=== PATIENT | female | born 1935 | race Caucasian/White ===

== ENCOUNTER 2019-01-26 16:46 | Observation (INO) | payer MEDICARE ==
[2019-01-26] MEDS ORDERED: MORPHINE SULFATE 4 MG/ML SYRINGE IV STA (17:08)
[2019-01-26] MEDS ORDERED: SODIUM CHLORIDE 0.9% 1,000 ML IV STA (17:08)
[2019-01-26] MEDS ORDERED: SODIUM CHLORIDE 0.9% 500 ML 500 ML IV STA (17:08)
--- NOTE | 2019-01-26 17:42 | ED ---
Back Pain HPI - General Chief Complaint: Back Pain/Injury Stated Complaint: back pain Time Seen by Provider: 01/26/19 16:55 Source: patient, RN notes reviewed, old records reviewed Limitations: no limitations - History of Present Illness Initial Comments: This is an 83-year-old female the ER for evaluation presents today for evaluation regards to back pain severe back pain severe right sided back pain. Back pain that is been increased to the point of inability and late. She was diagnosed with S sign joint tendinitis. Patient was given injection about 5 days ago with no improvement. She is he began head is increasing back pain yesterday she was able to manually today on able to ambulate. No movement with her legs she is able to lift her legs from the bed without difficulty. She can sit up without difficulty MD Complaint: back pain -: days(s) Similar Symptoms Previously: Yes Place: home Radiation: buttocks Severity: severe Severity scale (1-10): 8 Quality: aching Consistency: constant Improves With: immobilization Worsens With: none Context: turning/twisting Associated Symptoms: difficulty walking - Related Data Home Medications Medication Instructions Recorded Confirmed Atorvastatin [Lipitor] 20 mg PO HS@2100 06/23/15 01/26/19 NIFEdipine [NIFEdipine ER 30 mg PO DAILY@1700 06/23/15 01/26/19 (Osmotic)] Sertraline [Zoloft] 200 mg PO DAILY@0900 06/23/15 01/26/19 hydrALAZINE HCL [Apresoline] 50 mg PO TID@0900,1700,2100 06/23/15 01/26/19 Losartan Potassium [Cozaar] 100 mg PO DAILY@0900 06/24/15 01/26/19 Metoprolol Tartrate [Lopressor] 100 mg PO BID@0900,1700 06/24/15 01/26/19 ALPRAZolam 0.5 mg PO BID@1700,2100 10/09/15 01/26/19 Cholecalciferol [Vitamin D3 (25 1,000 unit PO DAILY@1700 01/26/19 01/26/19 Mcg = 1000 Iu)] Cranberry Fruit Extract [Cranberry] 500 mg PO HS@2100 01/26/19 01/26/19 Ezetimibe [Zetia] 10 mg PO DAILY@1700 01/26/19 01/26/19 Allergies Allergy/AdvReac Type Severity Reaction Status Date / Time levofloxacin [From Levaquin] Allergy Rash/Hives Verified 01/26/19 17:43 Penicillins Allergy Rash/Hives Verified 01/26/19 17:43 Sulfa (Sulfonamide Allergy Rash/Hives Verified 01/26/19 17:43 Antibiotics) Review of Systems ROS Statement: Those systems with pertinent positive or pertinent negative responses have been documented in the HPI. ROS Other: All systems not noted in ROS Statement are negative. 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 , NIDDM type II, spinal stenosis, leaky bladder, bilateral hand tremors, vertigo, RAMPART bilaterally, eczema, bronchitis, sinus problems, hiatal hernia Last Myocardial Infarction Date:: 1998 History of Any Multi-Drug Resistant Organisms: None Reported Past Surgical History: Cholecystectomy, Heart Catheterization With Stent Past Anesthesia/Blood Transfusion Reactions: No Reported Reaction Date of Last Stent Placement:: 2009 Past Psychological History: Anxiety, Depression Smoking Status: Former smoker Past Alcohol Use History: None Reported Past Drug Use History: None Reported - Past Family History Mother Family Medical History: Cancer Additional Family Medical History / Comment(s): Mother had breast cancer with mets-she at age 71 yrs. Father Family Medical History: Cancer Additional Family Medical History / Comment(s): Father had esophageal cancer and in his 70's. General Exam Limitations: no limitations General appearance: alert, in no apparent distress Head exam: Present: atraumatic, normocephalic, normal inspection Eye exam: Present: normal appearance, PERRL, EOMI. Absent: scleral icterus, conjunctival injection, periorbital swelling ENT exam: Present: normal exam, mucous membranes moist Neck exam: Present: normal inspection. Absent: tenderness, meningismus, lymphadenopathy Respiratory exam: Present: normal lung sounds bilaterally. Absent: respiratory distress, wheezes, rales, rhonchi, stridor Cardiovascular Exam: Present: regular rate, normal rhythm, normal heart sounds. Absent: systolic murmur, diastolic murmur, rubs, gallop, clicks GI/Abdominal exam: Present: soft, normal bowel sounds. Absent: distended, tenderness, guarding, rebound, rigid Extremities exam: Present: normal inspection, full ROM, normal capillary refill. Absent: tenderness, pedal edema, joint swelling, calf tenderness Back exam: Present: normal inspection Neurological exam: Present: alert, oriented X3, CN II-XII intact Psychiatric exam: Present: normal affect, normal mood Skin exam: Present: warm, dry, intact, normal color. Absent: rash Course Vital Signs 01/26/19 01/26/19 01/26/19 16:48 18:05 19:21 Temperature 98.6 F Pulse Rate 61 56 L 57 L Respiratory 18 18 18 Rate Blood Pressure 196/74 195/71 184/66 O2 Sat by Pulse 95 96 96 Oximetry 01/26/19 19:57 Temperature Pulse Rate 53 L Respiratory 18 Rate Blood Pressure 173/62 O2 Sat by Pulse 95 Oximetry - Reevaluation(s) Reevaluation #1: 01/26/19 17:46 Medical records reviewed Reevaluation #2: 01/26/19 20:08 Patient is unable to ambulate or sit up on here in the ER secondary to pain Reevaluation #3: 01/26/19 20:08 The family did also patient is able to go home she is unsafe to be at home has not Out Of Bed in 2 Days Medical Decision Making - Medical Decision Making 83 female coming in the ER for evasive severe back pain back pain is controlled but Get worse again and we'll give repeat in medications. Patient does have urinary tract infection does have severe we increasing pain severe debility and inability to ambulate. We'll admit for occupational therapy and antibiotics - Lab Data Result diagrams: 01/26/19 17:45 01/26/19 17:45 Lab Results 01/26/19 01/26/19 01/26/19 Range/Units 17:45 17:45 17:45 WBC 5.7 (3.8-10.6) k/uL RBC 3.37 L (3.80-5.40) m/uL Hgb 11.1 L (11.4-16.0) gm/dL Hct 32.6 L (34.0-46.0) % MCV 96.9 (80.0-100.0) fL MCH 33.1 (25.0-35.0) pg MCHC 34.1 (31.0-37.0) g/dL RDW 13.6 (11.5-15.5) % Plt Count 188 (150-450) k/uL Neutrophils % 73 % Lymphocytes % 17 % Monocytes % 5 % Eosinophils % 2 % Basophils % 1 % Neutrophils # 4.2 (1.3-7.7) k/uL Lymphocytes # 1.0 (1.0-4.8) k/uL Monocytes # 0.3 (0-1.0) k/uL Eosinophils # 0.1 (0-0.7) k/uL Basophils # 0.0 (0-0.2) k/uL PT (9.0-12.0) sec INR (<1.2) APTT (22.0-30.0) sec Sodium 139 (137-145) mmol/L Potassium 4.8 (3.5-5.1) mmol/L Chloride 113 H (98-107) mmol/L Carbon Dioxide 20 L (22-30) mmol/L Anion Gap 6 mmol/L BUN 25 H (7-17) mg/dL Creatinine 1.07 H (0.52-1.04) mg/dL Est GFR (CKD-EPI)AfAm 55 (>60 ml/min/1.73 sqM) Est GFR (CKD-EPI)NonAf 48 (>60 ml/min/1.73 sqM) Glucose 101 H (74-99) mg/dL Plasma Lactic Acid Jesse 0.5 L (0.7-2.0) mmol/L Calcium 8.9 (8.4-10.2) mg/dL Phosphorus 3.6 (2.5-4.5) mg/dL Magnesium 2.0 (1.6-2.3) mg/dL Total Bilirubin 0.8 (0.2-1.3) mg/dL AST 42 H (14-36) U/L ALT 37 (9-52) U/L Alkaline Phosphatase 47 (38-126) U/L Creatine Kinase 25 L (30-135) U/L Troponin I (0.000-0.034) ng/mL Total Protein 6.7 (6.3-8.2) g/dL Albumin 3.6 (3.5-5.0) g/dL Urine Color Urine Appearance (Clear) Urine pH (5.0-8.0) Ur Specific [place] (1.001-1.035) Urine Protein (Negative) Urine Glucose (UA) (Negative) Urine Ketones (Negative) Urine Blood (Negative) Urine Nitrite (Negative) Urine Bilirubin (Negative) Urine Urobilinogen (<2.0) mg/dL Ur Leukocyte Esterase (Negative) Urine RBC (0-5) /hpf Urine WBC (0-5) /hpf Ur Squamous Epith Cells (0-4) /hpf Amorphous Sediment (None) /hpf Urine Bacteria (None) /hpf Urine Mucus (None) /hpf 01/26/19 01/26/19 01/26/19 Range/Units 17:45 17:45 19:15 WBC (3.8-10.6) k/uL RBC (3.80-5.40) m/uL Hgb (11.4-16.0) gm/dL Hct (34.0-46.0) % MCV (80.0-100.0) fL MCH (25.0-35.0) pg MCHC (31.0-37.0) g/dL RDW (11.5-15.5) % Plt Count (150-450) k/uL Neutrophils % % Lymphocytes % % Monocytes % % Eosinophils % % Basophils % % Neutrophils # (1.3-7.7) k/uL Lymphocytes # (1.0-4.8) k/uL Monocytes # (0-1.0) k/uL Eosinophils # (0-0.7) k/uL Basophils # (0-0.2) k/uL PT 10.0 (9.0-12.0) sec INR 0.9 (<1.2) APTT 23.6 (22.0-30.0) sec Sodium (137-145) mmol/L Potassium (3.5-5.1) mmol/L Chloride (98-107) mmol/L Carbon Dioxide (22-30) mmol/L Anion Gap mmol/L BUN (7-17) mg/dL Creatinine (0.52-1.04) mg/dL Est GFR (CKD-EPI)AfAm (>60 ml/min/1.73 sqM) Est GFR (CKD-EPI)NonAf (>60 ml/min/1.73 sqM) Glucose (74-99) mg/dL Plasma Lactic Acid Jesse (0.7-2.0) mmol/L Calcium (8.4-10.2) mg/dL Phosphorus (2.5-4.5) mg/dL Magnesium (1.6-2.3) mg/dL Total Bilirubin (0.2-1.3) mg/dL AST (14-36) U/L ALT (9-52) U/L Alkaline Phosphatase (38-126) U/L Creatine Kinase (30-135) U/L Troponin I <0.012 (0.000-0.034) ng/mL Total Protein (6.3-8.2) g/dL Albumin (3.5-5.0) g/dL Urine Color Light Yellow Urine Appearance Clear (Clear) Urine pH 5.5 (5.0-8.0) Ur Specific [place] 1.021 (1.001-1.035) Urine Protein 1+ H (Negative) Urine Glucose (UA) Negative (Negative) Urine Ketones Negative (Negative) Urine Blood Trace H (Negative) Urine Nitrite Negative (Negative) Urine Bilirubin Negative (Negative) Urine Urobilinogen <2.0 (<2.0) mg/dL Ur Leukocyte Esterase Small H (Negative) Urine RBC 16 H (0-5) /hpf Urine WBC 16 H (0-5) /hpf Ur Squamous Epith Cells 2 (0-4) /hpf Amorphous Sediment Rare H (None) /hpf Urine Bacteria Occasional H (None) /hpf Urine Mucus Rare H (None) /hpf - Radiology Data Radiology results: report reviewed (CT of the abdomen and Pelvis Negative for Acute Disease), image reviewed Disposition Clinical Impression: Sciatica, Mid back pain, UTI (urinary tract infection), Weak, Debility Disposition: ADMITTED IP TO THIS [facility] Condition: Fair Is patient prescribed a controlled substance at d/c from ED?: No Referrals: Arturo Zamarripa MD [Primary Care Provider] - 1-2 days
[2019-01-26] MEDS ORDERED: KETOROLAC 30 MG/ML 1 ML VIAL IVP STA (17:46)
[2019-01-26] MEDS ORDERED: DEXAMETHASONE SOD PHOSPHATE 10 MG/ML 1 ML VIAL IV STA (17:46)
[2019-01-26 17:56] LABS: Basophils % (A) 1 %; Eosinophils # (A) 0.1 k/uL (0-0.7); Eosinophils % (A) 2 %; HCT 32.6 % (34.0-46.0); HGB 11.1 gm/dL (11.4-16.0); Lymphocytes % (A) 17 %; MCH 33.1 pg (25.0-35.0); MCHC 34.1 g/dL (31.0-37.0); MCV 96.9 fL (80.0-100.0); Mean Platelet Volume 5.5; Monocytes # (A) 0.3 k/uL (0-1.0); Monocytes % (A) 5 %; Neutrophils # (A) 4.2 k/uL (1.3-7.7); Neutrophils % (A) 73 %; Platelet Count 188 k/uL (150-450); RBC 3.37 m/uL (3.80-5.40); RDW 13.6 % (11.5-15.5); WBC 5.7 k/uL (3.8-10.6)
[2019-01-26 18:07] LABS: Albumin 3.6 g/dL (3.5-5.0); Calcium 8.9 mg/dL (8.4-10.2); Phosphorus 3.6 mg/dL (2.5-4.5); Potassium 4.8 mmol/L (3.5-5.1); Total Bilirubin 0.8 mg/dL (0.2-1.3); Total Protein 6.7 g/dL (6.3-8.2)
[2019-01-26 18:19] LABS: INR 0.9 (<1.2); Partial Thromboplastin Time 23.6 sec (22.0-30.0)
[2019-01-26] MEDS ORDERED: hydrALAZINE HCL 20 MG/ML 1 ML VIAL IVP STA (19:13)
--- NOTE | 2019-01-26 19:18 | CT ---
EXAMINATION TYPE: CT abdomen pelvis w con DATE OF EXAM: 01/26/2019 COMPARISON: None HISTORY: low back pain CT DLP: 1172.2 mGycm Automated exposure control for dose reduction was used. TECHNIQUE: Helical acquisition of images was performed from the lung bases through the pelvis. CONTRAST: Performed without Oral Contrast and with IV Contrast, patient injected with 80 mL of Isovue 300. FINDINGS: Heart appears enlarged. Lung bases are clear. There is no pleural effusion. There are clips from cholecystectomy. Liver shows no focal defect. There is large common bile duct th at measures 15 mm. Intrahepatic bile ducts are not significantly dilated. Spleen appears normal. Ther e is no pancreatic mass. Stomach is intact. There is no adrenal mass. Kidneys show satisfactory contrast opacification. There is no hydronephrosi s. There are multiple renal cortical cysts that measure up to 1.7 cm. There is normal contrast excret ion on the delayed images. Abdominal aorta is atheromatous. There is no retroperitoneal adenopathy. U reters are not dilated. Bladder distends smoothly. There is some air in the urinary bladder that coul d relate to catheterization. There is retained fecal material in the rectum. There is no inguinal her lokesh. There are numerous diverticula in the sigmoid colon. There is no evidence of a pelvic mass. Appe ndix is not definitely seen. There is no sign of thickened appendix. Terminal ileum appears normal. There is no ascites. There is no free air. There is no mesenteric edema. There is no sign of a bowel obstruction. There is multilevel spondylotic changes in the lumbar spine. There is no compression fracture. Abdomi nal aorta is atheromatous. The bony pelvis appears intact. There is multilevel bony lumbar spinal fawad nosis due to calcified posterior disc herniation and facet arthropathy. Stenosis is more severe at L2 -3. IMPRESSION: THERE IS SIGMOID DIVERTICULOSIS WITHOUT DIVERTICULITIS. MILD CONSTIPATION. LUMBAR SPINAL STENOSIS. CARDIOMEGALY.
[2019-01-26 19:41] LABS: Amorphous Sediment,Urine Rare /hpf; Appearance,Urine Clear (Clear); Bacteria,Urine Occasional /hpf; Bilirubin,Urine Negative (Negative); Blood,Urine Trace (Negative); Color,Urine Light Yellow; Glucose,Urine (UA) Negative (Negative); Ketones,Urine Negative (Negative); Leukocyte Esterase,Urine Small (Negative); Mucus,Urine Rare /hpf; Nitrite,Urine Negative (Negative); PH, Urine 5.5 (5.0-8.0); Protein,Urine 1+ (Negative); RBC,Urine 16 /hpf (0-5); Specific Gravity,Urine 1.021 (1.001-1.035); Squamous Epithelial Cell,Urine 2 /hpf (0-4); Urobilinogen,Urine <2.0 mg/dL (<2.0); WBC,Urine 16 /hpf (0-5)
[2019-01-26] MEDS ORDERED: SODIUM CHLORIDE 0.9% 1,000 ML IV ONE (20:05)
[2019-01-26] MEDS ORDERED: MORPHINE SULFATE 4 MG/ML SYRINGE IVP STA (20:06)
[2019-01-26] MEDS ORDERED: ONDANSETRON 4 MG/2 ML VIAL IVP STA (20:06)
[2019-01-26] MEDS ORDERED: ONDANSETRON 4 MG/2 ML VIAL IVP PRN (20:06)
[2019-01-27] MEDS: hydrALAZINE HCL 50 MG TAB PO SCH ×4 (00:29→20:58)
[2019-01-27] MEDS: MORPHINE SULFATE 4 MG/ML SYRINGE IVP PRN ×2 (00:30→05:59)
[2019-01-27] MEDS: ATORVASTATIN 20 MG TAB PO SCH ×2 (00:30→20:58)
[2019-01-27] MEDS: ALPRAZolam 0.5 MG TAB PO PRN ×2 (00:30→21:04)
[2019-01-27] MEDS: LOSARTAN 50 MG TAB PO SCH (08:01)
[2019-01-27] MEDS: SERTRALINE 100 MG TAB PO SCH (08:01)
[2019-01-27] MEDS ORDERED: METOPROLOL TARTRATE 50 MG TAB PO SCH (09:00)
[2019-01-27] MEDS ORDERED: NAPROXEN 250 MG TAB PO STA (10:19)
[2019-01-27] MEDS: BACLOFEN 10 MG TAB PO SCH ×3 (11:00→20:57)
[2019-01-27] MEDS ORDERED: ACETAMINOPHEN TAB 325 MG TAB PO PRN (13:30)
[2019-01-27] MEDS: METOPROLOL TARTRATE 25 MG TAB PO SCH (16:55)
[2019-01-27] MEDS: NAPROXEN 250 MG TAB PO SCH ×2 (16:55→20:58)
[2019-01-27] MEDS ORDERED: NIFEdipine XL 30 MG TAB.ER.24 PO SCH (17:00)
[2019-01-27] MEDS ORDERED: CHOLECALCIFEROL 1,000 UNIT TAB PO SCH (17:00)
[2019-01-27] MEDS ORDERED: EZETIMIBE 10 MG TAB PO SCH (17:00)
--- NOTE | 2019-01-27 20:23 | P.HPIM ---
History of Present Illness H&P Date: 01/27/19 Chief Complaint: Increasing lower back pain History of presenting complaint: This is a pleasant 83-year-old patient of Dr. Arturo Zamarripa. Chronic stable medical conditions include coronary artery disease with stent, CHF EF not known, diabetes, GERD, hard of hearing, hyperlipidemia, hypertension, osteoarthritis. Patient in May 2015 had a stroke with no residual. Patient also got urinary incontinence, bilateral hand tremors and hiatal hernia. Patient is alert lower back pain for quite some time. Has been having. At the right sacroiliac joint. Did receive a steroid injection by Dr. Zamarripa about a week ago. Did feel better for about 2 days. Became much worse. The point she is finding it difficult to walk. No radiation. More so that the better with rest. No fever no chills. Decided to come in for the same. Review of systems: GEN.: Tired EYES: None HEENT: Decreased hearing NECK: None RESPIRATORY: None CARDIOVASCULAR: None GASTROINTESTINAL: Heartburn GENITOURINARY: Urinary incontinence MUSCULOSKELETAL: . Many joints LYMPHATICS: None HEMATOLOGICAL: None PSYCHIATRY: A bit forgetful NEUROLOGICAL: Uses a walker Social history: Does use a walker. Lives with her son and grandson. Smoked for 20 years and stopped in 1965 Physical examination: VITAL SIGNS: 98.6, 61, 18, 1 95 x 74, 95% room air GENERAL: BMI 31.1, laying in bed not in distress. EYES: Pupils equal. Conjunctiva normal. HEENT: External appearance of nose and ears normal, oral cavity grossly normal decreased hearing. NECK: JVD not raised; masses not palpable. HEART: First and second heart sounds are normal; no edema. LUNGS: Respiratory rate normal; clear to auscultation. ABDOMEN: Soft, nontender, liver spleen not palpable, no masses palpable. PSYCH: Alert and oriented x3; mood and affect normal. NEUROLOGICAL: Cranial nerves grossly intact; no facial asymmetry, power and sensation grossly intact. LYMPHATICS: No lymph nodes palpable in the axilla and neck MUSCULOSKELETAL: Evidence of significant OA especially in the hands, some tenderness of the right SI joint. INVESTIGATIONS, reviewed in the clinical context: White count 5.7 hemoglobin 11.1 potassium 4.8. 25 crit 1.07 Computed tomography scan of the abdomen and pelvis shows some arthritic changes in the joints and sigmoid diverticulosis. Also showing lumbar spinal stenosis Assessment: -Increasing arthritis with pain at the right sacroiliac joint with patient did receive a steroid injection about a week ago. -Sigmoid diverticula also asymptomatic -Chronic lumbar spinal stenosis -Coronary artery disease with prior history of stent -Chronic congestive heart failure EF not known -This mellitus type II -Heart rate 50 -GERD -Hyperlipidemia -Essential hypertension -Primary osteoarthritis -Chronic urinary incontinence -Hiatal hernia -Anxiety depression otherwise specified -Chronic gait dysfunction uses a walker Plan: -[facility] were [facility]. Patient also getting muscle spasms at the affected side.. The patient naproxen 25 mg 3 times a day and baclofen as an antispasmodic. Also ordered K pad for local heat.. Other home medications resumed. Care was discussed with the patient. Questions were answered. 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 She uses a walker to ambulate. She no longer drives-family takes her to appts. She had [facility] after her CVA for PT/OT/speech therapy but no longer needs their services. Smoking Status: Former smoker Past Alcohol Use History: None Reported Additional Past Alcohol Use History / Comment(s): Pt states she started smoking at age 10 (1946) and quit in 1966. Past Drug Use History: None Reported - Past Family History Mother Family Medical History: Cancer Additional Family Medical History / Comment(s): Mother had breast cancer with mets-she at age 71 yrs. Father Family Medical History: Cancer Additional Family Medical History / Comment(s): Father had esophageal cancer and in his 70's. Medications and Allergies Home Medications Medication Instructions Recorded Confirmed Type Atorvastatin [Lipitor] 20 mg PO HS@2100 06/23/15 01/26/19 History NIFEdipine [NIFEdipine ER 30 mg PO DAILY@1700 06/23/15 01/26/19 History (Osmotic)] Sertraline [Zoloft] 200 mg PO DAILY@0900 06/23/15 01/26/19 History hydrALAZINE HCL [Apresoline] 50 mg PO TID@0900,1700,2100 06/23/15 01/26/19 History Losartan Potassium [Cozaar] 100 mg PO DAILY@0900 06/24/15 01/26/19 History Metoprolol Tartrate [Lopressor] 100 mg PO BID@0900,1700 06/24/15 01/26/19 History ALPRAZolam 0.5 mg PO BID@1700,2100 10/09/15 01/26/19 History Cholecalciferol [Vitamin D3 (25 1,000 unit PO DAILY@1700 01/26/19 01/26/19 History Mcg = 1000 Iu)] Cranberry Fruit Extract [Cranberry] 500 mg PO HS@2100 01/26/19 01/26/19 History Ezetimibe [Zetia] 10 mg PO DAILY@1700 01/26/19 01/26/19 History Allergies Allergy/AdvReac Type Severity Reaction Status Date / Time levofloxacin [From Levaquin] Allergy Rash/Hives Verified 01/26/19 17:43 Penicillins Allergy Rash/Hives Verified 01/26/19 17:43 Sulfa (Sulfonamide Allergy Rash/Hives Verified 01/26/19 17:43 Antibiotics) Physical Exam Vitals: Vital Signs Temp Pulse Pulse Resp BP BP Pulse Ox 01/27/19 07:55 98.1 F 53 L 16 178/79 94 L 01/27/19 05:00 97.3 F L 51 L 18 132/67 92 L 01/26/19 21:03 97.8 F 55 L 18 164/94 95 01/26/19 21:00 97.8 F 61 18 170/76 92 L 01/26/19 19:57 53 L 18 173/62 95 01/26/19 19:21 57 L 18 184/66 96 01/26/19 18:05 56 L 18 195/71 96 01/26/19 16:48 98.6 F 61 18 196/74 95 Intake and Output 01/26/19 01/27/19 01/27/19 22:59 06:59 14:59 Intake Total 500 200 Balance 500 200 Intake: Oral 500 200 Other: Voiding Method Bedpan Bedpan Diaper # Voids 3 Weight 170 kg Results CBC & Chem 7: 01/26/19 17:45 01/26/19 17:45 Labs: Abnormal Lab Results - Last 24 Hours (Table) 01/26/19 01/26/19 01/26/19 Range/Units 17:45 17:45 17:45 RBC 3.37 L (3.80-5.40) m/uL Hgb 11.1 L (11.4-16.0) gm/dL Hct 32.6 L (34.0-46.0) % Chloride 113 H (98-107) mmol/L Carbon Dioxide 20 L (22-30) mmol/L BUN 25 H (7-17) mg/dL Creatinine 1.07 H (0.52-1.04) mg/dL Glucose 101 H (74-99) mg/dL Plasma Lactic Acid Jesse 0.5 L (0.7-2.0) mmol/L AST 42 H (14-36) U/L Creatine Kinase 25 L (30-135) U/L Urine Protein (Negative) Urine Blood (Negative) Ur Leukocyte Esterase (Negative) Urine RBC (0-5) /hpf Urine WBC (0-5) /hpf Amorphous Sediment (None) /hpf Urine Bacteria (None) /hpf Urine Mucus (None) /hpf 01/26/19 Range/Units 19:15 RBC (3.80-5.40) m/uL Hgb (11.4-16.0) gm/dL Hct (34.0-46.0) % Chloride (98-107) mmol/L Carbon Dioxide (22-30) mmol/L BUN (7-17) mg/dL Creatinine (0.52-1.04) mg/dL Glucose (74-99) mg/dL Plasma Lactic Acid Jesse (0.7-2.0) mmol/L AST (14-36) U/L Creatine Kinase (30-135) U/L Urine Protein 1+ H (Negative) Urine Blood Trace H (Negative) Ur Leukocyte Esterase Small H (Negative) Urine RBC 16 H (0-5) /hpf Urine WBC 16 H (0-5) /hpf Amorphous Sediment Rare H (None) /hpf Urine Bacteria Occasional H (None) /hpf Urine Mucus Rare H (None) /hpf Microbiology - Last 24 Hours (Table) 01/26/19 19:15 Urine Culture - Preliminary Urine,Voided Thrombosis Risk Factor Assmnt - Choose All That Apply Any of the Below Risk Factors Present?: Yes Each Factor Represents 1 point: Abnormal pulmonary function (COPD), Obesity (BMI >25) Other Risk Factors: Yes Each Risk Factor Represents 3 Points: Age 75 years or older Other congenital or acquired thrombophilia - If yes, enter type in comment: No Thrombosis Risk Factor Assessment Total Risk Factor Score: 5 Thrombosis Risk Factor Assessment Level: High Risk
[2019-01-27] MEDS: LACTATED RINGERS 1,000 ML IV SCH (20:59)
[2019-01-27] MEDS: ENOXAPARIN 40 MG/0.4 ML SYRINGE SQ SCH (20:59)
[2019-01-27] MEDS ORDERED: NON FORMULARY DRUG (Cranberry Fruit Extract [Cranberry] 500 MG) PO SCH (21:00)
[2019-01-28] MEDS: LACTATED RINGERS 1,000 ML IV SCH (05:25)
[2019-01-28] MEDS: ENOXAPARIN 40 MG/0.4 ML SYRINGE SQ SCH (08:15)
[2019-01-28] MEDS: hydrALAZINE HCL 50 MG TAB PO SCH (08:16)
[2019-01-28] MEDS: BACLOFEN 10 MG TAB PO SCH (08:16)
[2019-01-28] MEDS: LOSARTAN 50 MG TAB PO SCH (08:16)
[2019-01-28] MEDS: NAPROXEN 250 MG TAB PO SCH (08:16)
[2019-01-28] MEDS: METOPROLOL TARTRATE 25 MG TAB PO SCH (08:17)
[2019-01-28] MEDS: SERTRALINE 100 MG TAB PO SCH (08:17)
[2019-01-28 08:24] LABS: Calcium 8.5 mg/dL (8.4-10.2); Potassium 4.5 mmol/L (3.5-5.1)
[2019-01-28] MEDS ORDERED: traMADol-ACETAMINOP 37.5-325MG 1 EACH TAB PO PRN (12:34)
--- NOTE | 2019-01-28 12:47 | P.DS ---
Providers Date of admission: 01/26/19 20:05 Expected date of discharge: 01/28/19 Attending physician: Jeffrey Rossi Consults: 01/27/19 10:18 Consult Physician Routine Consulting Provider: Giovanna Marte Consult Reason/Comments: worsening back pain Do you want consulting provider notified?: Yes Primary care physician: [facility] Course: Hospital course: This is a pleasant 83-year-old patient of Dr. Arturo Zamarripa. Chronic stable medical conditions include coronary artery disease with stent, CHF EF not known, diabetes, GERD, hard of hearing, hyperlipidemia, hypertension, osteoarthritis. Patient in May 2015 had a stroke with no residual. Patient also got urinary incontinence, bilateral hand tremors and hiatal hernia. Patient has had lower back pain for quite some time. Has been having. Pain at the right sacroiliac joint. Did receive a steroid injection by Dr. Zamarripa about a week ago. Did feel better for about 2 days. Became much worse. At this point she she is finding it difficult to walk. No radiation. More so that the better with rest. No fever no chills. Decided to come in for the same. Patient was started on NSAIDs and baclofen. Feeling Much better. Because creatinine started to go up naproxen was discontinued. Review short burst of steroids. Today-discussed with the patient. She wanted to go home as opposed to rehab bec ause she has a puppy at home. States she has good family support. Later she does agree to go to rehab. Does discuss with the social insurance administrator. Discussion and discharge planning more than 35 minutes Physical examination: VITAL SIGNS: 97.6, 56, 1 5439, 96% on room air GENERAL: Sitting up in a chair. Comfortable. EYES: Pupils equal. Conjunctiva normal. HEENT: External appearance of nose and ears normal, oral cavity grossly normal decreased hearing. NECK: JVD not raised; masses not palpable. HEART: First and second heart sounds are normal; no edema. LUNGS: Respiratory rate normal; clear to auscultation. ABDOMEN: Soft, nontender, liver spleen not palpable, no masses palpable. PSYCH: Alert and oriented x3; mood and affect normal. NEUROLOGICAL: Cranial nerves grossly intact; no facial asymmetry, power and sensation grossly intact. MUSCULOSKELETAL: Evidence of significant OA especially in the hands, some tenderness of the right SI joint. INVESTIGATIONS, reviewed in the clinical context: Bun 28 creatinine 1.29 Prior testing White count 5.7 hemoglobin 11.1 potassium 4.8. 25 crit 1.07 Computed tomography scan of the abdomen and pelvis shows some arthritic changes in the joints and sigmoid diverticulosis. Also showing lumbar spinal stenosis Discharge diagnoses: -Increasing osteoarthritis with pain at the right sacroiliac joint with patient did receive a steroid injection about a week ago. -Sigmoid diverticula-asymptomatic -Chronic lumbar spinal stenosis -Coronary artery disease with prior history of stent -Chronic congestive heart failure EF not known -This mellitus type II -Heart rate 50 -GERD -Hyperlipidemia -Essential hypertension -Primary osteoarthritis -Chronic urinary incontinence -Hiatal hernia -Anxiety depression otherwise specified -Chronic gait dysfunction uses a walker -Chronic kidney disease stage III probably from nephrosclerosis [facility] Condition at Discharge: Stable Plan - Discharge Summary Discharge Rx Participant: No New Discharge Prescriptions: New Baclofen 5 mg PO TID #1 tablet Cephalexin [Keflex] 250 mg PO Q6HR #12 cap Metoprolol Tartrate [Lopressor] 25 mg PO BID@0900,1700 tab traMADol HCL [Ultram] 50 mg PO Q6HR PRN 3 Days #12 tab PRN Reason: Pain ALPRAZolam [Xanax] 0.5 mg PO BID PRN #6 tab PRN Reason: Anxiety Continue Sertraline [Zoloft] 200 mg PO DAILY@0900 NIFEdipine [NIFEdipine ER (Osmotic)] 30 mg PO DAILY@1700 hydrALAZINE HCL [Apresoline] 50 mg PO TID@0900,1700,2100 Atorvastatin [Lipitor] 20 mg PO HS@2100 Losartan Potassium [Cozaar] 100 mg PO DAILY@0900 Cholecalciferol [Vitamin D3 (25 Mcg = 1000 Iu)] 1,000 unit PO DAILY@1700 Cranberry Fruit Extract [Cranberry] 500 mg PO HS@2100 Ezetimibe [Zetia] 10 mg PO DAILY@1700 Discontinued Metoprolol Tartrate [Lopressor] 100 mg PO BID@0900,1700 ALPRAZolam 0.5 mg PO BID@1700,2100 Discharge Medication List Atorvastatin [Lipitor] 20 mg PO HS@2100 06/23/15 [History] NIFEdipine [NIFEdipine ER (Osmotic)] 30 mg PO DAILY@1700 06/23/15 [History] Sertraline [Zoloft] 200 mg PO DAILY@0906/23/15 [History] hydrALAZINE HCL [Apresoline] 50 mg PO TID@0900,1700,209906/23/15 [History] Losartan Potassium [Cozaar] 100 mg PO DAILY@0900 06/24/15 [History] Cholecalciferol [Vitamin D3 (25 Mcg = 1000 Iu)] 1,000 unit PO DAILY@169901/26/19 [History] Cranberry Fruit Extract [Cranberry] 500 mg PO HS@209901/26/19 [History] Ezetimibe [Zetia] 10 mg PO DAILY@169901/26/19 [History] ALPRAZolam [Xanax] 0.5 mg PO BID PRN #6 tab 01/28/19 [Rx] Baclofen 5 mg PO TID #1 tablet 01/28/19 [Rx] Cephalexin [Keflex] 250 mg PO Q6HR #12 cap 01/28/19 [Rx] Metoprolol Tartrate [Lopressor] 25 mg PO BID@0900,1700 tab 01/28/19 [Rx] traMADol HCL [Ultram] 50 mg PO Q6HR PRN 3 Days #12 tab 01/28/19 [Rx] Follow up Appointment(s)/Referral(s): [facility], [NON-STAFF] - Arturo Zamarripa MD [Primary Care Provider] - As Needed Activity/Diet/Wound Care/Special Instructions: start talking form being done
--- NOTE | 2019-01-28 12:59 | P.CNOR ---
History of Present Illness - [facility] Consult date: 01/28/19 Requesting physician: Jeffrey Rossi Consult reason: low back pain, other (Right sacroiliac joint pain) History of present illness: Patient is a very pleasant 83-year-old female who is seen and examined the bedside for further evaluation for intractable right-sided low back pain. Patient states her pain started approximately 1 week ago without injury. Her pain is controlled at rest. She does have difficulty with ambulation due to her pain. She states her pain stays in the lower lumbar spine. She denies any lower extremity weakness or radiculopathy bilaterally. She is moving her legs freely without any significant difficulty. She was seen by her primary care provider in outpatient setting and was diagnosed with right sacroiliac joint inflammation. She states she was given an injection at her right sacroiliac joint which did improve her symptoms for a couple days. She states given her age she does not wish to discuss any possibility of surgical intervention. She would like to maximize all conservative treatment options. She did have a CT the abdomen and pelvis performed which showed significant degenerative changes at her lumbar spine. She has not been seen and examined by pain management. She states she would be willing to have further consultation and evaluation with pain management. She is eating and voiding without any difficulty. Patient d oes have a medical history which includes coronary artery disease, heart failure, diabetes mellitus, hyperlipidemia, hypertension, and myocardial infarction. Past Medical History Past Medical History: Coronary Artery Disease (CAD), Chest Pain / Angina, Heart Failure, CVA/TIA, Diabetes Mellitus, Eye Disorder, GERD/Reflux, Hearing Disorder / Deafness, Hyperlipidemia, Hypertension, Myocardial Infarction (VT), Osteoarthritis (OA), Skin Disorder Additional Past Medical History / Comment(s): CVA May 2015 with no residu al, NIDDM type II, spinal stenosis, leaky bladder, bilateral hand tremors, vertigo, [place] bilaterally, eczema, bronchitis, sinus problems, hiatal hernia Last Myocardial Infarction Date:: 1998 History of Any Multi-Drug Resistant Organisms: None Reported Past Surgical History: Cholecystectomy, Heart Catheterization With Stent Past Anesthesia/Blood Transfusion Reactions: No Reported Reaction Date of Last Stent Placement:: 2009 Past Psychological History: Anxiety, Depression Additional Psychological History / Comment(s): Pt resides with grandson and son. She uses a walker to ambulate. She no longer drives-family takes her to appts. She had [facility] after her CVA for PT/OT/speech therapy but no longer needs their services. Smoking Status: Former smoker Past Alcohol Use History: None Reported Additional Past Alcohol Use History / Comment(s): Pt states she started smoking at age 10 (1946) and quit in 1965. Past Drug Use History: None Reported - Past Family History Mother Family Medical History: Cancer Additional Family Medical History / Comment(s): Mother had breast cancer with mets-she at age 71 yrs. Father Family Medical History: Cancer Additional Family Medical History / Comment(s): Father had esophageal cancer and in his 70's. Medications and Allergies Home Medications Medication Instructions Recorded Confirmed Type Atorvastatin [Lipitor] 20 mg PO HS@2100 06/23/15 01/26/19 History NIFEdipine [NIFEdipine ER 30 mg PO DAILY@1700 06/23/15 01/26/19 History (Osmotic)] Sertraline [Zoloft] 200 mg PO DAILY@0900 06/23/15 01/26/19 History Losartan Potassium [Cozaar] 100 mg PO DAILY@0900 06/24/15 01/26/19 History Cholecalciferol [Vitamin D3 (25 1,000 unit PO DAILY@1700 01/26/19 01/26/19 Hi story Mcg = 1000 Iu)] Cranberry Fruit Extract [Cranberry] 500 mg PO HS@2100 01/26/19 01/26/19 History Ezetimibe [Zetia] 10 mg PO DAILY@1700 01/26/19 01/26/19 History ALPRAZolam [Xanax] 0.5 mg PO BID PRN #6 tab 01/28/19 Rx Baclofen 5 mg PO TID #1 tablet 01/28/19 Rx Cephalexin [Keflex] 250 mg PO Q6HR #12 cap 01/28/19 Rx Metoprolol Tartrate [Lopressor] 25 mg PO BID@0900,1700 tab 01/28/19 Rx hydrALAZINE HCL [Apresoline] 100 mg PO TID@0900,1700,2100 #0 01/28/19 01/26/19 Rx traMADol HCL [Ultram] 50 mg PO Q6HR PRN 3 Days #12 tab 01/28/19 Rx Allergies Allergy/AdvReac Type Severity Reaction Status Date / Time levofloxacin [From Levaquin] Allergy Rash/Hives Verified 01/26/19 17:43 Penicillins Allergy Rash/Hives Verified 01/26/19 17:43 Sulfa (Sulfonamide Allergy Rash/Hives Verified 01/26/19 17:43 Antibiotics) Physical Examination Physical exam: Patient is awake, alert, and oriented 3 Vital signs stable Good chest excursion with deep inspiration and expiration Examination of lumbar spine reveals skin is intact with no abrasions, lacerations, or bruises; no erythema, purulence or signs of infection No significant pain on palpation over the lower lumbar spine or sacroiliac joints Dorsiflexion, plantarflexion, and extensor hallucis longus positive sustained bilaterally Lower extremity strength 5/5 bilaterally Patellar reflex 1+ bilaterally and Achilles reflexes 1+ bilaterally No lower extremity hyperreflexia bilaterally Straight leg test negative bilateral lower extremities Negative Lasegue's test bilaterally No signs or symptoms of DVT; no calf pain No pain with internal and external rotation of the hips bilaterally Neurovascularly intact Results Pertinent studies: CT of the abdomen and pelvis taken on 01/26/2019 reason for orthopedic purposes: L2-3 retrolisthesis, facet arthropathy, and significant posterior osteophytic spurring resulting in significant spinal canal stenosis; L3-4 significant posterior posterior osteophytic spurring and facet arthropathy resulting spinal canal stenosis; L4-5 significant degenerative disc disease, facet arthropathy, and posterior osteophytic spurring spinal canal stenosis; no evidence of vertebral body compression fracture; bony pelvis appears intact - Labs Labs: Abnormal Lab Results - Last 24 Hours (Table) 01/28/19 Range/Units 07:04 Chloride 112 H (98-107) mmol/L Carbon Dioxide 21 L (22-30) mmol/L BUN 28 H (7-17) mg/dL Creatinine 1.29 H (0.52-1.04) mg/dL Microbiology - Last 24 Hours (Table) 01/26/19 19:15 Urine Culture - Preliminary Urine,Voided Gram Neg Bacilli H & H 01/26/19 Range/Units 17:45 Hgb 11.1 L (11.4-16.0) gm/dL Hct 32.6 L (34.0-46.0) % Coagulation 01/26/19 Range/Units 17:45 INR 0.9 (<1.2) Result Diagrams: 01/26/19 17:45 01/28/19 07:04 Assessment and Plan Assessment: Assessment: Intractable low back pain Right sacroiliac joint pain L2-3 retrolisthesis Lumbar facet arthropathy L2-3 significant spinal canal stenosis L3-4 and L4-5 spinal canal stenosis History of coronary artery disease, heart failure, diabetes mellitus, hyperlipidemia, hypertension, and myocardial infarction (1) Intractable low back pain Current Visit: Yes Status: Acute Code(s): M54.5 - LOW BACK PAIN SNOMED Code(s): 78966236339957757 (2) Sacroiliac joint pain Current Visit: Yes Status: Acute Code(s): M53.3 - SACROCOCCYGEAL DISORDERS, NOT ELSEWHERE CLASSIFIED SNOMED Code(s): 114257378 (3) Retrolisthesis of vertebrae Current Visit: Yes Status: Acute Code(s): M43.10 - SPONDYLOLISTHESIS, SITE UNSPECIFIED SNOMED Code(s): 363371240 (4) Lumbar facet arthropathy Current Visit: Yes Status: Acute Code(s): M47.816 - SPONDYLOSIS W/O MYELOPATHY OR RADICULOPATHY, LUMBAR REGION SNOMED Code(s): 470860961 (5) Degenerative lumbar spinal stenosis Current Visit: Yes Status: Acute Code(s): M48.061 - SPINAL STENOSIS, LUMBAR REGION WITHOUT NEUROGENIC JAMAAL SNOMED Code(s): 407439456 (6) History of coronary artery disease Current Visit: Yes Status: Acute Code(s): Z86.79 - PERSONAL HISTORY OF OTHER DISEASES OF THE CIRCULATORY SYSTEM SNOMED Code(s): 905328449 (7) History of heart failure Current Visit: Yes Status: Acute Code(s): Z86.79 - PERSONAL HISTORY OF OTHER DISEASES OF THE CIRCULATORY SYSTEM SNOMED Code(s): 315967213 (8) History of diabetes mellitus Current Visit: Yes Status: Acute Code(s): Z86.39 - PERSONAL HISTORY OF ENDO, NUTRITIONAL AND METABOLIC DISEASE SNOMED Code(s): 408710382 (9) History of hyperlipidemia Current Visit: Yes Status: Acute Code(s): Z86.39 - PERSONAL HISTORY OF ENDO, NUTRITIONAL AND METABOLIC DISEASE SNOMED Code(s): 517159220 (10) History of hypertension Current Visit: Yes Status: Acute Code(s): Z86.79 - PERSONAL HISTORY OF OTHER DISEASES OF THE CIRCULATORY SYSTEM SNOMED Code(s): 267464538 (11) History of myocardial infarction Current Visit: Yes Status: Acute Code(s): I25.2 - OLD MYOCARDIAL INFARCTION SNOMED Code(s): 962271700 Plan: Plan: 1. After reviewing of imaging, further discussion with the patient, and physical examination the patient, we will continue conservative treatment at this time. She does have significant degenerative changes with multilevel lumbar spinal canal stenosis. Her most significant symptom is intractable low back pain which started approximately 1 week ago without injury. Reviewing of imaging does not show evidence of compression fracture deformity. She denies any lower extremity weakness or radiculopathy bilaterally. Patient states due to her age she does not wish to discuss any possibility of surgical intervention. She will be willing to work through other conservative treatment options. At this time we'll plan to consult pain management for further evaluation discuss possible treatment options. Patient will be cleared for discharge from an orthopedic spine standpoint. We will plan to have her follow up in the outpatient setting on as-needed basis. She may continue to ambulate and participate in activities of daily living to tolerance. 2. Consultation has been placed with pain management 3. Patient will continue to be seen and examined by medicine Time with Patient: Greater than 30 (Including obtaining history, physical examination, reviewing of imaging, and dictation.)
[2019-01-28] MEDS ORDERED: CEPHALEXIN 250 MG CAP PO SCH (13:00)
[2019-01-28] MEDS ORDERED: hydrALAZINE HCL 50 MG TAB PO SCH (14:00)
[2019-01-28 14:29] VITALS: BP 174/71; PULSE 52; RESP 16; TEMP 98
[2019-01-29] MEDS ORDERED: ENOXAPARIN 30 MG/0.3 ML SYRINGE SQ SCH (09:00)
== END 2019-01-28 14:59 ==
LOC: EC 16:46 → 4MS4W 20:05
PROVIDERS: ADMIT Hospitalist; ATTEND Hospitalist
DX: M47.818 Spondylosis without myelopathy or radiculopathy, sacral and sacrococcygeal region (principal); M47.816 Spondylosis without myelopathy or radiculopathy, lumbar region; M48.061 Spinal stenosis, lumbar region without neurogenic claudication; M43.16 Spondylolisthesis, lumbar region; M51.36 Other intervertebral disc degeneration, lumbar region; M53.3 Sacrococcygeal disorders, not elsewhere classified; K57.30 Diverticulosis of large intestine without perforation or abscess without bleeding; I25.10 Atherosclerotic heart disease of native coronary artery without angina pectoris; I13.0 Hypertensive heart and chronic kidney disease with heart failure and stage 1 through stage 4 chronic kidney disease, or unspecified chronic kidney disease; I50.9 Heart failure, unspecified; N18.3 Chronic kidney disease, stage 3 (moderate); E11.22 Type 2 diabetes mellitus with diabetic chronic kidney disease; K21.9 Gastro-esophageal reflux disease without esophagitis; E78.5 Hyperlipidemia, unspecified; R32 Unspecified urinary incontinence; K44.9 Diaphragmatic hernia without obstruction or gangrene; R26.2 Difficulty in walking, not elsewhere classified; H91.90 Unspecified hearing loss, unspecified ear; H57.9 Unspecified disorder of eye and adnexa; L30.9 Dermatitis, unspecified; R25.1 Tremor, unspecified; N39.0 Urinary tract infection, site not specified; R53.81 Other malaise; K59.00 Constipation, unspecified; M19.042 Primary osteoarthritis, left hand; M19.041 Primary osteoarthritis, right hand; E66.9 Obesity, unspecified; Z68.31 Body mass index [BMI] 31.0-31.9, adult; J44.9 Chronic obstructive pulmonary disease, unspecified; F32.9 Major depressive disorder, single episode, unspecified; F41.9 Anxiety disorder, unspecified; Z79.899 Other long term (current) drug therapy; Z88.0 Allergy status to penicillin; Z88.1 Allergy status to other antibiotic agents; Z88.2 Allergy status to sulfonamides; Z86.73 Personal history of transient ischemic attack (TIA), and cerebral infarction without residual deficits; I25.2 Old myocardial infarction; Z90.49 Acquired absence of other specified parts of digestive tract; Z95.5 Presence of coronary angioplasty implant and graft; Z87.891 Personal history of nicotine dependence; Z80.3 Family history of malignant neoplasm of breast; Z80.0 Family history of malignant neoplasm of digestive organs
CPT/HCPCS: 96376; 96361 ×2; 96366 ×3; 96372 ×2; 96365; 96375; 99285; 36415; 93005; 97116; 97530; 97162; 97535 ×2; 97166; 80053; 80048; 82550; 83605; 83735; 84100; 84484; 85025; 85610; 85730; 81001; 87086; 87077; 87186; 74177; G0378 ×3; J2270 ×2; J1100; J0696 ×3; J1650 ×2; J1885; Q9967

== ENCOUNTER 2020-01-18 01:53 | Observation (INO) | payer MEDICARE ==
[2020-01-18] MEDS ORDERED: IPRATROPIUM-ALBUTEROL 3 ML NEB INHALATION STA (02:06)
--- NOTE | 2020-01-18 02:06 | ED ---
SOB HPI - General Chief Complaint: Shortness of Breath Stated Complaint: SOB Time Seen by Provider: 01/18/20 02:05 Source: patient, family, RN notes reviewed, old records reviewed Mode of arrival: ambulatory Limitations: no limitations - History of Present Illness Initial Comments: This is a 4 show female DF for evaluation patient presents today for evaluation regards to shortness of breath and cough possible recent aspiration. History of heart disease admits to history of lower extremity edema. No chest pain and denies any other pain. Patient currently down flat without shortness of breath especially with exertion significant shortness of breath. No fevers no cough or congestion no known significant sick contacts. Recent hospitalization about a year ago MD Complaint: shortness of breath, cough -: days(s) (2) Severity: mild Severity scale (1-10): 3 Quality: dull Consistency: constant Improves With: nothing Known History Of: congestive heart failure Context: recent URI, choking/aspiration Associated Symptoms: cough Treatments Prior to Arrival: none - Related Data Home Medications Medication Instructions Recorded Confirmed Atorvastatin [Lipitor] 20 mg PO HS@2100 06/23/15 01/26/19 NIFEdipine [NIFEdipine ER 30 mg PO DAILY@1700 06/23/15 01/26/19 (Osmotic)] Sertraline [Zoloft] 200 mg PO DAILY@0900 06/23/15 01/26/19 Losartan Potassium [Cozaar] 100 mg PO DAILY@0900 06/24/15 01/26/19 Cholecalciferol [Vitamin D3 (25 1,000 unit PO DAILY@1700 01/26/19 01/26/19 Mcg = 1000 Iu)] Cranberry Fruit Extract [Cranberry] 500 mg PO HS@2100 01/26/19 01/26/19 Ezetimibe [Zetia] 10 mg PO DAILY@1700 01/26/19 01/26/19 Previous Rx's Medication Instructions Recorded ALPRAZolam [Xanax] 0.5 mg PO BID PRN #6 tab 01/28/19 Baclofen 5 mg PO TID #1 tablet 01/28/19 Cephalexin [Keflex] 250 mg PO Q6HR #12 cap 01/28/19 Metoprolol Tartrate [Lopressor] 25 mg PO BID@0900,1700 tab 01/28/19 hydrALAZINE HCL [Apresoline] 100 mg PO TID@0900,1700,2100 #0 01/28/19 traMADol HCL [Ultram] 50 mg PO Q6HR PRN 3 Days #12 tab 01/28/19 Allergies Allergy/AdvReac Type Severity Reaction Status Date / Time levofloxacin [From Levaquin] Allergy Rash/Hives Verified 01/18/20 02:00 Penicillins Allergy Rash/Hives Verified 01/18/20 02:00 Sulfa (Sulfonamide Allergy Rash/Hives Verified 01/18/20 02:00 Antibiotics) Review of Systems ROS Statement: Those systems with pertinent positive or pertinent negative responses have been documented in the HPI. ROS Other: All systems not noted in ROS Statement are negative. Past Medical History Past Medical History: Coronary Artery Disease (CAD), Chest Pain / Angina, Heart Failure, CVA/TIA, Diabetes Mellitus, Eye Disorder, GERD/Reflux, Hearing Disorder / Deafness, Hyperlipidemia, Hypertension, Myocardial Infarction (VT), Osteoarthritis (OA), Skin Disorder Additional Past Medical History / Comment(s): 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, NIDDM type II, spinal stenosis, leaky bladder, bilateral hand tremors, vertigo, [place] bilaterally, eczema, bronchitis, sinus problems, hiatal hernia Last Myocardial Infarction Date:: 1998 History of Any Multi-Drug Resistant Organisms: None Reported Past Surgical History: Cholecystectomy, Heart Catheterization With Stent Past Anesthesia/Blood Transfusion Reactions: No Reported Reaction Date of Last Stent Placement:: 2009 Past Psychological History: Anxiety, Depression Smoking Status: Former smoker Past Alcohol Use History: None Reported Past Drug Use History: None Reported - Past Family History Mother Family Medical History: Cancer Additional Family Medical History / Comment(s): Mother had breast cancer with mets-she at age 71 yrs. Father Family Medical History: Cancer Additional Family Medical History / Comment(s): Father had esophageal cancer and in his 70's. General Exam Limitations: no limitations General appearance: alert, in no apparent distress, anxious Head exam: Present: atraumatic, normocephalic, normal inspection Eye exam: Present: normal appearance, PERRL, EOMI. Absent: scleral icterus, conjunctival injection, periorbital swelling ENT exam: Present: normal exam, mucous membranes moist Neck exam: Present: normal inspection. Absent: tenderness, meningismus, lymphadenopathy Respiratory exam: Present: normal lung sounds bilaterally, rhonchi, decreased breath sounds. Absent: respiratory distress, wheezes, rales, stridor Cardiovascular Exam: Present: tachycardia, irregular rhythm, normal heart sounds. Absent: systolic murmur, diastolic murmur, rubs, gallop, clicks GI/Abdominal exam: Present: soft, normal bowel sounds. Absent: distended, tenderness, guarding, rebound, rigid Extremities exam: Present: normal inspection, full ROM, normal capillary refill. Absent: tenderness, pedal edema, joint swelling, calf tenderness Back exam: Present: normal inspection Neurological exam: Present: alert, oriented X3, CN II-XII intact Psychiatric exam: Present: normal affect, normal mood Skin exam: Present: warm, dry, intact, normal color. Absent: rash Course Vital Signs 01/18/20 01/18/20 01/18/20 01:58 02:08 02:56 Temperature 98.2 F Pulse Rate 105 H 94 Respiratory 20 24 Rate Blood Pressure 128/75 O2 Sat by Pulse 94 L Oximetry 01/18/20 01/18/20 03:00 03:08 Temperature Pulse Rate 106 H 94 Respiratory 20 Rate Blood Pressure 111/55 O2 Sat by Pulse 96 Oximetry - Reevaluation(s) Reevaluation #1: 01/18/20 04:14 Medical records reviewed Reevaluation #2: 01/18/20 04:14 Patient is in no acute distress currently Reevaluation #3: 01/18/20 04:14 Patient has good heart rate control, still short of breath but it is improved Medical Decision Making - Medical Decision Making 84 female to the ER with heart rate increasing and decreasing at home, some shortness of breath especially with exertion she has an atrial fibrillation unsure if this is new or old but rate is controlled. Does have CHF will admit for cardiology to observe - Lab Data Result diagrams: 01/18/20 02:24 01/18/20 02:24 Lab Results 01/18/20 01/18/20 01/18/20 Range/Units 02:24 02:24 02:24 WBC 10.4 (3.8-10.6) k/uL RBC 3.27 L (3.80-5.40) m/uL Hgb 10.2 L (11.4-16.0) gm/dL Hct 31.2 L (34.0-46.0) % MCV 95.4 (80.0-100.0) fL MCH 31.2 (25.0-35.0) pg MCHC 32.7 (31.0-37.0) g/dL RDW 13.9 (11.5-15.5) % Plt Count 278 (150-450) k/uL Neutrophils % 79 % Lymphocytes % 12 % Monocytes % 4 % Eosinophils % 3 % Basophils % 1 % Neutrophils # 8.2 H (1.3-7.7) k/uL Lymphocytes # 1.3 (1.0-4.8) k/uL Monocytes # 0.4 (0-1.0) k/uL Eosinophils # 0.3 (0-0.7) k/uL Basophils # 0.1 (0-0.2) k/uL Hypochromasia Slight PT 10.0 (9.0-12.0) sec INR 1.0 (<1.2) APTT 25.0 (22.0-30.0) sec Sodium 135 L (137-145) mmol/L Potassium 5.0 (3.5-5.1) mmol/L Chloride 106 (98-107) mmol/L Carbon Dioxide 18 L (22-30) mmol/L Anion Gap 11 mmol/L BUN 45 H (7-17) mg/dL Creatinine 1.39 H (0.52-1.04) mg/dL Est GFR (CKD-EPI)AfAm 40 (>60 ml/min/1.73 sqM) Est GFR (CKD-EPI)NonAf 34 (>60 ml/min/1.73 sqM) Glucose 136 H (74-99) mg/dL Plasma Lactic Acid Jesse (0.7-2.0) mmol/L Calcium 9.1 (8.4-10.2) mg/dL Magnesium 2.3 (1.6-2.3) mg/dL Total Bilirubin 0.6 (0.2-1.3) mg/dL AST 81 H (14-36) U/L ALT 55 H (4-34) U/L Alkaline Phosphatase 103 (38-126) U/L Creatine Kinase <20 L (30-135) U/L Total Protein 7.0 (6.3-8.2) g/dL Albumin 3.5 (3.5-5.0) g/dL 01/18/20 Range/Units 02:24 WBC (3.8-10.6) k/uL RBC (3.80-5.40) m/uL Hgb (11.4-16.0) gm/dL Hct (34.0-46.0) % MCV (80.0-100.0) fL MCH (25.0-35.0) pg MCHC (31.0-37.0) g/dL RDW (11.5-15.5) % Plt Count (150-450) k/uL Neutrophils % % Lymphocytes % % Monocytes % % Eosinophils % % Basophils % % Neutrophils # (1.3-7.7) k/uL Lymphocytes # (1.0-4.8) k/uL Monocytes # (0-1.0) k/uL Eosinophils # (0-0.7) k/uL Basophils # (0-0.2) k/uL Hypochromasia PT (9.0-12.0) sec INR (<1.2) APTT (22.0-30.0) sec Sodium (137-145) mmol/L Potassium (3.5-5.1) mmol/L Chloride (98-107) mmol/L Carbon Dioxide (22-30) mmol/L Anion Gap mmol/L BUN (7-17) mg/dL Creatinine (0.52-1.04) mg/dL Est GFR (CKD-EPI)AfAm (>60 ml/min/1.73 sqM) Est GFR (CKD-EPI)NonAf (>60 ml/min/1.73 sqM) Glucose (74-99) mg/dL Plasma Lactic Acid Jesse 0.9 (0.7-2.0) mmol/L Calcium (8.4-10.2) mg/dL Magnesium (1.6-2.3) mg/dL Total Bilirubin (0.2-1.3) mg/dL AST (14-36) U/L ALT (4-34) U/L Alkaline Phosphatase (38-126) U/L Creatine Kinase (30-135) U/L Total Protein (6.3-8.2) g/dL Albumin (3.5-5.0) g/dL - EKG Data -: EKG Interpreted by Me (EKG is atrial fibrillation of 91, RI 94 QRS for 447) - Radiology Data Radiology results: report reviewed (Chest x-ray does show CHF), image reviewed Disposition Clinical Impression: Congestive heart failure, CLIFF (acute kidney injury), Atrial fibrillation Disposition: ADMITTED IP TO THIS HOSP Condition: Fair Is patient prescribed a controlled substance at d/c from ED?: No Referrals: Arturo Zamarripa MD [Primary Care Provider] - 1-2 days
--- NOTE | 2020-01-18 03:14 | XR ---
EXAM: XR Chest, 2 Views CLINICAL HISTORY: Difficulty breathing. TECHNIQUE: Frontal and lateral views of the chest. COMPARISON: No relevant prior studies available. FINDINGS: Lungs: Pulmonary vascular congestion with mild diffuse pulmonary edema. Atelectasis in the left lung base. Pleural space: Small left pleural effusion. Heart: Cardiomegaly. Mediastinum: Unremarkable. Bones/joints: Unremarkable. No acute abnormalities. IMPRESSION: Cardiomegaly with evidence of early CHF/fluid overload.
[2020-01-18 03:57] LABS: Basophils # (A) 0.1 k/uL (0-0.2); Basophils % (A) 1 %; Eosinophils # (A) 0.3 k/uL (0-0.7); Eosinophils % (A) 3 %; HCT 31.2 % (34.0-46.0); HGB 10.2 gm/dL (11.4-16.0); Hypochromasia Slight; Lymphocytes # (A) 1.3 k/uL (1.0-4.8); Lymphocytes % (A) 12 %; MCH 31.2 pg (25.0-35.0); MCHC 32.7 g/dL (31.0-37.0); MCV 95.4 fL (80.0-100.0); Monocytes # (A) 0.4 k/uL (0-1.0); Monocytes % (A) 4 %; Neutrophils # (A) 8.2 k/uL (1.3-7.7); Neutrophils % (A) 79 %; Platelet Count 278 k/uL (150-450); RBC 3.27 m/uL (3.80-5.40); RDW 13.9 % (11.5-15.5); WBC 10.4 k/uL (3.8-10.6)
[2020-01-18 04:06] LABS: ALT 55 U/L (4-34); AST 81 U/L (14-36); African American GFR (CKD) 40 (>60 ml/min/1.73 sqM); Albumin 3.5 g/dL (3.5-5.0); Alkaline Phosphatase 103 U/L (38-126); Anion Gap 11 mmol/L; Blood Urea Nitrogen 45 mg/dL (7-17); Calcium 9.1 mg/dL (8.4-10.2); Carbon Dioxide 18 mmol/L (22-30); Chloride 106 mmol/L (98-107); Creatine Kinase <20 U/L (30-135); Glucose 136 mg/dL (74-99); Magnesium 2.3 mg/dL (1.6-2.3); Non-African American GFR(CKD) 34 (>60 ml/min/1.73 sqM); Sodium 135 mmol/L (137-145); Total Bilirubin 0.6 mg/dL (0.2-1.3)
[2020-01-18] MEDS: FUROSEMIDE 10 MG/ML 4 ML VIAL IV SCH ×2 (04:46→16:49)
[2020-01-18] MEDS: ASPIRIN 81 MG PO SCH (09:24)
--- NOTE | 2020-01-18 09:26 | CONS ---
CONSULTATION Mrs. Rodrigues is an 84-year-old female with known history of coronary artery disease status post percutaneous revascularization, mild cardiomyopathy, hypertension, hyperlipidemia, who presented to the emergency room with symptoms of progressive dyspnea has been going on for over a week or so. She is limited in her physical activity because of back discomfort, spinal stenosis, as well as knee discomfort. Recently, she has been complaining of worsening dyspnea and because of that came into the emergency room and subsequently admitted. She was noted to be in atrial fibrillation which was not documented in the past and she is not quite sure if she had that. She has been followed in the past by Dr. VC Richardson, but has not seen him in a while. She had has no clear PND, orthopnea. She did not note any significant peripheral edema. She denies any dizziness or palpitation and she is unaware of the arrhythmia. Her past history is remarkable for prior myocardial infarction and stenting in [place], she thinks about 12-13 years ago. Her coronary risk factors are remarkable for hypertension, hyperlipidemia; she is nondiabetic, nonsmoker. MEDICATIONS: Lipitor 20 mg daily, hydralazine 100 mg 3 times a day, Zoloft, nifedipine 30 mg daily, metoprolol tartrate 25 mg twice a day, losartan 100 mg daily, Zetia once a day, Keflex, baclofen, and Xanax. REVIEW OF SYSTEMS: RESPIRATORY SYSTEM: She had dyspnea on exertion. No recent wheezing or cough. GI SYSTEM: No recent GI bleeding. No peptic ulcer disease. SYSTEM: No dysuria, hematuria. NERVOUS SYSTEM: She had a history of stroke and history of intracranial bleeding but did not require intervention. She has no history of seizure. PHYSICAL EXAMINATION: She is an 84-year-old female, alert, oriented, in no apparent distress. Blood pressure 124/60 with a heart rate in the 90s. HEAD: Normocephalic. EYES: Sclerae nonicteric. NECK: Good upstroke, no bruit, no jugular venous distention. LUNGS: A few crackles at the bases. HEART: Irregular, regular, S1, S2. No S3 with systolic murmur, ejection type. No diastolic murmur, no rub. ABDOMEN: Soft, nontender, positive bowel sounds, no organomegaly. EXTREMITIES: No edema, intact pulses. LAB DATA: Revealed BUN and creatinine 45 and 1.39. Potassium 5.0. Troponin less than 0.012. AST of 81, ALT of 55. NT proBNP of 4060. Hemoglobin of 10.2. EKG revealed an atrial fibrillation with evidence of inferior myocardial infarction and nonspecific ST-T wave changes. Chest x-ray is consistent with mild congestion. IMPRESSION: 1. Symptoms of progressive dyspnea with element of congestive heart failure. The status of her systolic function at this time is unknown. 2. History of coronary artery disease, a prior percutaneous revascularization. No evidence for acute coronary artery syndrome. 3. Atrial fibrillation, not diagnosed in the past. 4. History of hypertension. 5. Worsening renal function. 6. Hyperlipidemia. 7. Prior history of intracranial bleed. RECOMMENDATION: From the cardiac standpoint, I will obtain echocardiogram with Doppler. I will continue IV diuretic for 24 hours. I will continue on beta sanjeev but hold her hydralazine and losartan. Will obtain echocardiogram with Doppler. I would not initiate anticoagulation because of the history of intracranial bleed. Depending on her progress, further recommendation will be made. Thank you for this consult. Will follow with you. ASHISH / IJN: [id number] /
--- NOTE | 2020-01-18 09:40 | P.HPIM ---
History of Present Illness this is a pleasant 84 years old female with multiple medical problems as below.she is a patient of Dr. Zamarripa. Presents because of dyspnea few days duration with no chest pain or coughing. Patient denies abdominal pain, no dizziness, no change in mental status, no change in urine or bowel habits vitals are stable. CBC, INR, this metabolic panel were unremarkable except for mild anemia with hemoglobin 10.2 and creatinine 1.39, which is at baseline of 1.0-1.6troponin is negative less than 0.02, proBNP is elevated at 4060.chest x- ray:cardiomegaly with evidence of nearly CHF and fluid overload. EKG showing atrial fibrillation at 91 and patient has been evaluated by cardiologistrecommended to continue IV diuretics for 24 hours as well as beta sanjeev while holding losartan and hydralazine and check echocardiogram. No recommendation for anticoagulation for now in view of her history of intracranial bleed the emergency room she was started on Lasix 40 mg twice daily Review of Systems CONSTITUTIONAL: No fever, no malaise, no fatigue. HEENT: No recent visual problems or hearing problems. Denied any sore throat. CARDIOVASCULAR: No orthopnea, PND, no palpitations, no syncope. PULMONARY: no cough, no hemoptysis. GASTROINTESTINAL: No diarrhea, no nausea, no vomiting, no abdominal pain. Normoactive bowel sounds. NEUROLOGICAL: No headaches, no weakness, no numbness. HEMATOLOGICAL: Denies any bleeding or petechiae. GENITOURINARY: Denies any burning micturition, frequency, or urgency. MUSCULOSKELETAL/RHEUMATOLOGICAL: Denies any joint pain, swelling, or any muscle pain. ENDOCRINE: Denies any polyuria or polydipsia. 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, NIDDM type II, spinal stenosis, leaky bladder, bilateral hand tremors, vertigo, CRAIG bilaterally, eczema, bronchitis, sinus problems, hiatal hernia Last Myocardial Infarction Date:: 1998 History of Any Multi-Drug Resistant Organisms: None Reported Past Surgical History: Cholecystectomy, Heart Catheterization With Stent Additional Past Surgical History / Comment(s): pt htinks she has 4-5 cardiac stents Past Anesthesia/Blood Transfusion Reactions: No Reported Reaction Date of Last Stent Placement:: 2009 Past Psychological History: Anxiety, Depression Additional Psychological History / Comment(s): Pt resides with daughter. She uses a walker to ambulate. She no longer drives-family takes her to appts. Smoking Status: Former smoker Past Alcohol Use History: None Reported Additional Past Alcohol Use History / Comment(s): Pt states she started smoking at age 10 (1946) and quit in 1965. Past Drug Use History: None Reported - Past Family History Mother Family Medical History: Cancer Additional Family Medical History / Comment(s): Mother had breast cancer with mets-she at age 71 yrs. Father Family Medical History: Cancer Additional Family Medical History / Comment(s): Father had esophageal cancer and in his 70's. Medications and Allergies Home Medications Medication Instructions Recorded Confirmed Type Atorvastatin [Lipitor] 20 mg PO HS@2100 06/23/15 01/26/19 History NIFEdipine [NIFEdipine ER 30 mg PO DAILY@1700 06/23/15 01/26/19 History (Osmotic)] Sertraline [Zoloft] 200 mg PO DAILY@0900 06/23/15 01/26/19 History Losartan Potassium [Cozaar] 100 mg PO DAILY@0900 06/24/15 01/26/19 History Cholecalciferol [Vitamin D3 (25 1,000 unit PO DAILY@1700 01/26/19 01/26/19 History Mcg = 1000 Iu)] Cranberry Fruit Extract [Cranberry] 500 mg PO HS@2100 01/26/19 01/26/19 History Ezetimibe [Zetia] 10 mg PO DAILY@1700 01/26/19 01/26/19 History ALPRAZolam [Xanax] 0.5 mg PO BID PRN #6 tab 01/28/19 Rx Baclofen 5 mg PO TID #1 tablet 01/28/19 Rx Cephalexin [Keflex] 250 mg PO Q6HR #12 cap 01/28/19 Rx Metoprolol Tartrate [Lopressor] 25 mg PO BID@0900,1700 tab 01/28/19 Rx hydrALAZINE HCL [Apresoline] 100 mg PO TID@0900,1700,2100 #0 10/25/19 10/23/19 Rx traMADol HCL [Ultram] 50 mg PO Q6HR PRN 3 Days #12 tab 01/28/19 Rx Allergies Allergy/AdvReac Type Severity Reaction Status Date / Time levofloxacin [From Levaquin] Allergy Rash/Hives Verified 01/18/20 02:00 Penicillins Allergy Rash/Hives Verified 01/18/20 02:00 Sulfa (Sulfonamide Allergy Rash/Hives Verified 01/18/20 02:00 Antibiotics) Physical Exam Vitals: Vital Signs Temp Pulse Pulse Resp BP BP Pulse Ox 01/18/20 05:33 98 F 49 L 18 124/69 96 01/18/20 04:52 97.8 F 90 18 131/76 95 01/18/20 04:00 92 18 113/56 95 01/18/20 03:08 94 01/18/20 03:00 106 H 20 111/55 96 01/18/20 02:56 94 01/18/20 02:08 24 01/18/20 01:58 98.2 F 105 H 20 128/75 94 L Intake and Output 01/17/20 01/18/20 01/18/20 22:59 06:59 14:59 Other: # Voids 1 Weight 81.647 kg 81.647 kg GENERAL: The patient is alert and oriented x3, not in any acute distress. Well developed, well nourished. HEENT: Pupils are round and equally reacting to light. EOMI. No scleral icterus. No conjunctival pallor. Normocephalic, atraumatic. No pharyngeal erythema. No thyromegaly. CARDIOVASCULAR: S1 and S2 present. No murmurs, rubs, or gallops. -PULMONARY: Chest is clear to auscultation,bilateral basal crepitation ABDOMEN: Soft, nontender, nondistended, normoactive bowel sounds. No palpable organomegaly. MUSCULOSKELETAL: No joint swelling or deformity. EXTREMITIES: No cyanosis, clubbing, or pedal edema. NEUROLOGICAL: Gross neurological examination did not reveal any focal deficits. SKIN: No rashes. No petechiae Results CBC & Chem 7: 01/18/20 02:24 01/18/20 02:24 Labs: Abnormal Lab Results - Last 24 Hours (Table) 01/18/20 01/18/20 Range/Units 02:24 02:24 RBC 3.27 L (3.80-5.40) m/uL Hgb 10.2 L (11.4-16.0) gm/dL Hct 31.2 L (34.0-46.0) % Neutrophils # 8.2 H (1.3-7.7) k/uL Sodium 135 L (137-145) mmol/L Carbon Dioxide 18 L (22-30) mmol/L BUN 45 H (7-17) mg/dL Creatinine 1.39 H (0.52-1.04) mg/dL Glucose 136 H (74-99) mg/dL AST 81 H (14-36) U/L ALT 55 H (4-34) U/L Creatine Kinase <20 L (30-135) U/L Thrombosis Risk Factor Assmnt - Choose All That Apply Each Factor Represents 1 point: Acute [place], Obesity (BMI >25) Each Risk Factor Represents 3 Points: Age 75 years or older Other congenital or acquired thrombophilia - If yes, enter type in comment: No Thrombosis Risk Factor Assessment Total Risk Factor Score: 5 Thrombosis Risk Factor Assessment Level: High Risk Assessment and Plan Assessment: acute on chronic CHF, and nontender ejection fraction. chronic kidney disease, stage III. history of CVA Hypertension Hyperlipidemia Osteoarthritis GERD Diabetes mellitus History of coronary artery disease History of spinal stenosis Hiatal hernia History of anxiety and depression, not an active issue Plan: this is a pleasant 84 years old female who presents with CHF. Continue with IV Lasix and cardiology consult Labs and medication were reviewed.. Continue same treatment. Continue with symptomatic treatment. Resume home medication. Monitor lytes and vitals. DVT and GI prophylaxis. Further recommendations depends on the clinical course of the patient DVT prophylaxis: Subcutaneous heparin GI Prophylaxis: Pepcid PT/OT: Pending Prognosis is guarded
--- NOTE | 2020-01-18 10:52 | ECHOF ---
Referral Reason:chf MEASUREMENTS -------- HEIGHT: 157.5 cm WEIGHT: 81.7 kg BP: RVIDd: 3.2 cm (< 3.3) IVSd: 1.2 cm (0.6 - 1.1) LVIDd: 4.4 cm (3.9 - 5.3) LVPWd: 1.3 cm (0.6 - 1.1) IVSs: 1.5 cm LVIDs: 3.8 cm LVPWs: 1.2 cm LA Diam: 4.9 cm (2.7 - 3.8) LAESV Index (A-L): 40.81 ml/m Ao Diam: 2.8 cm (2.0 - 3.7) AV Cusp: 1.4 cm (1.5 - 2.6) LA Diam: 4.8 cm (2.7 - 3.8) MV EXCURSION: 19.089 mm (> 18.000) MV EF SLOPE: 101 mm/s (70 - 150) EPSS: 0.1 cm RAP: 5.00 mmHg RVSP: 42.90 mmHg FINDINGS -------- Resting bradycardia (HR<60bpm). This was a technically adequate study. The left ventricular size is normal. There is mild concentric left ventricular hypertrophy. Overa ll left ventricular systolic function is low-normal with, an EF between 50 - 55 %. Left ventricular fillimg pressure cannot be estimated due to Atrial fibrillation. The right ventricle is normal in size. LA is severely dilated >40 ml/m2 The right atrial size is normal. There is mild aortic valve sclerosis. Mild mitral annular calcification present. [id number] mitral regurgitation is present. Moderate tricuspid regurgitation present. There is mild pulmonary hypertension. The right ventric ular systolic pressure, as measured by Doppler, is 42.90mmHg. Trace/mild (physiologic) pulmonic regurgitation. The aortic root size is normal. There is a small, generalized pericardial effusion present. CONCLUSIONS -------- 1. There is mild concentric left ventricular hypertrophy. 2. Overall left ventricular systolic function is low-normal with, an EF between 50 - 55 %. 3. Left ventricular fillimg pressure cannot be estimated due to Atrial fibrillation. 4. LA is severely dilated >40 ml/m2 5. There is mild aortic valve sclerosis. 6. [id number] mitral regurgitation is present. 7. Moderate tricuspid regurgitation present. 8. There is mild pulmonary hypertension. 9. There is a small, generalized pericardial effusion present. [employer]: Veronica Gunn RDCS
[2020-01-18] MEDS: METOPROLOL TARTRATE 25 MG TAB PO SCH ×2 (11:19→23:46)
[2020-01-18] MEDS ORDERED: BACLOFEN 10 MG TAB PO PRN (12:04)
[2020-01-18] MEDS ORDERED: ALPRAZolam 0.5 MG TAB PO PRN (12:04)
[2020-01-18 14:44] VITALS: BMI 32.9
[2020-01-18] MEDS ORDERED: EZETIMIBE 10 MG TAB PO SCH (17:00)
[2020-01-18] MEDS ORDERED: ASCORBIC ACID 500 MG TAB PO SCH (17:00)
[2020-01-18] MEDS ORDERED: CHOLECALCIFEROL 1,000 UNIT TAB PO SCH (17:00)
[2020-01-18] MEDS ORDERED: ATORVASTATIN 20 MG TAB PO SCH (21:00)
[2020-01-19] MEDS: FUROSEMIDE 10 MG/ML 4 ML VIAL IV SCH (05:11)
[2020-01-19] MEDS: METOPROLOL TARTRATE 25 MG TAB PO SCH (08:25)
[2020-01-19] MEDS: ASPIRIN 81 MG PO SCH (08:25)
[2020-01-19 08:35] VITALS: BP 144/59; RESP 16; TEMP 97.7
[2020-01-19] MEDS ORDERED: SERTRALINE 100 MG TAB PO SCH (09:00)
--- NOTE | 2020-01-19 09:28 | P.PN ---
Subjective Progress Note Date: 01/19/20 This is a pleasant 84-year-old female with history of coronary artery disease and prior percutaneous revascularization, hypertension, mild cardiomyopathy, hyperlipidemia, who presented to the hospital with symptoms of progressively worsening dyspnea. Patient was also noted to be in atrial fibril lation which had not been documented in the past. This morning the patient is in a normal sinus rhythm. She is not a candidate for anticoagulation because of history of intracranial bleed in the past. She was initiated on IV Lasix. Seen and examined this morning and overall feeling significantly better. No weight documented this morning. Blood pressure 144/60 with a heart rate of 6097% on 3 L of oxygen. Labs have been ordered for this morning but are yet pending. We will discontinue the IV Lasix and change patient over to oral diuretics today. Echocardiogram with Doppler study was performed which revealed an ejection fraction of 50-55%, mild to moderate mitral regurgitation. Objective - Vital Signs Vital signs: Vital Signs Temp 97.7 F 01/19/20 08:23 Pulse 49 L 01/19/20 08:35 Resp 16 01/19/20 08:35 BP 144/59 01/19/20 08:23 Pulse Ox 97 01/19/20 08:23 Intake & Output 01/18/20 01/19/20 01/19/20 18:59 06:59 18:59 Intake Total 700 Output Total 700 Balance 700 -700 Weight 81.647 kg Intake: Oral 700 Output: Urine 700 Other: # Voids 1 400 # Bowel Movements 1 - Exam PHYSICAL EXAMINATION: GENERAL: 84 stroke female in no acute distress at the time of my examination HEENT: Head is atraumatic, normocephalic. Pupils equal, round. Sclera anicteric. Conjunctiva are clear. Mucous membranes of the mouth are moist. Neck is supple. There is no elevated jugular venous pressure. No carotid bruit is heard. HEART EXAMINATION: S1 and S2 systolic ejection murmur is heard CHEST EXAMINATION: Lungs are clear to auscultation and precussion. No chest wall tenderness is noted on palpation or with deep breathing. ABDOMEN: Soft, nontender. Bowel sounds are heard. No organomegaly noted. EXTREMITIES: 2+ peripheral pulses with no evidence of peripheral edema and no calf tenderness noted. NEUROLOGIC patient is awake, alert and oriented 3 . . - Labs CBC & Chem 7: 01/18/20 02:24 01/18/20 02:24 Assessment and Plan Plan: Assessment and plan #1 diastolic congestive heart failure acute on chronic #2 known history of coronary artery disease with prior percutaneous revascularization #3 paroxysmal atrial fibrillation, not a candidate for anticoagulation because of history of intracranial bleed #4 hypertension #5 hyperlipidemia #6 prior history of intracranial bleed Plan We will discontinue the IV Lasix and change patient over to oral diuretics today. Review her labs from this morning. Patient may be able to be discharged home later today from our perspective if cleared by primary. We will make her a follow-up appointment in the office post discharge. DNP note has been reviewed, I agree with a documented findings and plan of care. Patient was seen and examined.
[2020-01-19 09:34] LABS: Calcium 8.9 mg/dL (8.4-10.2); Potassium 4.3 mmol/L (3.5-5.1)
[2020-01-19 10:38] VITALS: PULSE 50
[2020-01-19] MEDS ORDERED: INFLUENZA VACCINE (6 MOS+) 60 MCG/0.5 ML SYRINGE IM ONE (15:32)
[2020-01-20] MEDS ORDERED: FUROSEMIDE 40 MG TAB PO SCH (09:00)
--- NOTE | 2020-01-22 05:41 | DS ---
DISCHARGE SUMMARY DATE OF ADMISSION: 01/18/2020 DATE OF DISCHARGE: 01/19/2020 FINAL DIAGNOSIS: 1. Acute on chronic congestive heart failure exacerbation from diastolic dysfunction. Ejection fraction 50-55%. 2. Moderate tricuspid regurgitation. 3. Persistent atrial fibrillation, rate uncontrolled. Not a candidate for anticoagulation because of intracranial bleed. 4. Coronary artery disease, prior history of stent. 5. Diabetes mellitus type 2. 6. Gastroesophageal reflux disease. 7. Hard of hearing. 8. Essential hypertension. 9. Hyperlipidemia. 10.Primary osteoarthritis. 11.Chronic urinary stress incontinence. 12.Chronic tremors. 13.Hiatal hernia. 14.Persistent atrial fibrillation, rate controlled. 15.Chronic kidney disease stage III from nephrosclerosis. CONSULTANTS: Dr. Razo from Cardiology. HOSPITAL COURSE: This patient presented with shortness of breath, found to be in CHF exacerbation. Given IV Lasix. The patient responded well. Doing better by the time of discharge. PHYSICAL EXAMINATION: On examination, afebrile, pulse 50, respirations 16, blood pressure 144/59, pulse ox 97% on 2 L. LUNGS: Fair air entry. CARDIOVASCULAR: Heart sounds irregular. INVESTIGATIONS: Potassium 4.31, BUN 46, creatinine 1.43. EKG, atrial fibrillation, rate controlled. 2D echo with EF 50-55%, moderate tricuspid regurgitation. DISCHARGE MEDICATIONS: Lipitor 20 mg at bedtime, Zoloft 200 mg p.o. daily, vitamin D3 1000 units p.o. daily, cranberry 500 mg p.o. q.h.s., Zetia 10 mg p.o. daily at 5:00 p.m., Xanax 0.5 mg p.o. b.i.d. p.r.n., Lopressor 25 mg p.o. b.i.d., hydralazine 100 mg p.o. t.i.d., vitamin C 500 mg p.o. daily 5:00 p.m., baclofen 5 mg p.o. t.i.d. p.r.n., aspirin 81 mg p.o. daily, Lasix 40 mg p.o. daily. DISCONTINUED MEDICATIONS: Nifedipine and Cozaar. DISCHARGE INSTRUCTIONS: Labs, BMP in 3 days. FOLLOWUP: Follow up with Dr. Razo in 1 week, Dr. Arturo Zamarripa in 2 Dr[address] Dandre medellin in 1 week. MMODL / IJN: [id number] /
== END 2020-01-19 16:12 | disposition home or self-care (01) ==
LOC: EC 01:53 → 3NCARDOBS 04:15
PROVIDERS: ADMIT Hospitalist; ATTEND Hospitalist
DX: I13.0 Hypertensive heart and chronic kidney disease with heart failure and stage 1 through stage 4 chronic kidney disease, or unspecified chronic kidney disease (principal); I50.33 Acute on chronic diastolic (congestive) heart failure; N18.3 Chronic kidney disease, stage 3 (moderate); N17.9 Acute kidney failure, unspecified; E11.22 Type 2 diabetes mellitus with diabetic chronic kidney disease; R25.1 Tremor, unspecified; L30.9 Dermatitis, unspecified; K21.9 Gastro-esophageal reflux disease without esophagitis; I25.10 Atherosclerotic heart disease of native coronary artery without angina pectoris; H91.90 Unspecified hearing loss, unspecified ear; E78.5 Hyperlipidemia, unspecified; H57.9 Unspecified disorder of eye and adnexa; F41.9 Anxiety disorder, unspecified; F32.9 Major depressive disorder, single episode, unspecified; M48.00 Spinal stenosis, site unspecified; K44.9 Diaphragmatic hernia without obstruction or gangrene; M19.91 Primary osteoarthritis, unspecified site; I48.19 Other persistent atrial fibrillation; I42.9 Cardiomyopathy, unspecified; D64.9 Anemia, unspecified; E66.9 Obesity, unspecified; Z68.32 Body mass index [BMI] 32.0-32.9, adult; I08.1 Rheumatic disorders of both mitral and tricuspid valves; N39.3 Stress incontinence (female) (male); Z79.899 Other long term (current) drug therapy; Z88.0 Allergy status to penicillin; Z88.1 Allergy status to other antibiotic agents; Z88.2 Allergy status to sulfonamides; Z86.73 Personal history of transient ischemic attack (TIA), and cerebral infarction without residual deficits; I25.2 Old myocardial infarction; Z90.49 Acquired absence of other specified parts of digestive tract; Z95.5 Presence of coronary angioplasty implant and graft; Z87.891 Personal history of nicotine dependence; Z80.3 Family history of malignant neoplasm of breast; Z80.0 Family history of malignant neoplasm of digestive organs
CPT/HCPCS: 93005 ×2; 96376 ×2; 96374; 99285; 36415; 94640; 93306; 97162; 97166; 83880; 80053; 80048; 84443; 82550; 83605; 83735; 84484; 85025; 85610; 85730; 71046; 90686; G0378 ×2; G0008; J1940 ×2

== ENCOUNTER 2020-06-10 15:00 | Emergency (ER) | payer MEDICARE ==
[2020-06-10 15:09] VITALS: TEMP 97.3
[2020-06-10] MEDS ORDERED: ONDANSETRON 4 MG/2 ML VIAL IVP STA (15:23)
[2020-06-10] MEDS ORDERED: SODIUM CHLORIDE 0.9% 1,000 ML IV STA (15:23)
--- NOTE | 2020-06-10 15:25 | ED ---
Nausea/Vomiting/Diarrhea HPI - General Chief complaint: Nausea/Vomiting/Diarrhea Stated complaint: vomiting Source: patient, EMS, RN notes reviewed Mode of arrival: EMS Limitations: no limitations - History of Present Illness Initial comments: Patient is an 84-year-old female that presents to emergency department complaining of one day of nausea with one bout of diarrhea this morning. She has that she woke up this morning feeling nauseous but no vomiting. She noted that she will not of diarrhea with no blood in it. She states that she is just feeling a little bit under the weather, and dehydrated. She denied any abdominal pain or pain. She did note that her daughter made oatmeal which she ate and was able to keep down. She was in no apparent distress or pain while sitting in bed during exam and interview. She denied any chest pain shortness of breath headache vomiting constipation fever fatigue chills. - Related Data Home Medications Medication Instructions Recorded Confirmed Atorvastatin [Lipitor] 20 mg PO HS@2100 06/23/15 06/10/20 Sertraline [Zoloft] 200 mg PO DAILY@0900 06/23/15 06/10/20 Ezetimibe [Zetia] 10 mg PO DAILY@1700 01/26/19 06/10/20 ALPRAZolam [Xanax] 0.5 mg PO BID@1700,2100 06/10/20 06/10/20 Previous Rx's Medication Instructions Recorded Metoprolol Tartrate [Lopressor] 25 mg PO BID@0900,1700 tab 01/28/19 hydrALAZINE HCL [Apresoline] 100 mg PO TID@0900,1700,2100 #0 01/28/19 Cephalexin [Keflex] 500 mg PO Q12HR #28 cap 06/10/20 Allergies Allergy/AdvReac Type Severity Reaction Status Date / Time levofloxacin [From Levaquin] Allergy Rash/Hives Verified 06/10/20 17:20 Penicillins Allergy Rash/Hives Verified 06/10/20 17:20 Sulfa (Sulfonamide Allergy Rash/Hives Verified 06/10/20 17:20 Antibiotics) Review of Systems ROS Statement: Those systems with pertinent positive or pertinent negative responses have been documented in the HPI. ROS Other: All systems not noted in ROS Statement are negative. 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, NIDDM type II, spinal stenosis, leaky bladder, bilateral hand tremors, vertigo, [place] bilaterally, eczema, bronchitis, sinus problems, hiatal hernia Last Myocardial Infarction Date:: 1998 History of Any Multi-Drug Resistant Organisms: None Reported Past Surgical History: Cholecystectomy, Heart Catheterization With Stent Additional Past Surgical History / Comment(s): pt htinks she has 4-5 cardiac stents Past Anesthesia/Blood Transfusion Reactions: No Reported Reaction Date of Last Stent Placement:: 2009 Past Psychological History: Anxiety, Depression Smoking Status: Former smoker Past Alcohol Use History: None Reported Past Drug Use History: None Reported - Past Family History Mother Family Medical History: Cancer Additional Family Medical History / Comment(s): Mother had breast cancer with mets-she at age 71 yrs. Father Family Medical History: Cancer Additional Family Medical History / Comment(s): Father had esophageal cancer and in his 70's. General Exam Limitations: no limitations General appearance: alert, in no apparent distress Head exam: Present: atraumatic, normocephalic, normal inspection Eye exam: Present: normal appearance, PERRL, EOMI. Absent: scleral icterus, conjunctival injection, periorbital swelling ENT exam: Present: normal exam, mucous membranes moist Neck exam: Present: normal inspection. Absent: tenderness, meningismus, lymphadenopathy Respiratory exam: Present: normal lung sounds bilaterally. Absent: respiratory distress, wheezes, rales, rhonchi, stridor Cardiovascular Exam: Present: regular rate, normal rhythm, normal heart sounds. Absent: systolic murmur, diastolic murmur, rubs, gallop, clicks GI/Abdominal exam: Present: soft, normal bowel sounds. Absent: distended, tenderness, guarding, rebound, rigid Extremities exam: Present: normal inspection, full ROM, normal capillary refill. Absent: tenderness, pedal edema, joint swelling, calf tenderness Neurological exam: Present: alert, oriented X3, CN II-XII intact Psychiatric exam: Present: normal affect, normal mood Skin exam: Present: warm, dry, intact, normal color. Absent: rash Course Vital Signs 06/10/20 15:04 Temperature 97.3 F L Pulse Rate 65 Respiratory 18 Rate Blood Pressure 132/70 O2 Sat by Pulse 95 Oximetry Medical Decision Making - Medical Decision Making 84 she'll female presenting to emergency department with nausea and one bout of diarrhea. Labs, 1 L of normal saline, 4 mg of Zofran ordered. Labs unremarkable urinalysis showed multiple white blood cells, she does have history of chronic UTI and follows up with urologist. Recent cultures from urology show sensitivity to Keflex, growth was Proteus Mirabella's and Klebsiella pneumonia Case discussed with Dr. West, was decided the patient could discharge home with follow-up to urologist. - Lab Data Result diagrams: 06/10/20 15:38 06/10/20 15:38 Lab Results 06/10/20 06/10/20 06/10/20 Range/Units 15:38 15:38 16:43 WBC 8.6 (3.8-10.6) k/uL RBC 3.58 L (3.80-5.40) m/uL Hgb 10.9 L (11.4-16.0) gm/dL Hct 33.4 L (34.0-46.0) % MCV 93.3 (80.0-100.0) fL MCH 30.5 (25.0-35.0) pg MCHC 32.7 (31.0-37.0) g/dL RDW 14.7 (11.5-15.5) % Plt Count 288 (150-450) k/uL MPV 6.5 Neutrophils % 87 % Lymphocytes % 8 % Monocytes % 3 % Eosinophils % 2 % Basophils % 1 % Neutrophils # 7.5 (1.3-7.7) k/uL Lymphocytes # 0.7 L (1.0-4.8) k/uL Monocytes # 0.2 (0-1.0) k/uL Eosinophils # 0.1 (0-0.7) k/uL Basophils # 0.0 (0-0.2) k/uL Sodium 138 (137-145) mmol/L Potassium 5.3 H (3.5-5.1) mmol/L Chloride 110 H (98-107) mmol/L Carbon Dioxide 19 L (22-30) mmol/L Anion Gap 9 mmol/L BUN 38 H (7-17) mg/dL Creatinine 1.21 H (0.52-1.04) mg/dL Est GFR (CKD-EPI)AfAm 47 (>60 ml/min/1.73 sqM) Est GFR (CKD-EPI)NonAf 41 (>60 ml/min/1.73 sqM) Glucose 169 H (74-99) mg/dL Calcium 9.1 (8.4-10.2) mg/dL Total Bilirubin 0.5 (0.2-1.3) mg/dL AST 79 H (14-36) U/L ALT 65 H (4-34) U/L Alkaline Phosphatase 58 (38-126) U/L Total Protein 7.3 (6.3-8.2) g/dL Albumin 4.0 (3.5-5.0) g/dL Urine Color Yellow Urine Appearance Cloudy H (Clear) Urine pH 7.5 (5.0-8.0) Ur Specific [place] 1.019 (1.001-1.035) Urine Protein 3+ H (Negative) Urine Glucose (UA) Negative (Negative) Urine Ketones Negative (Negative) Urine Blood Negative (Negative) Urine Nitrite Negative (Negative) Urine Bilirubin Negative (Negative) Urine Urobilinogen <2.0 (<2.0) mg/dL Ur Leukocyte Esterase Large H (Negative) Urine RBC 3 (0-5) /hpf Urine WBC 48 H (0-5) /hpf Urine WBC Clumps Many H (None) /hpf Ur Squamous Epith Cells 4 (0-4) /hpf Urine Bacteria Rare H (None) /hpf Hyaline Casts 8 H (0-2) /lpf Urine Mucus Occasional H (None) /hpf Disposition Clinical Impression: Chronic UTI, Dehydration, Nausea, Diarrhea Disposition: HOME SELF-CARE Condition: Stable Instructions (If sedation given, give patient instructions): Acute Diarrhea (ED), Acute Nausea and Vomiting (ED), Urinary Tract Infection in Women (ED) Additional Instructions: Please return to the Emergency Department if symptoms worsen or any other conc erns. Follow-up primary care in 2-4 days. Follow-up with urologist as soon as possible Take antibiotics as directed until complete. Increase oral fluid intake to prevent dehydration. Prescriptions: Cephalexin [Keflex] 500 mg PO Q12HR #28 cap Is patient prescribed a controlled substance at d/c from ED?: No Referrals: Arturo Zamarripa MD [Primary Care Provider] - 1-2 days Time of Disposition: 17:34
[2020-06-10 15:49] LABS: Basophils % (A) 1 %; Eosinophils # (A) 0.1 k/uL (0-0.7); Eosinophils % (A) 2 %; HCT 33.4 % (34.0-46.0); HGB 10.9 gm/dL (11.4-16.0); Lymphocytes # (A) 0.7 k/uL (1.0-4.8); Lymphocytes % (A) 8 %; MCH 30.5 pg (25.0-35.0); MCHC 32.7 g/dL (31.0-37.0); MCV 93.3 fL (80.0-100.0); Mean Platelet Volume 6.5; Monocytes # (A) 0.2 k/uL (0-1.0); Monocytes % (A) 3 %; Neutrophils # (A) 7.5 k/uL (1.3-7.7); Neutrophils % (A) 87 %; Platelet Count 288 k/uL (150-450); RBC 3.58 m/uL (3.80-5.40); RDW 14.7 % (11.5-15.5); WBC 8.6 k/uL (3.8-10.6)
[2020-06-10 16:02] LABS: Calcium 9.1 mg/dL (8.4-10.2); Potassium 5.3 mmol/L (3.5-5.1); Total Bilirubin 0.5 mg/dL (0.2-1.3); Total Protein 7.3 g/dL (6.3-8.2)
[2020-06-10 17:10] LABS: Appearance,Urine Cloudy (Clear); Bacteria,Urine Rare /hpf; Bilirubin,Urine Negative (Negative); Blood,Urine Negative (Negative); Color,Urine Yellow; Glucose,Urine (UA) Negative (Negative); Hyaline Casts,Urine 8 /lpf (0-2); Ketones,Urine Negative (Negative); Leukocyte Esterase,Urine Large (Negative); Mucus,Urine Occasional /hpf; Nitrite,Urine Negative (Negative); PH, Urine 7.5 (5.0-8.0); Protein,Urine 3+ (Negative); RBC,Urine 3 /hpf (0-5); Specific Gravity,Urine 1.019 (1.001-1.035); Squamous Epithelial Cell,Urine 4 /hpf (0-4); Urobilinogen,Urine <2.0 mg/dL (<2.0); WBC,Urine 48 /hpf (0-5)
[2020-06-10 17:57] VITALS: BP 141/72; PULSE 64; RESP 17
--- NOTE | 2020-06-10 18:54 | US ---
EXAMINATION TYPE: US kidneys/renal and bladder DATE OF EXAM: 06/10/2020 COMPARISON: None CLINICAL HISTORY: urologist order. No pain per patient. Frequent UTI's. EXAM MEASUREMENTS: Right Kidney: 8.1 x 3.6 x 4.0 cm Left Kidney: 7.6 x 3.8 x 3.4 cm The renal cortices are normal in echotexture and thickness. Right Kidney: Cystic lesions seen. Largest upper pole = 1.7 x 2.2 x 1.9 cm Left Kidney: Cystic lesions seen. Largest = upper pole 0.9 x 1.0 x 0.7 cm Bladder: Nondistended, limited visualization Bilateral Jets not seen There is no evidence for hydronephrosis at this point in time. No nephrolithiasis is seen. No tia s are identified. The urinary bladder is anechoic. Bilateral ureteral jets are seen. IMPRESSION: No significant abnormality seen. There are single small bilateral renal cysts.
== END 2020-06-10 20:15 | disposition home or self-care (01) ==
LOC: EC 15:00
DX: R19.7 Diarrhea, unspecified (principal); E86.0 Dehydration; N39.0 Urinary tract infection, site not specified; I25.10 Atherosclerotic heart disease of native coronary artery without angina pectoris; I25.2 Old myocardial infarction; I11.0 Hypertensive heart disease with heart failure; I50.9 Heart failure, unspecified; E11.9 Type 2 diabetes mellitus without complications; E78.5 Hyperlipidemia, unspecified; F41.9 Anxiety disorder, unspecified; F32.9 Major depressive disorder, single episode, unspecified; M19.90 Unspecified osteoarthritis, unspecified site; Z95.5 Presence of coronary angioplasty implant and graft; Z90.49 Acquired absence of other specified parts of digestive tract; Z86.73 Personal history of transient ischemic attack (TIA), and cerebral infarction without residual deficits; Z87.891 Personal history of nicotine dependence
CPT/HCPCS: 36415; 80053; 85025; 81001; 87086; 87077; 87186; 76770; 99284; 96374; 96361; J2405

== ENCOUNTER 2020-06-11 12:54 | Inpatient (IN) | payer MEDICARE ==
[2020-06-11] MEDS ORDERED: SODIUM CHLORIDE 0.9% 500 ML 500 ML IV STA (14:10)
[2020-06-11] MEDS ORDERED: SODIUM CHLORIDE 0.9% 1,000 ML IV STA (14:10)
[2020-06-11] MEDS ORDERED: ONDANSETRON 4 MG/2 ML VIAL IVP STA (14:10)
--- NOTE | 2020-06-11 14:41 | ED ---
Abdominal Pain HPI - General Chief Complaint: Abdominal Pain Stated Complaint: UTI Time Seen by Provider: 06/11/20 14:00 Source: patient, family Mode of arrival: wheelchair Limitations: no limitations - History of Present Illness Initial Comments: 84-year-old female presenting today for chief complaint of urinary tract infection sent by Dr. Fierro. Patient has had numerous recurrent urinary tract infections for the past 2 years. She is now currently working with Dr. Thomas in order to in control of the infections. For the past 4 days patient has been weak all over she the more forgetful and was found to have a urinary tract infection. They deny localized weakness facial droop sensation deficits speech changes or noticing any strokelike symptoms. Family denies noting any fever. They state she had outpatient ultrasound yesterday which revealed no stones were to obtain secondary to bilateral CVA tenderness. There was noted to cyst. When they were contacted by Dr. Fierro's office today they're told to come to the ER for IV antibiotics. It was mentioned at a urology appointment that they saw air in the bladder in 2019 and there is some concern for fistula? No stool from vagina noted or urine from rectum. Patient endorses some nausea, vomiting. Denies abdominal pain. Patient appears fatigued but is not lethargic on arrival. she is answering questions appropriately. - Related Data Home Medications Medication Instructions Recorded Confirmed Atorvastatin [Lipitor] 20 mg PO HS@2100 06/23/15 06/10/20 Sertraline [Zoloft] 200 mg PO DAILY@0900 06/23/15 06/10/20 Ezetimibe [Zetia] 10 mg PO DAILY@1700 01/26/19 06/10/20 ALPRAZolam [Xanax] 0.5 mg PO BID@1700,2100 06/10/20 06/10/20 Previous Rx's Medication Instructions Recorded Metoprolol Tartrate [Lopressor] 25 mg PO BID@0900,1700 tab 01/28/19 hydrALAZINE HCL [Apresoline] 100 mg PO TID@0900,1700,2100 #0 01/28/19 Cephalexin [Keflex] 500 mg PO Q12HR #28 cap 06/10/20 Allergies Allergy/AdvReac Type Severity Reaction Status Date / Time levofloxacin [From Levaquin] Allergy Rash/Hives Verified 06/11/20 13:21 Penicillins Allergy Rash/Hives Verified 06/11/20 13:21 Sulfa (Sulfonamide Allergy Rash/Hives Verified 06/11/20 13:21 Antibiotics) Review of Systems ROS Statement: Those systems with pertinent positive or pertinent negative responses have been documented in the HPI. ROS Other: All systems not noted in ROS Statement are negative. 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, NIDDM type II, spinal stenosis, leaky bladder, bilateral hand tremors, vertigo, [place] bilaterally, eczema, bronchitis, sinus problems, hiatal hernia Last Myocardial Infarction Date:: 1998 History of Any Multi-Drug Resistant Organisms: None Reported Past Surgical History: Cholecystectomy, Heart Catheterization With Stent Additional Past Surgical History / Comment(s): pt htinks she has 4-5 cardiac stents Past Anesthesia/Blood Transfusion Reactions: No Reported Reaction Date of Last Stent Placement:: 2009 Past Psychological History: Anxiety, Depression Smoking Status: Former smoker Past Alcohol Use History: None Reported Past Drug Use History: None Reported - Past Family History Mother Family Medical History: Cancer Additional Family Medical History / Comment(s): Mother had breast cancer with mets-she at age 71 yrs. Father Family Medical History: Cancer Additional Family Medical History / Comment(s): Father had esophageal cancer and in his 70's. General Exam - General Exam Comments Initial Comments: General: The patient is awake and alert, in no distress Eye: Pupils are equal, round and reactive to light, extra-ocular movements are intact. No nystagmus. There is normal conjunctiva bilaterally. No signs of icterus. Ears, nose, mouth and throat: There are moist mucous membranes and no oral lesions. Neck: The neck is supple, there is no tenderness or JVD. Cardiovascular: There is a regular rate and rhythm. No murmur, rub or gallop is appreciated. Respiratory: Lungs are clear to auscultation, respirations are non-labored, breath sounds are equal. No wheezes, stridor, rales, or rhonchi. Gastrointestinal: Soft, non-distended, non-tender abdomen without masses or org anomegaly noted. There is no rebound or guarding present. Musculoskeletal: Normal ROM, no tenderness. Strength 5/5. Sensation intact. Radial pulses equal bilaterally 2+. Neurological: A&O x 3. CN II-XII intact, There are no obvious motor or sensory deficits. Coordination appears grossly intact. Speech is normal. Skin: Skin is warm and dry and no rashes or lesions are noted. Psychiatric: Cooperative, appropriate mood & affect, normal judgment. Limitations: no limitations Course Vital Signs 06/11/20 06/11/20 06/11/20 13:17 15:07 15:50 Temperature 98.4 F Pulse Rate 69 65 Respiratory 18 18 18 Rate Blood Pressure 98/57 132/64 O2 Sat by Pulse 95 95 Oximetry Medical Decision Making - Medical Decision Making 84yo presenting for n/v possible UTI. US no stones yesterday. b/l back pain. abdomen soft nontender. Significant WBC in urine with clumps. Patient appears dry. Lips dry. Patient has bump in creatinine and BUN. patient will be hydrated, given IV abx and admitted for further monitoring. Pt abx were chosen based on most recent urine culture. Dr. Castellon is agreeable to care plan and admission. - Lab Data Result diagrams: 06/11/20 14:56 06/11/20 14:56 Lab Results 06/11/20 06/11/20 06/11/20 Range/Units 14:56 14:56 14:56 WBC 9.7 (3.8-10.6) k/uL RBC 3.29 L (3.80-5.40) m/uL Hgb 10.3 L (11.4-16.0) gm/dL Hct 30.8 L (34.0-46.0) % MCV 93.8 (80.0-100.0) fL MCH 31.2 (25.0-35.0) pg MCHC 33.2 (31.0-37.0) g/dL RDW 14.7 (11.5-15.5) % Plt Count 299 (150-450) k/uL MPV 6.7 Neutrophils % 81 % Lymphocytes % 11 % Monocytes % 5 % Eosinophils % 1 % Basophils % 0 % Neutrophils # 7.8 H (1.3-7.7) k/uL Lymphocytes # 1.1 (1.0-4.8) k/uL Monocytes # 0.5 (0-1.0) k/uL Eosinophils # 0.1 (0-0.7) k/uL Basophils # 0.0 (0-0.2) k/uL Sodium 134 L (137-145) mmol/L Potassium 5.4 H (3.5-5.1) mmol/L Chloride 107 (98-107) mmol/L Carbon Dioxide 14 L (22-30) mmol/L Anion Gap 13 mmol/L BUN 46 H (7-17) mg/dL Creatinine 1.64 H (0.52-1.04) mg/dL Est GFR (CKD-EPI)AfAm 32 (>60 ml/min/1.73 sqM) Est GFR (CKD-EPI)NonAf 28 (>60 ml/min/1.73 sqM) Glucose 141 H (74-99) mg/dL Plasma Lactic Acid Jesse 1.9 (0.7-2.0) mmol/L Calcium 9.3 (8.4-10.2) mg/dL Total Bilirubin 0.4 (0.2-1.3) mg/dL AST 189 H (14-36) U/L ALT 134 H (4-34) U/L Alkaline Phosphatase 63 (38-126) U/L Total Protein 7.1 (6.3-8.2) g/dL Albumin 4.0 (3.5-5.0) g/dL Lipase 28 (23-300) U/L Urine Color Urine Appearance (Clear) Urine pH (5.0-8.0) Ur Specific [place] (1.001-1.035) Urine Protein (Negative) Urine Glucose (UA) (Negative) Urine Ketones (Negative) Urine Blood (Negative) Urine Nitrite (Negative) Urine Bilirubin (Negative) Urine Urobilinogen (<2.0) mg/dL Ur Leukocyte Esterase (Negative) Urine RBC (0-5) /hpf Urine WBC (0-5) /hpf Urine WBC Clumps (None) /hpf Ur Squamous Epith Cells (0-4) /hpf Urine Bacteria (None) /hpf Hyaline Casts (0-2) /lpf Urine Mucus (None) /hpf Urine Yeast (Budding) (None) /hpf Coronavirus (PCR) (Not Detectd) 06/11/20 06/11/20 Range/Units 15:21 15:46 WBC (3.8-10.6) k/uL RBC (3.80-5.40) m/uL Hgb (11.4-16.0) gm/dL Hct (34.0-46.0) % MCV (80.0-100.0) fL MCH (25.0-35.0) pg MCHC (31.0-37.0) g/dL RDW (11.5-15.5) % Plt Count (150-450) k/uL MPV Neutrophils % % Lymphocytes % % Monocytes % % Eosinophils % % Basophils % % Neutrophils # (1.3-7.7) k/uL Lymphocytes # (1.0-4.8) k/uL Monocytes # (0-1.0) k/uL Eosinophils # (0-0.7) k/uL Basophils # (0-0.2) k/uL Sodium (137-145) mmol/L Potassium (3.5-5.1) mmol/L Chloride (98-107) mmol/L Carbon Dioxide (22-30) mmol/L Anion Gap mmol/L BUN (7-17) mg/dL Creatinine (0.52-1.04) mg/dL Est GFR (CKD-EPI)AfAm (>60 ml/min/1.73 sqM) Est GFR (CKD-EPI)NonAf (>60 ml/min/1.73 sqM) Glucose (74-99) mg/dL Plasma Lactic Acid Jesse (0.7-2.0) mmol/L Calcium (8.4-10.2) mg/dL Total Bilirubin (0.2-1.3) mg/dL AST (14-36) U/L ALT (4-34) U/L Alkaline Phosphatase (38-126) U/L Total Protein (6.3-8.2) g/dL Albumin (3.5-5.0) g/dL Lipase (23-300) U/L Urine Color Yellow Urine Appearance Cloudy H (Clear) Urine pH 7.0 (5.0-8.0) Ur Specific [place] 1.018 (1.001-1.035) Urine Protein 2+ H (Negative) Urine Glucose (UA) Negative (Negative) Urine Ketones Negative (Negative) Urine Blood Negative (Negative) Urine Nitrite Negative (Negative) Urine Bilirubin Negative (Negative) Urine Urobilinogen <2.0 (<2.0) mg/dL Ur Leukocyte Esterase Large H (Negative) Urine RBC 14 H (0-5) /hpf Urine WBC 62 H (0-5) /hpf Urine WBC Clumps Few H (None) /hpf Ur Squamous Epith Cells 8 H (0-4) /hpf Urine Bacteria Occasional H (None) /hpf Hyaline Casts 6 H (0-2) /lpf Urine Mucus Rare H (None) /hpf Urine Yeast (Budding) Few H (None) /hpf Coronavirus (PCR) Not Detected (Not Detectd) Disposition Clinical Impression: UTI (urinary tract infection), Dehydration, Lethargy Disposition: ADMITTED IP TO THIS [facility] Condition: Stable Is patient prescribed a controlled substance at d/c from ED?: No Time of Disposition: 16:06 Decision to Admit Reason: Admit from EC Decision Date: 06/11/20 Decision Time: 16:06
[2020-06-11 15:05] LABS: Basophils % (A) 0 %; Eosinophils # (A) 0.1 k/uL (0-0.7); Eosinophils % (A) 1 %; HCT 30.8 % (34.0-46.0); HGB 10.3 gm/dL (11.4-16.0); Lymphocytes # (A) 1.1 k/uL (1.0-4.8); Lymphocytes % (A) 11 %; MCH 31.2 pg (25.0-35.0); MCHC 33.2 g/dL (31.0-37.0); MCV 93.8 fL (80.0-100.0); Mean Platelet Volume 6.7; Monocytes # (A) 0.5 k/uL (0-1.0); Monocytes % (A) 5 %; Neutrophils # (A) 7.8 k/uL (1.3-7.7); Neutrophils % (A) 81 %; Platelet Count 299 k/uL (150-450); RBC 3.29 m/uL (3.80-5.40); RDW 14.7 % (11.5-15.5); WBC 9.7 k/uL (3.8-10.6)
[2020-06-11 15:12] LABS: Calcium 9.3 mg/dL (8.4-10.2); Potassium 5.4 mmol/L (3.5-5.1); Total Bilirubin 0.4 mg/dL (0.2-1.3); Total Protein 7.1 g/dL (6.3-8.2)
[2020-06-11 15:36] LABS: Appearance,Urine Cloudy (Clear); Bacteria,Urine Occasional /hpf; Bilirubin,Urine Negative (Negative); Blood,Urine Negative (Negative); Budding Yeast,Urine Few /hpf; Color,Urine Yellow; Glucose,Urine (UA) Negative (Negative); Hyaline Casts,Urine 6 /lpf (0-2); Ketones,Urine Negative (Negative); Leukocyte Esterase,Urine Large (Negative); Mucus,Urine Rare /hpf; Nitrite,Urine Negative (Negative); Protein,Urine 2+ (Negative); RBC,Urine 14 /hpf (0-5); Specific Gravity,Urine 1.018 (1.001-1.035); Squamous Epithelial Cell,Urine 8 /hpf (0-4); Urobilinogen,Urine <2.0 mg/dL (<2.0); WBC,Urine 62 /hpf (0-5)
[2020-06-11] MEDS ORDERED: ACETAMINOPHEN TAB 325 MG TAB PO STA (15:52)
[2020-06-11] MEDS ORDERED: NALOXONE 0.4 MG/ML 1 ML VIAL IV PRN (16:06)
--- NOTE | 2020-06-11 19:22 | US ---
EXAMINATION TYPE: US abdomen limited DATE OF EXAM: 06/11/2020 COMPARISON: NONE CLINICAL HISTORY: ast/alt elevation/n/v. nausea, vomiting, elevated liver enzymes, cholecystectomy EXAM MEASUREMENTS: Liver Length: 11.4 cm Gallbladder Wall: Surgically absent CBD: 0.9 cm Right Kidney: 8.3 x 3.8 x 4.4 cm Technical limitations due to large amount of overlying bowel content Pancreas: Obscured by bowel gas Liver: visualized portions appear wnl Gallbladder: Surgically absent Evidence for sonographic Woodruff's sign: no CBD: limited evaluation, visualized portion appears wnl Right Kidney: cystic areas noted, largest = 2.0 x 1.8 x 2.4cm IMPRESSION: No significant intrahepatic duct dilatation.
[2020-06-11] MEDS ORDERED: MORPHINE SULFATE 2 MG/ML SYRINGE IVP STA (21:19)
[2020-06-11] MEDS: ALPRAZolam 0.5 MG TAB PO SCH (23:47)
[2020-06-11] MEDS: ATORVASTATIN 20 MG TAB PO SCH (23:47)
[2020-06-11] MEDS: hydrALAZINE HCL 50 MG TAB PO SCH (23:48)
[2020-06-12] MEDS: hydrALAZINE HCL 50 MG TAB PO SCH ×3 (09:09→22:43)
[2020-06-12] MEDS: METOPROLOL TARTRATE 25 MG TAB PO SCH ×2 (09:10→18:30)
[2020-06-12] MEDS: SERTRALINE 100 MG TAB PO SCH (09:13)
[2020-06-12] MEDS: CEFEPIME 1 GM in SODIUM CHLORIDE 0.9% 50 ML IVPB SCH ×2 (12:12→22:51)
[2020-06-12] MEDS: ENOXAPARIN 40 MG/0.4 ML SYRINGE SQ SCH (15:20)
--- NOTE | 2020-06-12 15:29 | P.GSCN ---
History of Present Illness Consult date: 06/12/20 History of present illness: The patient is an 84-year-old female with a history of recurrent infections. She is a patient of . She was recently diagnosed with a Proteus urinary infection that was resistant to oral probiotics. She was brought to the emergency room to establish intravenous antibiotic selection and treatment to. Because of her age and health she is admitted to the hospital. There is a question of a colovesical fistula with possible fecaluria. She has had an ultrasound that has been normal. She is to have cystoscopy after antibiotic treatment. Review of Systems All systems: negative - Constitutional Denies fever, Denies weight loss - EENT Eyes: denies blurred vision Ears, nose, mouth and throat: Denies dysphagia - Cardiovascular Denies chest pain, Denies shortness of breath - Respiratory Denies cough, Denies 7 - Gastrointestinal Reports as per HPI - Genitourinary Genitourinary: Denies dysuria, Denies hematuria - Integumentary Denies rash, Denies unusual bruising - Neurological Denies headaches, Denies syncope - Hematologic/Lymphatic Denies easy bleeding, Denies easy bruising Past Medical History Past Medical History: Atrial Fibrillation, Coronary Artery Disease (CAD), Chest Pain / Angina, Heart Failure, CVA/TIA, Diabetes Mellitus, GERD/Reflux, Hearing Disorder / Deafness, Hyperlipidemia, Hypertension, Myocardial Infarction ([place]), Renal Disease, Rheumatoid Arthritis ([place]), Skin Disorder Additional Past Medical History / Comment(s): Recurrent UITs past couple years, pierre states they have been told pt has an "air bubble" in her bladder which may be being caused by a fistula, urinary incontinence and occasionally incontinent of stool, CVA in 2016 with no residual, NIDDM type II-now diet controlled, CKD stage III, tricuspid regurgitation, chronic low back pain/spinal stenosis, hiatal hernia, bilateral hand tremors, vertigo, bronchitis, sinus problems, eczema, [place] bilaterally Last Myocardial Infarction Date:: 1998 History of Any Multi-Drug Resistant Organisms: None Reported Past Surgical History: Cholecystectomy, Heart Catheterization With Stent Additional Past Surgical History / Comment(s): pt htinks she has 4-5 cardiac stents Past Anesthesia/Blood Transfusion Reactions: No Reported Reaction Date of Last Stent Placement:: 2009 Smoking Status: Former smoker - Past Family History Mother Family Medical History: Cancer Additional Family Medical History / Comment(s): Mother had breast cancer with mets-she at age 71 yrs. Father Family Medical History: Cancer Additional Family Medical History / Comment(s): Father had esophageal cancer and in his 70's. Sister(s) Family Medical History: Cancer Additional Family Medical History / Comment(s): Sister os breast cancer Daughter(s) Additional Family Medical History / Comment(s): Pt has had one pierre from breast cancer and another pierre from MS. Medications and Allergies Home Medications Medication Instructions Recorded Confirmed Type Atorvastatin [Lipitor] 20 mg PO HS@2100 06/23/15 06/11/20 History Sertraline [Zoloft] 200 mg PO DAILY@0900 06/23/15 06/11/20 History Ezetimibe [Zetia] 10 mg PO DAILY@1700 01/26/19 06/11/20 History Metoprolol Tartrate [Lopressor] 25 mg PO BID@0900,1700 tab 01/28/19 06/11/20 Rx hydrALAZINE HCL [Apresoline] 100 mg PO TID@0900,1700,2100 #0 01/28/19 06/11/20 R x ALPRAZolam [Xanax] 0.5 mg PO BID@1700,2100 06/10/20 06/11/20 History Allergies Allergy/AdvReac Type Severity Reaction Status Date / Time levofloxacin [From Levaquin] Allergy Rash/Hives Verified 06/11/20 17:29 Penicillins Allergy Rash/Hives Verified 06/11/20 17:29 Sulfa (Sulfonamide Allergy Rash/Hives Verified 06/11/20 17:29 Antibiotics) Surgical - Exam Vital Signs Temp Pulse Resp BP Pulse Ox 98.4 F 69 18 98/57 95 06/11/20 13:17 06/11/20 13:17 06/11/20 13:17 06/11/20 13:17 06/11/20 13:17 - General well developed, well nourished, no distress - Eyes PERRL - ENT decreased hearing - Neck trachea midline - Respiratory normal expansion, normal respiratory effort - Cardiovascular Rhythm: regular - Abdomen Abdomen: soft, non tender - Integumentary no rash, no growths - Neurologic normal coordination, normal sensation - Musculoskeletal normal posture - Psychiatric oriented to time, oriented to person, oriented to place, speech is normal, memory intact Results - Labs 06/11/20 14:56 06/11/20 14:56 Abnormal Lab Results - Last 24 Hours (Table) 06/11/20 Range/Units 15:21 Urine Appearance Cloudy H (Clear) Urine Protein 2+ H (Negative) Ur Leukocyte Esterase Large H (Negative) Urine RBC 14 H (0-5) /hpf Urine WBC 62 H (0-5) /hpf Urine WBC Clumps Few H (None) /hpf Ur Squamous Epith Cells 8 H (0-4) /hpf Urine Bacteria Occasional H (None) /hpf Hyaline Casts 6 H (0-2) /lpf Urine Mucus Rare H (None) /hpf Urine Yeast (Budding) Few H (None) /hpf Assessment and Plan Assessment: Impression: 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 Possible colovesical fistula. Multiple medical illnesses. Recommendations: The patient will be getting intravenous antibiotics per recent culture and sensitivity. A computed tomography scan of the abdomen and pelvis will be obtained to rule out urologic pathology.
[2020-06-12] MEDS: ALPRAZolam 0.5 MG TAB PO SCH ×2 (18:33→22:42)
[2020-06-12] MEDS: EZETIMIBE 10 MG TAB PO SCH (19:05)
[2020-06-12] MEDS: ATORVASTATIN 20 MG TAB PO SCH (22:43)
--- NOTE | 2020-06-12 23:29 | P.HPIM ---
History of Present Illness H&P Date: 06/12/20 Chief Complaint: Vomiting tired History of presenting complaint: This is a pleasant 84-year-old patient who follows with Dr. Arturo Zamarripa. Chronic stable medical conditions include congestive heart failure from diastolic dysfunction EF 50-55%, ordered tricuspid regurgitation, atrial fibrillation, coronary artery disease with prior stent, intracranial bleed from anticoagulation, diabetes, GERD, hard of hearing, hypertension and hyperlipidemia osteoarthritis chronic urinary stress incontinence chronic tremors chronic kidney disease stage III. Patient's had multiple UTIs in the past. Last UTI was about a month ago. Patient's daughter is at the bedside. She now presents with episodes of vomiting feeling lethargic. Also had some loose stools at home. Not anymore. No fever no chills. Decreased appetite. At her baseline uses a walker. Lives with her daughterVesta. There was a concern from patient urologist Dr. Tran about a fistula. Review of systems: GEN.: Tired decreased appetite EYES: None HEENT: None NECK: None RESPIRATORY: None CARDIOVASCULAR: None GASTROINTESTINAL: As above GENITOURINARY: Incontinence MUSCULOSKELETAL: Joint pains LYMPHATICS: None HEMATOLOGICAL: None PSYCHIATRY: Bit forgetful NEUROLOGICAL: Use a walker Past medical history to include: congestive heart failure from diastolic dysfunction EF 50-55%, ordered tricuspid regurgitation, atrial fibrillation, coronary artery disease with prior stent, intracranial bleed from anticoagulation, diabetes, GERD, hard of hearing, hypertension and hyperlipidemia osteoarthritis chronic urinary stress incontinence chronic tremors chronic kidney disease stage III. 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 Patient smoked for 20 years stopped in 1965. No alcohol. Physical examination: VITAL SIGNS: 98.4, 69, 18, 98/57, 95% room air GENERAL: BMI 28.3, laying in bed, tired. EYES: Pupils equal. Conjunctiva normal. HEENT: External appearance of nose and ears normal, oral cavity grossly normal. NECK: JVD not raised; masses not palpable. HEART: First and second heart sounds are normal; no edema. LUNGS: Respiratory rate normal; clear to auscultation. ABDOMEN: Soft, nontender, liver spleen not palpable, no masses palpable. PSYCH: [Awake, answering simple questions MUSCULAR skeletal: Evidence of OA l. NEUROLOGICAL: Cranial nerves grossly intact; no facial asymmetry, power and sensation grossly intact. LYMPHATICS: No lymph nodes palpable in the axilla and neck INVESTIGATIONS, reviewed in the clinical context: WBC 9.7 hemoglobin 10.3 potassium 5.4 bun 46 creatinine 1.64 AST 189 ALT 134 UA positive for leukoesterase WBC Coronavirus [PCR] not detected Abdominal ultrasound unremarkable Assessment and plan: -Acute UTI with cystitis and the patient's had recurrent UTIs. Is a concern about underlying fistula. He worked up by her urologist Dr. Tran. Started IV ceftriaxone. -Chronic congestive heart failure from diastolic dysfunction EF 55-55%, follow clinically -Moderate tricuspid regurgitation, follow clinically -Persistent atrial fibrillation, continue with Lopressor. Telemetry. -Coronary artery disease with prior history of stent, continue with Lopressor Lipitor -History of intracranial bleed from anticoagulation -GERD, use Pepcid -Hard of hearing -Essential hypertension, continue with hydralazine, Lopressor -Hyperlipidemia, continue with CTR Lipitor -Primary osteoarthritis, use Tylenol when necessary -Chronic urinary stress incontinence, patient may use depends -Chronic kidney disease stage III likely from nephrosclerosis, follow renal function Consultation to urology and ID. On IV ceftriaxone. Care was discussed with the patient and the daughter the bedside. 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, NIDDM type II, spinal stenosis, leaky bladder, bilateral hand tremors, vertigo, [place] bilaterally, eczema, bronchitis, sinus problems, hiatal hernia Last Myocardial Infarction Date:: 1998 History of Any Multi-Drug Resistant Organisms: None Reported Past Surgical History: Cholecystectomy, Heart Catheterization With Stent Additional Past Surgical History / Comment(s): pt htinks she has 4-5 cardiac stents Past Anesthesia/Blood Transfusion Reactions: No Reported Reaction Date of Last Stent Placement:: 2009 Past Psychological History: Anxiety, Depression Smoking Status: Former smoker Past Alcohol Use History: None Reported Past Drug Use History: None Reported - Past Family History Mother Family Medical History: Cancer Additional Family Medical History / Comment(s): Mother had breast cancer with mets-she at age 71 yrs. Father Family Medical History: Cancer Additional Family Medical History / Comment(s): Father had esophageal cancer and in his 70's. Sister(s) Family Medical History: Cancer Additional Family Medical History / Comment(s): Sister os breast cancer Daughter(s) Additional Family Medical History / Comment(s): Pt has had one pierre from breast cancer and another pierre from MS. Medications and Allergies Home Medications Medication Instructions Recorded Confirmed Type Atorvastatin [Lipitor] 20 mg PO HS@2100 06/23/15 06/11/20 History Sertraline [Zoloft] 200 mg PO DAILY@0900 06/23/15 06/11/20 History Ezetimibe [Zetia] 10 mg PO DAILY@1700 01/26/19 06/11/20 History Metoprolol Tartrate [Lopressor] 25 mg PO BID@0900,1700 tab 01/28/19 06/11/20 Rx hydrALAZINE HCL [Apresoline] 100 mg PO TID@0900,1700,2100 #0 01/28/19 06/11/20 Rx ALPRAZolam [Xanax] 0.5 mg PO BID@1700,2100 06/10/20 06/11/20 History Allergies Allergy/AdvReac Type Severity Reaction Status Date / Time levofloxacin [From Levaquin] Allergy Rash/Hives Verified 06/11/20 17:29 Penicillins Allergy Rash/Hives Verified 06/11/20 17:29 Sulfa (Sulfonamide Allergy Rash/Hives Verified 06/11/20 17:29 Antibiotics) Physical Exam Vitals: Vital Signs Temp Pulse Resp BP Pulse Ox 06/12/20 08:31 97.3 F L 62 18 122/59 96 06/12/20 04:27 61 20 130/68 94 L 06/11/20 23:46 66 18 154/67 95 06/11/20 21:00 153/75 96 06/11/20 18:00 18 135/63 93 L 06/11/20 17:30 131/56 94 L 06/11/20 17:00 18 130/63 97 06/11/20 16:30 143/64 96 06/11/20 16:00 18 132/63 94 L 06/11/20 15:50 65 18 132/64 95 06/11/20 15:46 94 L 06/11/20 15:07 18 06/11/20 13:17 98.4 F 69 18 98/57 95 Results CBC & Chem 7: 06/11/20 14:56 06/11/20 14:56 Labs: Abnormal Lab Results - Last 24 Hours (Table) 06/11/20 06/11/20 06/11/20 Range/Units 14:56 14:56 15:21 RBC 3.29 L (3.80-5.40) m/uL Hgb 10.3 L (11.4-16.0) gm/dL Hct 30.8 L (34.0-46.0) % Neutrophils # 7.8 H (1.3-7.7) k/uL Sodium 134 L (137-145) mmol/L Potassium 5.4 H (3.5-5.1) mmol/L Carbon Dioxide 14 L (22-30) mmol/L BUN 46 H (7-17) mg/dL Creatinine 1.64 H (0.52-1.04) mg/dL Glucose 141 H (74-99) mg/dL AST 189 H (14-36) U/L ALT 134 H (4-34) U/L Urine Appearance Cloudy H (Clear) Urine Protein 2+ H (Negative) Ur Leukocyte Esterase Large H (Negative) Urine RBC 14 H (0-5) /hpf Urine WBC 62 H (0-5) /hpf Urine WBC Clumps Few H (None) /hpf Ur Squamous Epith Cells 8 H (0-4) /hpf Urine Bacteria Occasional H (None) /hpf Hyaline Casts 6 H (0-2) /lpf Urine Mucus Rare H (None) /hpf Urine Yeast (Budding) Few H (None) /hpf
--- NOTE | 2020-06-13 00:18 | CONS ---
CONSULTATION DATE OF SERVICE: 06/12/2020 REASON FOR CONSULTATION: Complicated urinary tract infection. HISTORY OF PRESENT ILLNESS: The patient is an 84-year-old female with a past medical history significant for recurrent UTI, MULTIPLE ANTIBIOTIC ALLERGIES in this patient, concern for possible colovesical fistula. The patient recently did have symptom of generalized weakness, no energy, burning of urine and did have urine cultures during outpatient setting sent which was positive for Proteus with no oral option available. The patient was sent to the ER for IV antibiotic therapy. Patient apparently noted to be slightly more weak, confused and forgetful and feeling weak and the patient mentioned slight burning of urine. With these symptoms, the patient was evaluated by the ER physician. On arrival to the ER, the patient has been afebrile. The patient did have a normal white count. Creatinine was 1.64. Urine was positive with large leukocyte esterase and up to the cecum: She received a dose of Rocephin. Subsequently was switched over to cefepime. Ultrasound of the kidneys currently did not show any abnormality. The patient has been admitted to the hospital. Infectious Disease was consulted for further management of antibiotic therapy. REVIEW OF SYSTEMS: Positive points have been mentioned in HPI. Rest of systems negative. PAST MEDICAL HISTORY: Coronary artery disease, heart failure with CVA, TIA, diabetes mellitus, gastroesophageal reflux disease, hyperlipidemia, hypertension, MA, osteoarthritis. PAST SURGICAL HISTORY: Cholecystectomy, PTCA with stent. SOCIAL HISTORY: Remote history of smoking. No drinking or drug use. FAMILY HISTORY: Mother history of breast cancer. Father history of esophageal cancer. ALLERGIES: PENICILLIN, SULFA, LEVOFLOXACIN. MEDICATIONS: The patient is currently on Xanax, Lipitor, cefepime, Lovenox, Zetia, hydralazine, Lopressor, Narcan, Zoloft. PHYSICAL EXAMINATION: Blood pressure is 104/70 with a pulse of 90. Temperature 98.2. She is 94% on room air. General description is an elderly female lying in bed in no distress. No tachypnea or accessory muscles of respiration use. HEENT: Shows pallor. No scleral icterus. Oral mucosal membranes dry. NECK: Trachea central. No thyromegaly. LUNGS: Unlabored breathing, clear to auscultation anteriorly with no wheeze or crackles. HEART S1, S2. Regular rate and rhythm. ABDOMEN soft. No tenderness. No guarding. No rigidity. EXTREMITIES: No edema of the feet. SKIN examination: No rash or mass palpable. NEUROLOGIC: The patient is awake, alert, oriented times three. Mood and affect normal. LABS: Hemoglobin is 10.1, white count 9.7, BUN of 46, creatinine 1.64. Urine was positive. Urine culture positive for Proteus mirabilis. DIAGNOSTIC IMPRESSION AND PLAN: 1. Patient with recurrent urinary tract infection with concern for possible colovesical fistula. Recent culture has been positive for Proteus mirabilis with resistant pathogen. 2. Patient with MULTIPLE ANTIBIOTIC ALLERGIES that will limit the number of antibiotics safe to use. PLAN: 1. We will obtain a CT abdomen and pelvis with oral contrast to rule out any evidence of colovesical fistula. 2. Antibiotic adjusted to Rocephin 2 grams daily. 3. The patient need Midline for outpatient IV antibiotic as no oral option available. Thank you for this consultation. Will follow this patient along with you. MMODL / IJN: [id number] /
[2020-06-13] MEDS: SERTRALINE 100 MG TAB PO SCH (07:35)
[2020-06-13] MEDS: IOPAMIDOL CONTRAST (ORAL USE) VIAL PO PRN ×2 (07:35→08:23)
[2020-06-13] MEDS: METOPROLOL TARTRATE 25 MG TAB PO SCH ×2 (07:35→16:39)
[2020-06-13] MEDS: ENOXAPARIN 40 MG/0.4 ML SYRINGE SQ SCH (07:36)
[2020-06-13] MEDS: hydrALAZINE HCL 50 MG TAB PO SCH ×3 (07:36→22:05)
--- NOTE | 2020-06-13 10:28 | CT ---
EXAMINATION TYPE: CT abdomen pelvis wo con DATE OF EXAM: 06/13/2020 HISTORY: colovesical fistula , recurrent UTI and pain. CT DLP: 657.3 mGycm. Automated Exposure Control for Dose Reduction was Utilized. TECHNIQUE: CT scan of the abdomen and pelvis is performed with oral but without IV contrast. COMPARISON: CT abdomen and pelvis January 26, 2019. FINDINGS: Partial visualization of new small to tiny bilateral pleural effusions. Persistent cardiome petr with coronary stent in the right coronary artery suspected. Tiny pericardial effusion inferiorly . LUNG BASES: Cholecystectomy clips. LIVER/GB: No significant abnormality is appreciated. PANCREAS: No significant abnormality is seen. SPLEEN: No significant abnormality is seen. ADRENALS: No significant abnormality is seen. KIDNEYS: Cortical volume loss both kidneys. Simple appearing 1.7 cm thin-walled cyst right kidney axi al image 59 midpole level. Subcentimeter lesions less well seen on noncontrast imaging. New 2 to 3 mm calculus upper pole right kidney coronal image 67. No hydronephrosis seen bilaterally. Poorly disten ded bladder without hyperdense material or oral contrast identified inside the lumen. The left superi or margin of bladder is in close proximity to adjacent sigmoid colon with some free fluid in the pelv is extending to this level anterior to the uterus segment 118 and 115 for reference. BOWEL: Oral contrast extends to level of the rectum. No suspicious small or large bowel dilatation. P rominent diverticulosis in the sigmoid colon. No CT evidence for acute diverticulitis. GENITAL ORGANS: Anteverted uterus projects to left of midline. There is moderate fluid in pelvic cul- de-sac axial image 117 increased from prior. LYMPH NODES: No greater than 1cm abdominal or pelvic lymph nodes are appreciated. OSSEOUS STRUCTURES: Osseous structures are demineralized. Prominent multilevel spurring throughout th e spine. Spurs or spur disc complexes efface the anterior thecal sac L3-L4 and L4-L5 levels with larg est spur noted at L2-L3 level sagittal image 70. Osseous structures are demineralized. Spinal canal s tenosis L3-L4 level image 69 and L4-L5 level image 78 noted. OTHER: [id number] calcified plaque of the aorta extends into branch vessels. Mild diffuse sub cutaneous edema or soft tissue anasarca from study IMPRESSION: Desire fluid overload state with mild soft tissue anasarca. More moderate pelvic ascites on current study. At least new tiny bilateral pleural effusions. Satisfactory contrast opacification to rectum with prominent sigmoid colonic diverticulosis redemonstrated. No CT documentation for confi rmation of fistulous communication to the bladder on this study.
[2020-06-13] MEDS: ACETAMINOPHEN TAB 325 MG TAB PO PRN ×2 (12:10→22:21)
[2020-06-13] MEDS: ALPRAZolam 0.5 MG TAB PO SCH ×2 (16:39→22:19)
[2020-06-13] MEDS: EZETIMIBE 10 MG TAB PO SCH (16:43)
--- NOTE | 2020-06-13 20:33 | P.PN ---
Progress Note - Text Progress Note Date: 06/13/20 Chief Complaint: Vomiting tired History of presenting complaint: This is a pleasant 84-year-old patient who follows with Dr. Arturo Zamarripa. Chronic stable medical conditions include congestive heart failure from diastolic dysfunction EF 50-55%, ordered tricuspid regurgitation, atrial fibrillation, coronary artery disease with prior stent, intracranial bleed from anticoagulation, diabetes, GERD, hard of hearing, hypertension and hyperlipidemia osteoarthritis chronic urinary stress incontinence chronic tremors chronic kidney disease stage III. Patient's had multiple UTIs in the past. Last UTI was about a month ago. Patient's daughter is at the bedside. She now presents with episodes of vomiting feeling lethargic. Also had some loose stools at home. Not anymore. No fever no chills. Decreased appetite. At her baseline uses a walker. Lives with her daughter Vesta. There was a concern from patient urologist Dr. Tran about a fistula. Computed tomography scan of the abdomen-no obvious evidence of any fistula. Today-laying in bed. Had a good breakfast. Tired Review of systems: Was done for constitutional, cardiovascular, GI, pulmonary. relevant finding as above Active Medications Acetaminophen (Acetaminophen Tab 325 Mg Tab) 650 mg PO Q6HR PRN PRN Reason: Fever and/ or Pain Last Admin: 06/13/20 12:10 Dose: 650 mg Documented by: Alprazolam (Alprazolam 0.5 Mg Tab) 0.5 mg PO BID@1700,2100 ON LICENSE OF [facility] Last Admin: 06/13/20 16:39 Dose: 0.5 mg Documented by: Atorvastatin Calcium (Atorvastatin 20 Mg Tab) 20 mg PO HS@2100 ON LICENSE OF [facility] Last Admin: 06/12/20 22:43 Dose: 20 mg Documented by: Ezetimibe (Ezetimibe 10 Mg Tab) 10 mg PO DAILY@1700 ON LICENSE OF [facility] Last Admin: 06/13/20 16:43 Dose: 10 mg Documented by: Enoxaparin Sodium (Enoxaparin 40 Mg/0.4 Ml Syringe) 40 mg SQ DAILY ON LICENSE OF [facility] Last Admin: 06/13/20 07:36 Dose: 40 mg Documented by: Hydralazine HCl (Hydralazine Hcl 50 Mg Tab) 100 mg PO TID@0900,1700,2100 ON LICENSE OF [facility] Last Admin: 06/13/20 16:40 Dose: 100 mg Documented by: Ceftriaxone Sodium 2 gm/ (Sodium Chloride) 50 mls @ 100 mls/hr IVPB Q24HR ON LICENSE OF [facility] Last Admin: 06/13/20 07:51 Dose: 100 mls/hr Documented by: Metoprolol Tartrate (Metoprolol Tartrate 25 Mg Tab) 25 mg PO BID@0900,1700 ON LICENSE OF [facility] Last Admin: 06/13/20 16:39 Dose: 25 mg Documented by: Naloxone HCl (Naloxone 0.4 Mg/Ml 1 Ml Vial) 0.2 mg IV Q2M PRN PRN Reason: Opioid Reversal Sertraline HCl (Sertraline 100 Mg Tab) 200 mg PO DAILY@0900 ON LICENSE OF [facility] Last Admin: 06/13/20 07:35 Dose: 200 mg Documented by: Past medical history to include: congestive heart failure from diastolic dysfunction EF 50-55%, ordered tricuspid regurgitation, atrial fibrillation, coronary artery disease with prior stent, intracranial bleed from anticoagulation, diabetes, GERD, hard of hearing, hypertension and hyperlipidemia osteoarthritis chronic urinary stress incontinence chronic tremors chronic kidney disease stage III. 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 Patient smoked for 20 years stopped in 1965. No alcohol. Physical examination: VITAL SIGNS: 98.5, 74, 20, 120 70 77, 92% on room air GENERAL: BMI 28.3, laying in bed, tired. EYES: Pupils equal. Conjunctiva normal. HEENT: External appearance of nose and ears normal, oral cavity grossly normal. NECK: JVD not raised; masses not palpable. HEART: First and second heart sounds are normal; no edema. LUNGS: Respiratory rate normal; clear to auscultation. ABDOMEN: Soft, nontender, liver spleen not palpable, no masses palpable. PSYCH: Awake, answering simple questions MUSCULAR skeletal: Evidence of OA INVESTIGATIONS, reviewed in the clinical context: WBC 9.7 hemoglobin 10.3 potassium 5.4 bun 46 creatinine 1.64 AST 189 ALT 134 UA positive for leukoesterase WBC Coronavirus [PCR] not detected Abdominal ultrasound unremarkable Computed tomography scan of the abdomen-sigmoid diverticula suspect. Negative for fistula. Assessment and plan: -Acute UTI with cystitis and the patient's had recurrent UTIs. Computed tomography scan of the abdomen negative for fistula He worked up by her urologist Dr. Tran. Started IV ceftriaxone. -Chronic congestive heart failure from diastolic dysfunction EF 55-55%, follow clinically -Moderate tricuspid regurgitation, follow clinically -Persistent atrial fibrillation, continue with Lopressor. Telemetry. -Coronary artery disease with prior history of stent, continue with Lopressor Li pitor -History of intracranial bleed from anticoagulation -GERD, use Pepcid -Hard of hearing -Essential hypertension, continue with hydralazine, Lopressor -Hyperlipidemia, continue with CTR Lipitor -Primary osteoarthritis, use Tylenol when necessary -Chronic urinary stress incontinence, patient may use depends -Chronic kidney disease stage III likely from nephrosclerosis, follow renal function -Sigmoid diverticulosis-asymptomatic On IV ceftriaxone. Care was discussed with the patient
[2020-06-13 21:14] LABS: African American GFR (CKD) 42 (>60 ml/min/1.73 sqM); Anion Gap 9 mmol/L; Blood Urea Nitrogen 41 mg/dL (7-17); Calcium 8.3 mg/dL (8.4-10.2); Carbon Dioxide 14 mmol/L (22-30); Chloride 109 mmol/L (98-107); Glucose 161 mg/dL (74-99); Non-African American GFR(CKD) 37 (>60 ml/min/1.73 sqM); Sodium 132 mmol/L (137-145)
[2020-06-13] MEDS: ATORVASTATIN 20 MG TAB PO SCH (22:19)
--- NOTE | 2020-06-14 01:44 | PN ---
PROGRESS NOTE DATE OF SERVICE: 06/13/2020. REASON FOR FOLLOWUP: Proteus mirabilis urinary tract infection and question of colovesical fistula. INTERIM HISTORY: The patient is currently afebrile. The patient is breathing comfortably. The patient denies having any chest pain. No shortness of breath or cough. No nausea, no vomiting. No abdominal pain or any diarrhea. PHYSICAL EXAMINATION: Blood pressure 113/72 with a pulse of 73, temperature 98.3. She is 94% on room air. General description: The patient is an elderly female lying in bed in no distress. Respiratory system: Unlabored breathing, clear to auscultation anteriorly. Heart S1, S2. Regular rate and rhythm. Abdomen: Soft, no tenderness. LABS: BUN 41, creatinine is 1.32. Blood culture has been negative. DIAGNOSTIC IMPRESSION AND PLAN: Patient with Proteus mirabilis urinary tract infection in this patient who did have MULTIPLE ANTIBIOTIC ALLERGIES. Patient is covered with Rocephin [address] abdomen and pelvis did not show any fistula. Plan for midline and outpatient IV Rocephin. Continue supportive care. MMODL / IJN: [id number] /
--- NOTE | 2020-06-14 06:41 | P.PN ---
Subjective Progress Note Date: 06/14/20 The patient is in the hospital for recurring urinary infection. The computed tomography scan does not show any evidence of fistula. She'll need cystoscopy by after the antibiotic treatment for the infection Objective - Vital Signs Vital signs: Vital Signs Temp 98.5 F 06/14/20 01:23 Pulse 74 06/14/20 01:23 Resp 24 06/14/20 01:23 BP 128/69 06/14/20 01:23 Pulse Ox 94 L 06/14/20 01:23 Intake & Output 06/13/20 06/13/20 06/14/20 06:59 18:59 06:59 Output Total 100 300 Balance -100 -300 Weight 68.039 kg Output: Urine 100 300 Other: Voiding Method External Catheter External Catheter External Catheter # Voids 3 # Bowel Movements 3 1 - Labs CBC & Chem 7: 06/11/20 14:56 06/13/20 20:39 Labs: Abnormal Lab Results - Last 24 Hours (Table) 06/13/20 Range/Units 20:39 Sodium 132 L (137-145) mmol/L Chloride 109 H (98-107) mmol/L Carbon Dioxide 14 L (22-30) mmol/L BUN 41 H (7-17) mg/dL Creatinine 1.32 H (0.52-1.04) mg/dL Glucose 161 H (74-99) mg/dL Calcium 8.3 L (8.4-10.2) mg/dL Microbiology - Last 24 Hours (Table) 06/11/20 14:56 Blood Culture - Preliminary Blood No Growth after 48 hours 06/11/20 14:56 Blood Culture - Preliminary Blood No Growth after 48 hours
[2020-06-14] MEDS: SERTRALINE 100 MG TAB PO SCH (08:38)
[2020-06-14] MEDS: hydrALAZINE HCL 50 MG TAB PO SCH ×3 (08:38→20:19)
[2020-06-14] MEDS: ENOXAPARIN 40 MG/0.4 ML SYRINGE SQ SCH (08:38)
[2020-06-14] MEDS: METOPROLOL TARTRATE 25 MG TAB PO SCH ×2 (08:38→18:13)
[2020-06-14 10:27] LABS: Glucose,Whole Blood 156 mg/dL (75-99)
[2020-06-14 10:45] LABS: Basophils % (A) 0 %; Eosinophils # (A) 0.1 k/uL (0-0.7); Eosinophils % (A) 1 %; HCT 27.6 % (34.0-46.0); HGB 9.3 gm/dL (11.4-16.0); Lymphocytes # (A) 0.7 k/uL (1.0-4.8); Lymphocytes % (A) 9 %; MCH 32.1 pg (25.0-35.0); MCHC 33.6 g/dL (31.0-37.0); MCV 95.6 fL (80.0-100.0); Mean Platelet Volume 8.4; Monocytes # (A) 0.5 k/uL (0-1.0); Monocytes % (A) 7 %; Neutrophils # (A) 6.5 k/uL (1.3-7.7); Neutrophils % (A) 83 %; Platelet Count 176 k/uL (150-450); RBC 2.89 m/uL (3.80-5.40); RDW 14.9 % (11.5-15.5); WBC 7.8 k/uL (3.8-10.6)
--- NOTE | 2020-06-14 10:50 | CT ---
EXAMINATION TYPE: CT brain wo con for TPA DATE OF EXAM: 06/14/2020 COMPARISON: 10/09/2015 HISTORY: 84-year-old female Left arm drift TECHNIQUE: Examination was done in axial plane without intravenous contrast. Coronal and sagittal r econstructions performed. CT DLP: 1099.4 mGycm Automated exposure control for dose reduction was used. FINDINGS: There is no evidence of acute intracranial hemorrhage, acute ischemic changes, mass, mass-effect, or extra-axial fluid collection. There is no effacement of cerebral sulci or basal subarachnoid cister ns. Mild ventriculomegaly, Haseeb's ratio 3.6 minimally increased from 3.3 in 2016. Likely component of central cerebral atrophy. Atherosclerotic calcifications in the bilateral carotid siphons. There is no midline shift. [place]-white matter distinction is preserved. Moderate confluent white matter hypodensities in both cerebral hemispheres. Trace mucosal thickening ethmoid air cells. Mastoid air cells well pneumatized. Orbits and globes are intact. Leftward nasal septal deviation. IMPRESSION: No acute intracranial abnormality seen. Moderate confluent burden of chronic small vessel ischemic di sease. There is mild hydrocephalus likely ex vacuo enlargement from central cerebral atrophy. This is minimally increased from 2016. Correlate to exclude a component of NPH.
[2020-06-14 11:01] LABS: ALT 92 U/L (4-34); AST 87 U/L (14-36); African American GFR (CKD) 43 (>60 ml/min/1.73 sqM); Alkaline Phosphatase 87 U/L (38-126); Anion Gap 9 mmol/L; Blood Urea Nitrogen 36 mg/dL (7-17); Calcium 8.3 mg/dL (8.4-10.2); Carbon Dioxide 15 mmol/L (22-30); Chloride 110 mmol/L (98-107); Glucose 142 mg/dL (74-99); Non-African American GFR(CKD) 37 (>60 ml/min/1.73 sqM); Partial Thromboplastin Time 24.1 sec (22.0-30.0); Potassium 5.1 mmol/L (3.5-5.1); Prothrombin Time 11.1 sec (9.0-12.0); Sodium 134 mmol/L (137-145); Total Bilirubin 0.5 mg/dL (0.2-1.3)
--- NOTE | 2020-06-14 12:03 | CT ---
EXAMINATION TYPE: CODE STROKE: CTA head neck DATE OF EXAM: 06/14/2020 COMPARISON: Correlation CT brain same day HISTORY: 84-year-old female confusion, UTI, dehydration, AMS TECHNIQUE: Contiguous axial scanning of the head and neck performed with IV Contrast, patient injecte d with 65 mL of Isovue 370. Coronal/sagittal MIP reconstructions performed. 3-D reconstructions gener ated on a dedicated workstation. CT DLP: 460.9 mGycm Automated exposure control for dose reduction was used. FINDINGS: NECK: Redemonstrated small bilateral pleural effusions. Underlying mediastinal lymphadenopathy measures up to 1.3 cm. Mild atherosclerotic arch calcifications with conventional branching anatomy. 2.1 cm hypodense nodule right lower thyroid gland. Dedicated thyroid ultrasound to further evaluate. The right vertebral artery is dominant and both vessels are patent throughout their course. Focal hairpin loop of the proximal right common carotid artery. Otherwise, right CCA is patent. There is a mild, 30% atherosclerotic narrowing of the right carotid bulb. The left common carotid artery is patent. Moderate atherosclerotic change of the left carotid bifurca tion focal hairpin turn of the proximal left ICA. There appears to be focal atherosclerotic calcifica tion in the proximal right CCA contributing to a focal moderate, approaching 70% narrowing in the lef t carotid bulb. The remainder of the left CCA is patent. HEAD: Dominant right vertebral artery. Basilar and vertebral arteries are otherwise patent as is the remain jose cruz of the posterior circulation. Mild atherosclerotic calcifications within the carotid siphons. Anterior circulation appears patent. No aneurysmal change is seen. IMPRESSION: NECK: 1. Small pleural effusions. There appears to be underlying mediastinal lymphadenopathy measuring up t o 1.3 cm. A 2.1 cm nodule of the right lobe of the thyroid gland can be further evaluated with thyroi d ultrasound. 2. Moderate (50-69%) proximal left ICA stenosis. This atherosclerotic change is followed by a hairpin loop of the proximal left ICA. 3. Mild, 30% atherosclerotic narrowing proximal right ICA. Focal hairpin loop incidentally noted of t he proximal right CCA. HEAD: 4. No large vessel intracranial arterial occlusion, significant stenosis, or aneurysmal change.
[2020-06-14] MEDS ORDERED: ASPIRIN 81 MG PO STA (12:16)
[2020-06-14] MEDS ORDERED: HEPARIN SODIUM,PORCINE 5,000 UNIT/ML 1 ML VIAL IV PRN (12:37)
--- NOTE | 2020-06-14 13:51 | P.CRDCN ---
History of Present Illness History of present illness: HISTORY OF PRESENTING ILLNESS This is a pleasant 84-year-old female past medical history significant for coronary artery disease status post PCI with multiple stenting performed last early 1999s per family, chronic kidney disease, intracranial hemorrhage in 2015 related to hypertension, paroxysmal atrial fibrillation, hyperlipidemia, and chronic diastolic heart failure. She follows in the office with Dr. Givens. We have been asked to see in consultation for elevated troponin. Patient is seen and examined in bed, no acute distress. Daughter at bedside. Daughter states that over the past week patient has not been feeling well, having complaints of nausea, diarrhea and thought her mom was dehydrated. She also has been having complaints of feeling more weak and shortness of breath over 2 days prior to admission to the hospital. Patient has been treated for chronic UTIs. Patient was recently treated for a UTI was given Keflex with no improvement and told to go to the emergency department for IV antibiotics. Daughter states that her mom has gotten progressively more fatigued and less alert. Today around 10:30am, daughter alerted nursing that patient appeared to be slurring her words and slight right sided facial droop, pupils were noted to be unequal and a code stroke was called. At that time labs were drawn and patient was found to have an elevated troponin of 4.6. Patient denies chest pain, palpitations, shortness of breath, lower extremity edema, lightheadedness, syncope. Patient does not have an active lifestyle, is wheelchair bound and per her daughter her activity is consistent to walking to bathroom and back to bed/chair. For her atrial fibrillation patient was not on any anticoagulation secondary to her history of weakness, increased falls, and history of intracranial hemorrhage. Laboratory data reviewed, troponin 4.6, WBC 7.8, hemoglobin 9.3, platelets 176, sodium 134, creatinine 1.31, BUN 36. Vital signs BP 122/74, heart rate 66, 98% on room air, afebrile Current home cardiac medications include hydralazine 100 mg 3 times a day, metoprolol tartrate 25 mg twice daily, atorvastatin 20 mg nightly, Zetia 10mg daily In the hospital patient is currently being maintained on atorvastatin 40 mg nightly, metoprolol tartrate 25 mg twice daily, hydralazine 100mg 3 times a day, lovenox 40mg [facility] EKG reveals sinus rhythm, heart rate 73, prominent Q waves with T wave inversions in the inferior leads, ST flattening, T-wave inversions in anterior and lateral precordial leads Prior EKG in January 2020atrial fibrillation with non-specific ST-T wave changes in the inferior leads Telemetry tracings- patient was not on cardiac telemetry Echo 01/2020: EF 50-55%, LA is dilared >40ml/m2, mild aortic valve sclerosis, mi ld to moderate mitral regurgitation, moderate tricuspid regurgitation CT brain- No acute intracranial abnormality seen. Moderate confluent burden of chronic small vessel ischemic disease. Mild hydrocephalus likely ex vavuo enlargement from central cerebral atrophy. REVIEW OF SYSTEMS At the time of my exam: CONSTITUTIONAL: Denies fever or chills. CARDIOVASCULAR: Denies chest pain, shortness of breath, orthopnea, PND or palpitations. RESPIRATORY: Denies cough. GASTROINTESTINAL: Denies abdominal pain, diarrhea, constipation, nausea or vomiting. MUSCULOSKELETAL: Denies myalgias. NEUROLOGIC: Denies numbness, tingling, headacbe or weakness. ENDOCRINE: Denies fatigue, weight change, polydipsia or polyurina. GENITOURINARY: Denies burning, hematuria or urgency with micturation. HEMATOLOGIC: Denies history of anemia or bleeding. PHYSICAL EXAMINATION CONSTITUTIONAL: No apparent distress. HEENT: Head is normocephalic. Sclerae anicteric. Mucous membranes of the mouth are moist. No JVD. No carotid bruit. CHEST EXAMINATION: Lungs are clear to auscultation. No chest wall tenderness is noted on palpation or with deep breathing. HEART EXAMINATION: Regular rate and rhythm. S1, S2 heard. No murmurs, gallops or rub. ABDOMEN: Soft, nontender. Positive bowel sounds. EXTREMITIES: 2+ peripheral pulses, +trace lower extremity edema and no calf tenderness. NEUROLOGIC EXAMINATION: Patient appears tired, awake, alert and oriented x3. ASSESSMENT -Coronary artery disease status post PCI with multiple stenting performed last early per family -Elevated troponin- With troponin 4.6, most likely myocardial infarction. We do not have any previous EKGs, troponin levels or telemetry readings on the patient. -Chronic kidney disease Stage 3 -History of Intracranial hemorrhage -Paroxysmal atrial fibrillation- not on anticoagulation due to history of intracranial hemorrhage and risk of bleeding due to increased weakness and falls -History of hypertension -History of hyperlipidemia PLAN -After speaking with patient and family the risk and benefits were discussed about optimizing medical therapy vs. intervention with a cardiac catheterization. After extensive discussion with the patient's daughter and the patient they have decided to progress with conservative management by optimizing medical therapy and do not want procedures performed. -Will obtain Echo with doppler -Trend troponins -Started heparin drip, no bolus (patient has been previously anticoagulated with Lovenox). -Start dual anti-platelet therapy with aspirin 81mg daily and Plavix 75mg daily -Will decreased hydralazine to 50mg TID -Will increase statin to Atorvastatin 40mg nightly -Continue metoprolol tartrate 25mg BID Nurse Practitioner note has been reviewed, I agree with a documented findings and plan of care. Patient was seen and examined. 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, NIDDM type II, spinal stenosis, leaky bladder, bilateral hand tremors, vertigo, [place] bilaterally, eczema, bronchitis, sinus problems, hiatal hernia Last Myocardial Infarction Date:: 1998 History of Any Multi-Drug Resistant Organisms: None Reported Past Surgical History: Cholecystectomy, Heart Catheterization With Stent Additional Past Surgical History / Comment(s): pt htinks she has 4-5 cardiac stents Past Anesthesia/Blood Transfusion Reactions: No Reported Reaction Date of Last Stent Placement:: 2009 Past Psychological History: Anxiety, Depression Smoking Status: Former smoker Past Alcohol Use History: None Reported Past Drug Use History: None Reported - Past Family History Mother Family Medical History: Cancer Additional Family Medical History / Comment(s): Mother had breast cancer with mets-she at age 71 yrs. Father Family Medical History: Cancer Additional Family Medical History / Comment(s): Father had esophageal cancer and in his 70's. Sister(s) Family Medical History: Cancer Additional Family Medical History / Comment(s): Sister os breast cancer Daughter(s) Additional Family Medical History / Comment(s): Pt has had one pierre from breast cancer and another pierre from MS. Medications and Allergies Home Medications Medication Instructions Recorded Confirmed Type Atorvastatin [Lipitor] 20 mg PO HS@2100 06/23/15 06/11/20 History Sertraline [Zoloft] 200 mg PO DAILY@0900 06/23/15 06/11/20 History Ezetimibe [Zetia] 10 mg PO DAILY@1700 01/26/19 06/11/20 History Metoprolol Tartrate [Lopressor] 25 mg PO BID@0900,1700 tab 01/28/19 06/11/20 Rx hydrALAZINE HCL [Apresoline] 100 mg PO TID@0900,1700,2100 #0 01/28/19 06/11/20 Rx ALPRAZolam [Xanax] 0.5 mg PO BID@1700,2100 06/10/20 06/11/20 History Allergies Allergy/AdvReac Type Severity Reaction Status Date / Time levofloxacin [From Levaquin] Allergy Rash/Hives Verified 06/11/20 17:29 Penicillins Allergy Rash/Hives Verified 06/11/20 17:29 Sulfa (Sulfonamide Allergy Rash/Hives Verified 06/11/20 17:29 Antibiotics) Physical Exam Vitals: Vital Signs Temp Pulse Resp BP Pulse Ox 06/14/20 10:31 66 122/74 98 06/14/20 07:44 98.4 F 80 22 147/72 94 L 06/14/20 01:23 98.5 F 74 24 128/69 94 L 06/13/20 22:17 98.3 F 68 113/72 94 L 06/13/20 19:29 18 06/13/20 19:12 98.5 F 64 22 94/55 94 L 06/13/20 14:00 97.7 F 82 21 149/67 91 L Intake and Output 06/13/20 06/14/20 06/14/20 22:59 06:59 14:59 Output Total 300 Balance -300 Output: Urine 300 Other: Voiding Method External Catheter Diaper Incontinent External Catheter # Voids 3 # Bowel Movements 3 1 Weight 82 kg Results 06/14/20 10:34 06/14/20 10:34 Cardiac Enzymes 06/14/20 06/14/20 Range/Units 10:34 10:34 AST 87 H (14-36) U/L Troponin I 4.660 H* (0.000-0.034) ng/mL Coagulation 06/14/20 Range/Units 10:34 PT 11.1 (9.0-12.0) sec APTT 24.1 (22.0-30.0) sec CBC 06/14/20 Range/Units 10:34 WBC 7.8 (3.8-10.6) k/uL RBC 2.89 L (3.80-5.40) m/uL Hgb 9.3 L (11.4-16.0) gm/dL Hct 27.6 L (34.0-46.0) % Plt Count 176 (150-450) k/uL Comprehensive Metabolic Panel 06/13/20 06/14/20 Range/Units 20:39 10:34 Sodium 132 L 134 L (137-145) mmol/L Potassium 5.0 5.1 (3.5-5.1) mmol/L Chloride 109 H 110 H (98-107) mmol/L Carbon Dioxide 14 L 15 L (22-30) mmol/L BUN 41 H 36 H (7-17) mg/dL Creatinine 1.32 H 1.31 H (0.52-1.04) mg/dL Glucose 161 H 142 H (74-99) mg/dL Calcium 8.3 L 8.3 L (8.4-10.2) mg/dL AST 87 H (14-36) U/L ALT 92 H (4-34) U/L Alkaline Phosphatase 87 (38-126) U/L Total Protein 6.0 L (6.3-8.2) g/dL Albumin 3.0 L (3.5-5.0) g/dL Current Medications Generic Name Dose Route Start Last Admin Trade Name Jhonathanq PRN Reason Stop Dose Admin Acetaminophen 650 mg 06/13/20 12:04 06/13/20 22:21 Acetaminophen Tab 325 Mg Tab PO 650 mg Q6HR PRN Administration Fever and/ or Pain Alprazolam 0.5 mg 06/11/20 21:00 06/13/20 22:19 Alprazolam 0.5 Mg Tab PO 0.5 mg BID@1700,2100 [facility] Administration Aspirin 81 mg 06/15/20 09:00 Aspirin 81 Mg PO DAILY [facility] Atorvastatin Calcium 40 mg 06/14/20 21:00 Atorvastatin 40 Mg Tab PO HS@2100 [facility] Clopidogrel Bisulfate 75 mg 06/14/20 12:45 Clopidogrel 75 Mg Tab PO DAILY [facility] Ezetimibe 10 mg 06/12/20 17:00 06/13/20 16:43 Ezetimibe 10 Mg Tab PO 10 mg DAILY@1700 [facility] Administration Heparin Sodium (Porcine) 0 unit 06/14/20 12:37 Heparin Sodium,Porcine 5,000 Unit/Ml 1 Ml Vial IV PER PROTOCOL PRN Low PTT Protocol Hydralazine HCl 50 mg 06/14/20 17:00 Hydralazine Hcl 50 Mg Tab PO TID@0900,1700,2100 [facility] Ceftriaxone Sodium 2 gm/ 50 mls @ 100 mls/hr 06/13/20 09:00 06/14/20 08:37 Sodium Chloride IVPB 100 mls/hr Q24HR [facility] Administration Heparin Sodium/Sodium Chloride 250 mls @ 9.84 mls/hr 06/14/20 12:45 25,000 unit/ Sodium Chloride IV .Q24H [facility] Protocol 12 UNITS/KG/HR Metoprolol Tartrate 25 mg 06/12/20 09:00 06/14/20 08:38 Metoprolol Tartrate 25 Mg Tab PO 25 mg BID@0900,1700 [facility] Administration Naloxone HCl 0.2 mg 06/11/20 16:06 Naloxone 0.4 Mg/Ml 1 Ml Vial IV Q2M PRN Opioid Reversal Nitroglycerin 1 inch 06/14/20 16:00 Nitroglycerin Oint 1 Inch/Gm Packet TOPICAL Q8HR [facility] Sertraline HCl 200 mg 06/12/20 09:00 06/14/20 08:38 Sertraline 100 Mg Tab PO 200 mg DAILY@0900 [facility] Administration Intake and Output 06/13/20 06/14/20 06/14/20 22:59 06:59 14:59 Output Total 300 Balance -300 Output: Urine 300 Other: Voiding Method External Catheter Diaper Incontinent External Catheter # Voids 3 # Bowel Movements 3 1 Weight 82 kg Patient Weight 06/15/20 06:59 Weight 82 kg 06/14/20 10:34 06/14/20 10:34
--- NOTE | 2020-06-14 14:19 | P.CNNES ---
History of Present Illness Consult date: 06/14/20 Requesting physician: Jeffrey Rossi Reason for Consult: Stroke code, possible stroke History of Present Illness: Patient is a 84-year-old right-handed female, who has history of paroxysmal atrial fibrillation, currently not on a decompression because of her history of hemorrhagic stroke in 2016. Patient actually came to the hospital on 06/11/2020 for abdominal pain and possible UTI. She has history of recurrent UTIs in the past. Today at 10:20 AM patient daughter came in and saw patient was having slurred speech, and was looking different. Stroke code was activated. It was noted that patient has dilated left pupil, which is something new, patient has left arm group B, and right facial droop. Patient was very lethargic at that time. Her NIH stroke scale was 7. The last known well was 9:45 AM by [facility] are nurses. No slurring of speech at that time. Her blood glucose was 156. Patient underwent a stat computed tomography scan of the head, which revealed no acute intracranial abnormality. Moderate confluent burden of chronic small vessel ischemic disease. There is mild hydrocephalus likely ex vacuo enlargement from central cerebral atrophy. This is minimally increased from 2016. Correlate to exclude a component of NPH. CTA of head and neck revealed small pleural effusion. There appears to be underlying mediastinal lymphadenopathy measuring up to 1.3 cm. A 2.1 cm nodule of the right lobe of the thyroid gland can be further evaluated with thyroid ultrasound. Moderate 50-69% proximal left ICA stenosis. Atherosclerotic changes followed by hairpin loop of the proximal left ICA. Mild 30% atherosclerotic narrowing proximal right ICA. A focal hairpin loop incidentally noted of the proximal right ICA. CT of head showed no large vessel intracranial arterial occlusion, significant stenosis or aneurysmal change. Her blood test shows WBC 7.8 hemoglobin 9.3, platelets 176. Patient's sodium is 134 potassium 5.1, and BUN 41, creatinine 1.32. AST is 87, ALP 92 both mildly elevated. Troponins are highly elevated 4.66. [place] virus PCR negative. C. difficile negative. Patient's last hemoglobin A1c 5.3 on 10/10/2015. Review of Systems Patient denies headache, any problem with the vision, hoarseness. She does have some slurring of her speech. Denies any nausea vomiting diarrhea. Denies any abdominal pain at this time. No chest pain. No shortness of breath. All other review of systems reviewed and noncontributory. 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, NIDDM type II, spinal stenosis, leaky bladder, bilateral hand tremors, vertigo, [place] bilaterally, eczema, bronchitis, sinus problems, hiatal hernia Last Myocardial Infarction Date:: 1998 History of Any Multi-Drug Resistant Organisms: None Reported Past Surgical History: Cholecystectomy, Heart Catheterization With Stent Additional Past Surgical History / Comment(s): pt htinks she has 4-5 cardiac stents Past Anesthesia/Blood Transfusion Reactions: No Reported Reaction Date of Last Stent Placement:: 2009 Past Psychological History: Anxiety, Depression Smoking Status: Former smoker Past Alcohol Use History: None Reported Past Drug Use History: None Reported - Past Family History Mother Family Medical History: Cancer Additional Family Medical History / Comment(s): Mother had breast cancer with mets-she at age 71 yrs. Father Family Medical History: Cancer Additional Family Medical History / Comment(s): Father had esophageal cancer and in his 70's. Sister(s) Family Medical History: Cancer Additional Family Medical History / Comment(s): Sister os breast cancer Daughter(s) Additional Family Medical History / Comment(s): Pt has had one pierre from breast cancer and another pierre from MS. Medications and Allergies Home Medications Medication Instructions Recorded Confirmed Type Atorvastatin [Lipitor] 20 mg PO HS@2100 06/23/15 06/11/20 History Sertraline [Zoloft] 200 mg PO DAILY@0900 06/23/15 06/11/20 History Ezetimibe [Zetia] 10 mg PO DAILY@1700 01/26/19 06/11/20 History Metoprolol Tartrate [Lopressor] 25 mg PO BID@0900,1700 tab 01/28/19 06/11/20 Rx hydrALAZINE HCL [Apresoline] 100 mg PO TID@0900,1700,2100 #0 10/25/19 03/08/21 Rx ALPRAZolam [Xanax] 0.5 mg PO BID@1700,2100 06/10/20 06/11/20 History Allergies Allergy/AdvReac Type Severity Reaction Status Date / Time levofloxacin [From Levaquin] Allergy Rash/Hives Verified 06/11/20 17:29 Penicillins Allergy Rash/Hives Verified 06/11/20 17:29 Sulfa (Sulfonamide Allergy Rash/Hives Verified 06/11/20 17:29 Antibiotics) Physical Examination - Vital Signs Vital Signs: Vital Signs Temp Pulse Resp BP Pulse Ox 06/14/20 10:31 66 122/74 98 06/14/20 07:44 98.4 F 80 22 147/72 94 L 06/14/20 01:23 98.5 F 74 24 128/69 94 L 06/13/20 22:17 98.3 F 68 113/72 94 L 06/13/20 19:29 18 06/13/20 19:12 98.5 F 64 22 94/55 94 L Intake and Output 06/13/20 06/14/20 06/14/20 22:59 06:59 14:59 Output Total 300 Balance -300 Output: Urine 300 Other: Voiding Method External Catheter Diaper Incontinent External Catheter # Voids 3 # Bowel Movements 3 1 Weight 82 kg On examination patient is an elderly female, in no acute distress. She is alert and awake, knows that she is in [facility] and that the month is June but thinks it is 2000. She thinks she is in [facility]. She knows her age. Patient's speech is mildly dysarthric but no aphasia. Patient name and repeat very well. Patient's comprehension is intact. On cranial examination pupils are round, but the left pupil is about 5 mm, and the right is 3 mm, both very minimally reacting. Extraocular muscles are intact with no nystagmus, no diplopia and no ptosis. Her face appears symmetric, tongue protrudes the midline. Palatal elevation and sensation normal, hearing is slightly decreased, shoulder shrug normal. Facial sensation is normal. On muscle strength testing patient has right pronator drift. The strength appears normal in the arms and legs. Reflexes are 1+ in the upper limbs, trace in the lower limbs and plantars are downgoing. Sensory to touch is equal with no neglect on double simultaneous stimulation. No ataxia for [id number] testing, tone and bulk of muscles normal. Gait deferred. On general examination, there is no obvious bruit, S1 and S2 audible, abdomen soft nontender, peripheral pulses present. Results - Laboratory Findings CBC and BMP: 06/14/20 10:34 06/14/20 10:34 Abnormal Lab Findings: Abnormal Labs 06/11/20 06/11/20 06/11/20 14:56 14:56 15:21 RBC 3.29 L Hgb 10.3 L Hct 30.8 L Neutrophils # 7.8 H Lymphocytes # Sodium 134 L Potassium 5.4 H Chloride Carbon Dioxide 14 L BUN 46 H Creatinine 1.64 H Glucose 141 H POC Glucose (mg/dL) Calcium AST 189 H ALT 134 H Troponin I Total Protein Albumin Urine Appearance Cloudy H Urine Protein 2+ H Ur Leukocyte Esterase Large H Urine RBC 14 H Urine WBC 62 H Urine WBC Clumps Few H Ur Squamous Epith Cells 8 H Urine Bacteria Occasional H Hyaline Casts 6 H Urine Mucus Rare H Urine Yeast (Budding) Few H 06/13/20 06/14/20 06/14/20 20:39 10:23 10:34 RBC 2.89 L Hgb 9.3 L Hct 27.6 L Neutrophils # Lymphocytes # 0.7 L Sodium 132 L Potassium Chloride 109 H Carbon Dioxide 14 L BUN 41 H Creatinine 1.32 H Glucose 161 H POC Glucose (mg/dL) 156 H Calcium 8.3 L AST ALT Troponin I Total Protein Albumin Urine Appearance Urine Protein Ur Leukocyte Esterase Urine RBC Urine WBC Urine WBC Clumps Ur Squamous Epith Cells Urine Bacteria Hyaline Casts Urine Mucus Urine Yeast (Budding) 06/14/20 06/14/20 10:34 10:34 RBC Hgb Hct Neutrophils # Lymphocytes # Sodium 134 L Potassium Chloride 110 H Carbon Dioxide 15 L BUN 36 H Creatinine 1.31 H Glucose 142 H POC Glucose (mg/dL) Calcium 8.3 L AST 87 H ALT 92 H Troponin I 4.660 H* Total Protein 6.0 L Albumin 3.0 L Urine Appearance Urine Protein Ur Leukocyte Esterase Urine RBC Urine WBC Urine WBC Clumps Ur Squamous Epith Cells Urine Bacteria Hyaline Casts Urine Mucus Urine Yeast (Budding) Assessment and Plan Assessment: * Probable acute stroke, likely embolic in nature. Patient's NIH stroke scale initially was 7, but now is about 2-3. Patient not a candidate for TPA because of rapidly improving symptoms. * Acute non-STEMI, with elevated cardiac enzymes * History of paroxysmal atrial fibrillation, currently not on any anticoagu lation because of history of hemorrhagic stroke in the past. * Left ICA stenosis 50-69% for CTA. Around 30% right ICA. * Anemia * Hypertension * Diabetes * Hyperlipidemia * Coronary artery disease * Osteoarthritis Plan: * Patient has an acute stroke, but patient also needs heparinization because of acute [place] and possible embolic stroke. Benefits of anticoagulation outweigh the risks at this time. Patient has been started on heparin without bolus for acute [place], by cardiology. * Patient will undergo MRI of the brain to evaluate for acute stroke, rule out any hemorrhagic conversion. * Continue neuro checks. * Patient will be transferred to stepdown unit. * Continue telemetry monitoring. * Discussed with primary physician, and cardiology.
[2020-06-14] MEDS ORDERED: FAMOTIDINE 20 MG TAB PO STA (14:21)
[2020-06-14] MEDS ORDERED: CALCIUM CARBONATE 500 MG CHEWABLE PO PRN (15:45)
[2020-06-14] MEDS: HEPARIN SOD,PORK IN 0.45% NACL 25,000 UNIT in 0.45% NACL 1 250ML.BAG IV SCH (15:52)
[2020-06-14 16:49] LABS: Glucose,Whole Blood 123 mg/dL (75-99)
[2020-06-14] MEDS: NITROGLYCERIN OINT 1 INCH/GM PACKET TOPICAL SCH ×2 (17:56→23:13)
[2020-06-14] MEDS: CLOPIDOGREL 75 MG TAB PO SCH (18:12)
[2020-06-14] MEDS: ALPRAZolam 0.5 MG TAB PO SCH ×2 (18:12→20:19)
--- NOTE | 2020-06-14 19:30 | PN ---
PROGRESS NOTE DATE OF SERVICE: 06/14/2020 REASON FOR FOLLOWUP: Proteus mirabilis complicated urinary tract infection. INTERVAL HISTORY: The patient is currently afebrile. The patient is breathing comfortably. Denies having any chest pain, shortness of breath or cough. No nausea, no vomiting, no abdominal pain or diarrhea. PHYSICAL EXAMINATION: Her blood pressure is 122/74, pulse of 66, temperature 98.4. She is 98% on room air. General description is an elderly female lying in bed in no distress. RESPIRATORY SYSTEM: Unlabored breathing. Clear to auscultation anteriorly. HEART: S1, S2. Regular rate and rhythm. ABDOMEN: Soft. No tenderness. LABS: Hemoglobin 9.3, white count 7.8. BUN of 36, creatinine 1.31. Blood culture has been negative. CT of abdomen and pelvis did not show any evidence of fistula. DIAGNOSTIC IMPRESSION AND PLAN: Patient with recurrent Proteus mirabilis urinary tract infection, also with complicated urinary tract infection, MULTIPLE ANTIBIOTIC ALLERGIES, at this point on Rocephin 2 grams daily; to continue in the outpatient setting for another 10 days and close outpatient followup. Daughter at the bedside. Questions were answered. MMODL / IJN: [id number] /
[2020-06-14 20:12] LABS: Glucose,Whole Blood 127 mg/dL (75-99)
[2020-06-14] MEDS: ATORVASTATIN 40 MG TAB PO SCH (20:19)
[2020-06-14] MEDS: EZETIMIBE 10 MG TAB PO SCH (20:19)
--- NOTE | 2020-06-14 21:23 | P.PN ---
Progress Note - Text Progress Note Date: 06/14/20 Chief Complaint: Vomiting tired History of presenting complaint: This is a pleasant 84-year-old patient who follows with Dr. Artruo Zamarripa. Chronic stable medical conditions include congestive heart failure from diastolic dysfunction EF 50-55%, ordered tricuspid regurgitation, atrial fibrillation, coronary artery disease with prior stent, intracranial bleed from anticoagulation, diabetes, GERD, hard of hearing, hypertension and hyperlipidemia osteoarthritis chronic urinary stress incontinence chronic tremors chronic kidney disease stage III. Patient's had multiple UTIs in the past. Last UTI was about a month ago. Patient's daughter is at the bedside. She now presents with episodes of vomiting feeling lethargic. Also had some loose stools at home. Not anymore. No fever no chills. Decreased appetite. At her baseline uses a walker. Lives with her daughter Vesta. There was a concern from patient urologist Dr. Tran about a fistula. Computed tomography scan of the abdomen-no obvious evidence of any fistula. Today-this morning doesn't episode after the nurse and left the room and she came back in 10 minutes she found the patient's speech to be of slurred left arm was a bit weak. Code stroke was called. Computed tomography scan of the brain came back to be negative. Symptoms did improve. Daughter the bedside. Patient's troponin came back elevated. Cardiology was consulted. By the time I saw the patient the speech was still slightly slurred. Patient denied any chest pain Review of systems: Was done for constitutional, cardiovascular, GI, pulmonary. Neurological, relevant finding as above Active Medications Acetaminophen (Acetaminophen Tab 325 Mg Tab) 650 mg PO Q6HR PRN PRN Reason: Fever and/ or Pain Last Admin: 06/13/20 22:21 Dose: 650 mg Documented by: Alprazolam (Alprazolam 0.5 Mg Tab) 0.5 mg PO BID@1700,2100 [facility] Last Admin: 06/14/20 20:19 Dose: 0.5 mg Documented by: Aspirin (Aspirin 81 Mg) 81 mg PO DAILY [facility] Atorvastatin Calcium (Atorvastatin 40 Mg Tab) 40 mg PO HS@2100 [facility] Last Admin: 06/14/20 20:19 Dose: 40 mg Documented by: Calcium Carbonate/Glycine (Calcium Carbonate 500 Mg Chewable) 500 mg PO TID PRN PRN Reason: Heartburn Last Admin: 06/14/20 15:56 Dose: 500 mg Documented by: Clopidogrel Bisulfate (Clopidogrel 75 Mg Tab) 75 mg PO DAILY [facility] Last Admin: 06/14/20 18:12 Dose: 75 mg Documented by: Ezetimibe (Ezetimibe 10 Mg Tab) 10 mg PO DAILY@1700 [facility] Last Admin: 06/14/20 20:19 Dose: 10 mg Documented by: Famotidine (Famotidine 20 Mg Tab) 20 mg PO DAILY [facility] Heparin Sodium (Porcine) (Heparin Sodium,Porcine 5,000 Unit/Ml 1 Ml Vial) 0 unit IV PER PROTOCOL PRN; Protocol PRN Reason: Low PTT Last Admin: 06/14/20 15:56 Dose: 4,000 unit Documented by: Hydralazine HCl (Hydralazine Hcl 50 Mg Tab) 50 mg PO TID@0900,1700,2100 [facility] Last Admin: 06/14/20 20:19 Dose: 50 mg Documented by: Ceftriaxone Sodium 2 gm/ (Sodium Chloride) 50 mls @ 100 mls/hr IVPB Q24HR [facility] Last Admin: 06/14/20 08:37 Dose: 100 mls/hr Documented by: Heparin Sodium/Sodium Chloride (25,000 unit/ Sodium Chloride) 250 mls @ 9.84 mls/hr IV .Q24H [facility]; Protocol Last Admin: 06/14/20 15:52 Dose: 12 units/kg/hr, 9.84 mls/hr Documented by: Metoprolol Tartrate (Metoprolol Tartrate 25 Mg Tab) 25 mg PO BID@0900,1700 [facility] Last Admin: 06/14/20 18:13 Dose: 25 mg Documented by: Naloxone HCl (Naloxone 0.4 Mg/Ml 1 Ml Vial) 0.2 mg IV Q2M PRN PRN Reason: Opioid Reversal Nitroglycerin (Nitroglycerin Oint 1 Inch/Gm Packet) 1 inch TOPICAL Q8HR [facility] Last Admin: 06/14/20 17:56 Dose: Not Given Documented by: Sertraline HCl (Sertraline 100 Mg Tab) 200 mg PO DAILY@0900 [facility] Last Admin: 06/14/20 08:38 Dose: 200 mg Documented by: Past medical history to include: congestive heart failure from diastolic dysfunction EF 50-55%, ordered tricuspid regurgitation, atrial fibrillation, coronary artery disease with prior stent, intracranial bleed from anticoagulation, diabetes, GERD, hard of hearing, hypertension and hyperlipidemia osteoarthritis chronic urinary stress incontinence chronic tremors chronic kidney disease stage III. 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 Patient smoked for 20 years stopped in 1965. No alcohol. Physical examination: VITAL SIGNS: 98.4, 80, 22, 147/72, 94% on room air GENERAL: Laying in bed, awake, tired. EYES: Pupils equal. Conjunctiva normal. HEENT: External appearance of nose and ears normal, oral cavity grossly normal. NECK: JVD not raised; masses not palpable. HEART: First and second heart sounds are normal; no edema. LUNGS: Respiratory rate normal; clear to auscultation. ABDOMEN: Soft, nontender, liver spleen not palpable, no masses palpable. PSYCH: Awake, answering simple questions NEUROLOGICAL: No facial asymmetry. Speech is slightly slow. No focal weakness MUSCULAR skeletal: Evidence of OA INVESTIGATIONS, reviewed in the clinical context: CT NG of the brain-moderate 50-69% proximal left ICA stenosis. No obvious stroke reported. Computed tomography scan of the brain-no acute abnormalities. Small vessel disease. June 14: WBC 7.8 hemoglobin 9.3 potassium 5.1 bun 36 creatinine 1.31 Troponin I 4.6, 4.7, 5.1 EKG-sinus rhythm, Q waves in inferior leads and T wave changes in the frontal leads Prior EKG from January 2020 shows atrial fibrillation WBC 9.7 hemoglobin 10.3 potassium 5.4 bun 46 creatinine 1.64 AST 189 ALT 134 UA positive for leukoesterase WBC Coronavirus [PCR] not detected Abdominal ultrasound unremarkable Computed tomography scan of the abdomen-sigmoid diverticula suspect. Negative for fistula. Assessment and plan: -Acute embolic stroke, given prior history of atrial fibrillation. Initially affected his speech in the left arm. Left arm weakness as a result. Speech is improving though still deficit present. Aspirin was given. Lipitor. MRA of the brain will be ordered. 2-D echo -Acute non-Q wave myocardial infarction. Aspirin, IV heparin, cardiology consultation. 2-D echo -Acute UTI with cystitis and the patient's had recurrent UTIs. Computed tomography scan of the abdomen negative for fistula He worked up by her urologist Dr. Tran. Started IV ceftriaxone. -Chronic congestive heart failure from diastolic dysfunction EF 55-55%, follow clinically -Moderate tricuspid regurgitation, follow clinically -Persistent atrial fibrillation, continue with Lopressor. Telemetry. -Coronary artery disease with prior history of stent, continue with Lopressor Lipitor -History of intracranial bleed from anticoagulation -GERD, use Pepcid -Hard of hearing -Essential hypertension, continue with hydralazine, Lopressor -Hyperlipidemia, continue with CTR Lipitor -Primary osteoarthritis, use Tylenol when necessary -Chronic urinary stress incontinence, patient may use depends -Chronic kidney disease stage III likely from nephrosclerosis, follow renal function -Sigmoid diverticulosis-asymptomatic -DO NOT RESUSCITATE Care was discussed with Dr. Razo from cartilage and Dr. Velasquez from neurology. Also patient's clinical condition was discussed WITH patient's daughter the bedside. Prognosis guarded. Total time spent about 45 minutes with over 25 minutes of discussion
[2020-06-15] MEDS: HEPARIN SOD,PORK IN 0.45% NACL 25,000 UNIT in 0.45% NACL 1 250ML.BAG IV SCH (05:40)
[2020-06-15 05:56] LABS: Basophils % (A) 0 %; Eosinophils # (A) 0.2 k/uL (0-0.7); Eosinophils % (A) 3 %; HCT 26.8 % (34.0-46.0); HGB 8.9 gm/dL (11.4-16.0); Lymphocytes % (A) 14 %; MCH 31.8 pg (25.0-35.0); MCHC 33.3 g/dL (31.0-37.0); MCV 95.7 fL (80.0-100.0); Monocytes # (A) 0.4 k/uL (0-1.0); Monocytes % (A) 6 %; Neutrophils # (A) 5.2 k/uL (1.3-7.7); Neutrophils % (A) 76 %; Platelet Count 176 k/uL (150-450); RDW 15.3 % (11.5-15.5); WBC 6.9 k/uL (3.8-10.6)
[2020-06-15 06:20] LABS: Glucose,Whole Blood 119 mg/dL (75-99)
[2020-06-15 07:10] LABS: Calcium 8.4 mg/dL (8.4-10.2); Potassium 4.9 mmol/L (3.5-5.1)
--- NOTE | 2020-06-15 07:24 | ECHOF ---
Referral Reason:mi MEASUREMENTS -------- HEIGHT: 152.4 cm WEIGHT: 81.6 kg BP: RVIDd: 4.3 cm (< 3.3) IVSd: 1.3 cm (0.6 - 1.1) LVIDd: 3.6 cm (3.9 - 5.3) LVPWd: 1.2 cm (0.6 - 1.1) IVSs: 1.5 cm LVIDs: 3.5 cm LVPWs: 1.5 cm LA Diam: 4.3 cm (2.7 - 3.8) Ao Diam: 2.9 cm (2.0 - 3.7) AV Cusp: 1.5 cm (1.5 - 2.6) MV EXCURSION: 14.056 mm (> 18.000) MV EF SLOPE: 83 mm/s (70 - 150) EPSS: 0.6 cm MV E Erasmo: 0.65 m/s MV DecT: 147 ms MV A Erasmo: 0.56 m/s MV E/A Ratio: 1.18 RAP: 5.00 mmHg RVSP: 19.40 mmHg FINDINGS -------- Sinus rhythm. This was a techncally difficult study with suboptimal views, , Lumason utilized for enhancement of im ages. The left ventricular size is normal. Left ventricular wall thickness is normal. Overall left vent ricular systolic function is low-normal with, an EF between 50 - 55 %. Basal inferior LV wall motio n is hypokinetic. The right ventricle is severely enlarged. The right ventricular systolic function is moderately imp aired. The left atrium is mildly dilated. The right atrium is mildly enlarged. 5.0mg OF Lumason UTLIZED: 2 OR MORE WALL SEGMENTS NOT VISUALIZED. There is mild aortic valve sclerosis. There is no evidence of aortic regurgitation. Mild mitral annular calcification present. Mild mitral regurgitation is present. The tricuspid valve appears structurally normal. Moderate tricuspid regurgitation present. Right ventricular systolic pressure is normal at < 35 mmHg. Trace/mild (physiologic) pulmonic regurgitation. The aortic root size is normal. There is no pericardial effusion. CONCLUSIONS -------- 1. This was a techncally difficult study with suboptimal views, , Lumason utilized for enhancement of images. 2. Left ventricular wall thickness is normal. 3. Overall left ventricular systolic function is low-normal with, an EF between 50 - 55 %. 4. Basal inferior LV wall motion is hypokinetic. 5. The right ventricle is severely enlarged. 6. The left atrium is mildly dilated. 7. The right atrium is mildly enlarged. 8. 5.0mg OF Lumason UTLIZED: 2 OR MORE WALL SEGMENTS NOT VISUALIZED. 9. There is mild aortic valve sclerosis. 10. Mild mitral regurgitation is present. 11. Moderate tricuspid regurgitation present. 12. Trace/mild (physiologic) pulmonic regurgitation. 13. There is no pericardial effusion. B[employer] MILL OPERATOR: Veronica Gunn RDCS
[2020-06-15] MEDS: FAMOTIDINE 20 MG TAB PO SCH (07:48)
[2020-06-15] MEDS: METOPROLOL TARTRATE 25 MG TAB PO SCH ×2 (07:49→17:03)
[2020-06-15] MEDS: CLOPIDOGREL 75 MG TAB PO SCH (07:49)
[2020-06-15] MEDS: SERTRALINE 100 MG TAB PO SCH (07:49)
[2020-06-15] MEDS: hydrALAZINE HCL 50 MG TAB PO SCH ×3 (07:49→20:17)
[2020-06-15] MEDS: ASPIRIN 81 MG PO SCH (07:49)
[2020-06-15] MEDS: NITROGLYCERIN OINT 1 INCH/GM PACKET TOPICAL SCH ×2 (07:50→17:03)
--- NOTE | 2020-06-15 11:43 | P.PN ---
Subjective Progress Note Date: 06/15/20 This 84-year-old female with history of coronary artery disease was seen by someone yesterday because of abnormal troponin values. Patient also was quoted yesterday for suspected stroke with some left arm weakness and also speech defect. Patient does have history of atrial fibrillation but used to be on anticoagulation. Patient was taken off anticoagulations because of intracerebral bleed. Today patient is sitting in the chair unable to communicate. She does complain of some chest pain which increases on deep breathing and movements sized muscular skeletal pain. Also complaining of some gastric reflux symptoms. The family has decided to continue with maximal medical therapy for coronary artery disease. Her echo Cardigan showed an ejection fraction about 50-55% with hypokinesis of the inferobasal segment. At this point we'll continue maximal medical therapy and make consider analgesics for chest pain. We'll follow as needed Objective - Vital Signs Vital signs: Vital Signs Temp 97.1 F L 06/15/20 11:00 Pulse 92 06/15/20 11:00 Resp 18 06/15/20 11:00 BP 136/64 06/15/20 11:00 Pulse Ox 98 06/15/20 11:00 Intake & Output 06/14/20 06/15/20 06/15/20 18:59 06:59 18:59 Intake Total 240 636.948 240 Output Total 200 Balance 240 436.948 240 Weight 82 kg 80.5 kg Intake: Intake, IV Titration 156.948 Amount Heparin Sod,Pork in 0.45% 156.948 NaCl 25,000 unit In 0.45 % NaCl 1 250ml.bag @ 12 UNITS/KG/HR 9.84 mls/hr IV .Q24H [facility] Rx#: [id number] Oral 240 480 240 Output: Urine 200 Other: Voiding Method Diaper External Catheter Incontinent Incontinent External Catheter External Catheter # Voids 1 1 - Exam GENERAL EXAM: Patient is alert and oriented and doesn't appear to be in any acute distress HEENT: Normocephalic. Normal reaction of pupils, equal size, normal range of extraocular motion. No erythema or exudates in the throat. NECK: No masses, no nuchal rigidity. CHEST: No chest wall deformity. LUNGS: Equal air entry with no crackles or wheeze. HEART: S1 and S2 normal ABDOMEN: No hepatosplenomegaly, normal bowel sounds, no guarding or rigidity. SKIN: No rashes CENTRAL NERVOUS SYSTEM: No gross focal deficits. EXTREMITIES: No cyanosis, clubbing or edema. - Labs CBC & Chem 7: 06/15/20 05:22 06/15/20 05:22 Labs: Abnormal Lab Results - Last 24 Hours (Table) 06/14/20 06/14/20 06/14/20 Range/Units 10:34 14:28 16:47 RBC (3.80-5.40) m/uL Hgb (11.4-16.0) gm/dL Hct (34.0-46.0) % APTT (22.0-30.0) sec Sodium (137-145) mmol/L Chloride (98-107) mmol/L Carbon Dioxide (22-30) mmol/L BUN (7-17) mg/dL Creatinine (0.52-1.04) mg/dL POC Glucose (mg/dL) 123 H (75-99) mg/dL Troponin I 4.660 H* 4.790 H* (0.000-0.034) ng/mL HDL Cholesterol (40-60) mg/dL 06/14/20 06/14/20 06/14/20 Range/Units 18:51 20:11 22:18 RBC (3.80-5.40) m/uL Hgb (11.4-16.0) gm/dL Hct (34.0-46.0) % APTT 38.4 H (22.0-30.0) sec Sodium (137-145) mmol/L Chloride (98-107) mmol/L Carbon Dioxide (22-30) mmol/L BUN (7-17) mg/dL Creatinine (0.52-1.04) mg/dL POC Glucose (mg/dL) 127 H (75-99) mg/dL Troponin I 5.180 H* (0.000-0.034) ng/mL HDL Cholesterol (40-60) mg/dL 06/15/20 06/15/20 06/15/20 Range/Units 05:22 05:22 05:22 RBC 2.80 L (3.80-5.40) m/uL Hgb 8.9 L (11.4-16.0) gm/dL Hct 26.8 L (34.0-46.0) % APTT 42.0 H (22.0-30.0) sec Sodium 135 L (137-145) mmol/L Chloride 111 H (98-107) mmol/L Carbon Dioxide 14 L (22-30) mmol/L BUN 34 H (7-17) mg/dL Creatinine 1.27 H (0.52-1.04) mg/dL POC Glucose (mg/dL) (75-99) mg/dL Troponin I (0.000-0.034) ng/mL HDL Cholesterol 28 L (40-60) mg/dL 06/15/20 Range/Units 06:19 RBC (3.80-5.40) m/uL Hgb (11.4-16.0) gm/dL Hct (34.0-46.0) % APTT (22.0-30.0) sec Sodium (137-145) mmol/L Chloride (98-107) mmol/L Carbon Dioxide (22-30) mmol/L BUN (7-17) mg/dL Creatinine (0.52-1.04) mg/dL POC Glucose (mg/dL) 119 H (75-99) mg/dL Troponin I (0.000-0.034) ng/mL HDL Cholesterol (40-60) mg/dL Microbiology - Last 24 Hours (Table) 06/11/20 14:56 Blood Culture - Preliminary Blood No Growth after 72 hours 06/11/20 14:56 Blood Culture - Preliminary Blood No Growth after 72 hours Assessment and Plan (1) Troponin level elevated Current Visit: Yes Status: Acute Code(s): R77.8 - OTHER SPECIFIED ABNORMALITIES OF PLASMA PROTEINS SNOMED Code(s): 519821141 (2) Atrial fibrillation Current Visit: No Status: Acute Code(s): I48.91 - UNSPECIFIED ATRIAL FIBRILLATION SNOMED Code(s): 81186054 (3) CAD (coronary artery disease) Current Visit: No Status: Acute Code(s): I25.10 - ATHSCL HEART DISEASE OF [place] CORONARY ARTERY W/O ANG PCTRS SNOMED Code(s): 44294567 (4) History of diabetes mellitus Current Visit: No Status: Acute Code(s): Z86.39 - PERSONAL HISTORY OF ENDO, NUTRITIONAL AND METABOLIC DISEASE SNOMED Code(s): 139239330 (5) History of heart failure Current Visit: No Status: Acute Code(s): Z86.79 - PERSONAL HISTORY OF OTHER DISEASES OF THE CIRCULATORY SYSTEM SNOMED Code(s): 278250096 Plan: Patient is having some atypical chest pain. Echo showed normal LV function with mild hypokinesis of the inferobasal segment. Patient is being treated for a TIA/CVA. We'll continue the conservative management from cardiac standpoint. We'll follow as needed
[2020-06-15 12:24] LABS: Glucose,Whole Blood 132 mg/dL (75-99)
[2020-06-15] MEDS ORDERED: NYSTATIN 100,000 UNIT/ML SUSP 500,000 UNIT/5 ML CUP PO SCH (13:00)
[2020-06-15 13:04] LABS: HCT 27.8 % (34.0-46.0); HGB 8.9 gm/dL (11.4-16.0); Hypochromasia Slight; MCH 30.5 pg (25.0-35.0); MCHC 31.8 g/dL (31.0-37.0); Mean Platelet Volume 7.1; Platelet Count 208 k/uL (150-450); RDW 15.7 % (11.5-15.5); WBC 7.2 k/uL (3.8-10.6)
[2020-06-15] MEDS ORDERED: FLUCONAZOLE 100 MG TAB PO ONE (13:09)
[2020-06-15 14:10] VITALS: BMI 33.5
--- NOTE | 2020-06-15 14:30 | MR ---
EXAMINATION TYPE: MR brain wo con DATE OF EXAM: 06/15/2020 COMPARISON: MRI brain October 19, 2015. CT brain from yesterday. HISTORY: Acute onset neurologic deficit one day earlier. Left arm paresthesia. TECHNIQUE: Multiplanar, multisequence imaging of the brain and brainstem is performed without IV cont rast. FINDINGS: Diffusion weighted images demonstrate no evidence of a recent infarct or other diffusion abnormality. There is moderate ventricular and sulcal prominence redemonstrated. There are focal and confluent are as of T2 hyperintensity seen throughout the white matter greatest at the present periventricular leve ls. Midline structures redemonstrate corpus callosal thinning. There is old lacunar infarct in the ida sagittal image 10. The craniocervical junction appears within normal limits. Normal vascular flow voi ds are present. The visualized sinuses are clear and the globes are intact. Nasal septum is redemonst rated deviated to left of midline. IMPRESSION: 1. No MRI evidence for recent infarct. 2. Moderate diffuse cerebral atrophy and advanced chronic small vessel ischemic changes redemonstrate d. 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
[2020-06-15] MEDS: ACETAMINOPHEN TAB 325 MG TAB PO PRN (14:43)
--- NOTE | 2020-06-15 16:00 | P.PN ---
Subjective Progress Note Date: 06/15/20 Patient was seen for a follow-up. Patient's speech is back to baseline. All neuro deficits have resolved. Patient's son was also present. Patient denies headache, no new focal symptoms. Objective - Vital Signs Vital signs: Vital Signs Temp 97.9 F 06/15/20 15:32 Pulse 75 06/15/20 15:32 Resp 18 06/15/20 15:32 BP 138/69 06/15/20 15:32 Pulse Ox 94 L 06/15/20 15:32 Intake & Output 06/14/20 06/15/20 06/15/20 18:59 06:59 18:59 Intake Total 240 636.948 740 Output Total 200 Balance 240 436.948 740 Weight 82 kg 80.5 kg 80.5 kg Intake: Intake, IV Titration 156.948 50 Amount Heparin Sod,Pork in 0.45% 156.948 NaCl 25,000 unit In 0.45 % NaCl 1 250ml.bag @ 12 UNITS/KG/HR 9.84 mls/hr IV .Q24H [facility] Rx#: [id number] cefTRIAXone 2 gm In 50 Sodium Chloride 0.9% 50 ml @ 100 mls/hr IVPB Q24HR [facility] Rx#:[id number] Oral 240 480 690 Output: Urine 200 Other: Voiding Method Diaper External Catheter Incontinent Incontinent External Catheter External Catheter # Voids 1 1 - Exam Patient's mental status, speech and language functions are normal. Cranial nerves are normal. Visual boss full with no neglect, face is symmetric. Tongue protrudes the midline. Muscle strength revealed mild right pronation, no drift. Muscle strength is normal in arms and legs. Sensations are equal with no neglect on double simultaneous to mentation. No ataxia for [id number] testing. Tone and bulk of muscles normal. - Labs CBC & Chem 7: 06/15/20 12:11 06/15/20 05:22 Labs: Abnormal Lab Results - Last 24 Hours (Table) 06/14/20 06/14/20 06/14/20 Range/Units 16:47 18:51 20:11 RBC (3.80-5.40) m/uL Hgb (11.4-16.0) gm/dL Hct (34.0-46.0) % RDW (11.5-15.5) % APTT (22.0-30.0) sec Sodium (137-145) mmol/L Chloride (98-107) mmol/L Carbon Dioxide (22-30) mmol/L BUN (7-17) mg/dL Creatinine (0.52-1.04) mg/dL POC Glucose (mg/dL) 123 H 127 H (75-99) mg/dL Troponin I 5.180 H* (0.000-0.034) ng/mL HDL Cholesterol (40-60) mg/dL 06/14/20 06/15/20 06/15/20 Range/Units 22:18 05:22 05:22 RBC 2.80 L (3.80-5.40) m/uL Hgb 8.9 L (11.4-16.0) gm/dL Hct 26.8 L (34.0-46.0) % RDW (11.5-15.5) % APTT 38.4 H (22.0-30.0) sec Sodium 135 L (137-145) mmol/L Chloride 111 H (98-107) mmol/L Carbon Dioxide 14 L (22-30) mmol/L BUN 34 H (7-17) mg/dL Creatinine 1.27 H (0.52-1.04) mg/dL POC Glucose (mg/dL) (75-99) mg/dL Troponin I (0.000-0.034) ng/mL HDL Cholesterol 28 L (40-60) mg/dL 06/15/20 06/15/20 06/15/20 Range/Units 05:22 06:19 12:11 RBC 2.90 L (3.80-5.40) m/uL Hgb 8.9 L (11.4-16.0) gm/dL Hct 27.8 L (34.0-46.0) % RDW 15.7 H (11.5-15.5) % APTT 42.0 H (22.0-30.0) sec Sodium (137-145) mmol/L Chloride (98-107) mmol/L Carbon Dioxide (22-30) mmol/L BUN (7-17) mg/dL Creatinine (0.52-1.04) mg/dL POC Glucose (mg/dL) 119 H (75-99) mg/dL Troponin I (0.000-0.034) ng/mL HDL Cholesterol (40-60) mg/dL 06/15/20 06/15/20 Range/Units 12:11 12:21 RBC (3.80-5.40) m/uL Hgb (11.4-16.0) gm/dL Hct (34.0-46.0) % RDW (11.5-15.5) % APTT 51.2 H (22.0-30.0) sec Sodium (137-145) mmol/L Chloride (98-107) mmol/L Carbon Dioxide (22-30) mmol/L BUN (7-17) mg/dL Creatinine (0.52-1.04) mg/dL POC Glucose (mg/dL) 132 H (75-99) mg/dL Troponin I (0.000-0.034) ng/mL HDL Cholesterol (40-60) mg/dL Microbiology - Last 24 Hours (Table) 06/11/20 14:56 Blood Culture - Preliminary Blood No Growth after 72 hours 06/11/20 14:56 Blood Culture - Preliminary Blood No Growth after 72 hours Assessment and Plan Assessment: * Probable stroke/TIA, likely embolic in nature. Patient's NIH stroke scale initially was 7, but now is 0. Patient not a candidate for TPA because of rapidly improving symptoms. * Acute non-STEMI, with elevated cardiac enzymes * History of paroxysmal atrial fibrillation, currently not on any anticoagulation because of history of hemorrhagic stroke in the past. * Left ICA stenosis 50-69% for CTA. Around 30% right ICA. * Anemia * Hypertension * Diabetes * Hyperlipidemia * Coronary artery disease * Osteoarthritis Plan: * MRI of the brain negative for any acute stroke. Moderate diffuse cerebral atrophy and advanced chronic small vessel ischemic change redemonstrated. 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 * Telemetry monitoring showing normal sinus rhythm at this time. * Patient currently on heparin IV. Also on dual antiplatelet medication. Suggest holding one of the antiplatelet medication if possible to prevent hemorrhagic complications. At this time, all management is per cardiology for an acute MT and arrhythmia. * 2-D echo revealed EF between 50-55%. Basal inferior left-ventricular wall motion is hypokinetic. Right ventricle is severely enlarged. Left atrium is mildly enlarged. Moderate TR. * Neurology will sign off. Please reconsult neurology if any other concerns.
[2020-06-15] MEDS: ALPRAZolam 0.5 MG TAB PO SCH ×2 (17:00→20:17)
[2020-06-15] MEDS: EZETIMIBE 10 MG TAB PO SCH (17:00)
[2020-06-15 17:14] LABS: Glucose,Whole Blood 130 mg/dL (75-99)
[2020-06-15 19:38] LABS: Glucose,Whole Blood 159 mg/dL (75-99)
[2020-06-15] MEDS: ATORVASTATIN 40 MG TAB PO SCH (20:17)
--- NOTE | 2020-06-15 23:04 | P.PN ---
Progress Note - Text Progress Note Date: 06/15/20 Chief Complaint: Vomiting tired History of presenting complaint: This is a pleasant 84-year-old patient who follows with Dr. Arturo Zamarripa. Chronic stable medical conditions include congestive heart failure from diastolic dysfunction EF 50-55%, ordered tricuspid regurgitation, atrial fibrillation, coronary artery disease with prior stent, intracranial bleed from anticoagulation, diabetes, GERD, hard of hearing, hypertension and hyperlipidemia osteoarthritis chronic urinary stress incontinence chronic tremors chronic kidney disease stage III. Patient's had multiple UTIs in the past. Last UTI was about a month ago. Patient's daughter is at the bedside. She now presents with episodes of vomiting feeling lethargic. Also had some loose stools at home. Not anymore. No fever no chills. Decreased appetite. At her baseline uses a walker. Lives with her daughter Vesta. There was a concern from patient urologist Dr. Tran about a fistula. Computed tomography scan of the abdomen-no obvious evidence of any fistula. June 14 morning doesn't episode after the nurse and left the room and she came back in 10 minutes she found the patient's speech to be of slurred left arm was a bit weak. Code stroke was called. Computed tomography scan of the brain came back to be negative. Symptoms did improve. Daughter the bedside. Patient's troponin came back elevated. Cardiology was consulted. By the time I saw the patient the speech was still slightly slurred. Patient denied any chest pain June 15-patient is back to baseline. MRI did not show any stroke. Likely TIA. Patient also be treated for acute [place]. No chest pain. Review of systems: Was done for constitutional, cardiovascular, GI, pulmonary. Neurological, relevant finding as above Active Medications Acetaminophen (Acetaminophen Tab 325 Mg Tab) 650 mg PO Q6HR PRN PRN Reason: Fever and/ or Pain Last Admin: 06/15/20 14:43 Dose: 650 mg Documented by: Alprazolam (Alprazolam 0.5 Mg Tab) 0.5 mg PO BID@1700,2100 [facility] Last Admin: 06/15/20 20:17 Dose: 0.5 mg Documented by: Aspirin (Aspirin 81 Mg) 81 mg PO DAILY [facility] Last Admin: 06/15/20 07:49 Dose: 81 mg Documented by: Atorvastatin Calcium (Atorvastatin 40 Mg Tab) 40 mg PO HS@2100 [facility] Last Admin: 06/15/20 20:17 Dose: 40 mg Documented by: Calcium Carbonate/Glycine (Calcium Carbonate 500 Mg Chewable) 500 mg PO TID PRN PRN Reason: Heartburn Last Admin: 06/14/20 15:56 Dose: 500 mg Documented by: Clopidogrel Bisulfate (Clopidogrel 75 Mg Tab) 75 mg PO DAILY [facility] Last Admin: 06/15/20 07:49 Dose: 75 mg Documented by: Ezetimibe (Ezetimibe 10 Mg Tab) 10 mg PO DAILY@1700 [facility] Last Admin: 06/15/20 17:00 Dose: 10 mg Documented by: Famotidine (Famotidine 20 Mg Tab) 20 mg PO DAILY [facility] Last Admin: 06/15/20 07:48 Dose: 20 mg Documented by: Fluconazole (Fluconazole 100 Mg Tab) 100 mg PO DAILY [facility] Heparin Sodium (Porcine) (Heparin Sodium,Porcine 5,000 Unit/Ml 1 Ml Vial) 0 unit IV PER PROTOCOL PRN; Protocol PRN Reason: Low PTT Last Admin: 06/14/20 15:56 Dose: 4,000 unit Documented by: Hydralazine HCl (Hydralazine Hcl 50 Mg Tab) 50 mg PO TID@0900,1700,2100 [facility] Last Admin: 06/15/20 20:17 Dose: 50 mg Documented by: Ceftriaxone Sodium 2 gm/ (Sodium Chloride) 50 mls @ 100 mls/hr IVPB Q24HR [facility] Last Admin: 06/15/20 10:13 Dose: 100 mls/hr Documented by: Heparin Sodium/Sodium Chloride (25,000 unit/ Sodium Chloride) 250 mls @ 9.84 mls/hr IV .Q24H [facility]; Protocol Last Titration: 06/15/20 18:35 Dose: 12 units/kg/hr, 9.84 mls/hr Documented by: Metoprolol Tartrate (Metoprolol Tartrate 25 Mg Tab) 25 mg PO BID@0900,1700 [facility] Last Admin: 06/15/20 17:03 Dose: 25 mg Documented by: Naloxone HCl (Naloxone 0.4 Mg/Ml 1 Ml Vial) 0.2 mg IV Q2M PRN PRN Reason: Opioid Reversal Nitroglycerin (Nitroglycerin Oint 1 Inch/Gm Packet) 1 inch TOPICAL Q8HR [facility] Last Admin: 06/15/20 17:03 Dose: Not Given Documented by: Sertraline HCl (Sertraline 100 Mg Tab) 200 mg PO DAILY@0900 [facility] Last Admin: 06/15/20 07:49 Dose: 200 mg Documented by: Past medical history to include: congestive heart failure from diastolic dysfunction EF 50-55%, ordered tricuspid regurgitation, atrial fibrillation, coronary artery disease with prior stent, intracranial bleed from anticoagulation, diabetes, GERD, hard of hearing, hypertension and hyperlipidemia osteoarthritis chronic urinary stress incontinence chronic tremors chronic kidney disease stage III. Patient's had mu ltiple UTIs Social history: Lives with her daughter Vesta. Was a caregiver. Walker. Patient smoked for 20 years stopped in 1965. No alcohol. Physical examination: VITAL SIGNS: 97.9, 75, 18, 1:30 position 9, 94% room air GENERAL: Laying in bed, awake, EYES: Pupils equal. Conjunctiva normal. HEENT: External appearance of nose and ears normal, oral cavity grossly normal. NECK: JVD not raised; masses not palpable. HEART: First and second heart sounds are normal; no edema. LUNGS: Respiratory rate normal; clear to auscultation. ABDOMEN: Soft, nontender, liver spleen not palpable, no masses palpable. PSYCH: Awake, answering simple questions NEUROLOGICAL: No facial asymmetry. Speech is slightly slow. No focal weakness MUSCULAR skeletal: Evidence of OA INVESTIGATIONS, reviewed in the clinical context: June 15: WBC 7.2 hemoglobin 8.9 potassium 4.9 creatinine 1.27 2-D echocardiogram-EF 50-55%. Wall motion lability. Moderate TR. CT NG of the brain-moderate 50-69% proximal left ICA stenosis. No obvious stroke reported. Computed tomography scan of the brain-no acute abnormalities. Small vessel disease. June 14: WBC 7.8 hemoglobin 9.3 potassium 5.1 bun 36 creatinine 1.31 Troponin I 4.6, 4.7, 5.1 EKG-sinus rhythm, Q waves in inferior leads and T wave changes in the frontal leads Prior EKG from January 2020 shows atrial fibrillation WBC 9.7 hemoglobin 10.3 potassium 5.4 bun 46 creatinine 1.64 AST 189 ALT 134 UA positive for leukoesterase WBC Coronavirus [PCR] not detected Abdominal ultrasound unremarkable Computed tomography scan of the abdomen-sigmoid diverticula suspect. Negative for fistula. Assessment and plan: -Acute embolic TIA, given prior history of atrial fibrillation. Initially affected his speech in the left arm. Now back to 0 deficit. MRI of the brain negative. -Acute non-Q wave myocardial infarction. Aspirin, IV heparin, cardiology consultation. 2-D echo-showed wall motion abnormality. -Acute UTI with cystitis and the patient's had recurrent UTIs. Computed tomography scan of the abdomen negative for fistula He worked up by her urologist Dr. Tran. Started IV ceftriaxone. -Chronic congestive heart failure from diastolic dysfunction EF 55-55%, follow clinically -Moderate tricuspid regurgitation, follow clinically -Persistent atrial fibrillation, continue with Lopressor. Telemetry. -Coronary artery disease with prior history of stent, continue with Lopressor Lipitor -History of intracranial bleed from anticoagulation -GERD, use Pepcid -Hard of hearing -Essential hypertension, continue with hydralazine, Lopressor -Hyperlipidemia, continue with CTR Lipitor -Primary osteoarthritis, use Tylenol when necessary -Chronic urinary stress incontinence, patient may use depends -Chronic kidney disease stage III likely from nephrosclerosis, follow renal function -Sigmoid diverticulosis-asymptomatic -DO NOT RESUSCITATE Care was discussed with daughter the bedside. Hopefully discharge tomorrow. Patient's had over 24 hours of IV heparin. No chest pain. Discontinue the same.
[2020-06-16] MEDS: NITROGLYCERIN OINT 1 INCH/GM PACKET TOPICAL SCH ×2 (00:20→09:05)
[2020-06-16] MEDS: ACETAMINOPHEN TAB 325 MG TAB PO PRN (03:55)
[2020-06-16 05:42] LABS: Glucose,Whole Blood 116 mg/dL (75-99)
[2020-06-16 08:07] LABS: Basophils % (A) 0 %; Eosinophils # (A) 0.1 k/uL (0-0.7); Eosinophils % (A) 2 %; HCT 25.8 % (34.0-46.0); HGB 8.4 gm/dL (11.4-16.0); Hypochromasia Slight; Lymphocytes # (A) 0.7 k/uL (1.0-4.8); Lymphocytes % (A) 11 %; MCH 31.8 pg (25.0-35.0); MCHC 32.7 g/dL (31.0-37.0); MCV 97.3 fL (80.0-100.0); Mean Platelet Volume 6.8; Monocytes # (A) 0.4 k/uL (0-1.0); Monocytes % (A) 7 %; Neutrophils # (A) 4.9 k/uL (1.3-7.7); Neutrophils % (A) 78 %; Platelet Count 207 k/uL (150-450); RBC 2.65 m/uL (3.80-5.40); RDW 15.4 % (11.5-15.5); WBC 6.2 k/uL (3.8-10.6)
[2020-06-16] MEDS ORDERED: FLUCONAZOLE 100 MG TAB PO SCH (09:00)
[2020-06-16] MEDS: ASPIRIN 81 MG PO SCH (09:05)
[2020-06-16] MEDS: FAMOTIDINE 20 MG TAB PO SCH (09:05)
[2020-06-16] MEDS: hydrALAZINE HCL 50 MG TAB PO SCH (09:05)
[2020-06-16] MEDS: METOPROLOL TARTRATE 25 MG TAB PO SCH (09:06)
[2020-06-16] MEDS: CLOPIDOGREL 75 MG TAB PO SCH (09:06)
[2020-06-16] MEDS: SERTRALINE 100 MG TAB PO SCH (09:06)
[2020-06-16 11:35] VITALS: RESP 20; TEMP 97.9
[2020-06-16 12:16] LABS: Glucose,Whole Blood 155 mg/dL (75-99)
[2020-06-16 12:37] VITALS: BP 114/49; PULSE 67
[2020-06-16] MEDS ORDERED: FUROSEMIDE 10 MG/ML 2 ML VIAL IV ONE (13:30)
--- NOTE | 2020-06-16 15:50 | PN ---
PROGRESS NOTE DATE OF SERVICE: 06/16/2020 REASON FOR FOLLOW UP: Proteus mirabilis urinary tract infection. INTERVAL HISTORY: The patient is currently afebrile. The patient is feeling better. Breathing comfortably. No chest pain. No cough. No abdominal pain or diarrhea. PHYSICAL EXAMINATION: Blood pressure 114/49 with a pulse of 67, temperature 97.9. She is 95% on room air. General description is an elderly female up in the chair in no distress. Respiratory system: Unlabored breathing, decreased breath sounds in the base, with no wheeze. Heart S1, S2. Regular rate and rhythm. ABDOMEN: Soft, no tenderness. LAB: Hemoglobin 8.4, white count 6.2. Blood culture has been negative. DIAGNOSTIC IMPRESSION AND PLAN: Patient with Proteus mirabilis urinary tract infection. Cultures done this admission has been negative so far. CT was negative for any fistula. Plan IV Rocephin because of allergy for about a week and close outpatient followup. Family at the bedside. Questions were answered. MMODL / IJN: [id number] /
[2020-06-16 16:53] LABS: Glucose,Whole Blood 105 mg/dL (75-99)
--- NOTE | 2020-06-17 23:02 | P.DS ---
Providers Date of admission: 06/11/20 16:06 Expected date of discharge: 06/16/20 Attending physician: Jeffrey Rossi Consults: 06/12/20 11:23 Consult Physician Routine Consulting Provider: Karen Guthrie Consult Reason/Comments: resistant UTI Do you want consulting provider notified?: Yes 06/12/20 13:48 Consult Physician Routine Consulting Provider: Luan Fierro Consult Reason/Comments: recurent UTI Do you want consulting provider notified?: Yes 06/14/20 11:50 Consult Physician Stat Consulting Provider: Shira Razo Consult Reason/Comments: critical trops Do you want consulting provider notified?: Yes 06/14/20 12:23 Consult Physician Routine Consulting Provider: Kelly Ga Consult Reason/Comments: poss stroke Do you want consulting provider notified?: Yes Primary care physician: Arturo Zamarripa [facility] Course: Chief Complaint: Vomiting tired History of presenting complaint: This is a pleasant 84-year-old patient who follows with Dr. Arturo Zamarripa. Chronic stable medical conditions include congestive heart failure from diastolic dysfunction EF 50-55%, ordered tricuspid regurgitation, atrial fibrillation, coronary artery disease with prior stent, intracranial bleed from anticoagulation, diabetes, GERD, hard of hearing, hypertension and hyperlipidemia osteoarthritis chronic urinary stress incontinence chronic tremors chronic kidney disease stage III. Patient's had multiple UTIs in the past. Last UTI was about a month ago. Patient's daughter is at the bedside. She now presents with episodes of vomiting feeling lethargic. Also had some loose stools at home. Not anymore. No fever no chills. Decreased appetite. At her baseline uses a walker. Lives with her daughter Vesta. There was a concern from patient urologist Dr. Tran about a fistula. Computed tomography scan of the abdomen-no obvious evidence of any fistula. June 14 -morning episode after the nurse had left the room and she came back in 10 minutes she found the patient's speech to be of slurred left arm was a bit weak. Code stroke was called. Computed tomography scan of the brain came back to be negative. Symptoms did improve. Daughter the bedside. Patient's troponin came back elevated. Cardiology was consulted. By the time I saw the patient the speech was still slightly slurred. Patient denied any chest pain June 15-patient is back to baseline. MRI did not show any stroke. Likely TIA. Patient also be treated for acute [place]. No chest pain. Today-doing better. No new issues. Will be discharged. With the daughter. Questions answered. 7 days of IV ceftriaxone at home. Discussion and discharge planning more than 35 minutes Public Address Technician: Dr. Guthrie from ID Dr. Velasquez from [facility] Past medical history to include: congestive heart failure from diastolic dysfunction EF 50-55%, ordered tricuspid regurgitation, atrial fibrillation, coronary artery disease with prior stent, intracranial bleed from anticoagulation, diabetes, GERD, hard of hearing, hypertension and hyperlipidemia osteoarthritis chronic urinary stress incontinence chronic tremors chronic kidney disease stage III. 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 Patient smoked for 20 years stopped in 1965. No alcohol. Physical examination: VITAL SIGNS: 97.9, 68, 20, 140/49, 95% room air GENERAL: Laying in bed, comfortable EYES: Pupils equal. Conjunctiva normal. HEENT: External appearance of nose and ears normal, oral cavity grossly normal. NECK: JVD not raised; masses not palpable. HEART: First and second heart sounds are normal; no edema. LUNGS: Respiratory rate normal; clear to auscultation. ABDOMEN: Soft, nontender, liver spleen not palpable, no masses palpable. PSYCH: Awake, answering simple questions NEUROLOGICAL: No facial asymmetry. Speech normal. No focal weakness MUSCULAR skeletal: Evidence of OA INVESTIGATIONS, reviewed in the clinical context: June 16: WBC 6.2 hemoglobin 8.4 June 15: WBC 7.2 hemoglobin 8.9 potassium 4.9 creatinine 1.27 2-D echocardiogram-EF 50-55%. Wall motion lability. Moderate TR. CT NG of the brain-moderate 50-69% proximal left ICA stenosis. No obvious stroke reported. Computed tomography scan of the brain-no acute abnormalities. Small vessel disease. June 14: WBC 7.8 hemoglobin 9.3 potassium 5.1 bun 36 creatinine 1.31 Troponin I 4.6, 4.7, 5.1 EKG-sinus rhythm, Q waves in inferior leads and T wave changes in the frontal leads Prior EKG from January 2020 shows atrial fibrillation WBC 9.7 hemoglobin 10.3 potassium 5.4 bun 46 creatinine 1.64 AST 189 ALT 134 UA positive for leukoesterase WBC Coronavirus [PCR] not detected Abdominal ultrasound unremarkable Computed tomography scan of the abdomen-sigmoid diverticula suspect. Negative for fistula. Assessment and plan: -Acute embolic TIA, given prior history of atrial fibrillation. Initially affected speech / left arm. Now back to 0 deficit. MRI of the brain negative. -Acute non-Q wave myocardial infarction. Aspirin, IV heparin, cardiology consultation. 2-D echo-showed wall motion abnormality. -Acute UTI with cystitis and the patient's had recurrent UTIs. Computed tomography scan of the abdomen negative for fistula follow-up with urologist Dr. Tran. IV ceftriaxone. -Chronic congestive heart failure from diastolic dysfunction EF 55-55%, follow clinically -Moderate tricuspid regurgitation, follow clinically -Persistent atrial fibrillation, continue with Lopressor. Telemetry. -Coronary artery disease with prior history of stent, continue with Lopressor Lipitor -History of intracranial bleed from anticoagulation -GERD, use Pepcid -Hard of hearing -Essential hypertension, continue with hydralazine, Lopressor -Hyperlipidemia, continue with CTR Lipitor -Primary osteoarthritis, use Tylenol when necessary -Chronic urinary stress incontinence, patient may use depends -Chronic kidney disease stage III likely from nephrosclerosis, follow renal function -Sigmoid diverticulosis-asymptomatic -DO NOT RESUSCITATE Disposition: Home Plan - Discharge Summary Discharge Rx Participant: No New Discharge Prescriptions: New Aspirin 81 mg PO DAILY chew Fluconazole [Diflucan] 100 mg PO DAILY #7 tab Famotidine [Pepcid] 20 mg PO DAILY tab Clopidogrel [Plavix] 75 mg PO DAILY #30 tab Continue Sertraline [Zoloft] 200 mg PO DAILY@0900 Atorvastatin [Lipitor] 20 mg PO HS@2100 Ezetimibe [Zetia] 10 mg PO DAILY@1700 Metoprolol Tartrate [Lopressor] 25 mg PO BID@0900,1700 tab hydrALAZINE HCL [Apresoline] 100 mg PO TID@0900,1700,2100 #0 ALPRAZolam [Xanax] 0.5 mg PO BID@1700,2100 Discharge Medication List Atorvastatin [Lipitor] 20 mg PO HS@2100 06/23/15 [History] Sertraline [Zoloft] 200 mg PO DAILY@0900 06/23/15 [History] Ezetimibe [Zetia] 10 mg PO DAILY@1700 01/26/19 [History] Metoprolol Tartrate [Lopressor] 25 mg PO BID@0900,1700 tab 01/28/19 [Rx] hydrALAZINE HCL [Apresoline] 100 mg PO TID@0900,1700,2100 #0 01/28/19 [Rx] ALPRAZolam [Xanax] 0.5 mg PO BID@1700,2100 06/10/20 [History] Aspirin 81 mg PO DAILY chew 06/16/20 [Rx] Clopidogrel [Plavix] 75 mg PO DAILY #30 tab 06/16/20 [Rx] Famotidine [Pepcid] 20 mg PO DAILY tab 06/16/20 [Rx] Fluconazole [Diflucan] 100 mg PO DAILY #7 tab 06/16/20 [Rx] Follow up Appointment(s)/Referral(s): Grady Givens DO [STAFF PHYSICIAN] - 2 Weeks [facility],Equipment [NON-STAFF] - (Supplied Jules) [facility], [NON-STAFF] - [facility],Infusion [NON-STAFF] - Arturo Zamarripa MD [Primary Care Provider] - 1-2 days Patient Instructions/Handouts: Transient Ischemic Attack (DC), Heart Attack (DC), Dehydration (DC), Urinary Tract Infection in Women (DC) Activity/Diet/Wound Care/Special Instructions: [facility] will deliver IV antibiotic for start of service at home on Thursday. [facility] will come out to assist with education on Thursday for 1st infusion. Please call [facility] [phone] upon DC for delivery of JULES [facility]IFT dc home at 6 pm bmp/cbc - 3 days Discharge Disposition: HOME SELF-CARE
== END 2020-06-16 18:24 | disposition home or self-care (01) | DRG 281 ==
LOC: EC 12:54 → 5NMEDONC 16:06 → 4SSUR 06-12 20:10 → 3SCARD 06-14 13:25
PROVIDERS: ADMIT Hospitalist; ATTEND Hospitalist
PROC: 05HF33Z Insertion of Infusion Device into Left Cephalic Vein, Percutaneous Approach (ICD-10-PCS; principal; 2020-06-15 17:05)
DX: I21.4 Non-ST elevation (NSTEMI) myocardial infarction (principal); G45.9 Transient cerebral ischemic attack, unspecified; N30.00 Acute cystitis without hematuria; G91.9 Hydrocephalus, unspecified; I13.0 Hypertensive heart and chronic kidney disease with heart failure and stage 1 through stage 4 chronic kidney disease, or unspecified chronic kidney disease; I48.19 Other persistent atrial fibrillation; I50.32 Chronic diastolic (congestive) heart failure; R29.810 Facial weakness; R47.81 Slurred speech; H91.93 Unspecified hearing loss, bilateral; B96.4 Proteus (mirabilis) (morganii) as the cause of diseases classified elsewhere; D64.9 Anemia, unspecified; E11.22 Type 2 diabetes mellitus with diabetic chronic kidney disease; E78.5 Hyperlipidemia, unspecified; E86.0 Dehydration; F32.9 Major depressive disorder, single episode, unspecified; F41.9 Anxiety disorder, unspecified; H57.04 Mydriasis; R29.707 NIHSS score 7; I08.3 Combined rheumatic disorders of mitral, aortic and tricuspid valves; I25.10 Atherosclerotic heart disease of native coronary artery without angina pectoris; Z20.822 Contact with and (suspected) exposure to COVID-19; I25.2 Old myocardial infarction; K21.9 Gastro-esophageal reflux disease without esophagitis; K57.30 Diverticulosis of large intestine without perforation or abscess without bleeding; M06.9 Rheumatoid arthritis, unspecified; M19.91 Primary osteoarthritis, unspecified site; N18.30 Chronic kidney disease, stage 3 unspecified; N39.3 Stress incontinence (female) (male); Z66 Do not resuscitate; Z79.899 Other long term (current) drug therapy; Z80.0 Family history of malignant neoplasm of digestive organs; Z80.3 Family history of malignant neoplasm of breast; Z86.73 Personal history of transient ischemic attack (TIA), and cerebral infarction without residual deficits; Z87.440 Personal history of urinary (tract) infections; Z87.891 Personal history of nicotine dependence; Z88.1 Allergy status to other antibiotic agents; Z88.0 Allergy status to penicillin; Z88.2 Allergy status to sulfonamides; Z95.5 Presence of coronary angioplasty implant and graft; Z90.49 Acquired absence of other specified parts of digestive tract
CPT/HCPCS: 36410; 36415; 70450; 70496; 70498; 70551; 74176; 76705; 76937; 80048; 80053; 80061; 81001; 83605; 83690; 84484; 85025; 85027; 85610; 85730; 87040; 87324; 87635; 93005; 93306; 96361; 96365; 96367; 96372; 96375; 99285

== ENCOUNTER 2020-06-26 13:36 | Emergency (ER) | payer MEDICARE ==
--- NOTE | 2020-06-26 13:55 | ED ---
General Adult HPI - General Stated complaint: Neuro Time Seen by Provider: 06/26/20 13:37 Source: patient, RN notes reviewed, old records reviewed - History of Present Illness Initial comments: 84-year-old female presenting for evaluation of abnormal pupils. Patient was noted by her daughter to have unequal pupils. She had a recent admission to this hospital with stroke. She was evaluated by neurology at that time. She receives CT CT angiography an MRI. She was discharged home on Plavix. There is no new focal findings. Patient has no complaints. No headache. No limb weakness or numbness. She was noted at 9 AM when she woke this morning to have these symptoms. No fever. No vomiting or diarrhea. No cough or dyspnea. No chest pain. - Related Data Home Medications Medication Instructions Recorded Confirmed Atorvastatin [Lipitor] 20 mg PO HS@2300 06/23/15 06/26/20 Sertraline [Zoloft] 200 mg PO DAILY@1000 06/23/15 06/26/20 Ezetimibe [Zetia] 10 mg PO DAILY@1800 01/26/19 06/26/20 ALPRAZolam [Xanax] 0.5 mg PO BID@1800,2300 06/10/20 06/26/20 Aspirin 81 mg PO DAILY@1800 06/26/20 06/26/20 Clopidogrel [Plavix] 75 mg PO DAILY@1800 06/26/20 06/26/20 Losartan Potassium 100 mg PO DAILY@1000 06/26/20 06/26/20 Metoprolol Tartrate [Lopressor] 25 mg PO BID@1000,1800 06/26/20 06/26/20 NIFEdipine [NIFEdipine ER] 30 mg PO DAILY@1800 06/26/20 06/26/20 hydrALAZINE HCL [Apresoline] 100 mg PO TID@1000,1800,2300 06/26/20 06/26/20 Allergies Allergy/AdvReac Type Severity Reaction Status Date / Time levofloxacin [From Levaquin] Allergy Rash/Hives Verified 06/26/20 15:21 Penicillins Allergy Rash/Hives Verified 06/26/20 15:21 Sulfa (Sulfonamide Allergy Rash/Hives Verified 06/26/20 15:21 Antibiotics) Review of Systems ROS Statement: Those systems with pertinent positive or pertinent negative responses have been documented in the HPI. ROS Other: All systems not noted in ROS Statement are negative. 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, NIDDM type II, spinal stenosis, leaky bladder, bilateral hand tremors, vertigo, [place] bilaterally, eczema, bronchitis, sinus problems, hiatal hernia Last Myocardial Infarction Date:: 1998 History of Any Multi-Drug Resistant Organisms: None Reported Past Surgical History: Cholecystectomy, Heart Catheterization With Stent Additional Past Surgical History / Comment(s): pt htinks she has 4-5 cardiac stents Past Anesthesia/Blood Transfusion Reactions: No Reported Reaction Date of Last Stent Placement:: 2009 Past Psychological History: Anxiety, Depression Smoking Status: Former smoker Past Alcohol Use History: None Reported Past Drug Use History: None Reported - Past Family History Mother Family Medical History: Cancer Additional Family Medical History / Comment(s): Mother had breast cancer with mets-she at age 71 yrs. Father Family Medical History: Cancer Additional Family Medical History / Comment(s): Father had esophageal cancer and in his 70's. Sister(s) Family Medical History: Cancer Additional Family Medical History / Comment(s): Sister os breast cancer Daughter(s) Additional Family Medical History / Comment(s): Pt has had one pierre from breast cancer and another pierre from MS. General Exam General appearance: alert, in no apparent distress Head exam: Present: atraumatic, normocephalic Eye exam: Present: EOMI. Absent: PERRL ((O is 5 mm, right pupil is 3 mm. both Are reactive to both direct and consensual light response.) ENT exam: Present: normal exam Respiratory exam: Present: normal lung sounds bilaterally. Absent: respiratory distress, wheezes Cardiovascular Exam: Present: regular rate, normal rhythm GI/Abdominal exam: Present: soft. Absent: distended, tenderness, guarding Extremities exam: Present: normal inspection, normal capillary refill. Absent: pedal edema, calf tenderness Back exam: Present: normal inspection Neurological exam: Present: alert, oriented X3. Absent: CN II-XII intact (Normal facial symmetry, no dysarthria, pupils are asymmetric.) Psychiatric exam: Present: normal affect, normal mood Skin exam: Present: warm, dry, intact. Absent: cyanosis, diaphoretic Course Vital Signs 06/26/20 13:45 Temperature 99.2 F Pulse Rate 75 Respiratory 18 Rate Blood Pressure 121/65 O2 Sat by Pulse 95 Oximetry EKG Findings - EKG Comments: EKG Findings:: EKG: Sinus rhythm rate of 75, QRS duration 96, QTC 446 T-wave inversion in the inferior leads. No ST segment elevation. Medical Decision Making - Medical Decision Making 84-year-old female presenting with abnormal pupil exam. I did review the medical record and speak with the neurologist Dr. Velasquez who had evaluated the p atient on her recent admission. She had anisocoria at that time. She did receive CT, CT angiography and MRI. Patient has reactive pupils bilaterally with 3 mm on the right, 5 mm on the left. Otherwise her neurologic exam is normal. She has no headache. I did repeat a CT which is negative for i ntracranial hemorrhage or mass effect. has signed the neurologist who is familiar with this patient does recommend outpatient ophthalmology follow-up as she has had complete imaging of the brain. Daughter is informed of this and agreeable with this plan. Otherwise patient's laboratory studies are stable and improved. - Lab Data Result diagrams: 06/26/20 14:37 06/26/20 14:37 Lab Results 06/26/20 06/26/20 06/26/20 Range/Units 14:37 14:37 14:37 WBC 6.4 (3.8-10.6) k/uL RBC 2.93 L (3.80-5.40) m/uL Hgb 9.3 L (11.4-16.0) gm/dL Hct 28.5 L (34.0-46.0) % MCV 97.2 (80.0-100.0) fL MCH 31.9 (25.0-35.0) pg MCHC 32.8 (31.0-37.0) g/dL RDW 15.2 (11.5-15.5) % Plt Count 224 (150-450) k/uL MPV 6.6 Neutrophils % 83 % Lymphocytes % 10 % Monocytes % 5 % Eosinophils % 1 % Basophils % 0 % Neutrophils # 5.3 (1.3-7.7) k/uL Lymphocytes # 0.6 L (1.0-4.8) k/uL Monocytes # 0.3 (0-1.0) k/uL Eosinophils # 0.1 (0-0.7) k/uL Basophils # 0.0 (0-0.2) k/uL Hypochromasia Marked PT 11.0 (9.0-12.0) sec INR 1.0 (<1.2) APTT 24.7 (22.0-30.0) sec Sodium 136 L (137-145) mmol/L Potassium 4.9 (3.5-5.1) mmol/L Chloride 108 H (98-107) mmol/L Carbon Dioxide 19 L (22-30) mmol/L Anion Gap 9 mmol/L BUN 24 H (7-17) mg/dL Creatinine 0.87 (0.52-1.04) mg/dL Est GFR (CKD-EPI)AfAm 70 (>60 ml/min/1.73 sqM) Est GFR (CKD-EPI)NonAf 61 (>60 ml/min/1.73 sqM) Glucose 114 H (74-99) mg/dL Calcium 8.7 (8.4-10.2) mg/dL Total Bilirubin 0.4 (0.2-1.3) mg/dL AST 63 H (14-36) U/L ALT 39 H (4-34) U/L Alkaline Phosphatase 61 (38-126) U/L Total Protein 6.7 (6.3-8.2) g/dL Albumin 3.3 L (3.5-5.0) g/dL Disposition Clinical Impression: Anisocoria Disposition: HOME SELF-CARE Condition: Fair Additional Instructions: Please follow up with her neurologist and with ophthalmology. Is patient prescribed a controlled substance at d/c from ED?: No Referrals: Arturo Zamarripa MD [Primary Care Provider] - 1-2 days Celio Navarrete MD [STAFF PHYSICIAN] - 1-2 days Time of Disposition: 15:51
[2020-06-26 14:09] VITALS: TEMP 99.2
[2020-06-26 15:00] LABS: Basophils % (A) 0 %; Eosinophils # (A) 0.1 k/uL (0-0.7); Eosinophils % (A) 1 %; HCT 28.5 % (34.0-46.0); HGB 9.3 gm/dL (11.4-16.0); Hypochromasia Marked; Lymphocytes # (A) 0.6 k/uL (1.0-4.8); Lymphocytes % (A) 10 %; MCH 31.9 pg (25.0-35.0); MCHC 32.8 g/dL (31.0-37.0); MCV 97.2 fL (80.0-100.0); Mean Platelet Volume 6.6; Monocytes # (A) 0.3 k/uL (0-1.0); Monocytes % (A) 5 %; Neutrophils # (A) 5.3 k/uL (1.3-7.7); Neutrophils % (A) 83 %; Platelet Count 224 k/uL (150-450); RBC 2.93 m/uL (3.80-5.40); RDW 15.2 % (11.5-15.5); WBC 6.4 k/uL (3.8-10.6)
[2020-06-26 15:15] LABS: Partial Thromboplastin Time 24.7 sec (22.0-30.0)
[2020-06-26 15:20] LABS: Albumin 3.3 g/dL (3.5-5.0); Calcium 8.7 mg/dL (8.4-10.2); Potassium 4.9 mmol/L (3.5-5.1); Total Bilirubin 0.4 mg/dL (0.2-1.3); Total Protein 6.7 g/dL (6.3-8.2)
--- NOTE | 2020-06-26 15:36 | CT ---
EXAMINATION TYPE: CT brain wo con DATE OF EXAM: 06/26/2020 COMPARISON: 06/14/2020 HISTORY: Weakness CT DLP: 1173.4 mGycm Automated exposure control for dose reduction was used. FINDINGS: Moderate generalized degenerative change with low attenuation throughout the white matter bilaterally . No acute hemorrhage or mass effect. No midline shift. Calvarium intact. IMPRESSION: DEGENERATIVE AND NONSPECIFIC WHITE MATTER CHANGES MOST TYPICAL OF REMOTE ISCHEMIA.
[2020-06-26 16:01] VITALS: BP 138/68; PULSE 71; RESP 16
== END 2020-06-26 16:01 | disposition home or self-care (01) ==
LOC: EC 13:36
DX: H57.02 Anisocoria (principal); I11.0 Hypertensive heart disease with heart failure; I50.9 Heart failure, unspecified; E11.9 Type 2 diabetes mellitus without complications; I25.10 Atherosclerotic heart disease of native coronary artery without angina pectoris; E78.5 Hyperlipidemia, unspecified; F41.9 Anxiety disorder, unspecified; F32.9 Major depressive disorder, single episode, unspecified; M19.90 Unspecified osteoarthritis, unspecified site; K21.9 Gastro-esophageal reflux disease without esophagitis; I25.2 Old myocardial infarction; Z95.5 Presence of coronary angioplasty implant and graft; Z87.891 Personal history of nicotine dependence; Z86.73 Personal history of transient ischemic attack (TIA), and cerebral infarction without residual deficits; Z88.0 Allergy status to penicillin; Z79.82 Long term (current) use of aspirin; Z79.899 Other long term (current) drug therapy; Z79.02 Long term (current) use of antithrombotics/antiplatelets
CPT/HCPCS: 36415; 70450; 80053; 85025; 85610; 85730; 93005; 99284

== ENCOUNTER 2020-07-08 16:56 | Inpatient (IN) | payer MEDICARE ==
--- NOTE | 2020-07-08 18:22 | ED ---
General Adult HPI - General Chief complaint: Shortness of Breath Stated complaint: Bradycardia Time Seen by Provider: 07/08/20 17:14 Source: patient, RN notes reviewed, old records reviewed Mode of arrival: EMS Limitations: no limitations - History of Present Illness Initial comments: 84-year-old female presenting for evaluation of dyspnea. She states she has had some exertional dyspnea for the past 6 days. She denies fever. She is not currently on home oxygen. She has multiple medical conditions including congestive heart failure, CAD, hypertension and diabetes. She denies any pain complaints. Denies lower leg pain or swelling. Denies fever. She states she's had both of her coronavirus vaccines. - Related Data Home Medications Medication Instructions Recorded Confirmed Atorvastatin [Lipitor] 20 mg PO HS@2300 06/23/15 06/26/20 Sertraline [Zoloft] 200 mg PO DAILY@1000 06/23/15 06/26/20 Ezetimibe [Zetia] 10 mg PO DAILY@1800 01/26/19 06/26/20 ALPRAZolam [Xanax] 0.5 mg PO BID@1800,2300 06/10/20 06/26/20 Aspirin 81 mg PO DAILY@1800 06/26/20 06/26/20 Clopidogrel [Plavix] 75 mg PO DAILY@1800 06/26/20 06/26/20 Losartan Potassium 100 mg PO DAILY@1000 06/26/20 06/26/20 Metoprolol Tartrate [Lopressor] 25 mg PO BID@1000,1800 06/26/20 06/26/20 NIFEdipine [NIFEdipine ER] 30 mg PO DAILY@1800 06/26/20 06/26/20 hydrALAZINE HCL [Apresoline] 100 mg PO TID@1000,1800,2300 06/26/20 06/26/20 Allergies Allergy/AdvReac Type Severity Reaction Status Date / Time levofloxacin [From Levaquin] Allergy Rash/Hives Verified 07/08/20 17:08 Penicillins Allergy Rash/Hives Verified 07/08/20 17:08 Sulfa (Sulfonamide Allergy Rash/Hives Verified 07/08/20 17:08 Antibiotics) Review of Systems ROS Statement: Those systems with pertinent positive or pertinent negative responses have been documented in the HPI. ROS Other: All systems not noted in ROS Statement are negative. 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, NIDDM type II, spinal stenosis, leaky bladder, bilateral hand tremors, vertigo, [place] bilaterally, eczema, bronchitis, sinus problems, hiatal hernia Last Myocardial Infarction Date:: 1998 History of Any Multi-Drug Resistant Organisms: None Reported Past Surgical History: Cholecystectomy, Heart Catheterization With Stent Additional Past Surgical History / Comment(s): pt htinks she has 4-5 cardiac stents Past Anesthesia/Blood Transfusion Reactions: No Reported Reaction Date of Last Stent Placement:: 2009 Past Psychological History: Anxiety, Depression Smoking Status: Former smoker Past Alcohol Use History: None Reported Past Drug Use History: None Reported - Past Family History Mother Family Medical History: Cancer Additional Family Medical History / Comment(s): Mother had breast cancer with mets-she at age 71 yrs. Father Family Medical History: Cancer Additional Family Medical History / Comment(s): Father had esophageal cancer and in his 70's. Sister(s) Family Medical History: Cancer Additional Family Medical History / Comment(s): Sister os breast cancer Daughter(s) Additional Family Medical History / Comment(s): Pt has had one pierre from breast cancer and another pierre from MS. General Exam Limitations: no limitations General appearance: alert, in no apparent distress Head exam: Present: atraumatic, normocephalic Eye exam: Present: normal appearance, PERRL ENT exam: Present: normal exam Neck exam: Present: normal inspection. Absent: tenderness, meningismus Respiratory exam: Present: respiratory distress, rales Cardiovascular Exam: Present: normal rhythm, bradycardia GI/Abdominal exam: Present: soft. Absent: distended, tenderness Rectal exam: Absent: black stool, bloody stool Extremities exam: Present: normal capillary refill, pedal edema (trace) Neurological exam: Present: alert, oriented X3, CN II-XII intact. Absent: motor sensory deficit Skin exam: Present: warm, dry, intact. Absent: cyanosis, diaphoretic Course Vital Signs 07/08/20 07/08/20 17:05 19:25 Temperature 98.9 F Pulse Rate 45 L 46 L Respiratory 20 18 Rate Blood Pressure 157/70 160/67 O2 Sat by Pulse 97 100 Oximetry EKG Findings - EKG Comments: EKG Findings:: EKG: Sinus bradycardia, no ST segment elevation, T-wave inversion in the precordial leads. Ventricular rate of 46, PA interval 168, QRS duration 90, QTC 469 Medical Decision Making - Medical Decision Making 84-year-old female presenting for dyspnea. Patient has been vaccinated against coronavirus, has received both vaccines however she does test positive for coronavirus in the emergency department. She has additionally anemia hemoglobin 7.1. There is no melanotic stool or bloody stool. Her troponin is mildly elevated 0.059. She has an elevated BNP of 21,000. Chest x-ray showing coarse lung markings. She's given Decadron, and Lasix in the emergency department. Her hemoglobin will be closely monitored. Additionally she is started on Protonix. Case discussed with the admitting physician Dr. López. Troponin level will be trended. - Lab Data Result diagrams: 07/08/20 18:03 07/08/20 18:03 Lab Results 07/08/20 07/08/20 07/08/20 Range/Units 18:03 18:03 18:03 WBC 5.3 (3.8-10.6) k/uL RBC 2.47 L (3.80-5.40) m/uL Hgb 7.1 L D (11.4-16.0) gm/dL Hct 23.4 L (34.0-46.0) % MCV 94.8 (80.0-100.0) fL MCH 28.7 (25.0-35.0) pg MCHC 30.2 L (31.0-37.0) g/dL RDW 15.9 H (11.5-15.5) % Plt Count 208 (150-450) k/uL MPV 7.4 Neutrophils % 74 % Lymphocytes % 19 % Monocytes % 5 % Eosinophils % 1 % Basophils % 1 % Neutrophils # 3.9 (1.3-7.7) k/uL Lymphocytes # 1.0 (1.0-4.8) k/uL Monocytes # 0.2 (0-1.0) k/uL Eosinophils # 0.1 (0-0.7) k/uL Basophils # 0.0 (0-0.2) k/uL Hypochromasia Moderate PT 10.9 (9.0-12.0) sec INR 1.0 (<1.2) APTT 26.6 (22.0-30.0) sec Sodium 138 (137-145) mmol/L Potassium 4.9 (3.5-5.1) mmol/L Chloride 109 H (98-107) mmol/L Carbon Dioxide 19 L (22-30) mmol/L Anion Gap 10 mmol/L BUN 30 H (7-17) mg/dL Creatinine 1.16 H (0.52-1.04) mg/dL Est GFR (CKD-EPI)AfAm 50 (>60 ml/min/1.73 sqM) Est GFR (CKD-EPI)NonAf 43 (>60 ml/min/1.73 sqM) Glucose 89 (74-99) mg/dL Plasma Lactic Acid Jesse (0.7-2.0) mmol/L Calcium 8.0 L (8.4-10.2) mg/dL Total Bilirubin 0.4 (0.2-1.3) mg/dL AST 144 H (14-36) U/L ALT 58 H (4-34) U/L Alkaline Phosphatase 61 (38-126) U/L Troponin I (0.000-0.034) ng/mL NT-Pro-B Natriuret Pep pg/mL Total Protein 6.5 (6.3-8.2) g/dL Albumin 3.0 L (3.5-5.0) g/dL Stool Occult Blood (Negative) Coronavirus (PCR) (Not Detectd) 07/08/20 07/08/20 07/08/20 Range/Units 18:03 18:03 18:03 WBC (3.8-10.6) k/uL RBC (3.80-5.40) m/uL Hgb (11.4-16.0) gm/dL Hct (34.0-46.0) % MCV (80.0-100.0) fL MCH (25.0-35.0) pg MCHC (31.0-37.0) g/dL RDW (11.5-15.5) % Plt Count (150-450) k/uL MPV Neutrophils % % Lymphocytes % % Monocytes % % Eosinophils % % Basophils % % Neutrophils # (1.3-7.7) k/uL Lymphocytes # (1.0-4.8) k/uL Monocytes # (0-1.0) k/uL Eosinophils # (0-0.7) k/uL Basophils # (0-0.2) k/uL Hypochromasia PT (9.0-12.0) sec INR (<1.2) APTT (22.0-30.0) sec Sodium (137-145) mmol/L Potassium (3.5-5.1) mmol/L Chloride (98-107) mmol/L Carbon Dioxide (22-30) mmol/L Anion Gap mmol/L BUN (7-17) mg/dL Creatinine (0.52-1.04) mg/dL Est GFR (CKD-EPI)AfAm (>60 ml/min/1.73 sqM) Est GFR (CKD-EPI)NonAf (>60 ml/min/1.73 sqM) Glucose (74-99) mg/dL Plasma Lactic Acid Jesse 0.8 (0.7-2.0) mmol/L Calcium (8.4-10.2) mg/dL Total Bilirubin (0.2-1.3) mg/dL AST (14-36) U/L ALT (4-34) U/L Alkaline Phosphatase (38-126) U/L Troponin I 0.059 H* (0.000-0.034) ng/mL NT-Pro-B Natriuret Pep 89527 pg/mL Total Protein (6.3-8.2) g/dL Albumin (3.5-5.0) g/dL Stool Occult Blood (Negative) Coronavirus (PCR) (Not Detectd) 07/08/20 07/08/20 Range/Units 18:03 19:28 WBC (3.8-10.6) k/uL RBC (3.80-5.40) m/uL Hgb (11.4-16.0) gm/dL Hct (34.0-46.0) % MCV (80.0-100.0) fL MCH (25.0-35.0) pg MCHC (31.0-37.0) g/dL RDW (11.5-15.5) % Plt Count (150-450) k/uL MPV Neutrophils % % Lymphocytes % % Monocytes % % Eosinophils % % Basophils % % Neutrophils # (1.3-7.7) k/uL Lymphocytes # (1.0-4.8) k/uL Monocytes # (0-1.0) k/uL Eosinophils # (0-0.7) k/uL Basophils # (0-0.2) k/uL Hypochromasia PT (9.0-12.0) sec INR (<1.2) APTT (22.0-30.0) sec Sodium (137-145) mmol/L Potassium (3.5-5.1) mmol/L Chloride (98-107) mmol/L Carbon Dioxide (22-30) mmol/L Anion Gap mmol/L BUN (7-17) mg/dL Creatinine (0.52-1.04) mg/dL Est GFR (CKD-EPI)AfAm (>60 ml/min/1.73 sqM) Est GFR (CKD-EPI)NonAf (>60 ml/min/1.73 sqM) Glucose (74-99) mg/dL Plasma Lactic Acid Jesse (0.7-2.0) mmol/L Calcium (8.4-10.2) mg/dL Total Bilirubin (0.2-1.3) mg/dL AST (14-36) U/L ALT (4-34) U/L Alkaline Phosphatase (38-126) U/L Troponin I (0.000-0.034) ng/mL NT-Pro-B Natriuret Pep pg/mL Total Protein (6.3-8.2) g/dL Albumin (3.5-5.0) g/dL Stool Occult Blood Negative (Negative) Coronavirus (PCR) Detected A (Not Detectd) Critical Care Time Critical Care Time: Yes Total Critical Care Time: 35 Disposition Clinical Impression: Congestive heart failure, Troponin level elevated, COVID-19, Anemia Disposition: ADMITTED IP TO THIS HOSP Condition: Stable Is patient prescribed a controlled substance at d/c from ED?: No Referrals: Arturo Zamarripa MD [Primary Care Provider] - 1-2 days Decision to Admit Reason: Admit from EC Decision Date: 07/08/20 Decision Time: 20:08
[2020-07-08 18:28] LABS: Basophils % (A) 1 %; Eosinophils # (A) 0.1 k/uL (0-0.7); Eosinophils % (A) 1 %; HCT 23.4 % (34.0-46.0); Hypochromasia Moderate; Lymphocytes % (A) 19 %; MCH 28.7 pg (25.0-35.0); MCHC 30.2 g/dL (31.0-37.0); MCV 94.8 fL (80.0-100.0); Mean Platelet Volume 7.4; Monocytes # (A) 0.2 k/uL (0-1.0); Monocytes % (A) 5 %; Neutrophils # (A) 3.9 k/uL (1.3-7.7); Neutrophils % (A) 74 %; Platelet Count 208 k/uL (150-450); RBC 2.47 m/uL (3.80-5.40); RDW 15.9 % (11.5-15.5); WBC 5.3 k/uL (3.8-10.6)
[2020-07-08 18:34] LABS: Partial Thromboplastin Time 26.6 sec (22.0-30.0); Prothrombin Time 10.9 sec (9.0-12.0)
[2020-07-08 18:41] LABS: Potassium 4.9 mmol/L (3.5-5.1); Total Bilirubin 0.4 mg/dL (0.2-1.3); Total Protein 6.5 g/dL (6.3-8.2)
[2020-07-08 18:49] LABS: HGB 7.1 gm/dL (11.4-16.0)
[2020-07-08] MEDS ORDERED: PANTOPRAZOLE 40 MG/10 ML VIAL IVP STA (19:02)
[2020-07-08] MEDS ORDERED: NALOXONE 0.4 MG/ML 1 ML VIAL IV PRN (19:55)
--- NOTE | 2020-07-08 20:02 | XR ---
EXAMINATION TYPE: XR chest 2V DATE OF EXAM: 07/08/2020 COMPARISON: 01/18/2020 HISTORY: Difficulty breathing TECHNIQUE: 2 views FINDINGS: Heart is moderately enlarged. There is no obvious heart failure. There is slight coarsening of interstitial markings. There is no pleural effusion. There is osteopenia. IMPRESSION: Cardiomegaly. Coarse lung markings consistent with some pulmonary fibrosis. There is impr ovement compared to last exam. There is clearing of some infiltrate at the left lung base compared to old exam.
[2020-07-08] MEDS ORDERED: FUROSEMIDE 10 MG/ML 4 ML VIAL IV STA (20:06)
[2020-07-08] MEDS ORDERED: HYDROcodone/APAP 5-325MG 1 EACH TAB PO PRN (20:48)
--- NOTE | 2020-07-08 22:49 | HP ---
HISTORY AND PHYSICAL DATE OF SERVICE: 07/08/2020. CHIEF COMPLAINTS: Shortness of breath and bradycardia. HISTORY OF PRESENT ILLNESS: This 84-year-old woman with a past medical history of multiple medical problems including CAD, history of chest pain, CHF, CVA, TIA, diabetes mellitus, GERD, history of myocardial infarction, history of DJD being followed by Dr. Zamarripa in the outpatient setting, not feeling well over the past several days. The patient apparently had just completed the 2nd dose of vaccine at the doctor's office on 07/06/2020. The patient had apparently had contact with Covid 19 in her family. The patient had some shortness of breath. The patient also had some cough and the patient had complaints of weakness. The patient came to [facility] and admitted for evaluation and treatment. Covid 19 was found to be positive. The hemoglobin is found to be 7.1. The previous hemoglobin was 9.3. No active bleeding was noted. Creatinine is 1.16. Troponin is 0.059 and chest x-ray which was reviewed by me showed cardiomegaly and possibly minimal changes. There is no history of any fever, rigor or chills at this time. Patient extremely hard of hearing. PAST MEDICAL HISTORY: History of CAD, history of CVA, TIA, diabetes type 2, GERD, history of myocardial infarction. MEDICATIONS: Medications prior to admission home medications are: Hydralazine, Zoloft, nifedipine, Lopressor, losartan, Zetia, Plavix. Lipitor, aspirin, Xanax. Doses reviewed. ALLERGIES: LEVAQUIN, PENICILLIN, SULFA. FAMILY HISTORY: History of cancer in the family. SOCIAL HISTORY: Previous history of smoking. No history of current smoking or alcohol. REVIEW OF SYSTEMS: ENT: Diminished vision. Diminished hearing. CARDIOVASCULAR: No angina or palpitations. RESPIRATORY: As mentioned earlier. GI: As mentioned earlier. : No dysuria. NERVOUS SYSTEM: No numbness or weakness. ALLERGY/IMMUNOLOGY: No asthma or hayfever. MUSCULOSKELETAL as mentioned earlier. HEMATOLOGY/ONCOLOGY: No history of anemia. ENDOCRINE: Diabetes. CONSTITUTIONAL: As mentioned earlier. DERMATOLOGY: Negative. RHEUMATOLOGY: Negative. PSYCHIATRY: As mentioned earlier. PHYSICAL EXAMINATION: Alert and oriented x3. Pulse is 46, blood pressure 160/67, respiration 18, temperature 98.2. Pulse ox 100 percent on 2 L. HEENT is conjunctivae are normal. Neck: No JVD. CARDIOVASCULAR: S1, S2 muffled. RESPIRATION: Breath sounds diminished in the bases. A few scattered rhonchi. ABDOMEN: Soft, nontender. LEGS: No edema. No swelling. NERVOUS SYSTEM: Higher functions as mentioned. Moves all four limbs. No focal motor or sensory deficits. LYMPHATICS: No lymph nodes palpable in the neck, axillae or groin. JOINTS: No active deforming arthropathy. LAB STUDIES: WBC 5.3, hemoglobin 7.1. Sodium 130, potassium 4.9, creatinine 1.16 and AST is 144, ALT is 58. ASSESSMENT: 1. Shortness of breath, possibly acute COVID-19 infection with possibly Covid 19 pneumonia. 2. Bilateral interstitial pneumonia. 3. Anemia of undetermined etiology. 4. Troponin 0.059. Rule out acute [id number]-lcscdon-elevation myocardial infarction. 5. Increased creatinine with possibly dehydration with acute renal failure. 6. History of possible chronic kidney disease stage 3 in the baseline. 7. Elevated AST/ALT possibly secondary to Covid. 8. History of coronary artery disease. 9. History of congestive heart failure. 10.Cerebrovascular accident/transient ischemic attack. 11.Diabetes mellitus type 2. 12.Gastroesophageal reflux disease. 13.Hypertension. 14.Hyperlipidemia. 15.Myocardial infarction. 16.History of degenerative joint disease. 17.History of cerebrovascular accident. 18.Cholecystectomy. 19.History of coronary artery disease/ stent. 20.History of anxiety, depression. 21.FULL CODE. 22.Obesity with body mass 30.2. 23.Bradycardia with ST changes. RECOMMENDATIONS AND DISCUSSION: In this 81-year-old woman who presented with multiple medical issues, at this time I recommend continue the current medications, management and symptomatic treatment. Continue the bronchodilators. If the Covid 19, recommend D-dimer and if D-dimer is positive, recommend CT angio of the chest. The patient also has anemia. I would recommend one unit transfusion with Lasix 20 mg after the transfusion. I would also recommend GI evaluation. The patient also history of CHF and bradycardia. also continue. I would also recommend Cardiology evaluation. Overall prognosis is extremely guarded because of multiple complex medical issues as listed above. Cardiology and pulmonology consulted. Further recommendations to follow. A copy of dictation is being forwarded to Dr. Zamarripa who is the primary physician. MMODL / IJN: [id number] /
[2020-07-08] MEDS: ATORVASTATIN 20 MG TAB PO SCH (23:28)
[2020-07-08] MEDS: ALPRAZolam 0.5 MG TAB PO SCH (23:28)
[2020-07-08] MEDS: hydrALAZINE HCL 50 MG TAB PO SCH (23:28)
[2020-07-09 00:03] LABS: Basophils % (A) 0 %; Eosinophils % (A) 1 %; HCT 28.3 % (34.0-46.0); Hypochromasia Moderate; Lymphocytes # (A) 0.9 k/uL (1.0-4.8); Lymphocytes % (A) 23 %; MCH 29.5 pg (25.0-35.0); MCHC 30.9 g/dL (31.0-37.0); MCV 95.7 fL (80.0-100.0); Mean Platelet Volume 7.2; Monocytes # (A) 0.3 k/uL (0-1.0); Monocytes % (A) 7 %; Neutrophils # (A) 2.5 k/uL (1.3-7.7); Neutrophils % (A) 67 %; Platelet Count 156 k/uL (150-450); RBC 2.96 m/uL (3.80-5.40); RDW 15.9 % (11.5-15.5); WBC 3.7 k/uL (3.8-10.6)
[2020-07-09 00:08] LABS: HGB 8.7 gm/dL (11.4-16.0)
[2020-07-09 05:30] LABS: Basophils % (A) 0 %; Eosinophils # (A) 0.1 k/uL (0-0.7); Eosinophils % (A) 2 %; HCT 28.4 % (34.0-46.0); HGB 8.7 gm/dL (11.4-16.0); Hypochromasia Marked; Lymphocytes # (A) 0.8 k/uL (1.0-4.8); Lymphocytes % (A) 19 %; MCH 29.6 pg (25.0-35.0); MCHC 30.8 g/dL (31.0-37.0); MCV 96.3 fL (80.0-100.0); Mean Platelet Volume 7.2; Monocytes # (A) 0.2 k/uL (0-1.0); Monocytes % (A) 5 %; Neutrophils # (A) 2.8 k/uL (1.3-7.7); Neutrophils % (A) 72 %; Platelet Count 141 k/uL (150-450); RBC 2.95 m/uL (3.80-5.40); RDW 15.6 % (11.5-15.5); WBC 3.9 k/uL (3.8-10.6)
[2020-07-09 05:36] LABS: Calcium 8.1 mg/dL (8.4-10.2); Potassium 4.7 mmol/L (3.5-5.1)
[2020-07-09] MEDS: ALBUTEROL HFA INHALER INHALATION SCH ×3 (08:11→19:35)
[2020-07-09] MEDS ORDERED: REMDESIVIR 200 MG in SODIUM CHLORIDE 0.9% 250 ML IVPB ONE (09:00)
--- NOTE | 2020-07-09 09:06 | NM ---
EXAMINATION TYPE: NM pul perfusion DATE OF EXAM: 07/09/2020 COMPARISON: NONE HISTORY: Shortness of breath rule out pulmonary embolism Following administration of 4.9 mCi Tc 99m MAA. Images obtained post injection. FINDINGS: No evidence for perfusion defect. IMPRESSION: Very low probability for pulmonary embolism.
--- NOTE | 2020-07-09 10:26 | P.CRDCN ---
History of Present Illness Consult date: 07/09/20 Chief complaint: Shortness of breath History of present illness: This is an 84-year-old female patient with extensive past medical history consis tent of coronary artery disease and prior percutaneous coronary interventions with unknown details, chronic diastolic congestive heart failure, chronic kidney disease, paroxysmal atrial fibrillation not on any oral anticoagulation secondary to history of intracranial bleeding, as well as multiple comorbid conditions presented to the emergency department complaining of shortness of breath. Because the patient somewhat is poor historian and because the patient was tested positive for Covid-19 infection the history was taken predominantly from the chart as well as from the nurse taking care of the patient. For the last few weeks she has been experiencing increasing shortness of breath with ex ertion but no symptoms of chest pain or chest discomfort. She did not have any symptoms of fever or chills. No cough or sputum production. The chest x-ray did not show any acute abnormalities but it did show some chronic changes seems to be accessed on previous chest x-ray from a few weeks ago. The troponin came in to be slightly abnormal. At the same time the creatinine came in to be elevated and patient is known to have chronic kidney disease. Her hemoglobin also is low and around 8. The patient was admitted to the hospital recently with shortness of breath as well as abnormal cardiac enzymes and she was treated medically for acute coronary syndrome in the absence of any chest pain or chest discomfort because of the abnormal kidney function. This time the EKG showed sinus rhythm was sinus bradycardia and diffuse nonspecific ST and T wave abnormalities. Currently she is not on any AV estela sanjeev agents. Also today she underwent a VQ scan and that came in to be with low probably for PE. 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, NIDDM type II, spinal stenosis, leaky bladder, bilateral hand tremors, vertigo, [place] bilaterally, eczema, bronchitis, sinus problems, hiatal hernia Last Myocardial Infarction Date:: 1998 History of Any Multi-Drug Resistant Organisms: None Reported Past Surgical History: Cholecystectomy, Heart Catheterization With Stent Additional Past Surgical History / Comment(s): pt htinks she has 4-5 cardiac stents Past Anesthesia/Blood Transfusion Reactions: No Reported Reaction Date of Last Stent Placement:: 2009 Past Psychological History: Anxiety, Depression Smoking Status: Former smoker Past Alcohol Use History: None Reported Past Drug Use History: None Reported - Past Family History Mother Family Medical History: Cancer Additional Family Medical History / Comment(s): Mother had breast cancer with mets-she at age 71 yrs. Father Family Medical History: Cancer Additional Family Medical History / Comment(s): Father had esophageal cancer and in his 70's. Sister(s) Family Medical History: Cancer Additional Family Medical History / Comment(s): Sister os breast cancer Daughter(s) Additional Family Medical History / Comment(s): Pt has had one pierre from breast cancer and another pierre from MS. Medications and Allergies Home Medications Medication Instructions Recorded Confirmed Type Atorvastatin [Lipitor] 20 mg PO HS@2300 06/23/15 07/08/20 History Sertraline [Zoloft] 200 mg PO DAILY@1000 06/23/15 07/08/20 History Ezetimibe [Zetia] 10 mg PO DAILY@1800 01/26/19 07/08/20 History ALPRAZolam [Xanax] 0.5 mg PO BID@1800,229906/10/20 07/08/20 History Aspirin 81 mg PO DAILY@1800 06/26/20 07/08/20 History Clopidogrel [Plavix] 75 mg PO DAILY@1800 06/26/20 07/08/20 History Losartan Potassium 100 mg PO DAILY@1000 06/26/20 07/08/20 History Metoprolol Tartrate [Lopressor] 25 mg PO BID@1000,1800 06/26/20 07/08/20 History NIFEdipine [NIFEdipine ER] 30 mg PO DAILY@1800 06/26/20 07/08/20 History hydrALAZINE HCL [Apresoline] 100 mg PO TID@1000,1800,0 06/26/20 07/08/20 History Allergies Allergy/AdvReac Type Severity Reaction Status Date / Time levofloxacin [From Levaquin] Allergy Rash/Hives Verified 07/08/20 20:37 Penicillins Allergy Rash/Hives Verified 07/08/20 20:37 Sulfa (Sulfonamide Allergy Rash/Hives Verified 07/08/20 20:37 Antibiotics) Physical Exam Vitals: Vital Signs Temp Pulse Resp BP Pulse Ox 07/09/20 06:00 54 L 16 166/71 100 07/09/20 05:00 60 18 98 07/09/20 04:00 60 18 99 07/09/20 03:00 97.7 F 58 L 18 151/70 99 07/09/20 01:00 56 L 18 99 07/09/20 00:00 50 L 18 99 07/08/20 23:26 98.0 F 43 L 18 153/59 97 07/08/20 22:22 46 L 16 150/60 99 07/08/20 21:23 44 L 18 144/63 98 07/08/20 19:25 46 L 18 160/67 100 07/08/20 17:05 98.9 F 45 L 20 157/70 97 Intake and Output 07/08/20 07/09/20 07/09/20 22:59 06:59 14:59 Other: Weight 74.843 kg - Constitutional General appearance: no acute distress Results 07/09/20 04:59 07/09/20 04:59 Cardiac Enzymes 07/08/20 07/08/20 07/08/20 Range/Units 18:03 18:03 20:38 AST 144 H (14-36) U/L Troponin I 0.059 H* 0.066 H* (0.000-0.034) ng/mL 07/08/20 Range/Units 23:49 AST (14-36) U/L Troponin I 0.060 H* (0.000-0.034) ng/mL Coagulation 07/08/20 Range/Units 18:03 PT 10.9 (9.0-12.0) sec APTT 26.6 (22.0-30.0) sec CBC 07/08/20 07/08/20 07/09/20 Range/Units 18:03 23:34 04:59 WBC 5.3 3.7 L 3.9 (3.8-10.6) k/uL RBC 2.47 L 2.96 L 2.95 L (3.80-5.40) m/uL Hgb 7.1 L D 8.7 L D 8.7 L (11.4-16.0) gm/dL Hct 23.4 L 28.3 L 28.4 L (34.0-46.0) % Plt Count 208 156 141 L (150-450) k/uL Comprehensive Metabolic Panel 07/08/20 07/09/20 Range/Units 18:03 04:59 Sodium 138 136 L (137-145) mmol/L Potassium 4.9 4.7 (3.5-5.1) mmol/L Chloride 109 H 109 H (98-107) mmol/L Carbon Dioxide 19 L 19 L (22-30) mmol/L BUN 30 H 32 H (7-17) mg/dL Creatinine 1.16 H 1.22 H (0.52-1.04) mg/dL Glucose 89 83 (74-99) mg/dL Calcium 8.0 L 8.1 L (8.4-10.2) mg/dL AST 144 H (14-36) U/L ALT 58 H (4-34) U/L Alkaline Phosphatase 61 (38-126) U/L Total Protein 6.5 (6.3-8.2) g/dL Albumin 3.0 L (3.5-5.0) g/dL Current Medications Generic Name Dose Route Start Last Admin Trade Name Freq PRN Reason Stop Dose Admin Acetaminophen 650 mg 07/08/20 19:55 Acetaminophen Tab 325 Mg Tab PO Q6HR PRN Mild Pain or Fever > 100.5 Hydrocodone Bitart/Acetaminophen 1 each 07/08/20 20:48 Hydrocodone/Apap 5-325mg 1 Each Tab PO Q6HR PRN Pain Albuterol Sulfate 2 puff 07/09/20 08:00 07/09/20 08:11 Albuterol Hfa Inhaler INHALATION Not Given RT-TID LILI Alprazolam 0.5 mg 07/08/20 23:00 07/08/20 23:28 Alprazolam 0.5 Mg Tab PO 0.5 mg BID@1800,2300 [facility] Administration Ascorbic Acid 500 mg 07/09/20 09:00 Ascorbic Acid 500 Mg Tab PO BID LILI Atorvastatin Calcium 20 mg 07/08/20 23:00 07/08/20 23:28 Atorvastatin 20 Mg Tab PO 20 mg HS@2300 LILI Administration Cholecalciferol 125 mcg 07/09/20 09:00 Cholecalciferol 25 Mcg (1000 Iu) Tablet PO DAILY [facility] Dexamethasone Sodium Phosphate 6 mg 07/09/20 09:00 Dexamethasone Sod Phosphate 10 Mg/Ml 1 Ml Vial IV DAILY [facility] Ezetimibe 10 mg 07/09/20 18:00 Ezetimibe 10 Mg Tab PO DAILY@1800 [facility] Enoxaparin Sodium 30 mg 07/09/20 09:00 Enoxaparin 30 Mg/0.3 Ml Syringe SQ DAILY [facility] Hydralazine HCl 100 mg 07/08/20 23:00 07/08/20 23:28 Hydralazine Hcl 50 Mg Tab PO 100 mg TID@1000,1800,2300 [facility] Administration Remdesivir 100 mg/ Sodium 250 mls @ 250 mls/hr 07/10/20 09:00 Chloride IVPB 07/13/20 09:59 DAILY [facility] Naloxone HCl 0.2 mg 07/08/20 19:55 Naloxone 0.4 Mg/Ml 1 Ml Vial IV Q2M PRN Opioid Reversal Nifedipine 30 mg 07/09/20 18:00 Nifedipine Xl 30 Mg Tab.Er.24 PO DAILY@1800 [facility] Pantoprazole Sodium 40 mg 07/09/20 09:00 Pantoprazole 40 Mg/10 Ml Vial IVP BID [facility] Sertraline HCl 200 mg 07/09/20 10:00 Sertraline 100 Mg Tab PO DAILY@1000 [facility] Zinc Sulfate 220 mg 07/09/20 09:00 Zinc Sulfate 220 Mg Cap PO DAILY [facility] Intake and Output 07/08/20 07/09/20 07/09/20 22:59 06:59 14:59 Other: Weight 74.843 kg 07/09/20 04:59 07/09/20 04:59 Assessment and Plan Assessment: Assessment #1 shortness of breath likely to be multi-factorial and related to covid infection as well as anemia as well as a component of heart failure with pr eserved ejection fraction #2. Bilateral interstitial pneumonia #3 chronic kidney disease seems to be stable #4 chronic anemia seems to be stable #5 mildly abnormal troponin likely secondary to the abnormal kidney function as well as anemia as well as sepsis #6 history of intracranial bleeding #7 paroxysmal atrial fibrillation #8 multiple comorbid conditions Plan #1 consider conservative medical approach regarding the abnormal cardiac enzymes #2 the patient doesn't seems to be in overt congestive heart failure and the shortness of breath is predominantly related to the sepsis #3 no need to repeat the echo in view of recent echo showing normal LV function #4 continue holding any oral anticoagulation in view of the recent intracranial bleeding #5 follow-up with the patient
[2020-07-09] MEDS: PANTOPRAZOLE 40 MG/10 ML VIAL IVP SCH ×2 (10:36→22:06)
[2020-07-09] MEDS: SERTRALINE 100 MG TAB PO SCH (10:36)
[2020-07-09] MEDS: ASCORBIC ACID 500 MG TAB PO SCH ×2 (10:36→22:06)
[2020-07-09] MEDS: ZINC SULFATE 220 MG CAP PO SCH (10:36)
[2020-07-09] MEDS: hydrALAZINE HCL 50 MG TAB PO SCH ×3 (10:36→22:06)
[2020-07-09] MEDS: CHOLECALCIFEROL 25 MCG (1000 IU) TABLET PO SCH (10:37)
[2020-07-09] MEDS: ENOXAPARIN 30 MG/0.3 ML SYRINGE SQ SCH (10:37)
[2020-07-09] MEDS: DEXAMETHASONE SOD PHOSPHATE 10 MG/ML 1 ML VIAL IV SCH (10:37)
--- NOTE | 2020-07-09 11:44 | P.CNPUL ---
History of Present Illness Consult date: 07/09/20 Requesting physician: Arturo Castellon Reason for consult: dyspnea, hypoxemia Chief complaint: SOB, cough History of present illness: 84-year-old female patient of Dr. Zamarripa with past medical history of hypertension, coronary artery disease, chronic CHF, unspecified, diabetes mellitus type 2, who presented to the emergency department on 2020 with 2 day history of increased shortness of breath, though the ER record states she's been short of breath for 6 days. She normally does not wear oxygen. Patient admits to some cough and some yellow phlegm production. She has had both vaccines for the coronavirus. Patient is currently on 3 L of oxygen, the pulse ox of 98%, she is afebrile. Chest x-ray showed cardiomegaly, coarse lung markings consistent with some pulmonary fibrosis. EKG showed sinus bradycardia with possible old inferior wall infarct, T-wave inversion in the anterior leads. Patient's troponins were 0.059, 0.066. Procalcitonin was negative at 0.10, COVID 19 PCR was positive, d-dimer was 1.23, proBNP was 21,500. GFR was 43, B1 is 30, creatinine is 1.16, white count is 5.3 on admission, hemoglobin is 7.1, patient denies any black stools or visible blood in the stools, no hematemesis, no bleeding. Patient normally takes Plavix and aspirin. VQ scan was completed in view of elevated d-dimer, and showed very low probability for pulmonary embolism. Patient is awaiting a bed in the emergency department, seems to be in no acute distress, appears a bit pale, but hemodynamically stable, today's lab work has been reviewed showing hemoglobin of 8.7, white count is 3.7, leukocyte, 0.9. Remains on 3 L of oxygen with pulse ox of 98%. Review of Systems All systems: negative Constitutional: Denies chills, Denies fever Eyes: denies blurred vision, denies pain Ears, nose, mouth and throat: Denies headache, Denies sore throat Cardiovascular: Denies chest pain, Denies shortness of breath Respiratory: Reports dyspnea, Denies cough Gastrointestinal: Denies abdominal pain, Denies diarrhea, Denies nausea, Denies vomiting Genitourinary: Denies dysuria, Denies hematuria Musculoskeletal: Denies myalgias Integumentary: Denies pruritus, Denies rash Neurological: Denies numbness, Denies weakness Psychiatric: Denies anxiety, Denies depression Endocrine: Denies fatigue, Denies weight change Past Medical History Past Medical History: Coronary Artery Disease (CAD), Chest Pain / Angina, Heart Failure, CVA/TIA, Diabetes Mellitus, Eye Disorder, GERD/Reflux, Hearing Disorder / Deafness, Hyperlipidemia, Hypertension, Myocardial Infarction ([place]), Osteoarthritis (OA), Skin Disorder Additional Past Medical History / Comment(s): 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, NIDDM type II, spinal stenosis, leaky bladder, bilateral hand tremors, vertigo, [place] bilaterally, eczema, bronchitis, sinus problems, hiatal hernia Last Myocardial Infarction Date:: 1998 History of Any Multi-Drug Resistant Organisms: None Reported Past Surgical History: Cholecystectomy, Heart Catheterization With Stent Additional Past Surgical History / Comment(s): pt htinks she has 4-[address] ents Past Anesthesia/Blood Transfusion Reactions: No Reported Reaction Date of Last Stent Placement:: 2009 Past Psychological History: Anxiety, Depression Smoking Status: Former smoker Past Alcohol Use History: None Reported Past Drug Use History: None Reported - Past Family History Mother Family Medical History: Cancer Additional Family Medical History / Comment(s): Mother had breast cancer with mets-she at age 71 yrs. Father Family Medical History: Cancer Additional Family Medical History / Comment(s): Father had esophageal cancer and in his 70's. Sister(s) Family Medical History: Cancer Additional Family Medical History / Comment(s): Sister os breast cancer Daughter(s) Additional Family Medical History / Comment(s): Pt has had one pierre from breast cancer and another pierre from MS. Medications and Allergies Home Medications Medication Instructions Recorded Confirmed Type Atorvastatin [Lipitor] 20 mg PO HS@2300 06/23/15 07/08/20 History Sertraline [Zoloft] 200 mg PO DAILY@1000 06/23/15 07/08/20 History Ezetimibe [Zetia] 10 mg PO DAILY@1800 01/26/19 07/08/20 History ALPRAZolam [Xanax] 0.5 mg PO BID@1800,2300 06/10/20 07/08/20 History Aspirin 81 mg PO DAILY@1800 06/26/20 07/08/20 History Clopidogrel [Plavix] 75 mg PO DAILY@1800 06/26/20 07/08/20 History Losartan Potassium 100 mg PO DAILY@1000 06/26/20 07/08/20 History Metoprolol Tartrate [Lopressor] 25 mg PO BID@1000,1800 06/26/20 07/08/20 History NIFEdipine [NIFEdipine ER] 30 mg PO DAILY@1800 06/26/20 07/08/20 History hydrALAZINE HCL [Apresoline] 100 mg PO TID@1000,1800,2300 06/26/20 07/08/20 History Allergies Allergy/AdvReac Type Severity Reaction Status Date / Time levofloxacin [From Levaquin] Allergy Rash/Hives Verified 07/08/20 20:37 Penicillins Allergy Rash/Hives Verified 07/08/20 20:37 Sulfa (Sulfonamide Allergy Rash/Hives Verified 07/08/20 20:37 Antibiotics) Physical Exam Vitals: Vital Signs Temp Pulse Resp BP Pulse Ox 07/09/20 06:00 54 L 16 166/71 100 07/09/20 05:00 60 18 98 07/09/20 04:00 60 18 99 07/09/20 03:00 97.7 F 58 L 18 151/70 99 07/09/20 01:00 56 L 18 99 07/09/20 00:00 50 L 18 99 07/08/20 23:26 98.0 F 43 L 18 153/59 97 07/08/20 22:22 46 L 16 150/60 99 07/08/20 21:23 44 L 18 144/63 98 07/08/20 19:25 46 L 18 160/67 100 07/08/20 17:05 98.9 F 45 L 20 157/70 97 Intake and Output 07/08/20 07/09/20 07/09/20 22:59 06:59 14:59 Other: Weight 74.843 kg GENERAL EXAM: Alert, very pleasant, 84 white female, on 3 L she pulse ox of 98% comfortable in no apparent distress. HEAD: Normocephalic/atraumatic. EYES: Normal reaction of pupils, equal size. Conjunctiva pink, sclera white. NOSE: Clear with pink turbinates. THROAT: No erythema or exudates. NECK: No masses, no JVD, no thyroid enlargement, no adenopathy. CHEST: No chest wall deformity. Symmetrical expansion. LUNGS: Equal air entry with no crackles, wheeze, rhonchi or dullness. CVS: Regular rate and rhythm, normal S1 and S2, no gallops, no murmurs, no rubs ABDOMEN: Soft, nontender. No hepatosplenomegaly, normal bowel sounds, no guarding or rigidity. EXTREMITIES: No clubbing, no edema, no cyanosis, 2+ pulses and upper and lower extremities. MUSCULOSKELETAL: Muscle strength and tone normal. SPINE: No scoliosis or deformity SKIN: No rashes CENTRAL NERVOUS SYSTEM: Alert and oriented -3. No focal deficits, tone is normal in all 4 extremities. PSYCHIATRIC: Alert and oriented -3. Appropriate affect. Intact judgment and insight. Results - Laboratory Findings CBC and BMP: 07/09/20 04:59 07/09/20 04:59 PT/INR, D-dimer PT 10.9 sec (9.0-12.0) 07/08/20 18:03 INR 1.0 (<1.2) 07/08/20 18:03 D-Dimer 1.23 mg/L FEU (<0.60) H 07/08/20 21:25 Abnormal lab findings: Abnormal Labs 07/08/20 07/08/20 07/08/20 18:03 18:03 18:03 WBC RBC 2.47 L Hgb 7.1 L D Hct 23.4 L MCHC 30.2 L RDW 15.9 H Plt Count Lymphocytes # Retic Count D-Dimer Sodium Chloride 109 H Carbon Dioxide 19 L BUN 30 H Creatinine 1.16 H Calcium 8.0 L AST 144 H ALT 58 H Troponin I 0.059 H* Albumin 3.0 L Procalcitonin Coronavirus (PCR) Crossmatch 07/08/20 07/08/20 07/08/20 18:03 18:03 20:38 WBC RBC Hgb Hct MCHC RDW Plt Count Lymphocytes # Retic Count D-Dimer Sodium Chloride Carbon Dioxide BUN Creatinine Calcium AST ALT Troponin I 0.066 H* Albumin Procalcitonin 0.10 H Coronavirus (PCR) Detected A Crossmatch 07/08/20 07/08/20 07/08/20 21:25 22:20 23:34 WBC 3.7 L RBC 2.96 L Hgb 8.7 L D Hct 28.3 L MCHC 30.9 L RDW 15.9 H Plt Count Lymphocytes # 0.9 L Retic Count D-Dimer 1.23 H Sodium Chloride Carbon Dioxide BUN Creatinine Calcium AST ALT Troponin I Albumin Procalcitonin Coronavirus (PCR) Crossmatch See Detail 07/08/20 07/09/20 07/09/20 23:49 04:59 04:59 WBC RBC 2.95 L Hgb 8.7 L Hct 28.4 L MCHC 30.8 L RDW 15.6 H Plt Count 141 L Lymphocytes # 0.8 L Retic Count D-Dimer Sodium 136 L Chloride 109 H Carbon Dioxide 19 L BUN 32 H Creatinine 1.22 H Calcium 8.1 L AST ALT Troponin I 0.060 H* Albumin Procalcitonin Coronavirus (PCR) Crossmatch 07/09/20 04:59 WBC RBC Hgb Hct MCHC RDW Plt Count Lymphocytes # Retic Count 3.0 H D-Dimer Sodium Chloride Carbon Dioxide BUN Creatinine Calcium AST ALT Troponin I Albumin Procalcitonin Coronavirus (PCR) Crossmatch - Diagnostic Findings Chest x-ray: report reviewed, image reviewed Additional studies: EKG reviewed, VQ scan results reviewed Assessment and Plan Plan: Assessment: #1. Acute hypoxic respiratory failure related to acute COVID 19 related pneumonia, patient presented to the hospital with 2 day history of increased shortness of breath, will be started on Remdesivir today on 07/09/2020 #2. Elevated troponin and d-dimer, with low probability VQ scan for pulmonary embolism #3. Acute on chronic anemia, unspecified, patient denies any obvious bleeding at home. Stool for occult blood is negative #4. Previous history of myocardial infarction #5. History coronary artery disease #6. Hypertension #7. Diabetes mellitus type II #8. Hyperlipidemia #9. Chronic kidney disease, unspecified #10. Increased troponins, cardiology is following #11. History of intracranial bleeding #12. History of paroxysmal A. fib Plan: Continue Decadron 6 mg daily, VQ scan results have been reviewed showing low probability for pulmonary embolism, we will start prophylactic dose of Lovenox 20 mg daily, we'll start the patient on Remdesivir, continue the vitamin cocktail, monitor oxygenation and dyspnea level, we'll continue to follow I performed a history & physical examination of the patient and discussed their management with my nurse practitioner, Cheryl Marinelli. I reviewed the nurse practitioner's note and agree with the documented findings and plan of care. Lung sounds are positive for diminished breath sounds throughout the lung boss. The findings and the impression was discussed with the patient. I attest to the documentation by the nurse practitioner. Time with Patient: Greater than 30
[2020-07-09] MEDS: ACETAMINOPHEN TAB 325 MG TAB PO PRN (12:38)
--- NOTE | 2020-07-09 14:27 | P.CONS ---
History of Present Illness - Reason for Consult Consult date: 07/09/20 Suspected GI bleed Requesting physician: Arturo Zamarripa - Chief Complaint Shortness of breath - History of Present Illness 84-year-old female with multiple medical comorbidities including hypertension, coronary artery disease, congestive heart failure, diabetes mellitus and chronic anemia who presented to the hospital due to increasing shortness of breath. Of note history of intake and in conversation with the patient in addition to on review of the electronic medical record. And then the patient was found to be anemic on presentation with a hemoglobin of 7.1 with repeat blood pressure in the hemoglobin of 8.7. Stool testing for occult blood was negative. Patient denies any signs or symptoms of GI bleeding. She is on Plavix for history of cardiac stent placement in the past. She denies any abdominal pain. She is unsure about prior colonoscopy denies any history of peptic ulcer disease in the past. She does take daily ibuprofen. She had pulmonary perfusion scan which was low probability for PE. Review of Systems REVIEW OF SYSTEMS: CONSTITUTIONAL: Denies any fevers, chills, weight change or fatigue. CARDIOVASCULAR: Denies any chest pain, palpitations high or low blood pressures RESPIRATORY: Denies any hemoptysis but did report shortness of breath. GENITOURINARY: No dysuria or hematuria. MUSCULOSKELETAL: No weakness reported. SKIN: Denies any new rashes or lesions, jaundice or pallor. PSYCHIATRIC: Denies any depression or anxiety. NEUROLOGY: Denies headache, denies any new focal deficits. EARS/NOSE/THROAT: No recent hearing change, congestion, nasal discharge or sore throat. EYES: No pain in eyes, discharge or change in vision. GASTROINTESTINAL: As per HPI. 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, NIDDM type II, spinal stenosis, leaky bladder, bilateral hand tremors, vertigo, BURNS PAIUTE bilaterally, eczema, bronchitis, sinus problems, hiatal hernia Last Myocardial Infarction Date:: 1998 History of Any Multi-Drug Resistant Organisms: None Reported Past Surgical History: Cholecystectomy, Heart Catheterization With Stent Additional Past Surgical History / Comment(s): pt htinks she has 4-5 cardiac stents Past Anesthesia/Blood Transfusion Reactions: No Reported Reaction Date of Last Stent Placement:: 2009 Past Psychological History: Anxiety, Depression Smoking Status: Former smoker Past Alcohol Use History: None Reported Past Drug Use History: None Reported - Past Family History Mother Family Medical History: Cancer Additional Family Medical History / Comment(s): Mother had breast cancer with mets-she at age 71 yrs. Father Family Medical History: Cancer Additional Family Medical History / Comment(s): Father had esophageal cancer and in his 70's. Sister(s) Family Medical History: Cancer Additional Family Medical History / Comment(s): Sister os breast cancer Daughter(s) Additional Family Medical History / Comment(s): Pt has had one pierre from breast cancer and another pierre from MS. Medications and Allergies Home Medications Medication Instructions Recorded Confirmed Type Atorvastatin [Lipitor] 20 mg PO HS@2300 06/23/15 07/08/20 History Sertraline [Zoloft] 200 mg PO DAILY@1000 06/23/15 07/08/20 History Ezetimibe [Zetia] 10 mg PO DAILY@1800 01/26/19 07/08/20 History ALPRAZolam [Xanax] 0.5 mg PO BID@1800,229906/10/20 07/08/20 History Aspirin 81 mg PO DAILY@1800 06/26/20 07/08/20 History Clopidogrel [Plavix] 75 mg PO DAILY@1800 06/26/20 07/08/20 History Losartan Potassium 100 mg PO DAILY@1000 06/26/20 07/08/20 History Metoprolol Tartrate [Lopressor] 25 mg PO BID@1000,1800 06/26/20 07/08/20 History NIFEdipine [NIFEdipine ER] 30 mg PO DAILY@1800 06/26/20 07/08/20 History hydrALAZINE HCL [Apresoline] 100 mg PO TID@1000,1800,0 06/26/20 07/08/20 History Allergies Allergy/AdvReac Type Severity Reaction Status Date / Time levofloxacin [From Levaquin] Allergy Rash/Hives Verified 07/08/20 20:37 Penicillins Allergy Rash/Hives Verified 07/08/20 20:37 Sulfa (Sulfonamide Allergy Rash/Hives Verified 07/08/20 20:37 Antibiotics) Physical Exam Vitals: Vital Signs Temp Pulse Resp BP Pulse Ox 07/09/20 06:00 54 L 16 166/71 100 07/09/20 05:00 60 18 98 07/09/20 04:00 60 18 99 07/09/20 03:00 97.7 F 58 L 18 151/70 99 07/09/20 01:00 56 L 18 99 07/09/20 00:00 50 L 18 99 07/08/20 23:26 98.0 F 43 L 18 153/59 97 07/08/20 22:22 46 L 16 150/60 99 07/08/20 21:23 44 L 18 144/63 98 07/08/20 19:25 46 L 18 160/67 100 07/08/20 17:05 98.9 F 45 L 20 157/70 97 Intake and Output 07/08/20 07/09/20 07/09/20 22:59 06:59 14:59 Other: Weight 74.843 kg On physical examination, patient appears comfortable in no apparent distress. HEAD: Normocephalic, atraumatic. EYES: No scleral icterus. No conjunctival injection. MOUTH: No lesions, tongue midline. NECK: Trachea midline, no gross abnormalities. CHEST: Decreased air entry in all boss. HEART: S1-S2 appreciated. ABDOMEN: Soft, nontender to palpation. Bowel sounds are positive. No organomegaly. No guarding or rigidity. EXTREMITIES: No pedal edema. SKIN: No rashes, no jaundice. NEUROLOGIC: Alert and oriented x3. No focal deficits. Results CBC & Chem 7: 07/09/20 04:59 07/09/20 04:59 Labs: Abnormal Lab Results - Last 24 Hours (Table) 07/08/20 07/08/20 07/08/20 Range/Units 18:03 18:03 18:03 WBC (3.8-10.6) k/uL RBC 2.47 L (3.80-5.40) m/uL Hgb 7.1 L D (11.4-16.0) gm/dL Hct 23.4 L (34.0-46.0) % MCHC 30.2 L (31.0-37.0) g/dL RDW 15.9 H (11.5-15.5) % Plt Count (150-450) k/uL Lymphocytes # (1.0-4.8) k/uL Retic Count (0.5-2.0) % D-Dimer (<0.60) mg/L FEU Sodium (137-145) mmol/L Chloride 109 H (98-107) mmol/L Carbon Dioxide 19 L (22-30) mmol/L BUN 30 H (7-17) mg/dL Creatinine 1.16 H (0.52-1.04) mg/dL Calcium 8.0 L (8.4-10.2) mg/dL AST 144 H (14-36) U/L ALT 58 H (4-34) U/L Troponin I 0.059 H* (0.000-0.034) ng/mL Albumin 3.0 L (3.5-5.0) g/dL Procalcitonin (0.02-0.09) ng/mL Coronavirus (PCR) (Not Detectd) Crossmatch 07/08/20 07/08/20 07/08/20 Range/Units 18:03 18:03 20:38 WBC (3.8-10.6) k/uL RBC (3.80-5.40) m/uL Hgb (11.4-16.0) gm/dL Hct (34.0-46.0) % MCHC (31.0-37.0) g/dL RDW (11.5-15.5) % Plt Count (150-450) k/uL Lymphocytes # (1.0-4.8) k/uL Retic Count (0.5-2.0) % D-Dimer (<0.60) mg/L FEU Sodium (137-145) mmol/L Chloride (98-107) mmol/L Carbon Dioxide (22-30) mmol/L BUN (7-17) mg/dL Creatinine (0.52-1.04) mg/dL Calcium (8.4-10.2) mg/dL AST (14-36) U/L ALT (4-34) U/L Troponin I 0.066 H* (0.000-0.034) ng/mL Albumin (3.5-5.0) g/dL Procalcitonin 0.10 H (0.02-0.09) ng/mL Coronavirus (PCR) Detected A (Not Detectd) Crossmatch 07/08/20 07/08/20 07/08/20 Range/Units 21:25 22:20 23:34 WBC 3.7 L (3.8-10.6) k/uL RBC 2.96 L (3.80-5.40) m/uL Hgb 8.7 L D (11.4-16.0) gm/dL Hct 28.3 L (34.0-46.0) % MCHC 30.9 L (31.0-37.0) g/dL RDW 15.9 H (11.5-15.5) % Plt Count (150-450) k/uL Lymphocytes # 0.9 L (1.0-4.8) k/uL Retic Count (0.5-2.0) % D-Dimer 1.23 H (<0.60) mg/L FEU Sodium (137-145) mmol/L Chloride (98-107) mmol/L Carbon Dioxide (22-30) mmol/L BUN (7-17) mg/dL Creatinine (0.52-1.04) mg/dL Calcium (8.4-10.2) mg/dL AST (14-36) U/L ALT (4-34) U/L Troponin I (0.000-0.034) ng/mL Albumin (3.5-5.0) g/dL Procalcitonin (0.02-0.09) ng/mL Coronavirus (PCR) (Not Detectd) Crossmatch See Detail 07/08/20 07/09/20 07/09/20 Range/Units 23:49 04:59 04:59 WBC (3.8-10.6) k/uL RBC 2.95 L (3.80-5.40) m/uL Hgb 8.7 L (11.4-16.0) gm/dL Hct 28.4 L (34.0-46.0) % MCHC 30.8 L (31.0-37.0) g/dL RDW 15.6 H (11.5-15.5) % Plt Count 141 L (150-450) k/uL Lymphocytes # 0.8 L (1.0-4.8) k/uL Retic Count (0.5-2.0) % D-Dimer (<0.60) mg/L FEU Sodium 136 L (137-145) mmol/L Chloride 109 H (98-107) mmol/L Carbon Dioxide 19 L (22-30) mmol/L BUN 32 H (7-17) mg/dL Creatinine 1.22 H (0.52-1.04) mg/dL Calcium 8.1 L (8.4-10.2) mg/dL AST (14-36) U/L ALT (4-34) U/L Troponin I 0.060 H* (0.000-0.034) ng/mL Albumin (3.5-5.0) g/dL Procalcitonin (0.02-0.09) ng/mL Coronavirus (PCR) (Not Detectd) Crossmatch 07/09/20 Range/Units 04:59 WBC (3.8-10.6) k/uL RBC (3.80-5.40) m/uL Hgb (11.4-16.0) gm/dL Hct (34.0-46.0) % MCHC (31.0-37.0) g/dL RDW (11.5-15.5) % Plt Count (150-450) k/uL Lymphocytes # (1.0-4.8) k/uL Retic Count 3.0 H (0.5-2.0) % D-Dimer (<0.60) mg/L FEU Sodium (137-145) mmol/L Chloride (98-107) mmol/L Carbon Dioxide (22-30) mmol/L BUN (7-17) mg/dL Creatinine (0.52-1.04) mg/dL Calcium (8.4-10.2) mg/dL AST (14-36) U/L ALT (4-34) U/L Troponin I (0.000-0.034) ng/mL Albumin (3.5-5.0) g/dL Procalcitonin (0.02-0.09) ng/mL Coronavirus (PCR) (Not Detectd) Crossmatch Comments: Pulmonary perfusion scan low probability for PE. Assessment and Plan (1) Normocytic anemia Narrative/Plan: 89-year-old female with multiple medical comorbidities including coronary disease with prior stent placement on Plavix therapy who presented for shortness breath. Found to be anemic with a hemoglobin of 7. 1 repeat hemoglobin was 8.7 on 2 subsequent blood draws. No signs or symptoms of bleeding. Occult stool testing negative for blood. No history of peptic ulcer disease she does use some ibuprofen daily. Unclear if she's had a colonoscopy in the past. She denies any abdominal pain. Anemia with normocytic indices. At this time for laboratory evaluation will be ordered for further evaluation. Current Visit: Yes Status: Acute Code(s): D64.9 - ANEMIA, UNSPECIFIED SNOMED Code(s): 734794402 Plan: Supportive care Okay for diet as tolerated Stool for occult blood negative Anemia laboratory evaluation ordered Continue Protonix therapy Further recommendations pending findings of laboratory workup Thank you for allowing us to participate in care of the patient we will continue to follow
--- NOTE | 2020-07-09 17:44 | CT ---
EXAMINATION TYPE: CT chest wo con DATE OF EXAM: 07/09/2020 COMPARISON: Radiographs 07/08/2020. HISTORY: Shortness of breath. CT DLP: 388.9 mGycm. Automated Exposure Control for Dose Reduction was Utilized. TECHNIQUE: CT scan of the thorax is performed without IV contrast. FINDINGS: LUNGS: There is bilateral diffuse mild hazy opacity predominantly in the mid to lower lungs. There is interseptal thickening. There are bilateral trace pleural effusions. No pneumothorax. There is a 4 m m right upper lobe nodule. MEDIASTINUM: Lack of IV contrast is noted to limit evaluation for mediastinal and especially hilar ad enopathy. There are scattered multiple mildly enlarged mediastinal lymph nodes, may be reactive. Card iomegaly without pericardial effusion seen. Moderate thoracic aorta and coronary atherosclerotic dise ase. OTHER: Limited visualization of the upper abdomen demonstrates small perihepatic fluid with alex jacquie earance of the mesentery. IMPRESSION: Diffuse mild opacities with trace pleural effusions and cardiomegaly. Findings are sugges tive of interstitial edema/atelectasis with superimposed infiltrates not entirely excluded. Pattern i s atypical of Covid pneumonia. Trace perihepatic fluid and alex appearance of the mesentery, can be seen with congestion. 4 mm right upper lobe nodule. Per 2017 Fleischner Society guidelines, if the patient is low risk no f ollow up is needed unless suspicious morphology or upper lobe location, then consider 12 month follow -up. If patient is high risk (significant history of smoking or other known risk factors), follow up CT may be obtained in 12 months to ensure resolution or stability.
--- NOTE | 2020-07-09 17:47 | PN ---
PROGRESS NOTE DATE OF SERVICE: 07/09/2020 This 84-year-old woman who was admitted with acute COVID-19 pneumonia and some evidence of bilateral interstitial pneumonia and shortness of breath also had multiple other medical problems, including elevated troponin. Multiple consultants are following the patient. The patient is being closely monitored. Patient has been started on remdesivir at this time. The patient also has a suspected GI bleed. Gastroenterology recommended conservative line of management at this time. Cardiology has seen the patient and recommended a conservative line of approach at this time. Creatinine is also elevated. V/Q scan showed a very low probability of pulmonary embolism at this time. The patient is also on Lovenox as well as dexamethasone. Past medical history reviewed. REVIEW OF SYSTEMS: CARDIOVASCULAR SYSTEM: No angina, palpitations. RESPIRATORY SYSTEM: As mentioned earlier. GI: As mentioned earlier. : No dysuria or retention. NERVOUS SYSTEM: No numbness, weakness. CURRENT MEDICATIONS: Reviewed. They include Tylenol, [place], Ventolin, vitamin C, Lovenox, Zetia. Doses are reviewed. PHYSICAL EXAMINATION: Patient is alert, oriented x2. Pulse 62, blood pressure 146/74, respiration 16, temperature 98.8, pulse ox 98% on 2 L. HEENT: Conjunctivae normal. NECK: No jugular venous distention. CARDIOVASCULAR SYSTEM: S1, S2 muffled. RESPIRATORY SYSTEM: Breath sounds diminished at the bases. A few scattered rhonchi. ABDOMEN: Soft, non-tender. NERVOUS SYSTEM: No focal deficit. LABS: WBC 3.3, hemoglobin 8.7. Retic count is 3. D-dimer is 1.23. Sodium is 136. Troponins noted. COVID-19 is positive. ASSESSMENT: 1. Shortness of breath, possibly acute COVID-19 infection with bilateral interstitial COVID-19 pneumonia. 2. Anemia of undetermined etiology. 3. Elevated procalcitonin levels. 4. Troponin 0.059 of indeterminate significance. 5. Increased creatinine with possible dehydration with acute renal failure. 6. Possible chronic kidney disease, stage 3 baseline. 7. Elevated AST, ALT, possibly secondary to COVID-19. 8. History of coronary artery disease. 9. History of congestive heart failure. 10.Cerebrovascular accident, transient ischemic attack history. 11.Diabetes mellitus, type 2. 12.Gastroesophageal reflux disease. 13.Hypertension. 14.Hyperlipidemia. 15.History of myocardial infarction. 16.History of degenerative joint disease. 17.History of cerebrovascular accident. 18.Elevated D-dimer without any evidence of pulmonary embolism. 19.Cholecystectomy. 20.History of coronary artery disease, stent. 21.History of anxiety, depression. 22.Obesity with body mass index 30.2. 23.Bradycardia with ST-T changes. 24.FULL CODE. RECOMMENDATIONS AND DISCUSSION: I recommend to continue current medications, continue with the monitoring, symptomatic treatment. Otherwise at this time I would recommend a CT scan of the chest. Continue the rest of the medications. Monitor creatinine closely. Monitor potassium. Repeat labs. Repeat electrolyte. Input from multiple consultants appreciated. Guarded prognosis. Further recommendations to follow. MMODL / IJN: [id number] /
[2020-07-09] MEDS: ALPRAZolam 0.5 MG TAB PO SCH ×2 (18:37→22:06)
[2020-07-09] MEDS: NIFEdipine XL 30 MG TAB.ER.24 PO SCH (19:51)
[2020-07-09] MEDS: EZETIMIBE 10 MG TAB PO SCH (19:51)
[2020-07-09 20:04] LABS: Amorphous Sediment,Urine Rare /hpf; Appearance,Urine Cloudy (Clear); Bacteria,Urine Few /hpf; Bilirubin,Urine Negative (Negative); Blood,Urine Negative (Negative); Color,Urine Yellow; Glucose,Urine (UA) Negative (Negative); Ketones,Urine Negative (Negative); Leukocyte Esterase,Urine Negative (Negative); Mucus,Urine Occasional /hpf; Nitrite,Urine Negative (Negative); PH, Urine 5.5 (5.0-8.0); Protein,Urine 1+ (Negative); RBC,Urine 1 /hpf (0-5); Specific Gravity,Urine 1.015 (1.001-1.035); Squamous Epithelial Cell,Urine 3 /hpf (0-4); Urobilinogen,Urine <2.0 mg/dL (<2.0); WBC,Urine 2 /hpf (0-5)
[2020-07-09 21:31] LABS: Glucose,Whole Blood 118 mg/dL (75-99)
[2020-07-09] MEDS: ATORVASTATIN 20 MG TAB PO SCH (22:06)
[2020-07-10 02:41] LABS: % Iron Saturation 14.34 (12.00-45.00)
[2020-07-10 02:48] LABS: Ferritin 95.9 ng/mL (10.0-291.0)
[2020-07-10 06:11] LABS: Glucose,Whole Blood 126 mg/dL (75-99)
[2020-07-10] MEDS: ALBUTEROL HFA INHALER INHALATION SCH ×3 (08:36→19:42)
[2020-07-10] MEDS: PANTOPRAZOLE 40 MG/10 ML VIAL IVP SCH ×2 (09:14→20:20)
[2020-07-10] MEDS: ZINC SULFATE 220 MG CAP PO SCH (09:14)
[2020-07-10] MEDS: ENOXAPARIN 30 MG/0.3 ML SYRINGE SQ SCH (09:14)
[2020-07-10] MEDS: ASCORBIC ACID 500 MG TAB PO SCH ×2 (09:14→20:20)
[2020-07-10] MEDS: REMDESIVIR 100 MG in SODIUM CHLORIDE 0.9% 250 ML IVPB SCH (09:15)
[2020-07-10] MEDS: SERTRALINE 100 MG TAB PO SCH (09:15)
[2020-07-10] MEDS: CHOLECALCIFEROL 25 MCG (1000 IU) TABLET PO SCH (09:15)
[2020-07-10] MEDS: hydrALAZINE HCL 50 MG TAB PO SCH ×3 (09:15→22:24)
[2020-07-10] MEDS: DEXAMETHASONE SOD PHOSPHATE 10 MG/ML 1 ML VIAL IV SCH (09:15)
[2020-07-10 09:50] LABS: Basophils % (A) 0 %; Eosinophils % (A) 1 %; HCT 29.8 % (34.0-46.0); HGB 9.7 gm/dL (11.4-16.0); Hypochromasia Moderate; Lymphocytes # (A) 0.9 k/uL (1.0-4.8); Lymphocytes % (A) 23 %; MCH 30.9 pg (25.0-35.0); MCHC 32.4 g/dL (31.0-37.0); MCV 95.4 fL (80.0-100.0); Mean Platelet Volume 8.5; Monocytes # (A) 0.2 k/uL (0-1.0); Monocytes % (A) 5 %; Neutrophils # (A) 2.8 k/uL (1.3-7.7); Neutrophils % (A) 70 %; Platelet Count 189 k/uL (150-450); RBC 3.13 m/uL (3.80-5.40); RDW 15.6 % (11.5-15.5)
[2020-07-10 09:55] LABS: Calcium 8.3 mg/dL (8.4-10.2); Potassium 4.6 mmol/L (3.5-5.1)
[2020-07-10 11:50] LABS: Glucose,Whole Blood 148 mg/dL (75-99)
[2020-07-10 12:34] LABS: Poikilocytosis (M) Present; Tear Drop Cells Present
[2020-07-10] MEDS: FERROUS SULFATE 325 MG TAB PO SCH (12:41)
[2020-07-10 13:09] LABS: Folate, Serum 11.8 ng/mL
--- NOTE | 2020-07-10 14:24 | P.PN ---
Subjective Progress Note Date: 07/10/20 Principal diagnosis: Anemia Patient seen and examined in the bed. She denies any abdominal pain, nausea, or vomiting. She denies any signs or symptoms of GI bleed. She is tolerating her regular diet. Her hemoglobin is stable at 9.7, iron studies are consistent with mild iron deficiency anemia. Objective - Vital Signs Vital signs: Vital Signs Temp 98.4 F 07/10/20 04:00 Pulse 68 07/10/20 04:00 Resp 17 07/10/20 04:00 BP 124/70 07/10/20 04:00 Pulse Ox 96 07/10/20 04:00 Intake & Output 07/09/20 07/10/20 07/10/20 18:59 06:59 18:59 Output Total 100 Balance -100 Weight 74.5 kg Output: Urine 100 Other: Voiding Method External Catheter # Voids 1 - Exam General appearance: The patient is alert, oriented, appears in no acute distress. Obese. HET: Head is normocephalic and atraumatic. Conjunctiva pink. Sclera anicteric. Neck: Supple without lymphadenopathy. Abdomen: Soft, obese, nontender, nondistended with bowel sounds. No guarding or rigidity. Extremities: Normal skin color and turgor. No pedal edema Skin: No rashes, no jaundice Neurological: No focal deficits. Alert and oriented 3. - Labs CBC & Chem 7: 07/10/20 07:46 07/10/20 07:46 Labs: Abnormal Lab Results - Last 24 Hours (Table) 07/08/20 07/09/20 07/09/20 Range/Units 18:03 04:59 19:51 POC Glucose (mg/dL) (75-99) mg/dL Iron 37 L (50-170) ug/dL Procalcitonin 0.10 H (0.02-0.09) ng/mL Urine Appearance Cloudy H (Clear) Urine Protein 1+ H (Negative) Amorphous Sediment Rare H (None) /hpf Urine Bacteria Few H (None) /hpf Urine Mucus Occasional H (None) /hpf 07/09/20 07/10/20 Range/Units 21:29 06:10 POC Glucose (mg/dL) 118 H 126 H (75-99) mg/dL Iron (50-170) ug/dL Procalcitonin (0.02-0.09) ng/mL Urine Appearance (Clear) Urine Protein (Negative) Amorphous Sediment (None) /hpf Urine Bacteria (None) /hpf Urine Mucus (None) /hpf Microbiology - Last 24 Hours (Table) 07/08/20 18:10 Blood Culture - Preliminary Blood No Growth after 24 hours 07/08/20 18:03 Blood Culture - Preliminary Blood No Growth after 24 hours Assessment and Plan (1) Normocytic anemia Narrative/Plan: 84-year-old female with multiple medical comorbidities including coronary disease with prior stent placement on Plavix therapy who presented for shortness breath. Found to be anemic with a hemoglobin of 7. 1 repeat hemoglobin was 8.7 on 2 subsequent blood draws. No signs or symptoms of bleeding. Occult stool testing negative for blood. No history of peptic ulcer disease she does use some ibuprofen daily. Unclear if she's had a colonoscopy in the past. She denies any abdominal pain. Anemia with normocytic indices. At this time for laboratory evaluation will be ordered for further evaluation. Current Visit: Yes Status: Acute Code(s): D64.9 - ANEMIA, UNSPECIFIED SNOMED Code(s): 989213424 (2) COVID-19 Current Visit: Yes Status: Acute Code(s): U07.1 - COVID-19 SNOMED Code(s): 533448164 Plan: 1. Supportive care 2. Okay for diet as tolerated 3. Stool for occult blood negative 4. Anemia laboratory evaluation ordered 5. Continue Protonix therapy 6. Will add oral iron daily along with Colace daily Thank you for allowing us to participate in care of the patient we will continue to follow Dr. Cassie Donahue I agree with the dictator's note, documented as a scribe by Sofia White.
--- NOTE | 2020-07-10 14:33 | P.PN ---
Subjective This is a pleasant 84-year-old female past medical history significant for coronary artery disease status post PCI with multiple stenting performed last early unknown details, chronic kidney disease, intracranial hemorrhage in 2015 related to hypertension, paroxysmal atrial fibrillation not on anticoagulation 2/2 intracranial bleed, hyperlipidemia, and chronic diastolic heart failure. She follows in the office with Dr. Givens. We have been asked to see in consultation for elevated troponin. She presents to the emergency depa rtment complaining of shortness of breath. Patient was found to be COVID-19 positive. EKG showed sinus rhythm was sinus bradycardia and diffuse nonspecific ST and T wave abnormalities. Currently she is not on any AV estela sanjeev agents. She underwent a VQ scan and that came in to be with low probably for PE. 07/10/2020: Patient is seen and examined in bed, no acute distress, she is working with PT. blood pressure 126/70, heart rate 71, afebrile, maintaining oxygen saturation on 2 L nasal cannula. For her atrial fibrillation patient was not on any anticoagulation secondary to her history of weakness, increased falls, and history of intracranial hemorrhage. Laboratory data reviewed,WBC 4.0, hemoglobin 9.7, ,sodium 139, potassium 4.6, serum creatinine 1.15 (1.22 yesterday) She currently being maintained on atorvastatin 20 mg nightly, hydralazine 100 mg 3 times a day, nifedipine 30 mg daily. Telemetry tracings- sinus mechanism and atrial fibrillation HR 60-70s. Echo 06/2020: EF 50-55% PHYSICAL EXAMINATION CONSTITUTIONAL: No apparent distress. HEENT: Head is normocephalic. Sclerae anicteric. Mucous membranes of the mouth are moist. No JVD. No carotid bruit. CHEST EXAMINATION: Lungs are clear to auscultation. No chest wall tenderness is noted on palpation or with deep breathing. HEART EXAMINATION: Regular rate and rhythm. S1, S2 heard. No murmurs, gallops or rub. ABDOMEN: Soft, nontender. Positive bowel sounds. EXTREMITIES: 2+ peripheral pulses, +trace lower extremity edema and no calf tenderness. NEUROLOGIC EXAMINATION: Patient appears tired, awake, alert and oriented x3. ASSESSMENT -Shortness of breath likely to be multi-factorial and related to covid infection as well as anemia as well as a component of heart failure with preserved ejection fraction -Coronary artery disease status post PCI with multiple stenting performed last early per family -Elevated troponin- With troponin 0.6 -Chronic kidney disease Stage 3 -Chronic anemia -Mildly abnormal troponin likely secondary to the abnormal kidney function as well as anemia as well as sepsis -History of Intracranial hemorrhage -Paroxysmal atrial fibrillation- not on anticoagulation due to history of int racranial hemorrhage and risk of bleeding due to increased weakness and falls -History of hypertension -History of hyperlipidemia Plan -Will continue conservative medical approach regarding the abnormal cardiac enzymes at this time -Patient does not seem to be in overt congestive heart failure and the shortness of breath is predominantly related to covid-19 infection -Further recommendations pending patient's clinical course Nurse Practitioner note has been reviewed, I agree with a documented findings and plan of care. Patient was seen and examined. Objective - Vital Signs Vital signs: Vital Signs Temp 98.1 F 07/10/20 11:46 Pulse 71 07/10/20 11:46 Resp 20 07/10/20 11:46 BP 126/70 07/10/20 11:46 Pulse Ox 94 L 07/10/20 11:46 Intake & Output 07/09/20 07/10/20 07/10/20 18:59 06:59 18:59 Output Total 100 Balance -100 Weight 74.5 kg Output: Urine 100 Other: Voiding Method External Catheter External Catheter # Voids 1 - Labs CBC & Chem 7: 07/10/20 07:46 07/10/20 07:46 Labs: Abnormal Lab Results - Last 24 Hours (Table) 07/09/20 07/09/20 07/09/20 Range/Units 04:59 19:51 21:29 RBC (3.80-5.40) m/uL Hgb (11.4-16.0) gm/dL Hct (34.0-46.0) % RDW (11.5-15.5) % Lymphocytes # (1.0-4.8) k/uL Chloride (98-107) mmol/L Carbon Dioxide (22-30) mmol/L BUN (7-17) mg/dL Creatinine (0.52-1.04) mg/dL POC Glucose (mg/dL) 118 H (75-99) mg/dL Calcium (8.4-10.2) mg/dL Iron 37 L (50-170) ug/dL Urine Appearance Cloudy H (Clear) Urine Protein 1+ H (Negative) Amorphous Sediment Rare H (None) /hpf Urine Bacteria Few H (None) /hpf Urine Mucus Occasional H (None) /hpf 07/10/20 07/10/20 07/10/20 Range/Units 06:10 07:46 07:46 RBC 3.13 L (3.80-5.40) m/uL Hgb 9.7 L (11.4-16.0) gm/dL Hct 29.8 L (34.0-46.0) % RDW 15.6 H (11.5-15.5) % Lymphocytes # 0.9 L (1.0-4.8) k/uL Chloride 109 H (98-107) mmol/L Carbon Dioxide 20 L (22-30) mmol/L BUN 32 H (7-17) mg/dL Creatinine 1.15 H (0.52-1.04) mg/dL POC Glucose (mg/dL) 126 H (75-99) mg/dL Calcium 8.3 L (8.4-10.2) mg/dL Iron (50-170) ug/dL Urine Appearance (Clear) Urine Protein (Negative) Amorphous Sediment (None) /hpf Urine Bacteria (None) /hpf Urine Mucus (None) /hpf 07/10/20 Range/Units 11:43 RBC (3.80-5.40) m/uL Hgb (11.4-16.0) gm/dL Hct (34.0-46.0) % RDW (11.5-15.5) % Lymphocytes # (1.0-4.8) k/uL Chloride (98-107) mmol/L Carbon Dioxide (22-30) mmol/L BUN (7-17) mg/dL Creatinine (0.52-1.04) mg/dL POC Glucose (mg/dL) 148 H (75-99) mg/dL Calcium (8.4-10.2) mg/dL Iron (50-170) ug/dL Urine Appearance (Clear) Urine Protein (Negative) Amorphous Sediment (None) /hpf Urine Bacteria (None) /hpf Urine Mucus (None) /hpf Microbiology - Last 24 Hours (Table) 07/08/20 18:10 Blood Culture - Preliminary Blood No Growth after 24 hours 07/08/20 18:03 Blood Culture - Preliminary Blood No Growth after 24 hours
--- NOTE | 2020-07-10 16:25 | PN ---
PROGRESS NOTE DATE OF SERVICE: 07/10/2020 This 84-year-old woman who was admitted with acute COVID-19 pneumonia is being closely monitored. Patient also had anemia of undetermined origin. The patient also had a CT scan of the chest. The V/Q scan was of low probability for pulmonary embolism. CT scan showed a 4 mm right upper lobe pulmonary nodule. CT scan was personally reviewed by me. It also showed bilateral interstitial suggestive of COVID-19 also. Past medical history reviewed. REVIEW OF SYSTEMS: CARDIOVASCULAR SYSTEM: No angina, palpitations. RESPIRATORY SYSTEM: As mentioned earlier. GI: As mentioned earlier. : No dysuria or retention. NERVOUS SYSTEM: No numbness, weakness. CURRENT MEDICATIONS: Reviewed. They include Tylenol, [place], Ventolin, Xanax, vitamin C, Lipitor, vitamin D3, Decadron. PHYSICAL EXAMINATION: Patient is alert and oriented x3. Pulse 71, blood pressure 126/70, respiration 20, temperature 98.1, pulse ox 94% on 2 L. HEENT: Conjunctivae normal. NECK: No jugular venous distention. CARDIOVASCULAR SYSTEM: S1, S2 muffled. RESPIRATORY SYSTEM: Breath sounds diminished at the bases. A few scattered rhonchi. ABDOMEN: Soft, non-tender. NERVOUS SYSTEM: No focal deficit. LABS: WBC 4, hemoglobin 9.7. Creatinine is 1.15. ASSESSMENT: 1. Shortness of breath, possibly acute COVID-19 infection with bilateral interstitial COVID-19 pneumonia. 2. Anemia of undetermined etiology. 3. Elevated procalcitonin levels. 4. Right upper lobe nodule measuring 4 mm. 5. Troponin 0.05, indeterminate significance. 6. Increased creatinine with dehydration with acute renal failure with acute tubular necrosis. 7. Chronic kidney disease, possibly stage III baseline. 8. Elevated AST, ALT, possibly secondary to COVID-19. 9. History of coronary artery disease. 10.History of congestive heart failure. 11.Cerebrovascular accident, transient ischemic attack history. 12.Diabetes mellitus, type 2. 13.Gastroesophageal reflux disease. 14.Hypertension. 15.Hyperlipidemia. 16.History of myocardial infarction. 17.History of degenerative joint disease. 18.History of cerebrovascular accident. 19.Elevated D-dimer without any evidence of pulmonary embolism. 20.History of cholecystectomy. 21.History of coronary artery disease, stent. 22.History of anxiety, depression. 23.Obesity with body mass index of 30.0. 24.Bradycardia with ST-T changes. 25.FULL CODE. RECOMMENDATIONS AND DISCUSSION: I recommend to continue current medications, continue with the monitoring, symptomatic treatment. Will monitor the creatinine closely. Increase ambulation. Continue the rest of the medications. Closely follow with Pulmonary and Infectious Disease as well as GI. Guarded prognosis. Further recommendations follow. ASHISH / SILVIANON: [id number] / MTDD
[2020-07-10 16:54] LABS: Glucose,Whole Blood 208 mg/dL (75-99)
[2020-07-10] MEDS: EZETIMIBE 10 MG TAB PO SCH (17:36)
[2020-07-10] MEDS: ALPRAZolam 0.5 MG TAB PO SCH ×2 (17:36→22:24)
[2020-07-10] MEDS: NIFEdipine XL 30 MG TAB.ER.24 PO SCH (17:36)
--- NOTE | 2020-07-10 18:10 | P.PN ---
Subjective Progress Note Date: 07/10/20 Principal diagnosis: Acute hypoxemic respiratory failure. 84-year-old female patient of Dr. Zamarripa with past medical history of hypertension, coronary artery disease, chronic CHF, unspecified, diabetes mellitus type 2, who presented to the emergency department on 2020 with 2 day history of increased shortness of breath, though the ER record states she's been short of breath for 6 days. She normally does not wear oxygen. Patient admits to some cough and some yellow phlegm production. She has had both vaccines for the coronavirus. Patient is currently on 3 L of oxygen, the pulse ox of 98%, she is afebrile. Chest x-ray showed cardiomegaly, coarse lung markings consist ent with some pulmonary fibrosis. EKG showed sinus bradycardia with possible old inferior wall infarct, T-wave inversion in the anterior leads. Patient's troponins were 0.059, 0.066. Procalcitonin was negative at 0.10, COVID 19 PCR was positive, d-dimer was 1.23, proBNP was 21,500. GFR was 43, B1 is 30, creatinine is 1.16, white count is 5.3 on admission, hemoglobin is 7.1, patient denies any black stools or visible blood in the stools, no hematemesis, no bleeding. Patient normally takes Plavix and aspirin. VQ scan was completed in view of elevated d-dimer, and showed very low probability for pulmonary embolism. Patient is awaiting a bed in the emergency department, seems to be in no acute distress, appears a bit pale, but hemodynamically stable, today's lab work has been reviewed showing hemoglobin of 8.7, white count is 3.7, leukocyte, 0.9. Remains on 3 L of oxygen with pulse ox of 98%. Progress note dated 07/10/2020. 84-year-old female, with history of acute hypoxemic respiratory failure secondary to COVID 19 pneumonitis. The patient has a history of other medical problems, including myocardial infarction, CAD, hypertension, diabetes, hyperlipidemia, chronic kidney disease, intracranial bleeding, and paroxysmal atrial fibrillation. Currently, the patient's on 2 L nasal cannula, and her saturations are 94%. She is afebrile. M pressure 98.1. She seems to be rest ing comfortably. White count 4.0, hemoglobin 9.7, hematocrit 29.8, platelet count 189,000. Sodium and potassium normal. Chloride 109, CO2 20, anion gap 10, BUN and creatinine were 32 and 1.15. Computed tomography scan dated July 09, was reviewed. Objective - Vital Signs Vital signs: Vital Signs Temp 98.1 F 07/10/20 11:46 Pulse 71 07/10/20 11:46 Resp 20 07/10/20 11:46 BP 126/70 07/10/20 11:46 Pulse Ox 94 L 07/10/20 11:46 Intake & Output 07/09/20 07/10/20 07/10/20 18:59 06:59 18:59 Intake Total 368 Output Total 100 Balance -100 368 Weight 74.5 kg 74.5 kg Intake: Intake, IV Titration 250 Amount Remdesivir 100 mg In 250 Sodium Chloride 0.9% 250 ml @ 250 mls/hr IVPB DAILY [facility] Rx#:[id number] Oral 118 Output: Urine 100 Other: Voiding Method External Catheter External Catheter # Voids 1 - Exam No acute distress, oriented 3. 2 L saturation is 94%. HEENT examination is grossly unremarkable. Mucous membranes are moist. No oral lesions. Neck supple. Full range of motion. No adenopathy thyromegaly or neck vein distention. Cardiovascular examination reveals regular rhythm rate. S1-S2 normal. No S3 or S4. No discernible murmur noted. Heart rate is 71 bpm. Lungs reveal mild scattered rhonchi. No wheezes or crackles. Abdomen soft bowel sounds are heard. No masses or tenderness. Extremities are intact. No cyanosis clubbing or edema. Skin is without rash or lesion. Neurologic examination is brief but nonfocal. - Labs CBC & Chem 7: 07/10/20 07:46 07/10/20 07:46 Labs: Abnormal Lab Results - Last 24 Hours (Table) 07/09/20 07/09/20 07/09/20 Range/Units 04:59 19:51 21:29 RBC (3.80-5.40) m/uL Hgb (11.4-16.0) gm/dL Hct (34.0-46.0) % RDW (11.5-15.5) % Lymphocytes # (1.0-4.8) k/uL Chloride (98-107) mmol/L Carbon Dioxide (22-30) mmol/L BUN (7-17) mg/dL Creatinine (0.52-1.04) mg/dL POC Glucose (mg/dL) 118 H (75-99) mg/dL Calcium (8.4-10.2) mg/dL Iron 37 L (50-170) ug/dL Urine Appearance Cloudy H (Clear) Urine Protein 1+ H (Negative) Amorphous Sediment Rare H (None) /hpf Urine Bacteria Few H (None) /hpf Urine Mucus Occasional H (None) /hpf 07/10/20 07/10/20 07/10/20 Range/Units 06:10 07:46 07:46 RBC 3.13 L (3.80-5.40) m/uL Hgb 9.7 L (11.4-16.0) gm/dL Hct 29.8 L (34.0-46.0) % RDW 15.6 H (11.5-15.5) % Lymphocytes # 0.9 L (1.0-4.8) k/uL Chloride 109 H (98-107) mmol/L Carbon Dioxide 20 L (22-30) mmol/L BUN 32 H (7-17) mg/dL Creatinine 1.15 H (0.52-1.04) mg/dL POC Glucose (mg/dL) 126 H (75-99) mg/dL Calcium 8.3 L (8.4-10.2) mg/dL Iron (50-170) ug/dL Urine Appearance (Clear) Urine Protein (Negative) Amorphous Sediment (None) /hpf Urine Bacteria (None) /hpf Urine Mucus (None) /hpf 07/10/20 07/10/20 Range/Units 11:43 16:48 RBC (3.80-5.40) m/uL Hgb (11.4-16.0) gm/dL Hct (34.0-46.0) % RDW (11.5-15.5) % Lymphocytes # (1.0-4.8) k/uL Chloride (98-107) mmol/L Carbon Dioxide (22-30) mmol/L BUN (7-17) mg/dL Creatinine (0.52-1.04) mg/dL POC Glucose (mg/dL) 148 H 208 H (75-99) mg/dL Calcium (8.4-10.2) mg/dL Iron (50-170) ug/dL Urine Appearance (Clear) Urine Protein (Negative) Amorphous Sediment (None) /hpf Urine Bacteria (None) /hpf Urine Mucus (None) /hpf Microbiology - Last 24 Hours (Table) 07/08/20 18:10 Blood Culture - Preliminary Blood No Growth after 24 hours 07/08/20 18:03 Blood Culture - Preliminary Blood No Growth after 24 hours Assessment and Plan Assessment: Acute hypoxemic respiratory failure secondary to COVID 19 pneumonitis. VQ scan low probability for pulmonary embolism. Acute on chronic anemia. Prior history of myocardial infarction. History of CAD. History of hypertension. Diabetes mellitus, type II. History of hyperlipidemia. History of chronic kidney disease. History of intracranial bleeding. History of paroxysmal atrial fibrillation. Plan: Plan dated 07/10/2020. The patient will continue on Decadron, 6 mg daily. The VQ scan is low probability for pulmonary embolism. The patient was started also on Lovenox, as well as REM. The patient will continue on the typical cocktail of vitamins. Additional recommendations and suggestions are forthcoming. Oxygen requirements are relatively low. The patient appears to be relatively comfortable. We will continue to follow. Time with Patient: Less than 30
[2020-07-10 20:33] LABS: Glucose,Whole Blood 153 mg/dL (75-99)
[2020-07-10] MEDS: ATORVASTATIN 20 MG TAB PO SCH (22:25)
[2020-07-11 06:13] LABS: Glucose,Whole Blood 104 mg/dL (75-99)
[2020-07-11] MEDS: ALBUTEROL HFA INHALER INHALATION SCH ×3 (07:55→21:00)
[2020-07-11] MEDS: DOCUSATE 100 MG CAP PO SCH (09:35)
[2020-07-11] MEDS: hydrALAZINE HCL 50 MG TAB PO SCH ×3 (09:35→21:29)
[2020-07-11] MEDS: ZINC SULFATE 220 MG CAP PO SCH (09:35)
[2020-07-11] MEDS: ASCORBIC ACID 500 MG TAB PO SCH ×2 (09:35→21:29)
[2020-07-11] MEDS: SERTRALINE 100 MG TAB PO SCH (09:35)
[2020-07-11] MEDS: DEXAMETHASONE SOD PHOSPHATE 10 MG/ML 1 ML VIAL IV SCH (09:35)
[2020-07-11] MEDS: CHOLECALCIFEROL 25 MCG (1000 IU) TABLET PO SCH (09:36)
[2020-07-11] MEDS: PANTOPRAZOLE 40 MG/10 ML VIAL IVP SCH ×2 (09:36→21:29)
[2020-07-11] MEDS: ENOXAPARIN 30 MG/0.3 ML SYRINGE SQ SCH (09:36)
--- NOTE | 2020-07-11 11:52 | P.PN ---
Subjective Progress Note Date: 07/11/20 Principal diagnosis: Anemia Patient seen and examined lying in her bed. She denies any signs or symptoms of GI bleed. No repeat labs to review at this time. She denies any abdominal pain, nausea, or vomiting. Objective - Vital Signs Vital signs: Vital Signs Temp 98.5 F 07/10/20 23:02 Pulse 70 07/11/20 08:00 Resp 18 07/11/20 08:00 BP 129/64 07/11/20 08:00 Pulse Ox 94 L 07/11/20 08:00 Intake & Output 07/10/20 07/11/20 07/11/20 18:59 06:59 18:59 Intake Total 368 580 Output Total 600 Balance 368 -20 Weight 74.5 kg 81.5 kg Intake: Intake, IV Titration 250 Amount Remdesivir 100 mg In 250 Sodium Chloride 0.9% 250 ml @ 250 mls/hr IVPB DAILY [facility] Rx#:[id number] Oral 118 580 Output: Urine 600 Other: Voiding Method External Catheter External Catheter External Catheter # Bowel Movements 1 - Exam General appearance: The patient is alert, oriented, appears in no acute distress. Obese. HET: Head is normocephalic and atraumatic. Conjunctiva pink. Sclera anicteric. Neck: Supple without lymphadenopathy. Abdomen: Soft, obese, nontender, nondistended with bowel sounds. No guarding or rigidity. Extremities: Normal skin color and turgor. No pedal edema Skin: No rashes, no jaundice Neurological: No focal deficits. Alert and oriented 3. - Labs CBC & Chem 7: 07/10/20 07:46 07/10/20 07:46 Labs: Abnormal Lab Results - Last 24 Hours (Table) 07/10/20 07/10/20 07/10/20 Range/Units 07:46 11:43 16:48 Lymphocytes # 0.9 L (1.0-4.8) k/uL POC Glucose (mg/dL) 148 H 208 H (75-99) mg/dL 07/10/20 07/11/20 Range/Units 20:28 06:12 Lymphocytes # (1.0-4.8) k/uL POC Glucose (mg/dL) 153 H 104 H (75-99) mg/dL Microbiology - Last 24 Hours (Table) 07/08/20 18:10 Blood Culture - Preliminary Blood No Growth after 48 hours 07/08/20 18:03 Blood Culture - Preliminary Blood No Growth after 48 hours Assessment and Plan (1) Normocytic anemia Narrative/Plan: 84-year-old female with multiple medical comorbidities including coronary disease with prior stent placement on Plavix therapy who presented for shortness breath. Found to be anemic with a hemoglobin of 7. 1 repeat hemoglobin was 8.7 on 2 subsequent blood draws. No signs or symptoms of bleeding. Occult stool testing negative for blood. No history of peptic ulcer disease she does use some ibuprofen daily. Unclear if she's had a colonoscopy in the past. She denies any abdominal pain. Anemia with normocytic indices. At this time for laboratory evaluation will be ordered for further evaluation. Current Visit: Yes Status: Acute Code(s): D64.9 - ANEMIA, UNSPECIFIED SNOMED Code(s): 811520978 (2) COVID-19 Current Visit: Yes Status: Acute Code(s): U07.1 - COVID-19 SNOMED Code(s): 099278785 Plan: 1. Supportive care 2. Okay for diet as tolerated 3. Stool for occult blood negative 4. Anemia laboratory evaluation ordered 5. Continue Protonix therapy 6. Will add oral iron daily along with Colace daily Thank you for allowing us to participate in care of the patient, we will sign off at this time Dr. Chakraborty I agree with the dictator's note, documented as a scribe by Sofia White.
[2020-07-11 12:04] LABS: Glucose,Whole Blood 150 mg/dL (75-99)
[2020-07-11] MEDS: FERROUS SULFATE 325 MG TAB PO SCH (13:13)
[2020-07-11] MEDS: REMDESIVIR 100 MG in SODIUM CHLORIDE 0.9% 250 ML IVPB SCH (15:01)
--- NOTE | 2020-07-11 15:58 | P.PN ---
Subjective This is a pleasant 84-year-old female past medical history significant for coronary artery disease status post PCI with multiple stenting performed last early unknown details, chronic kidney disease, intracranial hemorrhage in 2014 related to hypertension, paroxysmal atrial fibrillation not on anticoagulation 2/2 intracranial bleed, hyperlipidemia, and chronic diastolic heart failure. She follows in the office with Dr. Givens. We have been asked to see in consultation for elevated troponin. She presents to the emergency depa rtment complaining of shortness of breath. Patient was found to be COVID-19 positive. EKG showed sinus rhythm was sinus bradycardia and diffuse nonspecific ST and T wave abnormalities. Currently she is not on any AV estela sanjeev agents. She underwent a VQ scan and that came in to be with low probably for PE. 07/11/2020: Patient is seen and examined in bed, no acute distress, she is working with PT. blood pressure 129/64, heart rate 70, afebrile, maintaining oxygen saturation on 2 L nasal cannula. For her atrial fibrillation patient was not on any anticoagulation secondary to her history of weakness, increased falls, and history of intracranial hemorrhage. Laboratory data reviewed, no new lab values today. Telemetry tracings- sinus mechanism today with HR 70s-80s Echo 06/2020: EF 50-55% PHYSICAL EXAMINATION CONSTITUTIONAL: No apparent distress. HEART EXAMINATION: Regular rate and rhythm. S1, S2 heard. No murmurs, gallops or rub. EXTREMITIES: 2+ peripheral pulses, +trace lower extremity edema and no calf tenderness. NEUROLOGIC EXAMINATION: Patient appears tired, awake, alert and oriented x3. ASSESSMENT -Shortness of breath likely to be multi-factorial and related to covid infection as well as anemia as well as a component of heart failure with preserved ejection fraction -Coronary artery disease status post PCI with multiple stenting performed last early per family -Elevated troponin- With troponin 0.6 -Chronic kidney disease Stage 3 -Chronic anemia -Mildly abnormal troponin likely secondary to the abnormal kidney function as well as anemia as well as sepsis -History of Intracranial hemorrhage -Paroxysmal atrial fibrillation- not on anticoagulation due to history of intracranial hemorrhage and risk of bleeding due to increased weakness and falls -History of hypertension -History of hyperlipidemia Plan -Will continue conservative medical approach regarding the abnormal cardiac enzymes at this time -Patient does not seem to be in overt congestive heart failure and the shortness of breath is predominantly related to covid-19 infection -No need for repeat Echocardiogram at this time. -We will sign off at this time, follow patient PRN. Please reach out with any further questions or concerns. Nurse Practitioner note has been reviewed, I agree with a documented findings and plan of care. Patient was seen and examined. Objective - Vital Signs Vital signs: Vital Signs Temp 98.5 F 07/10/20 23:02 Pulse 85 07/11/20 15:13 Resp 16 07/11/20 15:13 BP 140/96 07/11/20 15:13 Pulse Ox 94 L 07/11/20 15:13 Intake & Output 07/10/20 07/11/20 07/11/20 18:59 06:59 18:59 Intake Total 368 580 690 Output Total 600 Balance 368 -20 690 Weight 74.5 kg 81.5 kg Intake: Intake, IV Titration 250 Amount Remdesivir 100 mg In 250 Sodium Chloride 0.9% 250 ml @ 250 mls/hr IVPB DAILY [facility] Rx#:[id number] Oral 118 580 690 Output: Urine 600 Other: Voiding Method External Catheter External Catheter External Catheter # Bowel Movements 1 - Labs CBC & Chem 7: 07/10/20 07:46 07/10/20 07:46 Labs: Abnormal Lab Results - Last 24 Hours (Table) 07/10/20 07/10/20 07/11/20 Range/Units 16:48 20:28 06:12 POC Glucose (mg/dL) 208 H 153 H 104 H (75-99) mg/dL 07/11/20 Range/Units 12:03 POC Glucose (mg/dL) 150 H (75-99) mg/dL Microbiology - Last 24 Hours (Table) 07/08/20 18:10 Blood Culture - Preliminary Blood No Growth after 48 hours 07/08/20 18:03 Blood Culture - Preliminary Blood No Growth after 48 hours
[2020-07-11 16:38] LABS: Glucose,Whole Blood 178 mg/dL (75-99)
[2020-07-11] MEDS: ALPRAZolam 0.5 MG TAB PO SCH ×2 (17:13→21:29)
[2020-07-11] MEDS: ACETAMINOPHEN TAB 325 MG TAB PO PRN (17:13)
[2020-07-11] MEDS: NIFEdipine XL 30 MG TAB.ER.24 PO SCH (17:13)
--- NOTE | 2020-07-11 18:00 | P.PN ---
Subjective Progress Note Date: 07/11/20 Principal diagnosis: Acute hypoxemic respiratory failure. 84-year-old female patient of Dr. Zamarripa with past medical history of hypertension, coronary artery disease, chronic CHF, unspecified, diabetes mellitus type 2, who presented to the emergency department on 2020 with 2 day history of increased shortness of breath, though the ER record states she's been short of breath for 6 days. She normally does not wear oxygen. Patient admits to some cough and some yellow phlegm production. She has had both vaccines for the coronavirus. Patient is currently on 3 L of oxygen, the pulse ox of 98%, she is afebrile. Chest x-ray showed cardiomegaly, coarse lung markings consist ent with some pulmonary fibrosis. EKG showed sinus bradycardia with possible old inferior wall infarct, T-wave inversion in the anterior leads. Patient's troponins were 0.059, 0.066. Procalcitonin was negative at 0.10, COVID 19 PCR was positive, d-dimer was 1.23, proBNP was 21,500. GFR was 43, B1 is 30, creatinine is 1.16, white count is 5.3 on admission, hemoglobin is 7.1, patient denies any black stools or visible blood in the stools, no hematemesis, no bleeding. Patient normally takes Plavix and aspirin. VQ scan was completed in view of elevated d-dimer, and showed very low probability for pulmonary embolism. Patient is awaiting a bed in the emergency department, seems to be in no acute distress, appears a bit pale, but hemodynamically stable, today's lab work has been reviewed showing hemoglobin of 8.7, white count is 3.7, leukocyte, 0.9. Remains on 3 L of oxygen with pulse ox of 98%. Progress note dated 07/10/2020. 84-year-old female, with history of acute hypoxemic respiratory failure secondary to COVID 19 pneumonitis. The patient has a history of other medical problems, including myocardial infarction, CAD, hypertension, diabetes, hyperlipidemia, chronic kidney disease, intracranial bleeding, and paroxysmal atrial fibrillation. Currently, the patient's on 2 L nasal cannula, and her saturations are 94%. She is afebrile. M pressure 98.1. She seems to be rest ing comfortably. White count 4.0, hemoglobin 9.7, hematocrit 29.8, platelet count 189,000. Sodium and potassium normal. Chloride 109, CO2 20, anion gap 10, BUN and creatinine were 32 and 1.15. Computed tomography scan dated July 09, was reviewed. Progress note dated 07/11/2020. 84-year-old female, who we see again today in follow-up. She has a history of acute hypoxemic respiratory failure secondary to COVID 19 pneumonitis. She is currently on a small amount of saline IV, and 2 L nasal cannula. She has an extensive medical history including myocardial infarction, CAD, hypertension, di abetes, hyperlipidemia, chronic kidney disease, intracranial bleeding, and paroxysmal atrial fibrillation. She states that she is feeling a bit better. Currently, there is no new labs to report. Likewise, her last chest x-ray was on July 08, and her computed tomography scan that was done on July 09, was reviewed. Objective - Vital Signs Vital signs: Vital Signs Temp 98.5 F 07/10/20 23:02 Pulse 85 07/11/20 15:13 Resp 16 07/11/20 15:13 BP 140/96 07/11/20 15:13 Pulse Ox 94 L 07/11/20 15:13 Intake & Output 07/10/20 07/11/20 07/11/20 18:59 06:59 18:59 Intake Total 368 580 940 Output Total 600 Balance 368 -20 940 Weight 74.5 kg 81.5 kg Intake: IV 250 Remdesivir 100 mg In 250 Sodium Chloride 0.9% 250 ml @ 250 mls/hr IVPB DAILY [facility] Rx#:[id number] Intake, IV Titration 250 Amount Remdesivir 100 mg In 250 Sodium Chloride 0.9% 250 ml @ 250 mls/hr IVPB DAILY [facility] Rx#:[id number] Oral 118 580 690 Output: Urine 600 Other: Voiding Method External Catheter External Catheter External Catheter # Bowel Movements 1 - Exam No acute distress, oriented 3. 2 L saturation is 93%. HEENT examination is grossly unremarkable. Mucous membranes are moist. No oral lesions. Neck supple. Full range of motion. No adenopathy thyromegaly or neck vein distention. Cardiovascular examination reveals regular rhythm rate. S1-S2 normal. No S3 or S4. No discernible murmur noted. Heart rate is 78 bpm. Lungs reveal mild scattered rhonchi. No wheezes or crackles. Abdomen soft bowel sounds are heard. No masses or tenderness. Extremities are intact. No cyanosis clubbing or edema. Skin is without rash or lesion. Neurologic examination is brief but nonfocal. - Labs CBC & Chem 7: 07/10/20 07:46 07/10/20 07:46 Labs: Abnormal Lab Results - Last 24 Hours (Table) 07/10/20 07/11/20 07/11/20 Range/Units 20:28 06:12 12:03 POC Glucose (mg/dL) 153 H 104 H 150 H (75-99) mg/dL 07/11/20 Range/Units 16:36 POC Glucose (mg/dL) 178 H (75-99) mg/dL Microbiology - Last 24 Hours (Table) 07/08/20 18:10 Blood Culture - Preliminary Blood No Growth after 48 hours 07/08/20 18:03 Blood Culture - Preliminary Blood No Growth after 48 hours Assessment and Plan Assessment: Acute hypoxemic respiratory failure secondary to COVID 19 pneumonitis. VQ scan low probability for pulmonary embolism. Acute on chronic anemia. Prior history of myocardial infarction. History of CAD. History of hypertension. Diabetes mellitus, type II. History of hyperlipidemia. History of chronic kidney disease. History of intracranial bleeding. History of paroxysmal atrial fibrillation. Plan: Plan dated 07/10/2020. The patient will continue on Decadron, 6 mg daily. The VQ scan is low probability for pulmonary embolism. The patient was started also on Lovenox, as well as REM. The patient will continue on the typical cocktail of vitamins. Additional recommendations and suggestions are forthcoming. Oxygen requirements are relatively low. The patient appears to be relatively comfortable. We will continue to follow. Plan dated 07/11/2020. The patient will continue on Decadron. The VQ scan was low probability for pulmonary embolism. The patient was also started on Lovenox as well as REM. The patient will continue on the typical cocktail of vitamins that we typically use of this illness. Her oxygen requirements are currently only 2 L. She's getting a small amount of saline IV. We will continue to follow and make recommendations. Time with Patient: Less than 30
--- NOTE | 2020-07-11 19:53 | PN ---
PROGRESS NOTE DATE OF SERVICE: 07/11/2020 INTERVAL HISTORY: This is an 84-year-old woman who was admitted with shortness of breath and possible acute COVID-19 infection, acute bilateral interstitial pneumonia, also had anemia. Also the patient is being closely monitored. The patient has elevated procalcitonin. The patient is started on remdesivir today. The patient is being closely monitored. The patient is also on other medications. PAST MEDICAL HISTORY: Reviewed. REVIEW OF SYSTEMS: CARDIOVASCULAR: No angina. RESPIRATORY: As mentioned earlier. GI: As mentioned earlier. : No dysuria. NERVOUS SYSTEM: No numbness or weakness. CURRENT MEDICATIONS: Reviewed include Tylenol, Taft, vitamin C, Lipitor, vitamin D3, Lovenox, Zetia, iron sulfate, Narcan, Procardia, Protonix, remdesivir, Zoloft. PHYSICAL EXAM: GENERAL: Patient is alert and oriented times three. VITAL SIGNS: Pulse 85, blood pressure 149/70, respirations 16, temperature normal, pulse ox 94% on room air. HEENT: Conjunctivae normal. NECK: No jugular venous distention. No carotid bruits. No lymph node enlargement. RESPIRATORY: Breath sounds diminished at the bases. No rhonchi, no crackles. HEART: S1 and S2, muffled. ABDOMEN: Soft, no tenderness. No masses palpable. EXTREMITIES: No edema, no swelling. NERVOUS: No focal deficits. LABS: WBC 4, hemoglobin 9.7, sodium 139, potassium 4.6, creatinine 1.15. Stool OB is negative ASSESSMENT: 1. Shortness of breath, possibly acute COVID-19 infection with bilateral interstitial COVID-19 pneumonia. 2. Anemia of undetermined etiology. 3. Elevated procalcitonin levels. 4. Right upper lobe nodule measuring 4 mm. 5. Troponin 0.05, indeterminate significance. 6. Increased creatinine with dehydration, acute renal failure, acute tubular necrosis. 7. Chronic kidney disease stage 3 baseline. 8. Elevated AST ALT possibly secondary to COVID-19. 9. History of coronary artery disease. 10.History of congestive heart failure. 11.Cerebrovascular accident and transient ischemic attack history. 12.Diabetes mellitus type 2 history. 13.Gastroesophageal reflux disease. 14.Hypertension. 15.Hyperlipidemia. 16.History of myocardial infarction. 17.History of degenerative joint disease. 18.History of cerebrovascular accident. 19.Elevated D-dimer without any evidence of pulmonary embolism. 20.History of cholecystectomy. 21.History of *coronary artery disease with stent. 22.History of anxiety and depression. 23.Obesity with body mass index of 30. 24.Bradycardia with ST-T changes. 25.FULL CODE. RECOMMENDATIONS AND DISCUSSION: Continue current management and continue symptomatic treatment. Continue with remdesivir. Continue the rest of the medications. Repeat labs will be ordered. Closely follow with multiple consultants. Continue with Lovenox as well as dexamethasone. Monitor blood sugars closely. Guarded prognosis. Further recommendations to follow. MMODL / IJN: [id number] /
[2020-07-11 20:27] LABS: Glucose,Whole Blood 153 mg/dL (75-99)
[2020-07-11] MEDS: EZETIMIBE 10 MG TAB PO SCH (21:29)
[2020-07-11] MEDS: ATORVASTATIN 20 MG TAB PO SCH (21:29)
[2020-07-12 06:09] LABS: Glucose,Whole Blood 85 mg/dL (75-99)
[2020-07-12 06:53] LABS: Basophils % (A) 0 %; Eosinophils % (A) 1 %; HCT 27.5 % (34.0-46.0); HGB 8.9 gm/dL (11.4-16.0); Hypochromasia Moderate; Lymphocytes # (A) 1.1 k/uL (1.0-4.8); Lymphocytes % (A) 33 %; MCH 30.3 pg (25.0-35.0); MCHC 32.2 g/dL (31.0-37.0); MCV 94.1 fL (80.0-100.0); Mean Platelet Volume 7.2; Monocytes # (A) 0.2 k/uL (0-1.0); Monocytes % (A) 6 %; Neutrophils # (A) 1.9 k/uL (1.3-7.7); Neutrophils % (A) 58 %; Platelet Count 180 k/uL (150-450); RBC 2.92 m/uL (3.80-5.40); RDW 15.9 % (11.5-15.5); WBC 3.3 k/uL (3.8-10.6)
[2020-07-12 07:20] LABS: Calcium 7.9 mg/dL (8.4-10.2); Potassium 4.4 mmol/L (3.5-5.1)
[2020-07-12] MEDS: ALBUTEROL HFA INHALER INHALATION SCH ×3 (08:02→19:43)
[2020-07-12] MEDS: CHOLECALCIFEROL 25 MCG (1000 IU) TABLET PO SCH (09:47)
[2020-07-12] MEDS: DEXAMETHASONE SOD PHOSPHATE 10 MG/ML 1 ML VIAL IV SCH (09:47)
[2020-07-12] MEDS: hydrALAZINE HCL 50 MG TAB PO SCH ×3 (09:47→20:48)
[2020-07-12] MEDS: DOCUSATE 100 MG CAP PO SCH (09:47)
[2020-07-12] MEDS: ASCORBIC ACID 500 MG TAB PO SCH ×2 (09:48→20:48)
[2020-07-12] MEDS: ENOXAPARIN 30 MG/0.3 ML SYRINGE SQ SCH (09:48)
[2020-07-12] MEDS: SERTRALINE 100 MG TAB PO SCH (09:48)
[2020-07-12] MEDS: ZINC SULFATE 220 MG CAP PO SCH (09:48)
[2020-07-12] MEDS: PANTOPRAZOLE 40 MG/10 ML VIAL IVP SCH (09:48)
[2020-07-12] MEDS: REMDESIVIR 100 MG in SODIUM CHLORIDE 0.9% 250 ML IVPB SCH (09:49)
--- NOTE | 2020-07-12 11:42 | P.PN ---
Subjective This is a pleasant 84 years old female with multiple medical problems including coronary artery disease status post stent placement, chronic heart failure, diabetes mellitus, CVA/TIA, GERD, hearing difficulty, hyperlipidemia, hypertension, osteoarthritis, vertigo. History of anxiety and depression, she is a patient of Dr Zamarripa. Presents because of respiratory symptoms found to have bilateral Leobardo pneumonia with mild hypoxic respiratory failure. Patient has been evaluated by pulmonary team and cardiology for her extensive history of heart disease and GI team for normal chromic anemia. Patient currently breathing easily, only mild tachypnea/dyspnea. No significant coughing. No chest pain. No abdominal pain or nausea vomiting. No diarrhea and she tolerates diet well. She has external urinary catheter. She is saturating 90s on 2 L oxygen via nasal cannula Patient also with chronic kidney disease stage III and she is informed. Labs showing mild bicytopenia with WBC 3.3 and hemoglobin 8.9, mostly secondary to call with infection. No evidence of GI bleed, occult blood in the stool was negative. GI team on the case. D-dimer slightly elevated at 1.2 and pulmonary the case. Pro-calcitonin is slightly elevated at 0.10. She has low probability of PE on VQ scan She is currently on vitamin C, vitamin D, zinc, dexamethasone, Lovenox prophylactic dose and remdesivir ( last dose tomorrow on Review of systems Review of systems CONSTITUTIONAL: No fever, no malaise, no fatigue. HEENT: No recent visual problems or hearing problems. Denied any sore throat. CARDIOVASCULAR: No orthopnea, PND, no palpitations, no syncope. PULMONARY: No Chest wall tenderness, no hemoptysis. GASTROINTESTINAL: No diarrhea, no nausea, no vomiting, no abdominal pain. Normoactive bowel sounds. NEUROLOGICAL: No headaches, no weakness, no numbness. Active Medications Generic Name Dose Route Start Last Admin Trade Name Freq PRN Reason Stop Dose Admin Acetaminophen 650 mg 07/08/20 19:55 07/11/20 17:13 Acetaminophen Tab 325 Mg Tab PO 650 mg Q6HR PRN Administration Mild Pain or Fever > 100.5 Hydrocodone Bitart/Acetaminophen 1 each 07/08/20 20:48 Hydrocodone/Apap 5-325mg 1 Each Tab PO Q6HR PRN Pain Albuterol Sulfate 2 puff 07/09/20 08:00 07/12/20 08:02 Albuterol Hfa Inhaler INHALATION 2 puff RT-TID [facility] Administration Alprazolam 0.5 mg 07/08/20 23:00 07/11/20 21:29 Alprazolam 0.5 Mg Tab PO 0.5 mg BID@1800,2300 LIL[facility] Administration Ascorbic Acid 500 mg 07/09/20 09:00 07/12/20 09:48 Ascorbic Acid 500 Mg Tab PO 500 mg BID LILI Administration Atorvastatin Calcium 20 mg 07/08/20 23:00 07/11/20 21:29 Atorvastatin 20 Mg Tab PO 20 mg HS@2300 [facility] Administration Cholecalciferol 125 mcg 07/09/20 09:00 07/12/20 09:47 Cholecalciferol 25 Mcg (1000 Iu) Tablet PO 125 mcg DAILY [facility] Administration Dexamethasone Sodium Phosphate 6 mg 07/09/20 09:00 07/12/20 09:47 Dexamethasone Sod Phosphate 10 Mg/Ml 1 Ml Vial IV 6 mg DAILY [facility] Administration Docusate Sodium 100 mg 07/11/20 09:00 07/12/20 09:47 Docusate 100 Mg Cap PO 100 mg DAILY [facility] Administration Ezetimibe 10 mg 07/09/20 18:00 07/11/20 21:29 Ezetimibe 10 Mg Tab PO 10 mg DAILY@1800 [facility] Administration Enoxaparin Sodium 30 mg 07/09/20 09:00 07/12/20 09:48 Enoxaparin 30 Mg/0.3 Ml Syringe SQ 30 mg DAILY [facility] Administration Ferrous Sulfate 325 mg 07/10/20 12:30 07/11/20 13:13 Ferrous Sulfate 325 Mg Tab PO 325 mg W/LUNCH [facility] Administration Hydralazine HCl 100 mg 07/08/20 23:00 07/12/20 09:47 Hydralazine Hcl 50 Mg Tab PO 100 mg TID@1000,1800,2300 [facility] Administration Remdesivir 100 mg/ Sodium 250 mls @ 250 mls/hr 07/10/20 09:00 07/12/20 09:49 Chloride IVPB 07/13/20 09:59 250 mls/hr DAILY [facility] Administration Naloxone HCl 0.2 mg 07/08/20 19:55 Naloxone 0.4 Mg/Ml 1 Ml Vial IV Q2M PRN Opioid Reversal Nifedipine 30 mg 07/09/20 18:00 07/11/20 17:13 Nifedipine Xl 30 Mg Tab.Er.24 PO 30 mg DAILY@1800 [facility] Administration Pantoprazole Sodium 40 mg 07/09/20 09:00 07/12/20 09:48 Pantoprazole 40 Mg/10 Ml Vial IVP 40 mg BID [facility] Administration Sertraline HCl 200 mg 07/09/20 10:00 07/12/20 09:48 Sertraline 100 Mg Tab PO 200 mg DAILY@1000 [facility] Administration Zinc Sulfate 220 mg 07/09/20 09:00 07/12/20 09:48 Zinc Sulfate 220 Mg Cap PO 220 mg DAILY [facility] Administration Objective - Vital Signs Vital signs: Vital Signs Temp 98.5 F 07/12/20 08:00 Pulse 80 07/12/20 08:00 Resp 18 07/12/20 08:00 BP 135/72 07/12/20 08:00 Pulse Ox 95 07/12/20 08:00 Intake & Output 07/11/20 07/12/20 07/12/20 18:59 06:59 18:59 Intake Total 940 240 Output Total 0 Balance 940 0 240 Weight 80.5 kg Intake: IV 250 Remdesivir 100 mg In 250 Sodium Chloride 0.9% 250 ml @ 250 mls/hr IVPB DAILY [facility] Rx#:[id number] Oral 690 240 Output: Urine 0 Other: Voiding Method External Catheter External Catheter External Catheter - Exam GENERAL: The patient is alert and oriented x3, not in any acute distress. Well developed, well nourished. HEENT: Pupils are round and equally reacting to light. EOMI. No scleral icterus. No conjunctival pallor. Normocephalic, atraumatic. No pharyngeal erythema. No thyromegaly. CARDIOVASCULAR: S1 and S2 present. No murmurs, rubs, or gallops. PULMONARY: Chest is clear to auscultation, no wheezing or crackles. ABDOMEN: Soft, nontender, nondistended, normoactive bowel sounds. No palpable organomegaly. MUSCULOSKELETAL: No joint swelling or deformity. EXTREMITIES: No cyanosis, clubbing, or pedal edema. NEUROLOGICAL: Gross neurological examination did not reveal any focal deficits. SKIN: No rashes. no petechiae. - Labs CBC & Chem 7: 07/12/20 06:21 07/12/20 06:21 Labs: Abnormal Lab Results - Last 24 Hours (Table) 07/11/20 07/11/20 07/11/20 Range/Units 12:03 16:36 20:25 WBC (3.8-10.6) k/uL RBC (3.80-5.40) m/uL Hgb (11.4-16.0) gm/dL Hct (34.0-46.0) % RDW (11.5-15.5) % Sodium (137-145) mmol/L BUN (7-17) mg/dL POC Glucose (mg/dL) 150 H 178 H 153 H (75-99) mg/dL Calcium (8.4-10.2) mg/dL 07/12/20 07/12/20 Range/Units 06:21 06:21 WBC 3.3 L (3.8-10.6) k/uL RBC 2.92 L (3.80-5.40) m/uL Hgb 8.9 L (11.4-16.0) gm/dL Hct 27.5 L (34.0-46.0) % RDW 15.9 H (11.5-15.5) % Sodium 136 L (137-145) mmol/L BUN 24 H (7-17) mg/dL POC Glucose (mg/dL) (75-99) mg/dL Calcium 7.9 L (8.4-10.2) mg/dL Microbiology - Last 24 Hours (Table) 07/08/20 18:10 Blood Culture - Preliminary Blood No Growth after 72 hours 07/08/20 18:03 Blood Culture - Preliminary Blood No Growth after 72 hours Assessment and Plan Assessment: Mild bilateral: Pneumonia Mild hypoxic respiratory failure, improving Chronic kidney disease, stage III Chronic diastolic CHF, currently euvolemic History of coronary artery disease with multiple stents Paroxysmal atrial fibrillation, not on anticoagulation Normochromic anemia, no evidence of GI bleed Hypertension Hyperlipidemia History of CVA/TIA History of GERD Hiatal hernia History of spinal stenosis History of anxiety and depression, not an active issue Plan: This is a pleasant 84 years old female who presents with cough and pneumonia. Continue with dexamethasone, vitamin C and vitamin D and zinc. Continue with remdesivir as per manager of distribution who is following the case closely Labs and medication were reviewed.. Continue same treatment. Continue with symptomatic treatment. Resume home medication. Monitor lytes and vitals. DVT and GI prophylaxis. Further recommendationsas per clinical course of the patient DVT prophylaxis: Subcutaneous heparin GI Prophylaxis: Pepcid PT/OT: OT recommended home health care versus rehab, PT recommended home. quality worker on the case Clinically patient is doing well, expect to discharge her once cleared by pulmonary after finishing her dose of remdesivir
[2020-07-12 12:11] LABS: Glucose,Whole Blood 144 mg/dL (75-99)
[2020-07-12] MEDS: FERROUS SULFATE 325 MG TAB PO SCH (12:43)
[2020-07-12] MEDS: METOPROLOL TARTRATE 25 MG TAB PO SCH ×2 (14:25→23:23)
[2020-07-12 14:50] VITALS: BMI 32.4
--- NOTE | 2020-07-12 15:12 | P.PN ---
Subjective Progress Note Date: 07/12/20 Principal diagnosis: Acute hypoxemic respiratory failure secondary to CoVID 19 pneumonia 84-year-old female patient of Dr. Zamarripa with past medical history of hypertension, coronary artery disease, chronic CHF, unspecified, diabetes mellitus type 2, who presented to the emergency department on 2020 with 2 day history of increased shortness of breath, though the ER record states she's been short of breath for 6 days. She normally does not wear oxygen. Patient admits to some cough and some yellow phlegm production. She has had both vaccines for the coronavirus. Patient is currently on 3 L of oxygen, the pulse ox of 98%, she is afebrile. Chest x-ray showed cardiomegaly, coarse lung markings consistent with some pulmonary fibrosis. EKG showed sinus bradycardia with possible old inferior wall infarct, T-wave inversion in the anterior leads. Patient's troponins were 0.059, 0.066. Procalcitonin was negative at 0.10, COVID 19 PCR was positive, d-dimer was 1.23, proBNP was 21,500. GFR was 43, B1 is 30, creatinine is 1.16, white count is 5.3 on admission, hemoglobin is 7.1, patient denies any black stools or visible blood in the stools, no hematemesis, no bleeding. Patient normally takes Plavix and aspirin. VQ scan was completed in view of elevated d-dimer, and showed very low probability for pulmonary embolism. Patient is awaiting a bed in the emergency department, seems to be in no acute distress, appears a bit pale, but hemodynamically stable, today's lab work has been reviewed showing hemoglobin of 8.7, white count is 3.7, leukocyte, 0.9. Remains on 3 L of oxygen with pulse ox of 98%. Progress note dated 07/10/2020. 84-year-old female, with history of acute hypoxemic respiratory failure secondary to COVID 19 pneumonitis. The patient has a history of other medical problems, including myocardial infarction, CAD, hypertension, diabetes, hy perlipidemia, chronic kidney disease, intracranial bleeding, and paroxysmal atrial fibrillation. Currently, the patient's on 2 L nasal cannula, and her saturations are 94%. She is afebrile. M pressure 98.1. She seems to be resting comfortably. White count 4.0, hemoglobin 9.7, hematocrit 29.8, platelet count 189,000. Sodium and potassium normal. Chloride 109, CO2 20, anion gap 10, BUN and creatinine were 32 and 1.15. Computed tomography scan dated July 09, was reviewed. Progress note dated 07/11/2020. 84-year-old female, who we see again today in follow-up. She has a history of acute hypoxemic respiratory failure secondary to COVID 19 pneumonitis. She is currently on a small amount of saline IV, and 2 L nasal cannula. She has an extensive medical history including myocardial infarction, CAD, hypertension, diabetes, hyperlipidemia, chronic kidney disease, intracranial bleeding, and paroxysmal atrial fibrillation. She states that she is feeling a bit better. Currently, there is no new labs to report. Likewise, her last chest x-ray was on July 08, and her computed tomography scan that was done on July 09, was reviewed. The patient is seen today 07/12/2020 follow-up on the selective care unit. She is currently resting comfortably in bed. Awake and alert in no acute distress. She is on 2 L nasal cannula and maintaining O2 saturations in the 90s. 0.9#20 ML's per hour. This is day #4 of Remdesivir. She remains on Decadron, Lovenox, vitamin supplements. White count 3.3. Hemoglobin 8.9. Sodium 136. Potassium 4.4. Creatinine 0.93. Objective - Vital Signs Vital signs: Vital Signs Temp 98.5 F 07/12/20 08:00 Pulse 85 07/12/20 12:00 Resp 16 07/12/20 12:00 BP 146/69 07/12/20 12:00 Pulse Ox 94 L 07/12/20 12:00 Intake & Output 07/11/20 07/12/20 07/12/20 18:59 06:59 18:59 Intake Total 940 240 Output Total 0 700 Balance 940 0 -460 Weight 80.5 kg 80.5 kg Intake: IV 250 Remdesivir 100 mg In 250 Sodium Chloride 0.9% 250 ml @ 250 mls/hr IVPB DAILY [facility] Rx#:[id number] Oral 690 240 Output: Urine 0 700 Other: Voiding Method External Catheter External Catheter External Catheter - Exam GENERAL EXAM: Alert, pleasant 84-year-old female patient, on 2 L nasal cannula, comfortable in no apparent distress. HEAD: Normocephalic. EYES: Normal reaction of pupils, equal size. NOSE: Clear with pink turbinates. THROAT: No erythema or exudates. NECK: No masses, no JVD. CHEST: No chest wall deformity. LUNGS: Equal air entry with crackles in the bilateral posterior bases. CVS: S1 and S2 normal with no audible murmur, regular rhythm. ABDOMEN: No hepatosplenomegaly, normal bowel sounds, no guarding or rigidity. SPINE: No scoliosis or deformity SKIN: No rashes CENTRAL NERVOUS SYSTEM: No focal deficits, tone is normal in all 4 extremities. EXTREMITIES: There is no peripheral edema. No clubbing, no cyanosis. Peripheral pulses are intact. - Labs CBC & Chem 7: 07/12/20 06:21 07/12/20 06:21 Labs: Abnormal Lab Results - Last 24 Hours (Table) 07/11/20 07/11/20 07/12/20 Range/Units 16:36 20:25 06:21 WBC 3.3 L (3.8-10.6) k/uL RBC 2.92 L (3.80-5.40) m/uL Hgb 8.9 L (11.4-16.0) gm/dL Hct 27.5 L (34.0-46.0) % RDW 15.9 H (11.5-15.5) % Sodium (137-145) mmol/L BUN (7-17) mg/dL POC Glucose (mg/dL) 178 H 153 H (75-99) mg/dL Calcium (8.4-10.2) mg/dL 07/12/20 07/12/20 Range/Units 06:21 12:09 WBC (3.8-10.6) k/uL RBC (3.80-5.40) m/uL Hgb (11.4-16.0) gm/dL Hct (34.0-46.0) % RDW (11.5-15.5) % Sodium 136 L (137-145) mmol/L BUN 24 H (7-17) mg/dL POC Glucose (mg/dL) 144 H (75-99) mg/dL Calcium 7.9 L (8.4-10.2) mg/dL Microbiology - Last 24 Hours (Table) 07/08/20 18:10 Blood Culture - Preliminary Blood No Growth after 72 hours 07/08/20 18:03 Blood Culture - Preliminary Blood No Growth after 72 hours Assessment and Plan Assessment: 1 Acute hypoxemic respiratory failure secondary to CoVID 19 pneumonia 2 VQ scan low probability for pulmonary embolism 3 Acute on chronic anemia 4 History of myocardial infarction 5 Hypertension 6 Diabetes mellitus 7 Hyperlipidemia 8 Chronic kidney disease 9 History of intracranial bleed 10 History of paroxysmal atrial fibrillation Plan: The patient was seen and evaluated by Dr. Dalton This is day #4 of Remdesivir Continue on Lovenox, dexamethasone, vitamin supplements Plan is for possible transfer to [facility] tomorrow We will continue to follow I, the cosigning physician, performed a history & physical examination of the patient. Lungs sounds with crackles in the bilateral bases. Maintaining good O2 saturations in the 90s on 2 L/m per nasal cannula. I discussed the assessment and plan of care with my nurse practitioner, Anastasia Garcia. I attest to the above note as dictated by her.
[2020-07-12] MEDS ORDERED: DILTIAZEM DRIP BOLUS FROM BAG 1 MG SOLN IV ONE (15:50)
[2020-07-12] MEDS ORDERED: DILTIAZEM 125 MG in SODIUM CHLORIDE 0.9% 100 ML IV SCH (16:00)
[2020-07-12 17:11] LABS: Glucose,Whole Blood 173 mg/dL (75-99)
[2020-07-12] MEDS: ALPRAZolam 0.5 MG TAB PO SCH ×2 (17:14→20:49)
[2020-07-12] MEDS: EZETIMIBE 10 MG TAB PO SCH (17:15)
[2020-07-12] MEDS: PANTOPRAZOLE 40 MG TABLET PO SCH (17:15)
[2020-07-12] MEDS: NIFEdipine XL 30 MG TAB.ER.24 PO SCH (17:15)
[2020-07-12] MEDS ORDERED: METOPROLOL TARTRATE 25 MG TAB PO SCH (18:00)
[2020-07-12] MEDS: ATORVASTATIN 20 MG TAB PO SCH (20:48)
[2020-07-12] MEDS: ACETAMINOPHEN TAB 325 MG TAB PO PRN (20:58)
[2020-07-12 21:00] LABS: Glucose,Whole Blood 127 mg/dL (75-99)
[2020-07-13] MEDS: PANTOPRAZOLE 40 MG TABLET PO SCH ×2 (06:10→17:12)
[2020-07-13 06:56] LABS: Glucose,Whole Blood 91 mg/dL (75-99)
[2020-07-13] MEDS: hydrALAZINE HCL 50 MG TAB PO SCH ×3 (08:42→21:06)
[2020-07-13] MEDS: FERROUS SULFATE 325 MG TAB PO SCH (08:42)
[2020-07-13] MEDS: ASCORBIC ACID 500 MG TAB PO SCH ×2 (08:42→21:06)
[2020-07-13] MEDS: ZINC SULFATE 220 MG CAP PO SCH (08:43)
[2020-07-13] MEDS: METOPROLOL TARTRATE 25 MG TAB PO SCH ×2 (08:43→17:09)
[2020-07-13] MEDS: DEXAMETHASONE SOD PHOSPHATE 10 MG/ML 1 ML VIAL IV SCH (08:43)
[2020-07-13] MEDS: ENOXAPARIN 30 MG/0.3 ML SYRINGE SQ SCH (08:43)
[2020-07-13] MEDS: DOCUSATE 100 MG CAP PO SCH (08:43)
[2020-07-13] MEDS: CHOLECALCIFEROL 25 MCG (1000 IU) TABLET PO SCH (08:43)
[2020-07-13] MEDS: SERTRALINE 100 MG TAB PO SCH (08:43)
[2020-07-13] MEDS: REMDESIVIR 100 MG in SODIUM CHLORIDE 0.9% 250 ML IVPB SCH (08:44)
[2020-07-13] MEDS: ALBUTEROL HFA INHALER INHALATION SCH ×3 (08:49→21:12)
[2020-07-13] MEDS ORDERED: METOPROLOL TARTRATE 50 MG TAB PO STA (09:29)
[2020-07-13 11:31] LABS: Glucose,Whole Blood 155 mg/dL (75-99)
[2020-07-13 12:21] LABS: Calcium 8.1 mg/dL (8.4-10.2); Potassium 4.3 mmol/L (3.5-5.1)
[2020-07-13] MEDS ORDERED: FUROSEMIDE 10 MG/ML 2 ML VIAL IV SCH (12:45)
[2020-07-13] MEDS ORDERED: ONDANSETRON 4 MG TAB PO PRN (12:47)
[2020-07-13] MEDS ORDERED: ONDANSETRON 4 MG TAB PO STA (12:59)
--- NOTE | 2020-07-13 13:39 | P.PN ---
Subjective This is a pleasant 84-year-old female past medical history significant for coronary artery disease status post PCI with multiple stenting performed last early unknown details, chronic kidney disease, intracranial hemorrhage in 2014 related to hypertension, paroxysmal atrial fibrillation not on anticoagulation 2/2 intracranial bleed, hyperlipidemia, and chronic diastolic heart failure. She follows in the office with Dr. Givens. We have been asked to see in consultation for elevated troponin. She presents to the emergency depa rtment complaining of shortness of breath. Patient was found to be COVID-19 positive. EKG showed sinus rhythm was sinus bradycardia and diffuse nonspecific ST and T wave abnormalities. Currently she is not on any AV estela sanjeev agents. She underwent a VQ scan and that came in to be with low probably for PE. 07/11/2020: Patient is seen and examined in bed, no acute distress, she is working with PT. blood pressure 129/64, heart rate 70, afebrile, maintaining oxygen saturation on 2 L nasal cannula. For her atrial fibrillation patient was not on any anticoagulation secondary to her history of weakness, increased falls, and history of intracranial hemorrhage. Laboratory data reviewed, no new lab values today. Telemetry tracings- sinus mechanism today with HR 70s-80s. Echo 06/2020: EF 50-55% 07/13/2020: Cardiology re-consulted for atrial fibrillation with RVR. Yesterday patient's HR increased to 150-160s. Patient's home metoprolol tartrate was continued and increased to 50mg BID. Patient continued to be in atrial fibrillation with RVR and was started on a cardizem drip. Blood pressure 121/56, heart rate 79, maintaining oxygen saturation is 95% on 2 L nasal cannula. Afebrile. Patient with 2+ lower extremity edema and shortness of breath. PHYSICAL EXAMINATION CONSTITUTIONAL: No apparent distress. HEART EXAMINATION: Irregular rate and rhythm. S1, S2 heard. No murmurs, gallops or rub. EXTREMITIES: 2+ peripheral pulses, 2+ lower extremity edema and no calf tenderness. NEUROLOGIC EXAMINATION: Patient appears tired, awake, alert and oriented x3. ASSESSMENT -Covid-19 -Shortness of breath likely to be multi-factorial and related to covid infection as well as anemia as well as a component of heart failure with preserved ejection fraction -Acute on Chronic Diastolic heart failure -Coronary artery disease status post PCI with multiple stenting performed last early per family -Chronic kidney disease Stage 3 -Chronic anemia -Mildly abnormal troponin likely secondary to the abnormal kidney function as well as anemia as well as sepsis -History of Intracranial hemorrhage -Paroxysmal atrial fibrillation- not on anticoagulation due to history of intracranial hemorrhage and risk of bleeding due to increased weakness and falls -History of hypertension -History of hyperlipidemia Plan -Atrial fibrillation with RVR yesterday most likely related to patient not being on home beta sanjeev during this admission, It was restarted yesterday, and increased to 50mg BID. Patient is in better rate control now, HR in 80s. -Metoprolol tartrate 50mg BID -Stop cardizem drip at this time -patient with increased lower extremity edema, shortness of breath- Will start low dose of Furosemide PO 20mg daily short term -Patient on subq Loveonx- not on anticoagulation as stated above -Per primary team patient may be discharged to rehab today, from cardiology perspective we agree that patient Nurse Practitioner note has been reviewed, I agree with a documented findings and plan of care. Patient was seen and examined. Objective - Vital Signs Vital signs: Vital Signs Temp 98.5 F 07/12/20 08:00 Pulse 110 H 07/12/20 16:25 Resp 18 07/12/20 15:43 BP 163/64 07/12/20 16:25 Pulse Ox 95 07/12/20 15:43 Intake & Output 07/12/20 07/12/20 07/13/20 06:59 18:59 06:59 Intake Total 800 Output Total 0 700 Balance 0 100 Weight 80.5 kg 80.5 kg Intake: Oral 800 Output: Urine 0 700 Other: Voiding Method External Catheter External Catheter - Labs CBC & Chem 7: 07/12/20 06:21 07/13/20 11:18 Labs: Abnormal Lab Results - Last 24 Hours (Table) 07/11/20 07/12/20 07/12/20 Range/Units 20:25 06:21 06:21 WBC 3.3 L (3.8-10.6) k/uL RBC 2.92 L (3.80-5.40) m/uL Hgb 8.9 L (11.4-16.0) gm/dL Hct 27.5 L (34.0-46.0) % RDW 15.9 H (11.5-15.5) % Sodium 136 L (137-145) mmol/L BUN 24 H (7-17) mg/dL POC Glucose (mg/dL) 153 H (75-99) mg/dL Calcium 7.9 L (8.4-10.2) mg/dL 07/12/20 07/12/20 Range/Units 12:09 17:08 WBC (3.8-10.6) k/uL RBC (3.80-5.40) m/uL Hgb (11.4-16.0) gm/dL Hct (34.0-46.0) % RDW (11.5-15.5) % Sodium (137-145) mmol/L BUN (7-17) mg/dL POC Glucose (mg/dL) 144 H 173 H (75-99) mg/dL Calcium (8.4-10.2) mg/dL Microbiology - Last 24 Hours (Table) 07/08/20 18:10 Blood Culture - Preliminary Blood No Growth after 72 hours 07/08/20 18:03 Blood Culture - Preliminary Blood No Growth after 72 hours
--- NOTE | 2020-07-13 14:08 | XR ---
EXAMINATION TYPE: XR KUB DATE OF EXAM: 07/13/2020 COMPARISON: None INDICATION: Vomiting and constipation TECHNIQUE: Single view abdomen supine view FINDINGS: There is nonspecific bowel gas pattern. Small bowel loops and colon contain air. No significant fecal retention Psoas margins are normal. Spondylosis is present. Costochondral cartilage calcification is present. Organomegaly is not evident IMPRESSION: 1. Nonspecific abdomen
[2020-07-13] MEDS ORDERED: MAG HYDROX/AL HYDROX/SIMETH 30 ML, HYOSCYAMINE ELIXIR 10 ML, LIDOCAINE VISCOUS 2% 10 ML PO ONE ×3 (14:40)
[2020-07-13] MEDS: EZETIMIBE 10 MG TAB PO SCH (17:09)
[2020-07-13] MEDS: NIFEdipine XL 30 MG TAB.ER.24 PO SCH (17:10)
[2020-07-13] MEDS: ALPRAZolam 0.5 MG TAB PO SCH ×2 (17:10→21:05)
[2020-07-13 17:12] LABS: Glucose,Whole Blood 146 mg/dL (75-99)
[2020-07-13] MEDS: FUROSEMIDE 20 MG TAB PO SCH (17:12)
--- NOTE | 2020-07-13 17:16 | P.PN ---
Subjective Progress Note Date: 07/13/20 Principal diagnosis: Acute hypoxemic respiratory failure secondary to CoVID 19 pneumonia 84-year-old female patient of Dr. Zamarripa with past medical history of hypertension, coronary artery disease, chronic CHF, unspecified, diabetes mellitus type 2, who presented to the emergency department on 2020 with 2 day history of increased shortness of breath, though the ER record states she's been short of breath for 6 days. She normally does not wear oxygen. Patient admits to some cough and some yellow phlegm production. She has had both vaccines for the coronavirus. Patient is currently on 3 L of oxygen, the pulse ox of 98%, she is afebrile. Chest x-ray showed cardiomegaly, coarse lung markings consistent with some pulmonary fibrosis. EKG showed sinus bradycardia with possible old inferior wall infarct, T-wave inversion in the anterior leads. Patient's troponins were 0.059, 0.066. Procalcitonin was negative at 0.10, COVID 19 PCR was positive, d-dimer was 1.23, proBNP was 21,500. GFR was 43, B1 is 30, creatinine is 1.16, white count is 5.3 on admission, hemoglobin is 7.1, patient denies any black stools or visible blood in the stools, no hematemesis, no bleeding. Patient normally takes Plavix and aspirin. VQ scan was completed in view of elevated d-dimer, and showed very low probability for pulmonary embolism. Patient is awaiting a bed in the emergency department, seems to be in no acute distress, appears a bit pale, but hemodynamically stable, today's lab work has been reviewed showing hemoglobin of 8.7, white count is 3.7, leukocyte, 0.9. Remains on 3 L of oxygen with pulse ox of 98%. Progress note dated 07/10/2020. 84-year-old female, with history of acute hypoxemic respiratory failure secondary to COVID 19 pneumonitis. The patient has a history of other medical problems, including myocardial infarction, CAD, hypertension, diabetes, hy perlipidemia, chronic kidney disease, intracranial bleeding, and paroxysmal atrial fibrillation. Currently, the patient's on 2 L nasal cannula, and her saturations are 94%. She is afebrile. M pressure 98.1. She seems to be resting comfortably. White count 4.0, hemoglobin 9.7, hematocrit 29.8, platelet count 189,000. Sodium and potassium normal. Chloride 109, CO2 20, anion gap 10, BUN and creatinine were 32 and 1.15. Computed tomography scan dated July 09, was reviewed. Progress note dated 07/11/2020. 84-year-old female, who we see again today in follow-up. She has a history of acute hypoxemic respiratory failure secondary to COVID 19 pneumonitis. She is currently on a small amount of saline IV, and 2 L nasal cannula. She has an extensive medical history including myocardial infarction, CAD, hypertension, diabetes, hyperlipidemia, chronic kidney disease, intracranial bleeding, and paroxysmal atrial fibrillation. She states that she is feeling a bit better. Currently, there is no new labs to report. Likewise, her last chest x-ray was on July 08, and her computed tomography scan that was done on July 09, was reviewed. The patient is seen today 07/12/2020 follow-up on the selective care unit. She is currently resting comfortably in bed. Awake and alert in no acute distress. She is on 2 L nasal cannula and maintaining O2 saturations in the 90s. 0.9#20 ML's per hour. This is day #4 of Remdesivir. She remains on Decadron, Lovenox, vitamin supplements. White count 3.3. Hemoglobin 8.9. Sodium 136. Potassium 4.4. Creatinine 0.93. The patient is seen today 07/13/2020 follow-up on selective care unit. Currently sitting up in bed. Awake and alert in no acute distress. Maintaining O2 saturation in the 90s on 2 L/m per nasal cannula. She's been afebrile. Hemodynamically stable. Sodium 134. Potassium 4.3. Creatinine 0.96. Continued on vitamin supplements, Lovenox, and Decadron. KUB done today for vomiting and constipation revealed a nonspecific abdomen. Objective - Vital Signs Vital signs: Vital Signs Temp 98.1 F 07/13/20 16:00 Pulse 87 07/13/20 16:00 Resp 18 07/13/20 16:00 BP 147/79 07/13/20 16:00 Pulse Ox 98 07/13/20 16:00 Intake & Output 07/12/20 07/13/20 07/13/20 18:59 06:59 18:59 Intake Total 800 5 810 Output Total 700 Balance 100 5 810 Weight 80.5 kg 75.5 kg Intake: IV 250 Remdesivir 100 mg In 250 Sodium Chloride 0.9% 250 ml @ 250 mls/hr IVPB DAILY [facility] Rx#:[id number] Intake, IV Titration 5 Amount Diltiazem 125 mg In 5 Sodium Chloride 0.9% 100 ml @ 5 MG/HR 5 mls/hr IV .Q24H [facility] Rx#:[id number] Oral 800 560 Output: Urine 700 Other: Voiding Method External Catheter External Catheter External Catheter # Voids 200 # Bowel Movements 0 - Exam GENERAL EXAM: Alert, pleasant 84-year-old female patient, on 2 L nasal cannula, comfortable in no apparent distress. HEAD: Normocephalic. EYES: Normal reaction of pupils, equal size. NOSE: Clear with pink turbinates. THROAT: No erythema or exudates. NECK: No masses, no JVD. CHEST: No chest wall deformity. LUNGS: Equal air entry with crackles in the bilateral posterior bases. CVS: S1 and S2 normal with no audible murmur, regular rhythm. ABDOMEN: No hepatosplenomegaly, normal bowel sounds, no guarding or rigidity. SPINE: No scoliosis or deformity SKIN: No rashes CENTRAL NERVOUS SYSTEM: No focal deficits, tone is normal in all 4 extremities. EXTREMITIES: There is no peripheral edema. No clubbing, no cyanosis. Cris pheral pulses are intact. - Labs CBC & Chem 7: 07/12/20 06:21 07/13/20 11:18 Labs: Abnormal Lab Results - Last 24 Hours (Table) 07/12/20 07/12/20 07/13/20 Range/Units 17:08 20:58 11:18 Sodium 134 L (137-145) mmol/L Carbon Dioxide 21 L (22-30) mmol/L BUN 24 H (7-17) mg/dL Glucose 138 H (74-99) mg/dL POC Glucose (mg/dL) 173 H 127 H (75-99) mg/dL Calcium 8.1 L (8.4-10.2) mg/dL 07/13/20 Range/Units 11:30 Sodium (137-145) mmol/L Carbon Dioxide (22-30) mmol/L BUN (7-17) mg/dL Glucose (74-99) mg/dL POC Glucose (mg/dL) 155 H (75-99) mg/dL Calcium (8.4-10.2) mg/dL Microbiology - Last 24 Hours (Table) 07/08/20 18:10 Blood Culture - Preliminary Blood No Growth after 96 hours 07/08/20 18:03 Blood Culture - Preliminary Blood No Growth after 96 hours Assessment and Plan Assessment: 1 Acute hypoxemic respiratory failure secondary to CoVID 19 pneumonia 2 VQ scan low probability for pulmonary embolism 3 Acute on chronic anemia 4 History of myocardial infarction 5 Hypertension 6 Diabetes mellitus 7 Hyperlipidemia 8 Chronic kidney disease 9 History of intracranial bleed 10 History of paroxysmal atrial fibrillation. 11 Nausea, vomiting, constipation Plan: The patient was seen and evaluated by Dr. Sha SOLORZANO revealed nonspecific abdomen This is day #5 of Remdesivir Continue on Lovenox, dexamethasone, vitamin supplements Titrate down and off the FiO2 as tolerated Plan is for possible transfer to ECF We will continue to follow I, the cosigning physician, performed a history & physical examination of the patient. Lungs sounds with crackles in the bilateral bases. Maintaining good O2 saturations in the 90s on 2 L/m per nasal cannula. I discussed the assessment and plan of care with my nurse practitioner, Anastasia Garcia. I attest to the above note as dictated by her.
--- NOTE | 2020-07-13 20:26 | P.PN ---
Subjective This is a pleasant 84 years old female with multiple medical problems including coronary artery disease status post stent placement, chronic heart failure, diabetes mellitus, CVA/TIA, GERD, hearing difficulty, hyperlipidemia, hypertension, osteoarthritis, vertigo. History of anxiety and depression, she is a patient of Dr Zamarripa. Presents because of respiratory symptoms found to have bilateral Leobardo pneumonia with mild hypoxic respiratory failure. Patient has been evaluated by pulmonary team and cardiology for her extensive history of heart disease and GI team for normal chromic anemia. Patient currently breathing easily, only mild tachypnea/dyspnea. No significant coughing. No chest pain. No abdominal pain or nausea vomiting. No diarrhea and she tolerates diet well. She has external urinary catheter. She is saturating 90s on 2 L oxygen via nasal cannula Patient also with chronic kidney disease stage III and she is informed. Labs showing mild bicytopenia with WBC 3.3 and hemoglobin 8.9, mostly secondary to call with infection. No evidence of GI bleed, occult blood in the stool was negative. GI team on the case. D-dimer slightly elevated at 1.2 and pulmonary the case. Pro-calcitonin is slightly elevated at 0.10. She has low probability of PE on VQ scan She is currently on vitamin C, vitamin D, zinc, dexamethasone, Lovenox prophylactic dose and remdesivir ( last dose tomorrow on 07/23/2020 Patient today was not feeling on, she threw up in the morning, she denies abdominal pain or chest pain or dyspnea or coughing, she has decreased appetite with no specific reason just stating that she is not feeling well. KUB of the abdomen was ordered which was nonspecific. Patient was provided with Zofran and GI cocktail which helped a little bit. Because of that we are keeping the patient for tonight and we'll monitor her by tomorrow. Today she developed A. fib and RVR and also she received 1 dose of volume which might contribute to her not feeling well. Her heart rate is better controlled today after restarting her metoprolol and increase in the dose to 20 mg twice daily. Also she continue on nifedipine and hydralazine. Small dose of oral Lasix 20 mg daily and by cardiology team. remdesivir is finished today as it was last dose . The patient remains on dexamethasone and vitamin C, D and zinc. Patient and family still refuses the patient going to rehab and they want home with home health care Possible discharge in 24-48 hours if patient keeps improving Review of systems CONSTITUTIONAL: No fever, no malaise, no fatigue. HEENT: No recent visual problems or hearing problems. Denied any sore throat. CARDIOVASCULAR: No orthopnea, PND, no palpitations, no syncope. PULMONARY: No Chest wall tenderness, no hemoptysis. GASTROINTESTINAL: No diarrhea, no nausea, no vomiting, no abdominal pain. Normoactive bowel sounds. NEUROLOGICAL: No headaches, no weakness, no numbness. Active Medications Generic Name Dose Route Start Last Admin Trade Name Freq PRN Reason Stop Dose Admin Acetaminophen 650 mg 07/08/20 19:55 07/12/20 20:58 Acetaminophen Tab 325 Mg Tab PO 650 mg Q6HR PRN Administration Mild Pain or Fever > 100.5 Hydrocodone Bitart/Acetaminophen 1 each 07/08/20 20:48 Hydrocodone/Apap 5-325mg 1 Each Tab PO Q6HR PRN Pain Albuterol Sulfate 2 puff 07/09/20 08:00 07/13/20 11:52 Albuterol Hfa Inhaler INHALATION 2 puff RT-TID [facility] Administration Alprazolam 0.5 mg 07/08/20 23:00 07/13/20 17:10 Alprazolam 0.5 Mg Tab PO 0.5 mg BID@1800,2300 [facility] Administration Ascorbic Acid 500 mg 07/09/20 09:00 07/13/20 08:42 Ascorbic Acid 500 Mg Tab PO 500 mg BID [facility] Administration Atorvastatin Calcium 20 mg 07/08/20 23:00 07/12/20 20:48 Atorvastatin 20 Mg Tab PO 20 mg HS@2300 [facility] Administration Cholecalciferol 125 mcg 07/09/20 09:00 07/13/20 08:43 Cholecalciferol 25 Mcg (1000 Iu) Tablet PO 125 mcg DAILY [facility] Administration Dexamethasone Sodium Phosphate 6 mg 07/09/20 09:00 07/13/20 08:43 Dexamethasone Sod Phosphate 10 Mg/Ml 1 Ml Vial IV 6 mg DAILY [facility] Administration Docusate Sodium 100 mg 07/11/20 09:00 07/13/20 08:43 Docusate 100 Mg Cap PO 100 mg DAILY [facility] Administration Ezetimibe 10 mg 07/09/20 18:00 07/13/20 17:09 Ezetimibe 10 Mg Tab PO 10 mg DAILY@1800 [facility] Administration Enoxaparin Sodium 30 mg 07/09/20 09:00 07/13/20 08:43 Enoxaparin 30 Mg/0.3 Ml Syringe SQ 30 mg DAILY [facility] Administration Ferrous Sulfate 325 mg 07/10/20 12:30 07/13/20 08:42 Ferrous Sulfate 325 Mg Tab PO 325 mg W/LUNCH [facility] Administration Furosemide 20 mg 07/13/20 13:45 07/13/20 17:12 Furosemide 20 Mg Tab PO 20 mg DAILY [facility] Administration Hydralazine HCl 100 mg 07/08/20 23:00 07/13/20 17:10 Hydralazine Hcl 50 Mg Tab PO 100 mg TID@1000,1800,2300 [facility] Administration Metoprolol Tartrate 50 mg 07/12/20 14:30 07/13/20 17:09 Metoprolol Tartrate 25 Mg Tab PO 50 mg BID@1000,1800 [facility] Administration Naloxone HCl 0.2 mg 07/08/20 19:55 Naloxone 0.4 Mg/Ml 1 Ml Vial IV Q2M PRN Opioid Reversal Nifedipine 30 mg 07/09/20 18:00 07/13/20 17:10 Nifedipine Xl 30 Mg Tab.Er.24 PO 30 mg DAILY@1800 [facility] Administration Ondansetron HCl 4 mg 07/13/20 12:47 Ondansetron 4 Mg Tab PO Q8HR PRN Nausea And Vomiting Pantoprazole Sodium 40 mg 07/12/20 17:30 07/13/20 17:12 Pantoprazole 40 Mg Tablet PO 40 mg AC-BID [facility] Administration Sertraline HCl 200 mg 07/09/20 10:00 07/13/20 08:43 Sertraline 100 Mg Tab PO 200 mg DAILY@1000 [facility] Administration Zinc Sulfate 220 mg 07/09/20 09:00 07/13/20 08:43 Zinc Sulfate 220 Mg Cap PO 220 mg DAILY [facility] Administration Objective - Vital Signs Vital signs: Vital Signs Temp 98.1 F 07/13/20 11:48 Pulse 85 07/13/20 11:48 Resp 18 07/13/20 11:48 BP 131/69 07/13/20 11:48 Pulse Ox 95 07/13/20 11:48 Intake & Output 07/12/20 07/13/20 07/13/20 18:59 06:59 18:59 Intake Total 800 5 810 Output Total 700 Balance 100 5 810 Weight 80.5 kg 75.5 kg Intake: IV 250 Remdesivir 100 mg In 250 Sodium Chloride 0.9% 250 ml @ 250 mls/hr IVPB DAILY [facility] Rx#:[id number] Intake, IV Titration 5 Amount Diltiazem 125 mg In 5 Sodium Chloride 0.9% 100 ml @ 5 MG/HR 5 mls/hr IV .Q24H [facility] Rx#:[id number] Oral 800 560 Output: Urine 700 Other: Voiding Method External Catheter External Catheter External Catheter # Voids 200 # Bowel Movements 0 - Exam GENERAL: The patient is alert and oriented x3, not in any acute distress. Well developed, well nourished. HEENT: Pupils are round and equally reacting to light. EOMI. No scleral icterus. No conjunctival pallor. Normocephalic, atraumatic. No pharyngeal erythema. No thyromegaly. CARDIOVASCULAR: S1 and S2 present. No murmurs, rubs, or gallops. PULMONARY: Chest is clear to auscultation, no wheezing or crackles. ABDOMEN: Soft, nontender, nondistended, normoactive bowel sounds. No palpable organomegaly. MUSCULOSKELETAL: No joint swelling or deformity. EXTREMITIES: No cyanosis, clubbing, or pedal edema. NEUROLOGICAL: Gross neurological examination did not reveal any focal deficits. SKIN: No rashes. no petechiae. - Labs CBC & Chem 7: 07/12/20 06:21 07/13/20 11:18 Labs: Abnormal Lab Results - Last 24 Hours (Table) 07/12/20 07/12/20 07/13/20 Range/Units 17:08 20:58 11:18 Sodium 134 L (137-145) mmol/L Carbon Dioxide 21 L (22-30) mmol/L BUN 24 H (7-17) mg/dL Glucose 138 H (74-99) mg/dL POC Glucose (mg/dL) 173 H 127 H (75-99) mg/dL Calcium 8.1 L (8.4-10.2) mg/dL 07/13/20 Range/Units 11:30 Sodium (137-145) mmol/L Carbon Dioxide (22-30) mmol/L BUN (7-17) mg/dL Glucose (74-99) mg/dL POC Glucose (mg/dL) 155 H (75-99) mg/dL Calcium (8.4-10.2) mg/dL Microbiology - Last 24 Hours (Table) 07/08/20 18:10 Blood Culture - Preliminary Blood No Growth after 96 hours 07/08/20 18:03 Blood Culture - Preliminary Blood No Growth after 96 hours Assessment and Plan Assessment: Mild bilateral: Pneumonia Mild hypoxic respiratory failure, improving Chronic kidney disease, stage III Chronic diastolic CHF, currently euvolemic History of coronary artery disease with multiple stents Paroxysmal atrial fibrillation, not on anticoagulation Normochromic anemia, no evidence of GI bleed Hypertension Hyperlipidemia History of CVA/TIA History of GERD Hiatal hernia History of spinal stenosis History of anxiety and depression, not an active issue Plan: This is a pleasant 84 years old female who presents with cough and pneumonia. Continue with dexamethasone, vitamin C and vitamin D and zinc. Patient finished remdesivir as per housing assistant who is following the case closely . Keep monitoring her GI symptoms and heart rate. Labs and medication were reviewed.. Continue same treatment. Continue with symptomatic treatment. Resume home medication. Monitor lytes and vitals. DVT and GI prophylaxis. Further recommendations as per clinical course of the patient DVT prophylaxis: Subcutaneous heparin GI Prophylaxis: Pepcid PT/OT: OT recommended home health care versus rehab, PT recommended home. transmission worker on the case Clinically patient is doing well, expect to discharge her once cleared by pulmonary after finishing her dose of remdesivir
[2020-07-13] MEDS: ATORVASTATIN 20 MG TAB PO SCH (21:06)
[2020-07-13 21:17] LABS: Glucose,Whole Blood 170 mg/dL (75-99)
[2020-07-14] MEDS: PANTOPRAZOLE 40 MG TABLET PO SCH (05:58)
[2020-07-14] MEDS: ALBUTEROL HFA INHALER INHALATION SCH ×2 (09:12→13:13)
[2020-07-14 09:25] VITALS: RESP 20
[2020-07-14] MEDS: FERROUS SULFATE 325 MG TAB PO SCH (09:25)
[2020-07-14] MEDS: DEXAMETHASONE SOD PHOSPHATE 10 MG/ML 1 ML VIAL IV SCH (09:25)
[2020-07-14] MEDS: ZINC SULFATE 220 MG CAP PO SCH (09:25)
[2020-07-14] MEDS: ASCORBIC ACID 500 MG TAB PO SCH (09:25)
[2020-07-14] MEDS: FUROSEMIDE 20 MG TAB PO SCH (09:25)
[2020-07-14] MEDS: DOCUSATE 100 MG CAP PO SCH (09:25)
[2020-07-14] MEDS: ENOXAPARIN 30 MG/0.3 ML SYRINGE SQ SCH (09:26)
[2020-07-14] MEDS: SERTRALINE 100 MG TAB PO SCH (10:04)
[2020-07-14] MEDS: hydrALAZINE HCL 50 MG TAB PO SCH (10:04)
[2020-07-14] MEDS: METOPROLOL TARTRATE 25 MG TAB PO SCH (10:04)
[2020-07-14] MEDS: CHOLECALCIFEROL 25 MCG (1000 IU) TABLET PO SCH (10:04)
[2020-07-14 10:11] LABS: Calcium 8.5 mg/dL (8.4-10.2); Potassium 4.3 mmol/L (3.5-5.1)
[2020-07-14 12:09] LABS: Glucose,Whole Blood 162 mg/dL (75-99)
--- NOTE | 2020-07-14 12:15 | P.PN ---
Subjective Progress Note Date: 07/14/20 This is an 84-year-old female patient of Dr. Zamarripa with past medical history of hypertension, coronary artery disease, chronic CHF, unspecified, diabetes mellitus type 2, who presented to the emergency department on 2020 with 2 day history of increased shortness of breath, though the ER record states she'd been short of breath for 6 days. Patient tested positive for COVID19 pneumonia. She was seen and examined today. Sitting up in bed, awake and alert in no acute distress. Blood pressure 126/60 with a heart rate in the 90s, 94% on room air. Sodium 134, potassium 4.3, BUN 26, creatinine 1.0. Objective - Vital Signs Vital signs: Vital Signs Temp 98.4 F 07/14/20 09:20 Pulse 90 07/14/20 09:20 Resp 20 07/14/20 09:20 BP 127/59 07/14/20 09:20 Pulse Ox 94 L 07/14/20 10:27 Intake & Output 07/13/20 07/14/20 07/14/20 18:59 06:59 18:59 Intake Total 1050 240 Output Total 900 200 Balance 1050 -900 40 Weight 77 kg Intake: IV 250 Remdesivir 100 mg In 250 Sodium Chloride 0.9% 250 ml @ 250 mls/hr IVPB DAILY [facility] Rx#:[id number] Oral 800 240 Output: Urine 900 200 Other: Voiding Method External Catheter External Catheter External Catheter - Exam GENERAL EXAM: Alert, pleasant 84-year-old female patient, on room air , comfortable in no apparent distress. HEAD: Normocephalic. EYES: Normal reaction of pupils, equal size. NOSE: Clear with pink turbinates. THROAT: No erythema or exudates. NECK: No masses, no JVD. CHEST: No chest wall deformity. LUNGS: Equal air entry with crackles in the bilateral posterior bases. CVS: S1 and S2 normal with no audible murmur, regular rhythm. ABDOMEN: No hepatosplenomegaly, normal bowel sounds, no guarding or rigidity. SPINE: No scoliosis or deformity SKIN: No rashes CENTRAL NERVOUS SYSTEM: No focal deficits, tone is normal in all 4 extremities. EXTREMITIES: There is no peripheral edema. No clubbing, no cyanosis. Peripheral pulses are intact. - Labs CBC & Chem 7: 07/12/20 06:21 07/14/20 08:48 Labs: Abnormal Lab Results - Last 24 Hours (Table) 07/13/20 07/13/20 07/13/20 Range/Units 11:18 17:10 20:58 Sodium 134 L (137-145) mmol/L Carbon Dioxide 21 L (22-30) mmol/L BUN 24 H (7-17) mg/dL Glucose 138 H (74-99) mg/dL POC Glucose (mg/dL) 146 H 170 H (75-99) mg/dL Calcium 8.1 L (8.4-10.2) mg/dL 07/14/20 07/14/20 Range/Units 08:48 11:58 Sodium 134 L (137-145) mmol/L Carbon Dioxide (22-30) mmol/L BUN 26 H (7-17) mg/dL Glucose 106 H (74-99) mg/dL POC Glucose (mg/dL) 162 H (75-99) mg/dL Calcium (8.4-10.2) mg/dL Microbiology - Last 24 Hours (Table) 07/08/20 18:10 Blood Culture - Preliminary Blood No Growth after 120 hours 07/08/20 18:03 Blood Culture - Preliminary Blood No Growth after 120 hours Assessment and Plan Plan: Assessment and plan: 1 Acute hypoxemic respiratory failure secondary to CoVID 19 pneumonia 2 VQ scan low probability for pulmonary embolism 3 Acute on chronic anemia 4 History of myocardial infarction 5 Hypertension 6 Diabetes mellitus 7 Hyperlipidemia 8 Chronic kidney disease 9 History of intracranial bleed 10 History of paroxysmal atrial fibrillation. Remaining in normal sinus rhythm. No anticoagulation because of history of brain bleed. Plan From cardiology's perspective, we will continue patient on her current medicat ions. We will follow this patient along with you now on an as-needed basis only please don't hesitate to call with any questions.
[2020-07-14 12:26] VITALS: BP 128/74; PULSE 88; TEMP 97.9
--- NOTE | 2020-07-14 16:37 | P.PN ---
Subjective Progress Note Date: 07/14/20 Principal diagnosis: Acute hypoxemic respiratory failure secondary to CoVID 19 pneumonia 84-year-old female patient of Dr. Zamarripa with past medical history of hypertension, coronary artery disease, chronic CHF, unspecified, diabetes mellitus type 2, who presented to the emergency department on 2020 with 2 day history of increased shortness of breath, though the ER record states she's been short of breath for 6 days. She normally does not wear oxygen. Patient admits to some cough and some yellow phlegm production. She has had both vaccines for the coronavirus. Patient is currently on 3 L of oxygen, the pulse ox of 98%, she is afebrile. Chest x-ray showed cardiomegaly, coarse lung markings consistent with some pulmonary fibrosis. EKG showed sinus bradycardia with possible old inferior wall infarct, T-wave inversion in the anterior leads. Patient's troponins were 0.059, 0.066. Procalcitonin was negative at 0.10, COVID 19 PCR was positive, d-dimer was 1.23, proBNP was 21,500. GFR was 43, B1 is 30, creatinine is 1.16, white count is 5.3 on admission, hemoglobin is 7.1, patient denies any black stools or visible blood in the stools, no hematemesis, no bleeding. Patient normally takes Plavix and aspirin. VQ scan was completed in view of elevated d-dimer, and showed very low probability for pulmonary embolism. Patient is awaiting a bed in the emergency department, seems to be in no acute distress, appears a bit pale, but hemodynamically stable, today's lab work has been reviewed showing hemoglobin of 8.7, white count is 3.7, leukocyte, 0.9. Remains on 3 L of oxygen with pulse ox of 98%. Progress note dated 07/10/2020. 84-year-old female, with history of acute hypoxemic respiratory failure secondary to COVID 19 pneumonitis. The patient has a history of other medical problems, including myocardial infarction, CAD, hypertension, diabetes, hy perlipidemia, chronic kidney disease, intracranial bleeding, and paroxysmal atrial fibrillation. Currently, the patient's on 2 L nasal cannula, and her saturations are 94%. She is afebrile. M pressure 98.1. She seems to be resting comfortably. White count 4.0, hemoglobin 9.7, hematocrit 29.8, platelet count 189,000. Sodium and potassium normal. Chloride 109, CO2 20, anion gap 10, BUN and creatinine were 32 and 1.15. Computed tomography scan dated July 09, was reviewed. Progress note dated 07/11/2020. 84-year-old female, who we see again today in follow-up. She has a history of acute hypoxemic respiratory failure secondary to COVID 19 pneumonitis. She is currently on a small amount of saline IV, and 2 L nasal cannula. She has an extensive medical history including myocardial infarction, CAD, hypertension, diabetes, hyperlipidemia, chronic kidney disease, intracranial bleeding, and paroxysmal atrial fibrillation. She states that she is feeling a bit better. Currently, there is no new labs to report. Likewise, her last chest x-ray was on July 08, and her computed tomography scan that was done on July 09, was reviewed. The patient is seen today 07/12/2020 follow-up on the selective care unit. She is currently resting comfortably in bed. Awake and alert in no acute distress. She is on 2 L nasal cannula and maintaining O2 saturations in the 90s. 0.9#20 ML's per hour. This is day #4 of Remdesivir. She remains on Decadron, Lovenox, vitamin supplements. White count 3.3. Hemoglobin 8.9. Sodium 136. Potassium 4.4. Creatinine 0.93. The patient is seen today 07/13/2020 follow-up on selective care unit. Currently sitting up in bed. Awake and alert in no acute distress. Maintaining O2 saturation in the 90s on 2 L/m per nasal cannula. She's been afebrile. Hemodynamically stable. Sodium 134. Potassium 4.3. Creatinine 0.96. Continued on vitamin supplements, Lovenox, and Decadron. KUB done today for vomiting and constipation revealed a nonspecific abdomen. The patient is seen today 07/14/2020 in follow-up on the selective care unit. She is currently sitting up in bed. Awake and alert in no acute distress. She is maintaining O2 saturations 91-94% on room air now. No IV fluids. She remains on Lovenox, dexamethasone, vitamin supplements. She is hoping to go home. Objective - Vital Signs Vital signs: Vital Signs Temp 97.9 F 07/14/20 12:00 Pulse 88 07/14/20 12:00 Resp 20 07/14/20 12:00 BP 128/74 07/14/20 12:00 Pulse Ox 93 L 07/14/20 12:00 Intake & Output 07/13/20 07/14/20 07/14/20 18:59 06:59 18:59 Intake Total 1050 240 Output Total 900 1000 Balance 1050 900 -760 Weight 77 kg Intake: IV 250 Remdesivir 100 mg In 250 Sodium Chloride 0.9% 250 ml @ 250 mls/hr IVPB DAILY [facility] Rx#:[id number] Oral 800 240 Output: Urine 900 1000 Other: Voiding Method External Catheter External Catheter External Catheter - Exam GENERAL EXAM: Alert, pleasant 84-year-old female patient, on room air, comfortable in no apparent distress. HEAD: Normocephalic. EYES: Normal reaction of pupils, equal size. NOSE: Clear with pink turbinates. THROAT: No erythema or exudates. NECK: No masses, no JVD. CHEST: No chest wall deformity. LUNGS: Equal air entry with crackles in the bilateral posterior bases. CVS: S1 and S2 normal with no audible murmur, regular rhythm. ABDOMEN: No hepatosplenomegaly, normal bowel sounds, no guarding or rigidity. SPINE: No scoliosis or deformity SKIN: No rashes CENTRAL NERVOUS SYSTEM: No focal deficits, tone is normal in all 4 extremities. EXTREMITIES: There is no peripheral edema. No clubbing, no cyanosis. Periph eral pulses are intact. - Labs CBC & Chem 7: 07/12/20 06:21 07/14/20 08:48 Labs: Abnormal Lab Results - Last 24 Hours (Table) 07/13/20 07/13/20 07/14/20 Range/Units 17:10 20:58 08:48 Sodium 134 L (137-145) mmol/L BUN 26 H (7-17) mg/dL Glucose 106 H (74-99) mg/dL POC Glucose (mg/dL) 146 H 170 H (75-99) mg/dL 07/14/20 Range/Units 11:58 Sodium (137-145) mmol/L BUN (7-17) mg/dL Glucose (74-99) mg/dL POC Glucose (mg/dL) 162 H (75-99) mg/dL Microbiology - Last 24 Hours (Table) 07/08/20 18:10 Blood Culture - Preliminary Blood No Growth after 120 hours 07/08/20 18:03 Blood Culture - Preliminary Blood No Growth after 120 hours Assessment and Plan Assessment: 1 Acute hypoxemic respiratory failure secondary to CoVID 19 pneumonia. Completed Remdesivir 2 VQ scan low probability for pulmonary embolism 3 Acute on chronic anemia 4 History of myocardial infarction 5 Hypertension 6 Diabetes mellitus 7 Hyperlipidemia 8 Chronic kidney disease 9 History of intracranial bleed 10 History of paroxysmal atrial fibrillation. 11 Nausea, vomiting, constipation Plan: The patient was seen and evaluated by Dr. Dalton Completed Remdesivir, on room air Plan is for discharge home to her daughter I, the cosigning physician, performed a history & physical examination of the patient. Lungs sounds with crackles in the bilateral bases. Maintaining good O2 saturations in the 90s on room air. I discussed the assessment and plan of care with my nurse practitioner, Anastasia Garcia. I attest to the above note as dictated by her.
--- NOTE | 2020-07-15 01:39 | P.DS ---
Providers Date of admission: 07/08/20 19:55 Attending physician: Deanna López Consults: 07/08/20 19:57 Consult Physician Routine Consulting Provider: Shira Razo Consult Reason/Comments: CHF Do you want consulting provider notified?: Yes Consult Physician Routine Consulting Provider: Moses Hanks Consult Reason/Comments: COVID Do you want consulting provider notified?: Yes 07/12/20 15:59 Consult Physician Routine Consulting Provider: Kenneth Rucker Consult Reason/Comments: elevated HR Do you want consulting provider notified?: Yes Primary care physician: Arturo Dallin [facility] Course: Diagnoses: bilateral covid Pneumonia. Improvement and with no respiratory symptoms. By the pulmonary service for discharge Mild hypoxic respiratory failure, improved. Patient oxygen checked upon discha rge and she does not need or qualify for home oxygen Chronic kidney disease, stage III Chronic diastolic CHF, currently euvolemic History of coronary artery disease with multiple stents Paroxysmal atrial fibrillation, not on anticoagulation Normochromic anemia, no evidence of GI bleed Hypertension Hyperlipidemia History of CVA/TIA History of GERD Hiatal hernia History of spinal stenosis History of anxiety and depression, not an active issue Hospital course: This is a pleasant 84 years old female with multiple medical problems including coronary artery disease status post stent placement, chronic heart failure, diabetes mellitus, CVA/TIA, GERD, hearing difficulty, hyperlipidemia, hypertension, osteoarthritis, vertigo. History of anxiety and depression, she is a patient of Dr Zamarripa. Presents because of respiratory symptoms found to have bilateral Covid pneumonia with mild hypoxic respiratory failure. Patient has been evaluated by pulmonary team and cardiology for her extensive history of heart disease and GI team for normo-chromic anemia. She has low probability of PE on VQ scan. She was treated empirically with vitamin C, vitamin D, zinc, dexamethasone, Lovenox prophylactic dose and remdesivir ( last dose tomorrow on 07/13) She had mild abdomen gastric upset and vomiting yesterday which is resolved today and she tolerates that well. No abdominal pain or vomiting or diarrhea. Only little cough. Whittling Room Operator evaluated patient for high troponin, it is mild elevation in troponin secondary to her infection and kidney disease. Patient also developed A. fib and RVR while her metoprolol from home was not started, patient resumed her metoprolol per activities aide and increase the dose to 50 mg twice daily, her heart rate control for more than 24 hours. Patient is not a candidate for anticoagulation due to her history of intracranial bleed per activities aide, however per my discussion with Dr. Miranda today she can resume her aspirin and Plavix which she has at home as she confirms to me. Also patient was instructed to follow up with her activities aide Dr. Givens in 1 week. PT/OT recommended subacute rehab, patient and family declined and wanted to go home Patient was cleared for discharge by activities aide and b2b account executive Problems and management plan were discussed with the patient and he verbalized understanding and acceptance Patient was found stable and can be discharged home however he needs follow-up as an outpatient. Patient was instructed to follow up with PCP Dr. Zamarripa within one week and patient agrees Also patient was instructed to follow with Dr. Marte in 3-[address] Givens in 1 week and she agrees to call and make her appointments as today is weakened Physical exam -Gen: patient is a AAOx3, no distress. Generalized weakness CVS: S1-S2, RRR, no murmur Lungs: B/L CTA, no wheezing Abdomen: soft, no distention, no tenderness, positive bowel sounds Extremity: no leg edema or induration Time spent more than 35 minutes Patient Condition at Discharge: Stable Plan - Discharge Summary Discharge Rx Participant: Yes New Discharge Prescriptions: New Docusate [Colace] 100 mg PO BID PRN #10 cap PRN Reason: Constipation Dexamethasone 6 mg PO DAILY 4 Days #4 tablet Furosemide [Lasix] 20 mg PO DAILY #30 tab Zinc Sulfate [Orazinc] 220 mg PO DAILY #30 cap Pantoprazole [Protonix] 40 mg PO DAILY #30 tablet. Acetaminophen Tab [Tylenol] 650 mg PO Q6HR PRN tab PRN Reason: Mild Pain Or Fever > 100.5 Albuterol Inhaler [Ventolin Hfa Inhaler] 2 puff INHALATION RT-TID #1 inh Ascorbic Acid [Vitamin C] 500 mg PO BID #30 tab Cholecalciferol [Vitamin D3 (25 Mcg = 1000 Iu)] 125 mcg PO DAILY #30 tablet Continue Sertraline [Zoloft] 200 mg PO DAILY@1000 Atorvastatin [Lipitor] 20 mg PO HS@2300 Ezetimibe [Zetia] 10 mg PO DAILY@1800 ALPRAZolam [Xanax] 0.5 mg PO BID@1800,2300 hydrALAZINE HCL [Apresoline] 100 mg PO TID@1000,1800,2300 Metoprolol Tartrate [Lopressor] 25 mg PO BID@1000,1800 NIFEdipine [NIFEdipine ER] 30 mg PO DAILY@1800 Clopidogrel [Plavix] 75 mg PO DAILY@1800 Losartan Potassium 100 mg PO DAILY@1000 Aspirin 81 mg PO DAILY@1800 Discharge Medication List Atorvastatin [Lipitor] 20 mg PO HS@2300 06/23/15 [History] Sertraline [Zoloft] 200 mg PO DAILY@1000 06/23/15 [History] Ezetimibe [Zetia] 10 mg PO DAILY@1800 01/26/19 [History] ALPRAZolam [Xanax] 0.5 mg PO BID@1800,2300 06/10/20 [History] Aspirin 81 mg PO DAILY@1800 06/26/20 [History] Clopidogrel [Plavix] 75 mg PO DAILY@1800 06/26/20 [History] Losartan Potassium 100 mg PO DAILY@1000 06/26/20 [History] Metoprolol Tartrate [Lopressor] 25 mg PO BID@1000,1800 06/26/20 [History] NIFEdipine [NIFEdipine ER] 30 mg PO DAILY@1800 06/26/20 [History] hydrALAZINE HCL [Apresoline] 100 mg PO TID@1000,1800,2300 06/26/20 [History] Acetaminophen Tab [Tylenol] 650 mg PO Q6HR PRN tab 07/14/20 [Rx] Albuterol Inhaler [Ventolin Hfa Inhaler] 2 puff INHALATION RT-TID #1 inh 07/14/20 [Rx] Ascorbic Acid [Vitamin C] 500 mg PO BID #30 tab 07/14/20 [Rx] Cholecalciferol [Vitamin D3 (25 Mcg = 1000 Iu)] 125 mcg PO DAILY #30 tablet 07/14/20 [Rx] Dexamethasone 6 mg PO DAILY 4 Days #4 tablet 07/14/20 [Rx] Docusate [Colace] 100 mg PO BID PRN #10 cap 07/14/20 [Rx] Furosemide [Lasix] 20 mg PO DAILY #30 tab 07/14/20 [Rx] Pantoprazole [Protonix] 40 mg PO DAILY #30 tablet. 07/14/20 [Rx] Zinc Sulfate [Orazinc] 220 mg PO DAILY #30 cap 07/14/20 [Rx] Follow up Appointment(s)/Referral(s): Grady Givens DO [STAFF PHYSICIAN] - 1 Week (Whittling Room Operator Please call to make appointment) Arturo Dalton DO [Doctor of Osteopathic Medicine] - 3 Weeks (Call to make follow up appointment. Pulmonology) [facility], [NON-STAFF] - Arturo Zamarripa MD [Primary Care Provider] - 1-2 days (Call to make appointment on Thursday) Patient Instructions/Handouts: Coronavirus Disease 2019 (COVID-19) Activity/Diet/Wound Care/Special Instructions: heart healthy diet activity is restricted till you see your doctor Discharge Disposition: HOME WITH HOME HEALTH SERVICES
== END 2020-07-14 17:02 | disposition home health service (06) | DRG 177 ==
LOC: EC 16:56 → 3SCARD 19:55
PROVIDERS: ADMIT Hospitalist; ATTEND Hospitalist
PROC: XW033E5 Introduction of Remdesivir Anti-infective into Peripheral Vein, Percutaneous Approach, New Technology Group 5 (ICD-10-PCS; principal; 2020-07-09)
DX: U07.1 COVID-19 (principal); J12.82 Pneumonia due to coronavirus disease 2019; J96.01 Acute respiratory failure with hypoxia; N17.0 Acute kidney failure with tubular necrosis; I50.33 Acute on chronic diastolic (congestive) heart failure; I13.0 Hypertensive heart and chronic kidney disease with heart failure and stage 1 through stage 4 chronic kidney disease, or unspecified chronic kidney disease; I25.10 Atherosclerotic heart disease of native coronary artery without angina pectoris; Z79.82 Long term (current) use of aspirin; Z79.02 Long term (current) use of antithrombotics/antiplatelets; Z80.0 Family history of malignant neoplasm of digestive organs; Z80.3 Family history of malignant neoplasm of breast; R00.1 Bradycardia, unspecified; Z86.73 Personal history of transient ischemic attack (TIA), and cerebral infarction without residual deficits; K21.9 Gastro-esophageal reflux disease without esophagitis; Z20.822 Contact with and (suspected) exposure to COVID-19; H91.90 Unspecified hearing loss, unspecified ear; I25.2 Old myocardial infarction; Z87.891 Personal history of nicotine dependence; N18.30 Chronic kidney disease, stage 3 unspecified; E78.5 Hyperlipidemia, unspecified; E66.9 Obesity, unspecified; Z68.30 Body mass index [BMI] 30.0-30.9, adult; I48.0 Paroxysmal atrial fibrillation; K59.00 Constipation, unspecified; K44.9 Diaphragmatic hernia without obstruction or gangrene; Z79.01 Long term (current) use of anticoagulants; J84.10 Pulmonary fibrosis, unspecified; Z95.5 Presence of coronary angioplasty implant and graft; Z90.49 Acquired absence of other specified parts of digestive tract; E11.22 Type 2 diabetes mellitus with diabetic chronic kidney disease; D50.9 Iron deficiency anemia, unspecified; E86.0 Dehydration
CPT/HCPCS: 36415; 71046; 71250; 74018; 78580; 80048; 80053; 81001; 82272; 82607; 82728; 82746; 83540; 83550; 83605; 83880; 84145; 84484; 85025; 85045; 85379; 85610; 85730; 86850; 86900; 86901; 86920; 87040; 87635; 93005; 94640; 96374; 99291

== ENCOUNTER 2020-08-24 12:36 | Observation (INO) | payer MEDICARE ==
--- NOTE | 2020-08-24 13:26 | ED ---
General Adult HPI - General Chief complaint: Shortness of Breath Stated complaint: SOB, weakness Time Seen by Provider: 08/24/20 12:46 Source: patient Mode of arrival: ambulatory Limitations: no limitations - History of Present Illness Initial comments: Dictation was produced using [employer] dictation software. please excuse any grammatical, word or spelling errors. This patient was cared for during a federal and state declared state of emergency secondary to Covid 19 Chief Complaint: 85-year-old female presents to the emergency department for generalized weakness and bradycardia History of Present Illness: 85-year-old female she has extensive cardiac comorbidities. Takes multiple medications. She is accompanied by daughter who reports that patient has been seemingly more weak and bradycardic for the last several days. Daughter reports that patient's been admitted to the hospital 5 times in the last 2 months. Patient has any chest pain shortness of breath. Daughter notices that patient has been bradycardic at home. Patient is recently diagnosed Covid however reportedly has recovered from it. Patient states that she has very poor appetite and hasn't 5 days. Daughter is concerned about acute kidney failure The ROS documented in this emergency department record has been reviewed and confirmed by me. Those systems with pertinent positive or negative responses have been documented in the HPI. All other systems are other negative and/or noncontributory. PHYSICAL EXAM: General Impression: Alert and oriented x3, not in acute distress HEENT: Normocephalic atraumatic, extra-ocular movements intact, pupils equal and reactive to light bilaterally, mucous membranes moist. Cardiovascular: Heart regular rate and rhythm Chest: Able to complete full sentences, no retractions, no tachypnea Abdomen: abdomen soft, non-tender, non-distended, no organomegaly Musculoskeletal: Pulses present and equal in all extremities, 1+ pitting edema to bilateral lower extremities Motor: no focal deficits noted Neurological: CN II-XII grossly intact, no focal motor or sensory deficits noted Skin: Intact with no visualized rashes Psych: Normal affect and mood ED course: D5-year-old female presents to the emergency department for poor appetite, generalized weakness and bradycardia vital signs upon arrival shows heart rate of 62, rest of vital signs within acceptable limits. EKG shows sinus bradycardia with a rate of 55. Patient takes metoprolol. Rest of medications are reviewed. Laboratory evaluation obtained. CBC within acceptable limits. Metabolic panel shows mild non-gap acidosis. Creatinine is elevated to 25 one of 6100 G is 19. Patient has baseline elevated troponin 0.065. Brain natruretic peptide is 25,000. At this point patient's symptoms are more concerning for acute kidney injury versus heart failure. Patient given gentle hydration. She'll be admitted observation. Case discussed with Dr. Rossi. Cardiology and nephrology consulted. EKG interpretation: Ventricular rate 55, sinus bradycardia, AL interval 132, QRS 96, QTC 457. No AL prolongation, no QTC prolongation, no ST or T-wave changes noted. . Overall, this EKG is unremarkable - Related Data Home Medications Medication Instructions Recorded Confirmed Atorvastatin [Lipitor] 20 mg PO HS@2300 06/23/15 08/24/20 Sertraline [Zoloft] 200 mg PO DAILY@1000 06/23/15 08/24/20 Ezetimibe [Zetia] 10 mg PO DAILY@1800 01/26/19 08/24/20 ALPRAZolam [Xanax] 0.5 mg PO BID@1800,2300 06/10/20 08/24/20 Aspirin 81 mg PO DAILY@1800 06/26/20 08/24/20 Clopidogrel [Plavix] 75 mg PO DAILY@1800 06/26/20 08/24/20 Losartan Potassium 100 mg PO DAILY@1000 06/26/20 08/24/20 NIFEdipine [NIFEdipine ER] 30 mg PO DAILY@1800 06/26/20 08/24/20 hydrALAZINE HCL [Apresoline] 50 mg PO TID@1000,1800,2300 06/26/20 08/24/20 Furosemide [Lasix] 20 mg PO DAILY@1000 08/24/20 08/24/20 Metoprolol Tartrate [Lopressor] 100 mg PO BID@1000,1800 08/24/20 08/24/20 Previous Rx's Medication Instructions Recorded Acetaminophen Tab [Tylenol] 650 mg PO Q6HR PRN tab 07/14/20 Albuterol Inhaler [Ventolin Hfa 2 puff INHALATION RT-TID #1 inh 07/14/20 Inhaler] Ascorbic Acid [Vitamin C] 500 mg PO BID #30 tab 07/14/20 Cholecalciferol [Vitamin D3 (25 125 mcg PO DAILY #30 tablet 07/14/20 Mcg = 1000 Iu)] Docusate [Colace] 100 mg PO BID PRN #10 cap 07/14/20 Pantoprazole [Protonix] 40 mg PO DAILY #30 tablet. 07/14/20 Zinc Sulfate [Orazinc] 220 mg PO DAILY #30 cap 07/14/20 Allergies Allergy/AdvReac Type Severity Reaction Status Date / Time levofloxacin [From Levaquin] Allergy Rash/Hives Verified 08/24/20 14:14 Penicillins Allergy Rash/Hives Verified 08/24/20 14:14 Sulfa (Sulfonamide Allergy Rash/Hives Verified 08/24/20 14:14 Antibiotics) Review of Systems ROS Statement: Those systems with pertinent positive or pertinent negative responses have been documented in the HPI. ROS Other: All systems not noted in ROS Statement are negative. Past Medical History Past Medical History: Coronary Artery Disease (CAD), Chest Pain / Angina, Heart Failure, CVA/TIA, Diabetes Mellitus, Eye Disorder, GERD/Reflux, Hearing Disorder / Deafness, Hyperlipidemia, Hypertension, Myocardial Infarction (MS), Osteoarthritis (OA), Skin Disorder Additional Past Medical History / Comment(s): pt states CVA june 2020 and has been bed bound since, NIDDM type II, spinal stenosis, leaky bladder, bilateral hand tremors, vertigo, SAUK-SUIATTLE bilaterally, eczema, bronchitis, sinus problems, hia rajan hernia Last Myocardial Infarction Date:: 1998 History of Any Multi-Drug Resistant Organisms: None Reported Past Surgical History: Cholecystectomy, Heart Catheterization With Stent Additional Past Surgical History / Comment(s): pt htinks she has 4-5 cardiac stents Past Anesthesia/Blood Transfusion Reactions: No Reported Reaction Date of Last Stent Placement:: 2009 Past Psychological History: Anxiety, Depression Smoking Status: Former smoker Past Alcohol Use History: None Reported Past Drug Use History: None Reported - Past Family History Mother Family Medical History: Cancer Additional Family Medical History / Comment(s): Mother had breast cancer with mets-she at age 71 yrs. Father Family Medical History: Cancer Additional Family Medical History / Comment(s): Father had esophageal cancer and in his 70's. Sister(s) Family Medical History: Cancer Additional Family Medical History / Comment(s): Sister os breast cancer Daughter(s) Additional Family Medical History / Comment(s): Pt has had one pierre from breast cancer and another pierre from MS. General Exam Limitations: no limitations Course Vital Signs 08/24/20 08/24/20 12:40 14:00 Temperature 97.8 F Pulse Rate 62 43 L Respiratory 18 20 Rate Blood Pressure 131/74 144/66 O2 Sat by Pulse 95 96 Oximetry Medical Decision Making - Lab Data Result diagrams: 08/24/20 13:13 08/24/20 13:13 Lab Results 08/24/20 08/24/20 08/24/20 Range/Units 13:13 13:13 13:13 WBC 5.5 (3.8-10.6) k/uL RBC 3.19 L (3.80-5.40) m/uL Hgb 9.4 L (11.4-16.0) gm/dL Hct 30.4 L (34.0-46.0) % MCV 95.2 (80.0-100.0) fL MCH 29.5 (25.0-35.0) pg MCHC 31.0 (31.0-37.0) g/dL RDW 17.2 H (11.5-15.5) % Plt Count 160 (150-450) k/uL MPV 7.9 Neutrophils % 77 % Lymphocytes % 13 % Monocytes % 7 % Eosinophils % 1 % Basophils % 1 % Neutrophils # 4.2 (1.3-7.7) k/uL Lymphocytes # 0.7 L (1.0-4.8) k/uL Monocytes # 0.4 (0-1.0) k/uL Eosinophils # 0.1 (0-0.7) k/uL Basophils # 0.0 (0-0.2) k/uL Hypochromasia Slight Anisocytosis Slight Sodium 137 (137-145) mmol/L Potassium 4.4 (3.5-5.1) mmol/L Chloride 109 H (98-107) mmol/L Carbon Dioxide 18 L (22-30) mmol/L Anion Gap 10 mmol/L BUN 61 H (7-17) mg/dL Creatinine 2.25 H (0.52-1.04) mg/dL Est GFR (CKD-EPI)AfAm 22 (>60 ml/min/1.73 sqM) Est GFR (CKD-EPI)NonAf 19 (>60 ml/min/1.73 sqM) Glucose 108 H (74-99) mg/dL Calcium 8.7 (8.4-10.2) mg/dL Magnesium 2.3 (1.6-2.3) mg/dL Total Bilirubin 0.6 (0.2-1.3) mg/dL AST 276 H (14-36) U/L ALT 120 H (4-34) U/L Alkaline Phosphatase 92 (38-126) U/L Troponin I 0.065 H* (0.000-0.034) ng/mL NT-Pro-B Natriuret Pep pg/mL Total Protein 6.5 (6.3-8.2) g/dL Albumin 3.3 L (3.5-5.0) g/dL 08/24/20 Range/Units 13:13 WBC (3.8-10.6) k/uL RBC (3.80-5.40) m/uL Hgb (11.4-16.0) gm/dL Hct (34.0-46.0) % MCV (80.0-100.0) fL MCH (25.0-35.0) pg MCHC (31.0-37.0) g/dL RDW (11.5-15.5) % Plt Count (150-450) k/uL MPV Neutrophils % % Lymphocytes % % Monocytes % % Eosinophils % % Basophils % % Neutrophils # (1.3-7.7) k/uL Lymphocytes # (1.0-4.8) k/uL Monocytes # (0-1.0) k/uL Eosinophils # (0-0.7) k/uL Basophils # (0-0.2) k/uL Hypochromasia Anisocytosis Sodium (137-145) mmol/L Potassium (3.5-5.1) mmol/L Chloride (98-107) mmol/L Carbon Dioxide (22-30) mmol/L Anion Gap mmol/L BUN (7-17) mg/dL Creatinine (0.52-1.04) mg/dL Est GFR (CKD-EPI)AfAm (>60 ml/min/1.73 sqM) Est GFR (CKD-EPI)NonAf (>60 ml/min/1.73 sqM) Glucose (74-99) mg/dL Calcium (8.4-10.2) mg/dL Magnesium (1.6-2.3) mg/dL Total Bilirubin (0.2-1.3) mg/dL AST (14-36) U/L ALT (4-34) U/L Alkaline Phosphatase (38-126) U/L Troponin I (0.000-0.034) ng/mL NT-Pro-B Natriuret Pep 57765 pg/mL Total Protein (6.3-8.2) g/dL Albumin (3.5-5.0) g/dL Disposition Clinical Impression: CLIFF (acute kidney injury) Disposition: ADMITTED IP TO THIS HOSP Condition: Fair Referrals: Arturo Zamarripa MD [Primary Care Provider] - 1-2 days
[2020-08-24 13:32] LABS: Anisocytosis Slight; Basophils % (A) 1 %; Eosinophils # (A) 0.1 k/uL (0-0.7); Eosinophils % (A) 1 %; HCT 30.4 % (34.0-46.0); HGB 9.4 gm/dL (11.4-16.0); Hypochromasia Slight; Lymphocytes # (A) 0.7 k/uL (1.0-4.8); Lymphocytes % (A) 13 %; MCH 29.5 pg (25.0-35.0); MCV 95.2 fL (80.0-100.0); Mean Platelet Volume 7.9; Monocytes # (A) 0.4 k/uL (0-1.0); Monocytes % (A) 7 %; Neutrophils # (A) 4.2 k/uL (1.3-7.7); Neutrophils % (A) 77 %; Platelet Count 160 k/uL (150-450); RBC 3.19 m/uL (3.80-5.40); RDW 17.2 % (11.5-15.5); WBC 5.5 k/uL (3.8-10.6)
[2020-08-24 13:46] LABS: Albumin 3.3 g/dL (3.5-5.0); Calcium 8.7 mg/dL (8.4-10.2); Magnesium 2.3 mg/dL (1.6-2.3); Potassium 4.4 mmol/L (3.5-5.1); Total Bilirubin 0.6 mg/dL (0.2-1.3); Total Protein 6.5 g/dL (6.3-8.2)
--- NOTE | 2020-08-24 13:56 | XR ---
EXAMINATION TYPE: XR chest 1V portable DATE OF EXAM: 08/24/2020 HISTORY: Shortness of breath. COMPARISON: 07/08/20 TECHNIQUE: Single view of the chest is submitted. FINDINGS: Demonstrated are scattered senescent parenchymal change. There is no evidence for focal infiltrate. The heart is stable. Hilar and mediastinal structures are within normal limits. Degenerative changes are seen of the dorsal spine. IMPRESSION: 1. Chronic changes without evidence for acute pulmonary disease.
[2020-08-24] MEDS ORDERED: SODIUM CHLORIDE 0.9% 1,000 ML IV STA ×2 (14:13→14:16)
[2020-08-24] MEDS ORDERED: SODIUM CHLORIDE 0.9% 500 ML IV STA (14:16)
[2020-08-24] MEDS ORDERED: ACETAMINOPHEN TAB 325 MG TAB PO PRN (17:12)
[2020-08-24] MEDS ORDERED: DEXTROSE 5%-0.45% NACL 1,000 ML IV SCH (17:15)
--- NOTE | 2020-08-24 17:26 | P.HPIM ---
History of Present Illness H&P Date: 08/24/20 Chief Complaint: Lethargic History of presenting complaint: This is a pleasant 85-year-old patient who follows with Dr. Arturo Zamarripa. Chronic stable medical conditions include congestive heart failure from diastolic dysfunction EF 50-55%, tricuspid regurgitation, atrial fibrillation, coronary artery disease with prior stent, intracranial bleed from anticoagulation, diabetes, GERD, hard of hearing, hypertension and hyperlipidemia osteoarthritis chronic urinary stress incontinence chronic tremors chronic kidney disease stage III. Patient's had multiple UTIs in the p ast. baseline uses a walker. Lives and cared for by her daughter Vesta. June 2020: Patient had a TIA. MRI was unremarkable. Also had an acute MA. Patient now presents with 7 days of feeling weak tired rundown. Barely eating not even liquids. Has become so weak not even able to stand. Also noted the heart rate to be down to about 35. Denies any cough shortness of breath. No respiratory symptoms no urinary symptoms. Tired rundown. No fever no chills. Review of systems: GEN.: Tired decreased appetite EYES: None HEENT: None NECK: None RESPIRATORY: None CARDIOVASCULAR: None GASTROINTESTINAL: As above GENITOURINARY: Incontinence MUSCULOSKELETAL: Joint pains LYMPHATICS: None HEMATOLOGICAL: None PSYCHIATRY: Bit forgetful NEUROLOGICAL: Use a walker, and baseline Past medical history to include: congestive heart failure from diastolic dysfunction EF 50-55%, ordered tricuspid regurgitation, atrial fibrillation, coronary artery disease with prior stent, intracranial bleed from anticoagulation, diabetes, GERD, hard of hearing, hypertension and hyperlipidemia osteoarthritis chronic urinary stress incontinence chronic tremors chronic kidney disease stage III. 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 caregiver. Walker. Patient smoked for 20 years stopped in 1965. No alcohol. Physical examination: VITAL SIGNS: 97.8, 43, 18, 131/74, 95% on room air GENERAL: BMI 31.1, laying in bed, tired EYES: Pupils equal. Conjunctiva normal. HEENT: External appearance of nose and ears normal, oral cavity dry mucous membranes NECK: JVD unable to be assessed; masses not palpable. HEART: First and second heart sounds are normal; minimal edema. LUNGS: Respiratory rate normal; clear to auscultation. ABDOMEN: Soft, nontender, liver spleen not palpable, no masses palpable. PSYCH: Able to answer simple questions MUSCULAR skeletal: Evidence of OA l. Back pain is NEUROLOGICAL: Cranial nerves grossly intact; no facial asymmetry, power and s ensation grossly intact. LYMPHATICS: No lymph nodes palpable in the axilla and neck INVESTIGATIONS, reviewed in the clinical context: WBC 5.5 hemoglobin 9.4 platelets 160 potassium 4.4 bun 61 creatinine 2.25 Troponin I 0.065, proBNP 25,300 AST 276 ALT 120 EKG tracing personally reviewed by me-sinus bradycardia with a rate of 55 Chest x-ray film personally reviewed by me-possibly some chronic changes Previous testing: From 07/14/2020: BUN 26 creatinine 1.04 Assessment and plan: -Acute kidney injury, prerenal from patient being on Lasix and decreased oral intake Stop Lasix. IV fluids. -Chronic congestive heart failure from diastolic dysfunction EF 55-55%, currently euvolemic. Hold Lasix for now -Moderate tricuspid regurgitation, follow clinically -Paroxysmal atrial fibrillation, currently in sinus rhythm Telemetry. Patient's bradycardia hold Lopressor for now -Coronary artery disease with prior history of stent, Hold Lopressor Lipitor -History of intracranial bleed from anticoagulation -GERD, use Pepcid -Hard of hearing -Essential hypertension, continue with hydralazine, Lopressor-held -Hyperlipidemia, continue Lipitor -Primary osteoarthritis, use Tylenol when necessary -Chronic urinary stress incontinence, Use depends -Chronic kidney disease stage III likely from nephrosclerosis, follow renal function -Sigmoid diverticulosis-asymptomatic -Acute on chronic medical debility. PT OT -Metabolic acidosis fromRenal failure Add sodium bicarbonate to IV fluids -DO NOT RESUSCITATE Care was discussed at length with the daughter the bedside. She understands oral prognosis guarded. Follow electrolytes closely. Past Medical History Past Medical History: Coronary Artery Disease (CAD), Chest Pain / Angina, Heart Failure, CVA/TIA, Diabetes Mellitus, Eye Disorder, GERD/Reflux, Hearing Disorder / Deafness, Hyperlipidemia, Hypertension, Myocardial Infarction (MA), Osteoarthritis (OA), Skin Disorder Additional Past Medical History / Comment(s): pt states CVA june 2020 and has been bed bound since, NIDDM type II, spinal stenosis, leaky bladder, bilateral hand tremors, vertigo, [place] bilaterally, eczema, bronchitis, sinus problems, hiatal hernia Last Myocardial Infarction Date:: 1998 History of Any Multi-Drug Resistant Organisms: None Reported Past Surgical History: Cholecystectomy, Heart Catheterization With Stent Additional Past Surgical History / Comment(s): pt htinks she has 4-5 cardiac stents Past Anesthesia/Blood Transfusion Reactions: No Reported Reaction Date of Last Stent Placement:: 2009 Past Psychological History: Anxiety, Depression Smoking Status: Former smoker Past Alcohol Use History: None Reported Past Drug Use History: None Reported - Past Family History Mother Family Medical History: Cancer Additional Family Medical History / Comment(s): Mother had breast cancer with mets-she at age 71 yrs. Father Family Medical History: Cancer Additional Family Medical History / Comment(s): Father had esophageal cancer and in his 70's. Sister(s) Family Medical History: Cancer Additional Family Medical History / Comment(s): Sister os breast cancer Daughter(s) Additional Family Medical History / Comment(s): Pt has had one pierre from breast cancer and another pierre from MS. Medications and Allergies Home Medications Medication Instructions Recorded Confirmed Type Atorvastatin [Lipitor] 20 mg PO HS@2300 06/23/15 08/24/20 History Sertraline [Zoloft] 200 mg PO DAILY@1000 06/23/15 08/24/20 History Ezetimibe [Zetia] 10 mg PO DAILY@1800 01/26/19 08/24/20 History ALPRAZolam [Xanax] 0.5 mg PO BID@1800,2300 06/10/20 08/24/20 History Aspirin 81 mg PO DAILY@1800 06/26/20 08/24/20 History Clopidogrel [Plavix] 75 mg PO DAILY@1800 06/26/20 08/24/20 History Losartan Potassium 100 mg PO DAILY@1000 06/26/20 08/24/20 History NIFEdipine [NIFEdipine ER] 30 mg PO DAILY@1800 06/26/20 08/24/20 History hydrALAZINE HCL [Apresoline] 50 mg PO TID@1000,1800,2300 06/26/20 08/24/20 History Acetaminophen Tab [Tylenol] 650 mg PO Q6HR PRN tab 07/14/20 08/24/20 Rx Albuterol Inhaler [Ventolin Hfa 2 puff INHALATION RT-TID #1 inh 07/14/20 08/24/20 Rx Inhaler] Ascorbic Acid [Vitamin C] 500 mg PO BID #30 tab 07/14/20 08/24/20 Rx Cholecalciferol [Vitamin D3 (25 125 mcg PO DAILY #30 tablet 07/14/20 08/24/20 Rx Mcg = 1000 Iu)] Docusate [Colace] 100 mg PO BID PRN #10 cap 07/14/20 08/24/20 Rx Pantoprazole [Protonix] 40 mg PO DAILY #30 tablet. 07/14/20 08/24/20 Rx Zinc Sulfate [Orazinc] 220 mg PO DAILY #30 cap 07/14/20 08/24/20 Rx Furosemide [Lasix] 20 mg PO DAILY@1000 08/24/20 08/24/20 History Metoprolol Tartrate [Lopressor] 100 mg PO BID@1000,1800 08/24/20 08/24/20 History Allergies Allergy/AdvReac Type Severity Reaction Status Date / Time levofloxacin [From Levaquin] Allergy Rash/Hives Verified 08/24/20 14:14 Penicillins Allergy Rash/Hives Verified 08/24/20 14:14 Sulfa (Sulfonamide Allergy Rash/Hives Verified 08/24/20 14:14 Antibiotics) Physical Exam Vitals: Vital Signs Temp Pulse Resp BP Pulse Ox 08/24/20 14:00 43 L 20 144/66 96 08/24/20 12:40 97.8 F 62 18 131/74 95 Intake and Output 08/24/20 08/24/20 08/24/20 06:59 14:59 22:59 Other: Weight 77.111 kg Results CBC & Chem 7: 08/24/20 13:13 08/24/20 13:13 Labs: Abnormal Lab Results - Last 24 Hours (Table) 08/24/20 08/24/20 08/24/20 Range/Units 13:13 13:13 13:13 RBC 3.19 L (3.80-5.40) m/uL Hgb 9.4 L (11.4-16.0) gm/dL Hct 30.4 L (34.0-46.0) % RDW 17.2 H (11.5-15.5) % Lymphocytes # 0.7 L (1.0-4.8) k/uL Chloride 109 H (98-107) mmol/L Carbon Dioxide 18 L (22-30) mmol/L BUN 61 H (7-17) mg/dL Creatinine 2.25 H (0.52-1.04) mg/dL Glucose 108 H (74-99) mg/dL AST 276 H (14-36) U/L ALT 120 H (4-34) U/L Troponin I 0.065 H* (0.000-0.034) ng/mL Albumin 3.3 L (3.5-5.0) g/dL
[2020-08-24] MEDS: ASPIRIN 81 MG PO SCH (17:41)
[2020-08-24] MEDS: CLOPIDOGREL 75 MG TAB PO SCH (18:05)
[2020-08-24] MEDS: ALPRAZolam 0.5 MG TAB PO SCH ×2 (18:05→23:28)
[2020-08-24] MEDS: hydrALAZINE HCL 50 MG TAB PO SCH ×2 (18:05→23:28)
[2020-08-24] MEDS: EZETIMIBE 10 MG TAB PO SCH (19:11)
[2020-08-24] MEDS: NIFEdipine XL 30 MG TAB.ER.24 PO SCH (19:11)
[2020-08-24 20:12] LABS: Glucose,Whole Blood 101 mg/dL (75-99)
[2020-08-24] MEDS: ALBUTEROL HFA INHALER INHALATION SCH (20:20)
[2020-08-24] MEDS: ATORVASTATIN 20 MG TAB PO SCH (23:28)
[2020-08-24] MEDS: DEXTROSE 5%-0.45% NACL 1,000 ML with SODIUM BICARB (1 MEQ/ML) 50 ML IV SCH ×2 (23:28)
[2020-08-25 06:09] LABS: Glucose,Whole Blood 143 mg/dL (75-99)
[2020-08-25] MEDS: DEXTROSE 5%-0.45% NACL 1,000 ML with SODIUM BICARB (1 MEQ/ML) 50 ML IV SCH ×2 (06:51)
[2020-08-25] MEDS: PANTOPRAZOLE 40 MG TABLET PO SCH (06:53)
[2020-08-25] MEDS: ALBUTEROL HFA INHALER INHALATION SCH ×3 (08:05→20:34)
[2020-08-25 08:09] LABS: Calcium 8.1 mg/dL (8.4-10.2); Potassium 3.9 mmol/L (3.5-5.1)
[2020-08-25 08:37] VITALS: RESP 16
[2020-08-25] MEDS: SERTRALINE 100 MG TAB PO SCH (08:39)
[2020-08-25] MEDS: ASPIRIN 81 MG PO SCH (08:39)
[2020-08-25] MEDS: hydrALAZINE HCL 50 MG TAB PO SCH ×3 (08:39→22:12)
--- NOTE | 2020-08-25 10:18 | P.NPCON ---
History of Present Illness - Reason for Consult Consult date: 08/25/20 acute renal failure - Chief Complaint Edema, generalized weakness - History of Present Illness This 85-year-old female seen in consultation because of acute kidney injury Her baseline creatinine is 0.9 as of 07/14/2020. She came in with a creatinine of 2.25 Presenting complaint of generalized weakness. Unable to get out of bed or even sit up. No nausea vomiting no fever chills no cough. No changes in medication. She was recently admitted here on 07/08/2020, with COVID pneumonia. She was discharged 07/14/2020, with a creatinine of 1.04 Patient denies taking any nonsteroidals, no history of nausea vomiting diarrhea appetite is poor. Did not change any medications She is known with diastolic dysfunction ejection fraction of 50-55%, diabetes mellitus, intracranial bleed 3 years ago therefore not on any anticoagulation for her atrial fibrillation. She also has tricuspid regurgitation. Since she had been debilitated since her admission for Covid pneumonia. Unable to get out of the bed not even turn around in bed. Denies any dysuria frequency Past Medical History Past Medical History: Coronary Artery Disease (CAD), Chest Pain / Angina, Heart Failure, CVA/TIA, Diabetes Mellitus, Eye Disorder, GERD/Reflux, Hearing Disorder / Deafness, Hyperlipidemia, Hypertension, Myocardial Infarction ([place]), Osteoarthritis (OA), Skin Disorder Additional Past Medical History / Comment(s): pt states CVA june 2020 and has been bed bound since, NIDDM type II, spinal stenosis, leaky bladder, bilateral hand tremors, vertigo, [place] bilaterally, eczema, bronchitis, sinus problems, hiatal hernia Last Myocardial Infarction Date:: 1998 History of Any Multi-Drug Resistant Organisms: None Reported Past Surgical History: Cholecystectomy, Heart Catheterization With Stent Additional Past Surgical History / Comment(s): pt htinks she has 4-5 cardiac stents Past Anesthesia/Blood Transfusion Reactions: No Reported Reaction Date of Last Stent Placement:: 2009 Past Psychological History: Anxiety, Depression Smoking Status: Former smoker Past Alcohol Use History: None Reported Past Drug Use History: None Reported - Past Family History Mother Family Medical History: Cancer Additional Family Medical History / Comment(s): Mother had breast cancer with mets-she at age 71 yrs. Father Family Medical History: Cancer Additional Family Medical History / Comment(s): Father had esophageal cancer and in his 70's. Sister(s) Family Medical History: Cancer Additional Family Medical History / Comment(s): Sister os breast cancer Daughter(s) Additional Family Medical History / Comment(s): Pt has had one pierre from breast cancer and another pierre from MS. Medications and Allergies Home Medications Medication Instructions Recorded Confirmed Type Atorvastatin [Lipitor] 20 mg PO HS@2300 06/23/15 08/24/20 History Sertraline [Zoloft] 200 mg PO DAILY@1000 06/23/15 08/24/20 History Ezetimibe [Zetia] 10 mg PO DAILY@1800 01/26/19 08/24/20 History ALPRAZolam [Xanax] 0.5 mg PO BID@1800,2300 06/10/20 08/24/20 History Aspirin 81 mg PO DAILY@1800 06/26/20 08/24/20 History Clopidogrel [Plavix] 75 mg PO DAILY@1800 06/26/20 08/24/20 History Losartan Potassium 100 mg PO DAILY@1000 06/26/20 08/24/20 History NIFEdipine [NIFEdipine ER] 30 mg PO DAILY@1800 06/26/20 08/24/20 History hydrALAZINE HCL [Apresoline] 50 mg PO TID@1000,1800,2300 06/26/20 08/24/20 History Acetaminophen Tab [Tylenol] 650 mg PO Q6HR PRN tab 07/14/20 08/24/20 Rx Albuterol Inhaler [Ventolin Hfa 2 puff INHALATION RT-TID #1 inh 07/14/20 08/24/20 Rx Inhaler] Ascorbic Acid [Vitamin C] 500 mg PO BID #30 tab 07/14/20 08/24/20 Rx Cholecalciferol [Vitamin D3 (25 125 mcg PO DAILY #30 tablet 07/14/20 08/24/20 Rx Mcg = 1000 Iu)] Docusate [Colace] 100 mg PO BID PRN #10 cap 07/14/20 08/24/20 Rx Pantoprazole [Protonix] 40 mg PO DAILY #30 tablet. 07/14/20 08/24/20 Rx Zinc Sulfate [Orazinc] 220 mg PO DAILY #30 cap 07/14/20 08/24/20 Rx Furosemide [Lasix] 20 mg PO DAILY@1000 08/24/20 08/24/20 History Metoprolol Tartrate [Lopressor] 100 mg PO BID@1000,1800 08/24/20 08/24/20 History Allergies Allergy/AdvReac Type Severity Reaction Status Date / Time levofloxacin [From Levaquin] Allergy Rash/Hives Verified 08/24/20 14:14 Penicillins Allergy Rash/Hives Verified 08/24/20 14:14 Sulfa (Sulfonamide Allergy Rash/Hives Verified 08/24/20 14:14 Antibiotics) Physical Exam Vitals: Vital Signs Temp Pulse Pulse Resp BP BP Pulse Ox 08/25/20 08:00 98.4 F 63 16 142/67 94 L 08/25/20 04:00 97.9 F 58 L 17 125/58 92 L 08/25/20 01:28 50 L 16 08/25/20 00:00 97.8 F 50 L 16 94 L 08/24/20 20:00 97.5 F L 45 L 17 128/59 94 L 08/24/20 19:10 118/66 08/24/20 18:59 51 L 16 99/38 93 L 08/24/20 18:45 981 F H 44 L 20 165/72 99 08/24/20 18:00 98.1 F 45 L 20 164/83 96 08/24/20 17:00 46 L 20 159/69 95 08/24/20 16:00 52 L 18 162/65 95 08/24/20 15:00 49 L 20 134/62 95 08/24/20 14:00 43 L 20 144/66 96 08/24/20 12:40 97.8 F 62 18 131/74 95 Intake and Output 08/24/20 08/25/20 08/25/20 22:59 06:59 14:59 Other: Voiding Method Diaper Diaper Diaper # Voids 1 1 Weight 77.111 kg 77 kg On examination is awake alert oriented cheerful but profoundly weak HEENT exam no JVP neck is supple no facial asymmetry Lungs are significant for occasional bilateral coarse crackle Fair air entry bilaterally Heart sounds unremarkable for any murmur rub gallop Abdomen soft nontender Extremity exam reveals mild edema Neurologically awake alert oriented but profoundly weak EKG shows sinus bradycardia, sinus arrhythmia Chest x-rays rather unremarkable Results - Lab Results Most recent lab results Calcium 8.1 mg/dL (8.4-10.2) L 08/25/20 07:37 Magnesium 2.3 mg/dL (1.6-2.3) 08/24/20 13:13 08/24/20 13:13 08/25/20 07:37 Assessment and Plan Assessment: Impression 1. Acute kidney injury from prerenal, poor intake, diuretics and Gerry inhibitors. Rule out outlet obstruction. 2. Chronic kidney disease stage III, GFR in the 40s to 50 mL per minute, Baseline creatinine of 0.9 on 07/13/2020 admission. Urinalysis shows 1+ proteinuria at the time. 3. Generalized weakness post-COVID pneumonia., Bradycardia may be adding to it. 4. Anemia hemoglobin is 9.4 rule out an deficiency 5. Computed tomography scan dated 06/13/2020 shows a right-sided nonobstructing kidney stone 6. Mild non-gap acidosis bicarb is 18 and gap is 10, likely from acute kidney injury Recommendation 1. Would discontinue the sodium bicarb drip and change it to by mouth 2. Check orthostatic changes and call me. If necessary we will start her on gentle diuresis and see if her edema improves 3. Check postvoid residual 4. Ensure blood pressure in the 120 to 1:30 range. 5. Close monitoring of labs and intake and output and blood pressure Thank you for this consultation continue to follow
--- NOTE | 2020-08-25 12:28 | P.CRDCN ---
History of Present Illness Consult date: 08/25/20 History of present illness: HISTORY OF PRESENT ILLNESS: This is a 85-year-old female with a past medical history significant for atrial fibrillation not on anticoagulation secondary to history of intercranial hemorrhage, coronary artery disease with previous stenting, congestive heart failure, hypertension, hyperlipidemia, CVA/TIA, and diabetes mellitus. Patient also recently had COVID-19. Patient follows in the office with Dr. Givens. I t is noted that the patient was hospitalized in June 2020 and felt to have an NSTEMI at that time and was started on aspirin and Plavix. We have been asked to see the patient in consultation for CHF. Patient examined at the bedside. Patient was apparently brought in to the hospital by her daughter for generalized weakness. Patient states over the last week she has had no energy. She also states she has not been eating or drinking. She denies any shortness of breath. She denies chest pain or pressure. Patient was found to have acute kidney injury and was started on IV fluids. Her Lasix has been held. EKG reveals sinus bradycardia with a heart rate of 55 and diffuse T-wave inversions Chest xray chronic changes without acute pulmonary process Laboratory data: WBC 5.5. Hemoglobin 9.4. Platelet count 160. Sodium 138. Potassium 3.9. BUN 56. Creatinine 2.08. Troponin 0.066. 0.065. BNP 25,300. Current home cardiac medications include hydralazine 50 mg 3 times a day, nifedipine 30 mg daily, metoprolol tartrate 100 mg twice a day, losartan 100 mg daily, Lasix 20 mg daily, Zetia 10 mg daily, Plavix 75 mg daily, Lipitor 20 mg daily, aspirin 81 mg daily Most recent echocardiogram obtained in June 2020 revealed ejection fraction 50- 55% REVIEW OF SYSTEMS: At the time of my exam: CONSTITUTIONAL: Denies fever or chills. HEENT: Denies blurred vision, vision changes, or eye pain. Denies hemoptysis CARDIOVASCULAR: Denies chest pain. Denies orthopnea. Denies PND. Denies palpitations RESPIRATORY: Denies shortness of breath. GASTROINTESTINAL: Denies abdominal pain. Denies nausea or vomiting. HEMATOLOGIC: Denies bleeding disorders. GENITOURINARY: Denies any blood in urine. SKIN: Denies pruitis. Denies rash. PHYSICAL EXAM: VITAL SIGNS: Reviewed. GENERAL: Well-developed in no acute distress. HEENT: Head is normocephalic. Pupils are equal, round. Sclerae anicteric. Mucous membranes of the mouth are moist. Neck supple. No JVD or thyromegaly LUNGS: Respirations even and unlabored. Lungs diminished bilaterally. HEART: Regular rate and rhythm. S1 and S2 heard. ABDOMEN: Soft. Nondistended. Nontender. EXTREMITIES: Normal range of motion. No clubbing or cyanosis. Peripheral pulses intact. 2+ bilateral lower extremity edema NEUROLOGIC: Awake and alert. Oriented x 3. ASSESSMENT: Generalized weakness with decreased oral intake 1 week Acute kidney injury Abnormal troponins, secondary to acute kidney injury, no evidence of acute coronary syndrome Chronic diastolic heart failure, EF 50-55% Paroxysmal atrial fibrillation, not on anticoagulation secondary to history of intercranial bleed Asymptomatic bradycardia Recent NSTEMI, 06/2020 Recent Covid 19 Coronary artery disease with previous stenting, exact details unknown at this time Hypertension Hyperlipidemia Diabetes mellitus CVA/TIA PLAN: Nephrology following for acute kidney injury Continue IV fluids. Continue to hold diuretics. Resume home cardiac medications Resume metoprolol at a decreased dose of 50 mg twice a day with parameters to hold for heart rate less than 60 Continue telemetry monitoring Further recommendations pending patient's course Nurse practitioner note has been reviewed by physician. Signing provider agrees with the documented findings, assessment, and plan of care. Past Medical History Past Medical History: Coronary Artery Disease (CAD), Chest Pain / Angina, Heart Failure, CVA/TIA, Diabetes Mellitus, Eye Disorder, GERD/Reflux, Hearing Disorder / Deafness, Hyperlipidemia, Hypertension, Myocardial Infarction ([place]), Osteoarthritis (OA), Skin Disorder Additional Past Medical History / Comment(s): pt states CVA june 2020 and has been bed bound since, NIDDM type II, spinal stenosis, leaky bladder, bilateral hand tremors, vertigo, [place] bilaterally, eczema, bronchitis, sinus problems, hiatal hernia Last Myocardial Infarction Date:: 1998 History of Any Multi-Drug Resistant Organisms: None Reported Past Surgical History: Cholecystectomy, Heart Catheterization With Stent Additional Past Surgical History / Comment(s): pt htinks she has 4-5 cardiac stents Past Anesthesia/Blood Transfusion Reactions: No Reported Reaction Date of Last Stent Placement:: 2009 Past Psychological History: Anxiety, Depression Smoking Status: Former smoker Past Alcohol Use History: None Reported Past Drug Use History: None Reported - Past Family History Mother Family Medical History: Cancer Additional Family Medical History / Comment(s): Mother had breast cancer with mets-she at age 71 yrs. Father Family Medical History: Cancer Additional Family Medical History / Comment(s): Father had esophageal cancer and in his 70's. Sister(s) Family Medical History: Cancer Additional Family Medical History / Comment(s): Sister os breast cancer Daughter(s) Additional Family Medical History / Comment(s): Pt has had one pierre from breast cancer and another pierre from MS. Medications and Allergies Home Medications Medication Instructions Recorded Confirmed Type Atorvastatin [Lipitor] 20 mg PO HS@2300 06/23/15 08/24/20 History Sertraline [Zoloft] 200 mg PO DAILY@1000 06/23/15 08/24/20 History Ezetimibe [Zetia] 10 mg PO DAILY@1800 01/26/19 08/24/20 History ALPRAZolam [Xanax] 0.5 mg PO BID@1800,2300 06/10/20 08/24/20 History Aspirin 81 mg PO DAILY@1800 06/26/20 08/24/20 History Clopidogrel [Plavix] 75 mg PO DAILY@1800 06/26/20 08/24/20 History Losartan Potassium 100 mg PO DAILY@1000 06/26/20 08/24/20 History NIFEdipine [NIFEdipine ER] 30 mg PO DAILY@1800 06/26/20 08/24/20 History hydrALAZINE HCL [Apresoline] 50 mg PO TID@1000,1800,2300 06/26/20 08/24/20 History Acetaminophen Tab [Tylenol] 650 mg PO Q6HR PRN tab 07/14/20 08/24/20 Rx Albuterol Inhaler [Ventolin Hfa 2 puff INHALATION RT-TID #1 inh 07/14/20 08/24/20 Rx Inhaler] Ascorbic Acid [Vitamin C] 500 mg PO BID #30 tab 07/14/20 08/24/20 Rx Cholecalciferol [Vitamin D3 (25 125 mcg PO DAILY #30 tablet 07/14/20 08/24/20 Rx Mcg = 1000 Iu)] Docusate [Colace] 100 mg PO BID PRN #10 cap 07/14/20 08/24/20 Rx Pantoprazole [Protonix] 40 mg PO DAILY #30 tablet.dr 07/14/20 08/24/20 Rx Zinc Sulfate [Orazinc] 220 mg PO DAILY #30 cap 07/14/20 08/24/20 Rx Furosemide [Lasix] 20 mg PO DAILY@1000 08/24/20 08/24/20 History Metoprolol Tartrate [Lopressor] 100 mg PO BID@1000,1800 08/24/20 08/24/20 History Allergies Allergy/AdvReac Type Severity Reaction Status Date / Time levofloxacin [From Levaquin] Allergy Rash/Hives Verified 08/24/20 14:14 Penicillins Allergy Rash/Hives Verified 08/24/20 14:14 Sulfa (Sulfonamide Allergy Rash/Hives Verified 08/24/20 14:14 Antibiotics) Physical Exam Vitals: Vital Signs Temp Pulse Pulse Resp BP BP Pulse Ox 08/25/20 12:00 64 16 138/63 93 L 08/25/20 08:00 98.4 F 63 16 142/67 94 L 08/25/20 04:00 97.9 F 58 L 17 125/58 92 L 08/25/20 01:28 50 L 16 08/25/20 00:00 97.8 F 50 L 16 94 L 08/24/20 20:00 97.5 F L 45 L 17 128/59 94 L 08/24/20 19:10 118/66 08/24/20 18:59 51 L 16 99/38 93 L 08/24/20 18:45 981 F H 44 L 20 165/72 99 08/24/20 18:00 98.1 F 45 L 20 164/83 96 08/24/20 17:00 46 L 20 159/69 95 08/24/20 16:00 52 L 18 162/65 95 08/24/20 15:00 49 L 20 134/62 95 08/24/20 14:00 43 L 20 144/66 96 08/24/20 12:40 97.8 F 62 18 131/74 95 Intake and Output 08/24/20 08/25/20 08/25/20 22:59 06:59 14:59 Other: Voiding Method Diaper Diaper Diaper # Voids 1 1 Weight 77.111 kg 77 kg Results 08/24/20 13:13 08/25/20 07:37 Cardiac Enzymes 08/24/20 08/24/20 08/24/20 Range/Units 11:10 13:13 13:13 AST 276 H (14-36) U/L Troponin I 0.066 H* 0.065 H* (0.000-0.034) ng/mL CBC 08/24/20 Range/Units 13:13 WBC 5.5 (3.8-10.6) k/uL RBC 3.19 L (3.80-5.40) m/uL Hgb 9.4 L (11.4-16.0) gm/dL Hct 30.4 L (34.0-46.0) % Plt Count 160 (150-450) k/uL Comprehensive Metabolic Panel 08/24/20 08/25/20 Range/Units 13:13 07:37 Sodium 137 138 (137-145) mmol/L Potassium 4.4 3.9 (3.5-5.1) mmol/L Chloride 109 H 109 H (98-107) mmol/L Carbon Dioxide 18 L 20 L (22-30) mmol/L BUN 61 H 56 H (7-17) mg/dL Creatinine 2.25 H 2.08 H (0.52-1.04) mg/dL Glucose 108 H 126 H (74-99) mg/dL Calcium 8.7 8.1 L (8.4-10.2) mg/dL AST 276 H (14-36) U/L ALT 120 H (4-34) U/L Alkaline Phosphatase 92 (38-126) U/L Total Protein 6.5 (6.3-8.2) g/dL Albumin 3.3 L (3.5-5.0) g/dL Current Medications Generic Name Dose Route Start Last Admin Trade Name Freq PRN Reason Stop Dose Admin Acetaminophen 650 mg 08/24/20 17:12 Acetaminophen Tab 325 Mg Tab PO Q6HR PRN Mild Pain or Fever > 100.5 Albuterol Sulfate 2 puff 08/24/20 20:00 08/25/20 11:27 Albuterol Hfa Inhaler INHALATION 2 puff RT-TID [facility]I Administration Alprazolam 0.5 mg 08/24/20 18:00 08/24/20 23:28 Alprazolam 0.5 Mg Tab PO 0.5 mg BID@1800,2300 [facility] Administration Aspirin 81 mg 08/24/20 09:00 08/25/20 08:39 Aspirin 81 Mg PO 81 mg DAILY@0900 [facility] Administration Atorvastatin Calcium 20 mg 08/24/20 23:00 08/24/20 23:28 Atorvastatin 20 Mg Tab PO 20 mg HS@2300 [facility] Administration Clopidogrel Bisulfate 75 mg 08/24/20 18:00 08/24/20 18:05 Clopidogrel 75 Mg Tab PO 75 mg DAILY@1800 [facility] Administration Ezetimibe 10 mg 08/24/20 18:00 08/24/20 19:11 Ezetimibe 10 Mg Tab PO 10 mg DAILY@1800 [facility] Administration Hydralazine HCl 50 mg 08/24/20 18:00 08/25/20 08:39 Hydralazine Hcl 50 Mg Tab PO 50 mg TID@1000,1800,2300 [facility] Administration Nifedipine 30 mg 08/24/20 18:00 08/24/20 19:11 Nifedipine Xl 30 Mg Tab.Er.24 PO 30 mg DAILY@1800 [facility] Administration Pantoprazole Sodium 40 mg 08/25/20 07:30 08/25/20 06:53 Pantoprazole 40 Mg Tablet PO 40 mg DAILY@0730 [facility] Administration Sertraline HCl 200 mg 08/25/20 09:00 08/25/20 08:39 Sertraline 100 Mg Tab PO 200 mg DAILY@0900 [facility] Administration Sodium Bicarbonate 650 mg 08/25/20 13:00 Sodium Bicarbonate Tab 650 Mg Tab PO QID [facility] Intake and Output 08/24/20 08/25/20 08/25/20 22:59 06:59 14:59 Other: Voiding Method Diaper Diaper Diaper # Voids 1 1 Weight 77.111 kg 77 kg 08/24/20 13:13 08/25/20 07:37
[2020-08-25 12:31] LABS: Glucose,Whole Blood 144 mg/dL (75-99)
[2020-08-25] MEDS: METOPROLOL TARTRATE 50 MG TAB PO SCH ×2 (12:51→21:39)
[2020-08-25] MEDS: SODIUM BICARBONATE TAB 650 MG TAB PO SCH ×3 (12:51→21:39)
--- NOTE | 2020-08-25 15:20 | P.PN ---
Progress Note - Text Progress Note Date: 08/25/20 Chief Complaint: Lethargic History of presenting complaint: This is a pleasant 85-year-old patient who follows with Dr. Arturo Zamarripa. Chronic stable medical conditions include congestive heart failure from diastolic dysfunction EF 50-55%, tricuspid regurgitation, atrial fibrillation, coronary artery disease with prior stent, intracranial bleed from anticoagulation, diabetes, GERD, hard of hearing, hypertension and hyperlipidemia osteoarthritis chronic urinary stress incontinence chronic tremors chronic kidney disease stage III. Patient's had multiple UTIs in the past. baseline uses a walker. Lives and cared for by her daughter Vesta. June 2020: Patient had a TIA. MRI was unremarkable. Also had an acute ME. Patient now presents with 7 days of feeling weak tired rundown. Barely eating not even liquids. Has become so weak not even able to stand. Also noted the heart rate to be down to about 35. Denies any cough shortness of breath. No respiratory symptoms no urinary symptoms. Tired rundown. No fever no chills. Admitted with acute kidney injury prerenal, from decreased oral intake and being on Lasix. Also acute metabolic acidosis. Started on IV fluids, sodium bicarbonate Today: Laying in bed. Feeling better. More perked up. Started to eat some. Review of systems: Was done for constitutional, cardiovascular, GI, pulmonary. relevant finding as above Active Medications Acetaminophen (Acetaminophen Tab 325 Mg Tab) 650 mg PO Q6HR PRN PRN Reason: Mild Pain or Fever > 100.5 Albuterol Sulfate (Albuterol Hfa Inhaler) 2 puff INHALATION RT-TID [facility] Last Admin: 08/25/20 11:27 Dose: 2 puff Documented by: Alprazolam (Alprazolam 0.5 Mg Tab) 0.5 mg PO BID@1800,2300 [facility] Last Admin: 08/24/20 23:28 Dose: 0.5 mg Documented by: Aspirin (Aspirin 81 Mg) 81 mg PO DAILY@0900 [facility] Last Admin: 08/25/20 08:39 Dose: 81 mg Documented by: Atorvastatin Calcium (Atorvastatin 20 Mg Tab) 20 mg PO HS@2300 [facility] Last Admin: 08/24/20 23:28 Dose: 20 mg Documented by: Clopidogrel Bisulfate (Clopidogrel 75 Mg Tab) 75 mg PO DAILY@1800 [facility] Last Admin: 08/24/20 18:05 Dose: 75 mg Documented by: Ezetimibe (Ezetimibe 10 Mg Tab) 10 mg PO DAILY@1800 [facility] Last Admin: 08/24/20 19:11 Dose: 10 mg Documented by: Hydralazine HCl (Hydralazine Hcl 50 Mg Tab) 50 mg PO TID@1000,1800,2300 [facility] Last Admin: 08/25/20 08:39 Dose: 50 mg Documented by: Metoprolol Tartrate (Metoprolol Tartrate 50 Mg Tab) 50 mg PO BID [facility] Last Admin: 08/25/20 12:51 Dose: 50 mg Documented by: Nifedipine (Nifedipine Xl 30 Mg Tab.Er.24) 30 mg PO DAILY@1800 [facility] Last Admin: 08/24/20 19:11 Dose: 30 mg Documented by: Pantoprazole Sodium (Pantoprazole 40 Mg Tablet) 40 mg PO DAILY@0730 [facility] Last Admin: 08/25/20 06:53 Dose: 40 mg Documented by: Sertraline HCl (Sertraline 100 Mg Tab) 200 mg PO DAILY@0900 [facility] Last Admin: 08/25/20 08:39 Dose: 200 mg Documented by: Sodium Bicarbonate (Sodium Bicarbonate Tab 650 Mg Tab) 650 mg PO QID [facility] Last Admin: 08/25/20 12:51 Dose: 650 mg Documented by: Past medical history to include: congestive heart failure from diastolic dysfunction EF 50-55%, ordered tricuspid regurgitation, atrial fibrillation, coronary artery disease with prior stent, intracranial bleed from anticoagulation, diabetes, GERD, hard of hearing, hypertension and hyperlipidemia osteoarthritis chronic urinary stress incontinence chronic tremors chronic kidney disease stage III. 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 caregiver. Walker. Patient smoked for 20 years stopped in 1965. No alcohol. Physical examination: VITAL SIGNS: 98.4, 63, 16, 130/63, 93% room air GENERAL: Laying in bed, more perked up today EYES: Pupils equal. Conjunctiva normal. NECK: JVD unable to be assessed; masses not palpable. HEART: First and second heart sounds are normal; minimal edema. LUNGS: Respiratory rate normal; clear to auscultation. ABDOMEN: Soft, nontender, liver spleen not palpable, no masses palpable. PSYCH: Answering simple questions MUSCULAR skeletal: Evidence of OA INVESTIGATIONS, reviewed in the clinical context: August 25: Potassium 3.9 bun 56 creatinine 2.08 bicarb 20 WBC 5.5 hemoglobin 9.4 platelets 160 potassium 4.4 bun 61 creatinine 2.25 Troponin 0.065, proBNP 25,300 AST 276 ALT 120 EKG tracing personally reviewed by me-sinus bradycardia with a rate of 55 Chest x-ray film personally reviewed by me-possibly some chronic changes Previous testing: From 07/14/2020: BUN 26 creatinine 1.04 Assessment and plan: -Acute kidney injury, prerenal from patient being on Lasix and decreased oral intake-slow to respond Stop Lasix. IV fluids. -Chronic congestive heart failure from diastolic dysfunction EF 55-55%, currently euvolemic. Hold Lasix for now -Moderate tricuspid regurgitation, follow clinically -Paroxysmal atrial fibrillation, currently in sinus rhythm Telemetry. Patient's bradycardia hold Lopressor for now -Coronary artery disease with prior history of stent, Hold Lopressor Lipitor -History of intracranial bleed from anticoagulation -GERD, use Pepcid -Hard of hearing -Essential hypertension, continue with hydralazine, Lopressor-held -Hyperlipidemia, continue Lipitor -Primary osteoarthritis, use Tylenol when necessary -Chronic urinary stress incontinence, Use depends -Chronic kidney disease stage III likely from nephrosclerosis, follow renal function -Sigmoid diverticulosis-asymptomatic -Acute on chronic medical debility-slow to respond. PT OT -Metabolic acidosis fromRenal failure Add sodium bicarbonate to IV fluids -DO NOT RESUSCITATE Continue with gentle hydration. Continue to hold Lasix. Discussed with patient.
[2020-08-25] MEDS: SODIUM CHLORIDE 0.9% 1,000 ML IV SCH (16:12)
[2020-08-25 17:01] LABS: Glucose,Whole Blood 119 mg/dL (75-99)
[2020-08-25] MEDS: CLOPIDOGREL 75 MG TAB PO SCH (17:39)
[2020-08-25] MEDS: ALPRAZolam 0.5 MG TAB PO SCH ×2 (17:39→22:12)
[2020-08-25] MEDS: NIFEdipine XL 30 MG TAB.ER.24 PO SCH (17:39)
[2020-08-25] MEDS: EZETIMIBE 10 MG TAB PO SCH (17:40)
[2020-08-25 20:02] LABS: Glucose,Whole Blood 120 mg/dL (75-99)
[2020-08-25] MEDS: ATORVASTATIN 20 MG TAB PO SCH (22:12)
[2020-08-26] MEDS: SODIUM CHLORIDE 0.9% 1,000 ML IV SCH ×2 (04:11→17:38)
[2020-08-26 05:58] LABS: Glucose,Whole Blood 120 mg/dL (75-99)
[2020-08-26] MEDS: PANTOPRAZOLE 40 MG TABLET PO SCH (06:36)
[2020-08-26] MEDS: ALBUTEROL HFA INHALER INHALATION SCH ×3 (07:24→20:00)
[2020-08-26 07:55] LABS: Calcium 7.9 mg/dL (8.4-10.2); Potassium 3.8 mmol/L (3.5-5.1)
[2020-08-26] MEDS: ASPIRIN 81 MG PO SCH (09:26)
[2020-08-26] MEDS: METOPROLOL TARTRATE 50 MG TAB PO SCH ×2 (09:26→21:43)
[2020-08-26] MEDS: SERTRALINE 100 MG TAB PO SCH (09:26)
[2020-08-26] MEDS: SODIUM BICARBONATE TAB 650 MG TAB PO SCH ×4 (09:26→21:43)
[2020-08-26] MEDS: hydrALAZINE HCL 50 MG TAB PO SCH ×3 (09:27→22:03)
[2020-08-26 09:55] LABS: % Iron Saturation 16.06 (12.00-45.00)
--- NOTE | 2020-08-26 11:06 | P.PN ---
Subjective Progress Note Date: 08/26/20 HISTORY OF PRESENT ILLNESS: This is a 85-year-old female with a past medical history significant for atrial fibrillation not on anticoagulation secondary to history of intercranial h emorrhage, coronary artery disease with previous stenting, congestive heart failure, hypertension, hyperlipidemia, CVA/TIA, and diabetes mellitus. Patient also recently had COVID-19. Patient follows in the office with Dr. Givens. It is noted that the patient was hospitalized in June 2020 and felt to have an NSTEMI at that time and was started on aspirin and Plavix. We have been asked to see the patient in consultation for CHF. Patient examined at the bedside. Patient was apparently brought in to the hospital by her daughter for generalized weakness. Patient states over the last week she has had no energy. She also states she has not been eating or drinking. She denies any shortness of breath. She denies chest pain or pressure. Patient was found to have acute kidney injury and was started on IV fluids. Her Lasix has been held. EKG reveals sinus bradycardia with a heart rate of 55 and diffuse T-wave inversions Chest xray chronic changes without acute pulmonary process Laboratory data: WBC 5.5. Hemoglobin 9.4. Platelet count 160. Sodium 138. Potassium 3.9. BUN 56. Creatinine 2.08. Troponin 0.066. 0.065. BNP 25,300. Current home cardiac medications include hydralazine 50 mg 3 times a day, nifedipine 30 mg daily, metoprolol tartrate 100 mg twice a day, losartan 100 mg daily, Lasix 20 mg daily, Zetia 10 mg daily, Plavix 75 mg daily, Lipitor 20 mg daily, aspirin 81 mg daily Most recent echocardiogram obtained in June 2020 revealed ejection fraction 50- 55% 08/26/2020 Patient examined this morning at bedside. Patient denies chest pain or pressure. She denies shortness of breath. Patient states she has not been eating or drinking a lot because she says that things do not taste good to her. Kidney function is improving. Creatinine today 1.76, down from 2.2 on admission. She remains on IV fluids at 75 mL an hour. PHYSICAL EXAM: VITAL SIGNS: Reviewed. GENERAL: Well-developed in no acute distress. HEENT: Head is normocephalic. Pupils are equal, round. Sclerae anicteric. Mucous membranes of the mouth are moist. Neck supple. No JVD or thyromegaly LUNGS: Respirations even and unlabored. Lungs diminished bilaterally. HEART: Regular rate and rhythm. S1 and S2 heard. EXTREMITIES: Normal range of motion. No clubbing or cyanosis. Peripheral pulses intact. 2+ bilateral lower extremity edema with bilateral [place] wraps noted. ASSESSMENT: Generalized weakness with decreased oral intake 1 week Acute kidney injury Abnormal troponins, secondary to acute kidney injury, no evidence of acute coronary syndrome Chronic diastolic heart failure, EF 50-55% Paroxysmal atrial fibrillation, not on anticoagulation secondary to history of intercranial bleed Asymptomatic bradycardia Recent NSTEMI, 06/2020 Recent Covid 19 Coronary artery disease with previous stenting, exact details unknown at this time Hypertension Hyperlipidemia Diabetes mellitus CVA/TIA PLAN: Nephrology following for acute kidney injury Continue IV fluids. Continue to hold diuretics-may resume when acute kidney injury resolves. Resume home cardiac medications We will follow on an as-needed basis. Please call with questions Patient to follow up outpatient with Dr. Givens. Nurse practitioner note has been reviewed by physician. Signing provider agrees with the documented findings, assessment, and plan of care. Objective - Vital Signs Vital signs: Vital Signs Temp 98.4 F 08/26/20 03:45 Pulse 64 08/26/20 08:00 Resp 16 08/26/20 08:00 BP 134/61 08/26/20 08:00 Pulse Ox 92 L 08/26/20 08:00 Intake & Output 08/25/20 08/26/20 08/26/20 18:59 06:59 18:59 Intake Total 1180 1050 Output Total 120 Balance 1180 -120 1050 Weight 77 kg 80 kg Intake: Intake, IV Titration 700 450 Amount Dextrose 5%-0.45% NaCl 1, 700 000 ml @ 100 mls/hr IV . [id number] [facility] with Sodium Bicarb (1 Meq/ml) 50 ml Rx#:[id number] Sodium Chloride 0.9% 1, 450 000 ml @ 75 mls/hr IV . [id number] [facility]ILI Rx#:[id number] Oral 480 600 Output: Urine 120 Other: Voiding Method Diaper Diaper Diaper # Voids 1 1 - Labs CBC & Chem 7: 08/24/20 13:13 08/26/20 07:11 Labs: Abnormal Lab Results - Last 24 Hours (Table) 08/25/20 08/25/20 08/25/20 Range/Units 12:20 16:59 20:01 Chloride (98-107) mmol/L Carbon Dioxide (22-30) mmol/L BUN (7-17) mg/dL Creatinine (0.52-1.04) mg/dL Glucose (74-99) mg/dL POC Glucose (mg/dL) 144 H 119 H 120 H (75-99) mg/dL Calcium (8.4-10.2) mg/dL Iron (50-170) ug/dL 08/26/20 08/26/20 08/26/20 Range/Units 05:57 07:11 07:11 Chloride 110 H (98-107) mmol/L Carbon Dioxide 21 L (22-30) mmol/L BUN 50 H (7-17) mg/dL Creatinine 1.76 H (0.52-1.04) mg/dL Glucose 100 H (74-99) mg/dL POC Glucose (mg/dL) 120 H (75-99) mg/dL Calcium 7.9 L (8.4-10.2) mg/dL Iron 44 L (50-170) ug/dL
[2020-08-26 12:07] LABS: Glucose,Whole Blood 112 mg/dL (75-99)
--- NOTE | 2020-08-26 12:46 | P.PN ---
Subjective Progress Note Date: 08/26/20 Principal diagnosis: This is a 85-year-old female seen in consultation because of acute kidney injury, likely from volume depletion and poor intake She was given IV fluids creatinine is improved urine output has improved though is not documented because she is incontinent She came in with generalized weakness and has been bedridden for a few weeks now. Recently was admitted with "pneumonia on 07/08/2020 and discharged on 07/14/2020 with a creatinine 1.04. Supposedly she had a non-ST NH on the June 2020 admission also as per the cardiology note. Ejection fraction is 50-55% She is also known with diabetes intracranial bleed about 3 years ago and is off of anticoagulation because of this although she has atrial fibrillation. She is feeling better has fair appetite no nausea vomiting or abdominal pain no chest pain no dizziness. Mild cough. Objective - Vital Signs Vital signs: Vital Signs Temp 98.3 F 08/26/20 12:00 Pulse 66 08/26/20 12:00 Resp 16 08/26/20 12:00 BP 132/64 08/26/20 12:00 Pulse Ox 94 L 08/26/20 12:00 Intake & Output 08/25/20 08/26/20 08/26/20 18:59 06:59 18:59 Intake Total 1180 1050 Output Total 120 Balance 1180 -120 1050 Weight 77 kg 80 kg Intake: Intake, IV Titration 700 450 Amount Dextrose 5%-0.45% NaCl 1, 700 000 ml @ 100 mls/hr IV . [id number] [facility] with Sodium Bicarb (1 Meq/ml) 50 ml Rx#:[id number] Sodium Chloride 0.9% 1, 450 000 ml @ 75 mls/hr IV . [id number] [facility] Rx#:[id number] Oral 480 600 Output: Urine 120 Other: Voiding Method Diaper Diaper Diaper # Voids 1 1 On exertion awake alert oriented comfortable HEENT exam no JVP neck is supple no facial asymmetry Lungs are significant for right basilar coarse crackle not clear but cough chest x-ray is unremarkable although Heart sounds unremarkable for any murmur rub gallop Abdomen soft nontender no masses felt Extremity exam was bilateral Gerry wraps with some minimal edema of her feet Neurologically awake alert oriented - Labs CBC & Chem 7: 08/24/20 13:13 08/26/20 07:11 Labs: Abnormal Lab Results - Last 24 Hours (Table) 08/25/20 08/25/20 08/26/20 Range/Units 16:59 20:01 05:57 Chloride (98-107) mmol/L Carbon Dioxide (22-30) mmol/L BUN (7-17) mg/dL Creatinine (0.52-1.04) mg/dL Glucose (74-99) mg/dL POC Glucose (mg/dL) 119 H 120 H 120 H (75-99) mg/dL Calcium (8.4-10.2) mg/dL Iron (50-170) ug/dL 08/26/20 08/26/20 08/26/20 Range/Units 07:11 07:11 11:47 Chloride 110 H (98-107) mmol/L Carbon Dioxide 21 L (22-30) mmol/L BUN 50 H (7-17) mg/dL Creatinine 1.76 H (0.52-1.04) mg/dL Glucose 100 H (74-99) mg/dL POC Glucose (mg/dL) 112 H (75-99) mg/dL Calcium 7.9 L (8.4-10.2) mg/dL Iron 44 L (50-170) ug/dL Assessment and Plan Assessment: Impression 1. Acute kidney injury from prerenal, poor intake, diuretics and Gerry inhibitors. Improving with IV fluids creatinine went down from 2.25 mg to 1.76 mg this morning. Urine output is not measured as she is incontinent 2. Chronic kidney disease stage III, GFR in the 40s to 50 mL per minute, Baseline creatinine of 0.9 on 07/13/2020 admission. Urinalysis shows 1+ proteinuria at the time. 3. Generalized weakness post-COVID pneumonia., Bradycardia may be adding to it. 4. Anemia hemoglobin is 9.4, secondary to iron deficiency saturation is 16% dated 08/26/2020 this morning 5. Computed tomography scan dated 06/13/2020 shows a right-sided nonobstructing kidney stone 6. Mild non-gap acidosis bicarb is 18 and gap is 10, likely from acute kidney injury, improved to an anion gap of 9 with a bicarb of 21 on oral bicarb Recommendation 1. Continue oral bicarbonate 2. Continue IV fluids 3. Close monitoring of labs and intake and output and blood pressure Thank you for this consultation continue to follow
[2020-08-26] MEDS ORDERED: SODIUM FERRIC GLUCONAT-SUCROSE 125 MG in SODIUM CHLORIDE 0.9% 100 ML IVPB ONE (12:48)
[2020-08-26 17:00] LABS: Glucose,Whole Blood 124 mg/dL (75-99)
[2020-08-26] MEDS: ALPRAZolam 0.5 MG TAB PO SCH ×2 (17:38→22:03)
[2020-08-26] MEDS: EZETIMIBE 10 MG TAB PO SCH (17:38)
[2020-08-26] MEDS: NIFEdipine XL 30 MG TAB.ER.24 PO SCH (17:39)
[2020-08-26] MEDS: CLOPIDOGREL 75 MG TAB PO SCH (17:39)
--- NOTE | 2020-08-26 19:21 | P.PN ---
Progress Note - Text Progress Note Date: 08/26/20 Chief Complaint: Lethargic History of presenting complaint: This is a pleasant 85-year-old patient who follows with Dr. Arturo Zamarripa. Chronic stable medical conditions include congestive heart failure from diastolic dysfunction EF 50-55%, tricuspid regurgitation, atrial fibrillation, coronary artery disease with prior stent, intracranial bleed from anticoagulation, diabetes, GERD, hard of hearing, hypertension and hyperlipidemia osteoarthritis chronic urinary stress incontinence chronic tremors chronic kidney disease stage III. Patient's had multiple UTIs in the past. baseline uses a walker. Lives and cared for by her daughter Vesta. June 2020: Patient had a TIA. MRI was unremarkable. Also had an acute ME. Patient now presents with 7 days of feeling weak tired rundown. Barely eating not even liquids. Has become so weak not even able to stand. Also noted the heart rate to be down to about 35. Denies any cough shortness of breath. No respiratory symptoms no urinary symptoms. Tired rundown. No fever no chills. Admitted with acute kidney injury prerenal, from decreased oral intake and being on Lasix. Also acute metabolic acidosis. Started on IV fluids, sodium bicarbonate Today: presented with diet. Decreased oral intake. Getting IV fluids. Tired Review of systems: Was done for constitutional, cardiovascular, GI, pulmonary. relevant finding as above Active Medications Acetaminophen (Acetaminophen Tab 325 Mg Tab) 650 mg PO Q6HR PRN PRN Reason: Mild Pain or Fever > 100.5 Albuterol Sulfate (Albuterol Hfa Inhaler) 2 puff INHALATION RT-TID [facility] Last Admin: 08/26/20 11:27 Dose: 2 puff Documented by: Alprazolam (Alprazolam 0.5 Mg Tab) 0.5 mg PO BID@1800,2300 [facility] Last Admin: 08/26/20 17:38 Dose: 0.5 mg Documented by: Aspirin (Aspirin 81 Mg) 81 mg PO DAILY@0900 [facility] Last Admin: 08/26/20 09:26 Dose: 81 mg Documented by: Atorvastatin Calcium (Atorvastatin 20 Mg Tab) 20 mg PO HS@2300 [facility] Last Admin: 08/25/20 22:12 Dose: 20 mg Documented by: Clopidogrel Bisulfate (Clopidogrel 75 Mg Tab) 75 mg PO DAILY@1800 [facility] Last Admin: 08/26/20 17:39 Dose: 75 mg Documented by: Ezetimibe (Ezetimibe 10 Mg Tab) 10 mg PO DAILY@1800 [facility] Last Admin: 08/26/20 17:38 Dose: 10 mg Documented by: Hydralazine HCl (Hydralazine Hcl 50 Mg Tab) 50 mg PO TID@1000,1800,2300 [facility] Last Admin: 08/26/20 17:39 Dose: 50 mg Documented by: Sodium Chloride (Saline 0.9%) 1,000 mls @ 75 mls/hr IV .[id number] [facility] Last Admin: 08/26/20 17:38 Dose: 75 mls/hr Documented by: Metoprolol Tartrate (Metoprolol Tartrate 50 Mg Tab) 50 mg PO BID [facility] Last Admin: 08/26/20 09:26 Dose: 50 mg Documented by: Nifedipine (Nifedipine Xl 30 Mg Tab.Er.24) 30 mg PO DAILY@1800 [facility] Last Admin: 08/26/20 17:39 Dose: 30 mg Documented by: Pantoprazole Sodium (Pantoprazole 40 Mg Tablet) 40 mg PO DAILY@0730 [facility] Last Admin: 08/26/20 06:36 Dose: 40 mg Documented by: Sertraline HCl (Sertraline 100 Mg Tab) 200 mg PO DAILY@0900 [facility] Last Admin: 08/26/20 09:26 Dose: 200 mg Documented by: Sodium Bicarbonate (Sodium Bicarbonate Tab 650 Mg Tab) 650 mg PO QID [facility] Last Admin: 08/26/20 17:38 Dose: 650 mg Documented by: Past medical history to include: congestive heart failure from diastolic dysfunction EF 50-55%, ordered tricuspid regurgitation, atrial fibrillation, coronary artery disease with prior stent, intracranial bleed from anticoagulation, diabetes, GERD, hard of hearing, hypertension and hyperlipidemia osteoarthritis chronic urinary stress incontinence chronic tremors chronic kidney disease stage III. 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 caregiver. Walker. Patient smoked for 20 years stopped in 1965. No alcohol. Physical examination: VITAL SIGNS: 98.3, 66, 16, 1 32 x 64, 94% room air GENERAL: Laying in bed, awake, bit tired EYES: Pupils equal. Conjunctiva normal. NECK: JVD unable to be assessed; masses not palpable. HEART: First and second heart sounds are normal; minimal edema. LUNGS: Respiratory rate normal; clear to auscultation. ABDOMEN: Soft, nontender, liver spleen not palpable, no masses palpable. PSYCH: Answering simple questions MUSCULAR skeletal: Evidence of OA INVESTIGATIONS, reviewed in the clinical context: August 26: Potassium 3.8 bun 50 creatinine 1.76 bicarbonate August 25: Potassium 3.9 bun 56 creatinine 2.08 bicarb 20 WBC 5.5 hemoglobin 9.4 platelets 160 potassium 4.4 bun 61 creatinine 2.25 Troponin 0.065, proBNP 25,300 AST 276 ALT 120 EKG tracing personally reviewed by me-sinus bradycardia with a rate of 55 Chest x-ray film personally reviewed by me-possibly some chronic changes Previous testing: From 07/14/2020: BUN 26 creatinine 1.04 Assessment and plan: -Acute kidney injury, prerenal from patient being on Lasix and decreased oral intake-slow to respond Stop Lasix. continue IV fluids. -Chronic congestive heart failure from diastolic dysfunction EF 55-55%, currently euvolemic. Hold Lasix for now -Moderate tricuspid regurgitation, follow clinically -Paroxysmal atrial fibrillation, currently in sinus rhythm Telemetry. Patient's bradycardia hold Lopressor for now -Coronary artery disease with prior history of stent, Hold Lopressor Lipitor -History of intracranial bleed from anticoagulation -GERD, use Pepcid -Hard of hearing -Essential hypertension, continue with hydralazine, Lopressor-held -Hyperlipidemia, continue Lipitor -Primary osteoarthritis, use Tylenol when necessary -Chronic urinary stress incontinence, Use depends -Chronic kidney disease stage III likely from nephrosclerosis, follow renal function -Sigmoid diverticulosis-asymptomatic -Acute on chronic medical debility-slow to respond. PT OT -Metabolic acidosis fromRenal failure Add sodium bicarbonate to IV fluids -DO NOT RESUSCITATE Continue with IV fluids. Continue to hold Lasix. Discussed with patient.get assistance with meals .
[2020-08-26] MEDS: ATORVASTATIN 20 MG TAB PO SCH (22:03)
[2020-08-27] MEDS: PANTOPRAZOLE 40 MG TABLET PO SCH (06:31)
[2020-08-27] MEDS: SODIUM CHLORIDE 0.9% 1,000 ML IV SCH (06:31)
[2020-08-27] MEDS: METOPROLOL TARTRATE 50 MG TAB PO SCH (08:34)
[2020-08-27] MEDS: hydrALAZINE HCL 50 MG TAB PO SCH (08:34)
[2020-08-27] MEDS: ASPIRIN 81 MG PO SCH (08:34)
[2020-08-27] MEDS: SERTRALINE 100 MG TAB PO SCH (08:34)
[2020-08-27] MEDS: SODIUM BICARBONATE TAB 650 MG TAB PO SCH (08:34)
[2020-08-27] MEDS: ALBUTEROL HFA INHALER INHALATION SCH ×2 (08:45→11:59)
[2020-08-27 09:19] LABS: Calcium 8.1 mg/dL (8.4-10.2)
[2020-08-27 10:15] VITALS: TEMP 98.1
--- NOTE | 2020-08-27 12:27 | P.PN ---
Subjective Patient is seen in follow-up for acute kidney injury. Renal function improving. Maintain on IV fluids. Oral intake fair. No vomiting or diarrhea. Good urine output. Vital signs are stable. General: The patient appeared well nourished and normally developed. HEENT: Head exam is unremarkable. Neck is without jugular venous distension. LUNGS: Breath sounds decreased. HEART: Rate and Rhythm are regular. ABDOMEN: Soft, no distention. EXTREMITITES: No edema. Objective - Vital Signs Vital signs: Vital Signs Temp 98.1 F 08/27/20 08:00 Pulse 69 08/27/20 08:00 Resp 16 08/27/20 08:00 BP 134/64 08/27/20 08:00 Pulse Ox 93 L 08/27/20 08:00 Intake & Output 08/26/20 08/27/20 08/27/20 18:59 06:59 18:59 Intake Total 1050 240 Balance 1050 240 Weight 81 kg Intake: Intake, IV Titration 450 Amount Sodium Chloride 0.9% 1, 450 000 ml @ 75 mls/hr IV . [id number] [facility] Rx#:[id number] Oral 600 240 Other: Voiding Method Diaper Diaper Diaper # Voids 2 1 1 # Bowel Movements 1 - Labs CBC & Chem 7: 08/24/20 13:13 08/27/20 08:53 Labs: Abnormal Lab Results - Last 24 Hours (Table) 08/26/20 08/27/20 Range/Units 16:48 08:53 Chloride 112 H (98-107) mmol/L Carbon Dioxide 19 L (22-30) mmol/L BUN 43 H (7-17) mg/dL Creatinine 1.44 H (0.52-1.04) mg/dL Glucose 103 H (74-99) mg/dL POC Glucose (mg/dL) 124 H (75-99) mg/dL Calcium 8.1 L (8.4-10.2) mg/dL Assessment and Plan Plan: Assessment: 1. Acute kidney injury mostly prerenal improving with IV hydration. Creatinine 1.44 today. 2. Metabolic acidosis secondary to acute kidney injury and IV fluids. Maintained on oral bicarbonate. 3. Benign hypertension. Stable. 4. Anemia. Iron deficiency noted. Plan: Maintain IV fluids. Repeat IV iron today. Avoid nephrotoxins.
[2020-08-27 12:59] VITALS: BP 128/70; PULSE 66
[2020-08-27] MEDS ORDERED: SODIUM FERRIC GLUCONAT-SUCROSE 125 MG in SODIUM CHLORIDE 0.9% 100 ML IVPB ONE (13:00)
[2020-08-27 14:25] VITALS: BMI 32.6
--- NOTE | 2020-08-27 19:35 | P.DS ---
Providers Date of admission: 08/24/20 17:28 Expected date of discharge: 08/27/20 Attending physician: Jeffrey Rossi Consults: 08/24/20 14:57 Consult Physician Routine Consulting Provider: Shala Hemphill Consult Reason/Comments: [place] Do you want consulting provider notified?: Yes Primary care physician: Arturo Dallin [facility] Course: Chief Complaint: Lethargic History of presenting complaint: This is a pleasant 85-year-old patient who follows with Dr. Arturo Zamarripa. Chronic stable medical conditions include congestive heart failure from diastolic dysfunction EF 50-55%, tricuspid regurgitation, atrial fibrillation, coronary artery disease with prior stent, intracranial bleed from anticoagulation, diabetes, GERD, hard of hearing, hypertension and hyperlipidemia osteoarthritis chronic urinary stress incontinence chronic tremors chronic kidney disease stage III. Patient's had multiple UTIs in the past. baseline uses a walker. Lives and cared for by her daughter Vesta. June 2020: Patient had a TIA. MRI was unremarkable. Also had an acute MT. Patient now presents with 7 days of feeling weak tired rundown. Barely eating not even liquids. Has become so weak not even able to stand. Also noted the heart rate to be down to about 35. Denies any cough shortness of breath. No respiratory symptoms no urinary symptoms. Tired rundown. No fever no chills. Admitted with acute kidney injury prerenal, from decreased oral intake and being on Lasix. Also acute metabolic acidosis. Started on IV fluids, sodium bicarbonate Today: Tired. Decrease appetite. Laying in bed. Later in the day I discovered that the nurse taking care of the patient had by mistake discharged the patient. I spoke to the nurse in charge Nadia and given instructions to call the patient at home and at the patient come back and get admitted. I I did inform that Mr. laura nurse Georgie to have the patient come to the medical floor directly. Review of systems: Was done for constitutional, cardiovascular, GI, pulmonary. relevant finding as above Current medications were reviewed in today's electronic records Past medical history to include: congestive heart failure from diastolic dysfunction EF 50-55%, ordered tricuspid regurgitation, atrial fibrillation, coronary artery disease with prior stent, intracranial bleed from anticoagulation, diabetes, GERD, hard of hearing, hypertension and hyperlipidemia osteoarthritis chronic urinary stress incontinence chronic tremors chronic kidney disease stage III. 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 caregiver. Walker. Patient smoked for 20 years stopped in 1965. No alcohol. Physical examination: VITAL SIGNS: 98.1, 66, 16, 1 28 x 70, 98% room air GENERAL: Laying in bed, awake, EYES: Pupils equal. Conjunctiva normal. NECK: JVD unable to be assessed; masses not palpable. HEART: First and second heart sounds are normal; minimal edema. LUNGS: Respiratory rate normal; clear to auscultation. ABDOMEN: Soft, nontender, liver spleen not palpable, no masses palpable. PSYCH: Answering simple questions MUSCULAR skeletal: Evidence of OA INVESTIGATIONS, reviewed in the clinical context: August 27: Potassium 4 creatinine 1.44 August 26: Potassium 3.8 bun 50 creatinine 1.76 bicarbonate August 25: Potassium 3.9 bun 56 creatinine 2.08 bicarb 20 WBC 5.5 hemoglobin 9.4 platelets 160 potassium 4.4 bun 61 creatinine 2.25 Troponin 0.065, proBNP 25,300 AST 276 ALT 120 EKG tracing personally reviewed by me-sinus bradycardia with a rate of 55 Chest x-ray film personally reviewed by me-possibly some chronic changes Previous testing: From 07/14/2020: BUN 26 creatinine 1.04 Assessment and plan: -Acute kidney injury, prerenal from patient being on Lasix and decreased oral intake-slow to respond Stop Lasix. continue IV fluids. -Chronic congestive heart failure from diastolic dysfunction EF 55-55%, currently euvolemic. Hold Lasix for now -Moderate tricuspid regurgitation, follow clinically -Paroxysmal atrial fibrillation, currently in sinus rhythm Telemetry. Patient's bradycardia hold Lopressor for now -Coronary artery disease with prior history of stent, Hold Lopressor Lipitor -History of intracranial bleed from anticoagulation -GERD, use Pepcid -Hard of hearing -Essential hypertension, continue with hydralazine, Lopressor-held -Hyperlipidemia, continue Lipitor -Primary osteoarthritis, use Tylenol when necessary -Chronic urinary stress incontinence, Use depends -Chronic kidney disease stage III likely from nephrosclerosis, follow renal function -Sigmoid diverticulosis-asymptomatic -Acute on chronic medical debility-slow to respond. PT OT -Metabolic acidosis fromRenal failure Add sodium bicarbonate to IV fluids -DO NOT RESUSCITATE Disposition: Patient by mistake was discharged by the nurse to her house. Instructions given to call the patient back for readmission. Plan - Discharge Summary Discharge Rx Participant: No New Discharge Prescriptions: No Action Sertraline [Zoloft] 200 mg PO DAILY@1000 Atorvastatin [Lipitor] 20 mg PO HS@2300 Ezetimibe [Zetia] 10 mg PO DAILY@1800 ALPRAZolam [Xanax] 0.5 mg PO BID@1800,2300 hydrALAZINE HCL [Apresoline] 50 mg PO TID@1000,1800,2300 NIFEdipine [NIFEdipine ER] 30 mg PO DAILY@1800 Clopidogrel [Plavix] 75 mg PO DAILY@1800 Docusate [Colace] 100 mg PO BID PRN #10 cap PRN Reason: Constipation Metoprolol Tartrate [Lopressor] 100 mg PO BID@1000,1800 Furosemide [Lasix] 20 mg PO DAILY@1000 Losartan Potassium 100 mg PO DAILY@1000 Aspirin 81 mg PO DAILY@1800 Zinc Sulfate [Orazinc] 220 mg PO DAILY #30 cap Pantoprazole [Protonix] 40 mg PO DAILY #30 tablet.dr Acetaminophen Tab [Tylenol] 650 mg PO Q6HR PRN tab PRN Reason: Mild Pain Or Fever > 100.5 Albuterol Inhaler [Ventolin Hfa Inhaler] 2 puff INHALATION RT-TID #1 inh Ascorbic Acid [Vitamin C] 500 mg PO BID #30 tab Cholecalciferol [Vitamin D3 (25 Mcg = 1000 Iu)] 125 mcg PO DAILY #30 tablet Discharge Medication List Atorvastatin [Lipitor] 20 mg PO HS@2300 06/23/15 [History] Sertraline [Zoloft] 200 mg PO DAILY@1000 06/23/15 [History] Ezetimibe [Zetia] 10 mg PO DAILY@1800 01/26/19 [History] ALPRAZolam [Xanax] 0.5 mg PO BID@1800,2300 06/10/20 [History] Aspirin 81 mg PO DAILY@1800 06/26/20 [History] Clopidogrel [Plavix] 75 mg PO DAILY@1800 06/26/20 [History] Losartan Potassium 100 mg PO DAILY@1000 06/26/20 [History] NIFEdipine [NIFEdipine ER] 30 mg PO DAILY@1800 06/26/20 [History] hydrALAZINE HCL [Apresoline] 50 mg PO TID@1000,1800,2300 06/26/20 [History] Acetaminophen Tab [Tylenol] 650 mg PO Q6HR PRN tab 07/14/20 [Rx] Albuterol Inhaler [Ventolin Hfa Inhaler] 2 puff INHALATION RT-TID #1 inh 07/14/20 [Rx] Ascorbic Acid [Vitamin C] 500 mg PO BID #30 tab 07/14/20 [Rx] Cholecalciferol [Vitamin D3 (25 Mcg = 1000 Iu)] 125 mcg PO DAILY #30 tablet 07/14/20 [Rx] Docusate [Colace] 100 mg PO BID PRN #10 cap 07/14/20 [Rx] Pantoprazole [Protonix] 40 mg PO DAILY #30 tablet.dr 07/14/20 [Rx] Zinc Sulfate [Orazinc] 220 mg PO DAILY #30 cap 07/14/20 [Rx] Furosemide [Lasix] 20 mg PO DAILY@1000 08/24/20 [History] Metoprolol Tartrate [Lopressor] 100 mg PO BID@1000,1800 08/24/20 [History] Follow up Appointment(s)/Referral(s): [facility], [NON-STAFF] - Arturo Zamarripa MD [Primary Care Provider] - 1-2 days Patient Instructions/Handouts: Heart Failure (DC), Acute Kidney Injury (GEN), Low-Sodium Diet (DC) Discharge Disposition: HOME SELF-CARE
== END 2020-08-27 15:55 | disposition home or self-care (01) ==
LOC: EC 12:36 → 3SCARD 15:33 → OBSVTOIN 17:28 → INTOOBSV 17:28 → UNDODISIN 08-27 15:55
PROVIDERS: ADMIT Hospitalist; ATTEND Hospitalist
DX: I13.0 Hypertensive heart and chronic kidney disease with heart failure and stage 1 through stage 4 chronic kidney disease, or unspecified chronic kidney disease (principal); N18.30 Chronic kidney disease, stage 3 unspecified; N17.9 Acute kidney failure, unspecified; I50.32 Chronic diastolic (congestive) heart failure; I07.1 Rheumatic tricuspid insufficiency; I48.0 Paroxysmal atrial fibrillation; R00.1 Bradycardia, unspecified; I25.10 Atherosclerotic heart disease of native coronary artery without angina pectoris; Z95.5 Presence of coronary angioplasty implant and graft; Z86.73 Personal history of transient ischemic attack (TIA), and cerebral infarction without residual deficits; K21.9 Gastro-esophageal reflux disease without esophagitis; H91.90 Unspecified hearing loss, unspecified ear; E78.5 Hyperlipidemia, unspecified; M19.91 Primary osteoarthritis, unspecified site; N39.3 Stress incontinence (female) (male); K57.30 Diverticulosis of large intestine without perforation or abscess without bleeding; R53.81 Other malaise; E87.2 Acidosis; Z66 Do not resuscitate; E11.22 Type 2 diabetes mellitus with diabetic chronic kidney disease; N20.0 Calculus of kidney; R63.0 Anorexia; D50.9 Iron deficiency anemia, unspecified; R25.1 Tremor, unspecified; I25.2 Old myocardial infarction; F41.9 Anxiety disorder, unspecified; F32.9 Major depressive disorder, single episode, unspecified; L30.9 Dermatitis, unspecified; M48.00 Spinal stenosis, site unspecified; Z87.440 Personal history of urinary (tract) infections; Z87.891 Personal history of nicotine dependence; Z87.09 Personal history of other diseases of the respiratory system; Z87.01 Personal history of pneumonia (recurrent); Z86.16 Personal history of COVID-19; Z79.899 Other long term (current) drug therapy; Z79.82 Long term (current) use of aspirin; Z79.02 Long term (current) use of antithrombotics/antiplatelets; Z90.49 Acquired absence of other specified parts of digestive tract; Z74.01 Bed confinement status; Z88.0 Allergy status to penicillin; Z88.2 Allergy status to sulfonamides; Z88.1 Allergy status to other antibiotic agents; Z80.3 Family history of malignant neoplasm of breast; Z80.0 Family history of malignant neoplasm of digestive organs
CPT/HCPCS: 96361 ×5; 96365; 99285; 36415; 94640 ×7; 93005; 97162; 97166; 83880; 80053; 80048 ×3; 83540; 83550; 83735; 84484; 85025; 87635; 71045; G0378 ×4; J2916; 96360

== ENCOUNTER 2020-08-27 18:07 | Observation (INO) | payer MEDICARE ==
[2020-08-27] MEDS ORDERED: DOCUSATE 100 MG CAP PO PRN (22:00)
[2020-08-28] MEDS: ATORVASTATIN 20 MG TAB PO SCH ×2 (00:46→23:20)
[2020-08-28] MEDS: hydrALAZINE HCL 50 MG TAB PO SCH ×4 (00:46→23:20)
[2020-08-28] MEDS: ALPRAZolam 0.5 MG TAB PO SCH ×3 (00:46→23:20)
[2020-08-28] MEDS: PANTOPRAZOLE 40 MG TABLET PO SCH (07:55)
[2020-08-28] MEDS: ASCORBIC ACID 500 MG TAB PO SCH ×2 (07:55→23:20)
[2020-08-28] MEDS: CHOLECALCIFEROL 25 MCG (1000 IU) TABLET PO SCH (07:55)
[2020-08-28] MEDS: LOSARTAN 50 MG TAB PO SCH (07:56)
[2020-08-28] MEDS: METOPROLOL TARTRATE 50 MG TAB PO SCH ×2 (07:56→17:16)
[2020-08-28] MEDS: SERTRALINE 100 MG TAB PO SCH (07:56)
[2020-08-28] MEDS: ZINC SULFATE 220 MG CAP PO SCH (07:57)
[2020-08-28] MEDS: ALBUTEROL HFA INHALER INHALATION SCH ×3 (09:13→20:30)
[2020-08-28] MEDS ORDERED: FUROSEMIDE 20 MG TAB PO SCH (10:00)
[2020-08-28] MEDS ORDERED: SODIUM CHLORIDE 0.9% 1,000 ML IV SCH (11:15)
[2020-08-28 11:53] LABS: African American GFR (CKD) 43 (>60 ml/min/1.73 sqM); Anion Gap 10 mmol/L; Blood Urea Nitrogen 38 mg/dL (7-17); Calcium 8.5 mg/dL (8.4-10.2); Carbon Dioxide 19 mmol/L (22-30); Chloride 112 mmol/L (98-107); Glucose 110 mg/dL (74-99); Non-African American GFR(CKD) 37 (>60 ml/min/1.73 sqM); Potassium 3.6 mmol/L (3.5-5.1); Sodium 141 mmol/L (137-145)
--- NOTE | 2020-08-28 12:20 | P.NPCON ---
History of Present Illness - Reason for Consult acute renal failure - History of Present Illness Reason for consultation: Acute kidney injury History of present illness: Patient is a 85-year-old female seen in consultation for acute kidney injury. Patient's creatinine was 2.25 on 08/24/2020 and is down to 1.29 today. Patient was discharged home yesterday by accident but was then readmitted. She denies chest pain or shortness of breath. Does have some swelling in the lower extremities. She did vomit once this morning. She had oatmeal this morning. No diarrhea. Blood pressure 160/76. She is receiving IV fluids. No chest pain or shortness of breath. No fever or chills. Patient has history of diastolic CHF. Feels weak. Vital signs are stable. General: The patient appeared well nourished and normally developed. HEENT: Head exam is unremarkable. Neck is without jugular venous distension. LUNGS: Breath sounds decreased. HEART: Rate and Rhythm are regular. ABDOMEN: Soft, no distention. EXTREMITITES: 1+ edema. Past Medical History Past Medical History: Coronary Artery Disease (CAD), Chest Pain / Angina, Heart Failure, CVA/TIA, Diabetes Mellitus, Eye Disorder, GERD/Reflux, Hearing Disorder / Deafness, Hyperlipidemia, Hypertension, Myocardial Infarction ([place]), Osteoarthritis (OA), Skin Disorder Additional Past Medical History / Comment(s): pt states CVA june 2020 and has been bed bound since, NIDDM type II, spinal stenosis, leaky bladder, bilateral hand tremors, vertigo, [place] bilaterally, eczema, bronchitis, sinus problems, hiatal hernia Last Myocardial Infarction Date:: 1998 History of Any Multi-Drug Resistant Organisms: None Reported Past Surgical History: Cholecystectomy, Heart Catheterization With Stent Additional Past Surgical History / Comment(s): pt htinks she has 4-5 cardiac stents Past Anesthesia/Blood Transfusion Reactions: No Reported Reaction Date of Last Stent Placement:: 2009 Past Psychological History: Anxiety, Depression Additional Psychological History / Comment(s): Pt resides with daughter, Vesat who is her caregiver. pt states she is bed bound She no longer drives-family [facility] [employer]. Smoking Status: Former smoker Past Alcohol Use History: None Reported Additional Past Alcohol Use History / Comment(s): Pt states she started smoking at age 10 (1946) and quit in 1965. Past Drug Use History: None Reported - Past Family History Mother Family Medical History: Cancer Additional Family Medical History / Comment(s): Mother had breast cancer with mets-she at age 71 yrs. Father Family Medical History: Cancer Additional Family Medical History / Comment(s): Father had esophageal cancer and in his 70's. Sister(s) Family Medical History: Cancer Additional Family Medical History / Comment(s): Sister os breast cancer Daughter(s) Additional Family Medical History / Comment(s): Pt has had one pierre from breast cancer and another pierre from MS. Medications and Allergies Home Medications Medication Instructions Recorded Confirmed Type Atorvastatin [Lipitor] 20 mg PO HS@2300 06/23/15 08/27/20 History Sertraline [Zoloft] 200 mg PO DAILY@1000 06/23/15 08/27/20 History Ezetimibe [Zetia] 10 mg PO DAILY@1800 01/26/19 08/27/20 History ALPRAZolam [Xanax] 0.5 mg PO BID@1800,2300 06/10/20 08/27/20 History Aspirin 81 mg PO DAILY@1800 06/26/20 08/27/20 History Clopidogrel [Plavix] 75 mg PO DAILY@1800 06/26/20 08/27/20 History Losartan Potassium 100 mg PO DAILY@1000 06/26/20 08/27/20 History NIFEdipine [NIFEdipine ER] 30 mg PO DAILY@1800 06/26/20 08/27/20 History hydrALAZINE HCL [Apresoline] 50 mg PO TID@1000,1800,2300 06/26/20 08/27/20 History Acetaminophen Tab [Tylenol] 650 mg PO Q6HR PRN tab 07/14/20 08/27/20 Rx Albuterol Inhaler [Ventolin Hfa 2 puff INHALATION RT-TID #1 inh 07/14/20 08/27/20 Rx Inhaler] Ascorbic Acid [Vitamin C] 500 mg PO BID #30 tab 07/14/20 08/27/20 Rx Cholecalciferol [Vitamin D3 (25 125 mcg PO DAILY #30 tablet 07/14/20 08/27/20 Rx Mcg = 1000 Iu)] Docusate [Colace] 100 mg PO BID PRN #10 cap 04/10/21 05/24/21 Rx Pantoprazole [Protonix] 40 mg PO DAILY #30 tablet. 07/14/20 08/27/20 Rx Zinc Sulfate [Orazinc] 220 mg PO DAILY #30 cap 07/14/20 08/27/20 Rx Furosemide [Lasix] 20 mg PO DAILY@1000 08/24/20 08/27/20 History Metoprolol Tartrate [Lopressor] 100 mg PO BID@1000,1800 08/24/20 08/27/20 History Allergies Allergy/AdvReac Type Severity Reaction Status Date / Time levofloxacin [From Levaquin] Allergy Rash/Hives Verified 08/24/20 14:14 Penicillins Allergy Rash/Hives Verified 08/24/20 14:14 Sulfa (Sulfonamide Allergy Rash/Hives Verified 08/24/20 14:14 Antibiotics) Physical Exam Vitals: Vital Signs Temp Pulse Resp BP Pulse Ox 08/28/20 07:30 97.8 F 65 160/76 96 08/27/20 20:09 98.4 F 70 15 164/71 95 Intake and Output 08/27/20 08/28/20 08/28/20 22:59 06:59 14:59 Other: Voiding Method Diaper # Voids 1 Weight 80.286 kg Results - Lab Results Most recent lab results Calcium 8.5 mg/dL (8.4-10.2) 08/28/20 11:15 08/28/20 11:15 Assessment and Plan Plan: Assessment: 1. Acute kidney injury mostly prerenal improved with IV hydration. Creatinine 1.29 today. No hydronephrosis noted on CAT scan done June 2020. 2. Metabolic acidosis secondary to acute kidney injury and IV fluids. 3. Benign hypertension. 4. Anemia with iron deficiency. Status post IV iron. 5. Chronic diastolic CHF. 6. Lower extremity edema. Plan: Hep-Lock IV fluids. Resume Lasix 20 mg orally once daily. Encourage oral intake. Avoid nephrotoxins. Continue to monitor renal function and urine output. Check renal ultrasound. Thank you for the consultation. I will continue to follow patient with you during her hospital stay.
[2020-08-28] MEDS: FUROSEMIDE 20 MG TAB PO SCH (12:23)
--- NOTE | 2020-08-28 13:10 | US ---
EXAMINATION TYPE: US kidneys/renal and bladder DATE OF EXAM: 08/28/2020 COMPARISON: US dated 06/10/2020, and CT dated 06/13/2020 CLINICAL HISTORY: [place]. EXAM MEASUREMENTS: Right Kidney: 9.3 x 4.3 x 4.8 cm Left Kidney: 8.7 x 3.8 x 4.5 cm Right Kidney: cyst upper pole measures 1.5 x 1.9 x 1.7 cm Left Kidney: cyst upper pole measures 1.2 x 1.3 x 1.0 cm Bladder: not well distended Bilateral Jets seen: No Incidental note is made of free fluid in the pelvis. There is no evidence for hydronephrosis at this point in time. No nephrolithiasis is seen. No solid masses are identified. The urinary bladder is anechoic. IMPRESSION: Renal cystic changes noted.
[2020-08-28] MEDS: NIFEdipine XL 30 MG TAB.ER.24 PO SCH (17:16)
[2020-08-28] MEDS: EZETIMIBE 10 MG TAB PO SCH (17:16)
[2020-08-28] MEDS: ASPIRIN 81 MG PO SCH (17:16)
[2020-08-28] MEDS: CLOPIDOGREL 75 MG TAB PO SCH (17:17)
[2020-08-28] MEDS: ACETAMINOPHEN TAB 325 MG TAB PO PRN (17:52)
--- NOTE | 2020-08-28 20:28 | P.HPIM ---
History of Present Illness H&P Date: 08/28/20 Chief Complaint: Abnormal renal function History of presenting complaint: This is a pleasant 85-year-old patient who follows with Dr. Arturo Zamarripa. Chronic stable medical conditions include congestive heart failure from diastolic dysfunction EF 50-55%, tricuspid regurgitation, atrial fibrillation, coronary artery disease with prior stent, intracranial bleed from antico agulation, diabetes, GERD, hard of hearing, hypertension and hyperlipidemia osteoarthritis chronic urinary stress incontinence chronic tremors chronic kidney disease stage III. Patient's had multiple UTIs in the past. baseline uses a walker. Lives and cared for by her daughter Vesta. June 2020: Patient had a TIA. MRI was unremarkable. Also had an acute CO. Patient now presents with 7 days of feeling weak tired rundown. Barely eating not even liquids. Has become so weak not even able to stand. Also noted the heart rate to be down to about 35. Denies any cough shortness of breath. No respiratory symptoms no urinary symptoms. Tired rundown. No fever no chills. Admitted from August 24 through August 27 with acute kidney injury prerenal, from decreased oral intake and being on Lasix. Also acute metabolic acidosis. Started on IV fluids, sodium bicarbonate. Patient was mistakenly discharged by the nurse and patient was asked to come back to be admitted to the floor. Patient's renal function has been improving. not back to the baseline. Appetite still remains poor. No fever no chills. Tired rundown. Review of systems: GEN.: Tired decreased appetite EYES: None HEENT: None NECK: None RESPIRATORY: None CARDIOVASCULAR: None GASTROINTESTINAL: As above GENITOURINARY: Incontinence MUSCULOSKELETAL: Joint pains LYMPHATICS: None HEMATOLOGICAL: None PSYCHIATRY: Bit forgetful NEUROLOGICAL: Use a walker, and baseline Past medical history to include: congestive heart failure from diastolic dysfunction EF 50-55%, ordered tricuspid regurgitation, atrial fibrillation, coronary artery disease with prior stent, intracranial bleed from anticoagulation, diabetes, GERD, hard of hearing, hypertension and hyperlipidemia osteoarthritis chronic urinary stress incontinence chronic tremors chronic kidney disease stage III. 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 caregiver. Walker. Patient smoked for 20 years stopped in 1965. No alcohol. Physical examination: VITAL SIGNS: 97.8, 65, 160/76, 96% room air GENERAL: BMI 32.4, laying in bed, tired EYES: Pupils equal. Conjunctiva normal. HEENT: External appearance of nose and ears normal, oral cavity dry mucous membranes NECK: JVD unable to be assessed; masses not palpable. HEART: First and second heart sounds are normal; minimal edema. LUNGS: Respiratory rate normal; clear to auscultation. ABDOMEN: Soft, nontender, liver spleen not palpable, no masses palpable. PSYCH: Able to answer simple questions MUSCULAR skeletal: Evidence of OA NEUROLOGICAL: Cranial nerves grossly intact; no facial asymmetry, power and sensation grossly intact. LYMPHATICS: No lymph nodes palpable in the axilla and neck INVESTIGATIONS, reviewed in the clinical context: Potassium 3.6 bun 38 creatinine 1.29 Previous testing August 27: Potassium 4 creatinine 1.44 From 07/14/2020: BUN 26 creatinine 1.04 Assessment and plan: -Acute kidney injury, prerenal from patient being on Lasix and decreased oral intake-slow to respond Stop Lasix. continue IV fluids. -Chronic congestive heart failure from diastolic dysfunction EF 55-55%, currently euvolemic. Follow clinically -Moderate tricuspid regurgitation, follow clinically -Paroxysmal atrial fibrillation, currently in sinus rhythm Telemetry. -Coronary artery disease with prior history of stent, Lopressor, Lipitor -History of intracranial bleed from anticoagulation -GERD, use Pepcid -Hard of hearing -Essential hypertension, continue with hydralazine, Lopressor- -Hyperlipidemia, continue Lipitor -Primary osteoarthritis, use Tylenol when necessary -Chronic urinary stress incontinence, Use depends -Chronic kidney disease stage III likely from nephrosclerosis, follow renal function -Sigmoid diverticulosis-asymptomatic -Acute on chronic medical debility-slow to respond. PT OT -Metabolic acidosis fromRenal failure Sodium bicarbonate -DO NOT RESUSCITATE Care was discussed with the patient. Questions answered. Nephrology consulted. Follow labs and encourage oral intake. Past Medical History Past Medical History: Coronary Artery Disease (CAD), Chest Pain / Angina, Heart Failure, CVA/TIA, Diabetes Mellitus, Eye Disorder, GERD/Reflux, Hearing Disorder / Deafness, Hyperlipidemia, Hypertension, Myocardial Infarction ([place]), Osteoarthritis (OA), Skin Disorder Additional Past Medical History / Comment(s): pt states CVA june 2020 and has been bed bound since, NIDDM type II, spinal stenosis, leaky bladder, bilateral hand tremors, vertigo, [place] bilaterally, eczema, bronchitis, sinus problems, hiatal hernia Last Myocardial Infarction Date:: 1998 History of Any Multi-Drug Resistant Organisms: None Reported Past Surgical History: Cholecystectomy, Heart Catheterization With Stent Additional Past Surgical History / Comment(s): pt htinks she has 4-5 cardiac stents Past Anesthesia/Blood Transfusion Reactions: No Reported Reaction Date of Last Stent Placement:: 2009 Past Psychological History: Anxiety, Depression Additional Psychological History / Comment(s): Pt resides with daughter, Vesta who is her caregiver. pt states she is bed bound She no longer drives-family takes her to [employer]. Smoking Status: Former smoker Past Alcohol Use History: None Reported Additional Past Alcohol Use History / Comment(s): Pt states she started smoking at age 10 (1948) and quit in 1965. Past Drug Use History: None Reported - Past Family History Mother Family Medical History: Cancer Additional Family Medical History / Comment(s): Mother had breast cancer with mets-she at age 71 yrs. Father Family Medical History: Cancer Additional Family Medical History / Comment(s): Father had esophageal cancer and in his 70's. Sister(s) Family Medical History: Cancer Additional Family Medical History / Comment(s): Sister os breast cancer Daughter(s) Additional Family Medical History / Comment(s): Pt has had one pierre from breast cancer and another pierre from MS. Medications and Allergies Home Medications Medication Instructions Recorded Confirmed Type Atorvastatin [Lipitor] 20 mg PO HS@2300 06/23/15 08/27/20 History Sertraline [Zoloft] 200 mg PO DAILY@1000 06/23/15 08/27/20 History Ezetimibe [Zetia] 10 mg PO DAILY@1800 01/26/19 08/27/20 History ALPRAZolam [Xanax] 0.5 mg PO BID@1800,2300 06/10/20 08/27/20 History Aspirin 81 mg PO DAILY@1800 06/26/20 08/27/20 History Clopidogrel [Plavix] 75 mg PO DAILY@1800 06/26/20 08/27/20 History Losartan Potassium 100 mg PO DAILY@1000 06/26/20 08/27/20 History NIFEdipine [NIFEdipine ER] 30 mg PO DAILY@1800 06/26/20 08/27/20 History hydrALAZINE HCL [Apresoline] 50 mg PO TID@1000,1800,2300 03/23/21 05/24/21 Histo ry Acetaminophen Tab [Tylenol] 650 mg PO Q6HR PRN tab 07/14/20 08/27/20 Rx Albuterol Inhaler [Ventolin Hfa 2 puff INHALATION RT-TID #1 inh 07/14/20 08/27/20 Rx Inhaler] Ascorbic Acid [Vitamin C] 500 mg PO BID #30 tab 07/14/20 08/27/20 Rx Cholecalciferol [Vitamin D3 (25 125 mcg PO DAILY #30 tablet 07/14/20 08/27/20 Rx Mcg = 1000 Iu)] Docusate [Colace] 100 mg PO BID PRN #10 cap 07/14/20 08/27/20 Rx Pantoprazole [Protonix] 40 mg PO DAILY #30 tablet.dr 07/14/20 08/27/20 Rx Zinc Sulfate [Orazinc] 220 mg PO DAILY #30 cap 07/14/20 08/27/20 Rx Furosemide [Lasix] 20 mg PO DAILY@1000 08/24/20 08/27/20 History Metoprolol Tartrate [Lopressor] 100 mg PO BID@1000,1800 08/24/20 08/27/20 History Allergies Allergy/AdvReac Type Severity Reaction Status Date / Time levofloxacin [From Levaquin] Allergy Rash/Hives Verified 08/24/20 14:14 Penicillins Allergy Rash/Hives Verified 08/24/20 14:14 Sulfa (Sulfonamide Allergy Rash/Hives Verified 08/24/20 14:14 Antibiotics) Physical Exam Vitals: Vital Signs Temp Pulse Resp BP Pulse Ox 08/28/20 07:30 97.8 F 65 160/76 96 08/27/20 20:09 98.4 F 70 15 164/71 95 Intake and Output 08/27/20 08/28/20 08/28/20 22:59 06:59 14:59 Other: Voiding Method Diaper # Voids 1 Weight 80.286 kg Results CBC & Chem 7: 08/28/20 11:15 Thrombosis Risk Factor Assmnt - Choose All That Apply Each Factor Represents 1 point: Acute CO, Medical pt on bed rest, Obesity (BMI >25), Swollen legs (current) Each Risk Factor Represents 3 Points: Age 75 years or older Thrombosis Risk Factor Assessment Total Risk Factor Score: 7 Thrombosis Risk Factor Assessment Level: High Risk
--- NOTE | 2020-08-28 20:45 | US ---
EXAMINATION TYPE: US venous doppler duplex LE RT DATE OF EXAM: 08/28/2020 7:02 PM COMPARISON: NONE CLINICAL HISTORY: swelling. Swelling within the right leg x 1 week. No hx of DVT. Patient on th inner. SIDE PERFORMED: Right TECHNIQUE: The lower extremity deep venous system is examined utilizing real time linear array sonog enedelia with graded compression, doppler sonography and color-flow sonography. VESSELS IMAGED: Common Femoral Vein Deep Femoral Vein Greater Saphenous Vein * Femoral Vein Popliteal Vein Small Saphenous Vein * Proximal Calf Veins (* superficial vessels) Right Leg: No evidence of DVT in veins imaged at this time. Exam is limited due to edema and patient positioning. IMPRESSION: No sign of right leg deep vein thrombosis.
[2020-08-29] MEDS: ALBUTEROL HFA INHALER INHALATION SCH ×3 (07:28→20:19)
[2020-08-29] MEDS: SERTRALINE 100 MG TAB PO SCH (08:34)
[2020-08-29] MEDS: LOSARTAN 50 MG TAB PO SCH (08:34)
[2020-08-29] MEDS: METOPROLOL TARTRATE 50 MG TAB PO SCH ×2 (08:34→17:28)
[2020-08-29] MEDS: ASCORBIC ACID 500 MG TAB PO SCH ×2 (08:34→22:10)
[2020-08-29] MEDS: ZINC SULFATE 220 MG CAP PO SCH (08:35)
[2020-08-29] MEDS: PANTOPRAZOLE 40 MG TABLET PO SCH (08:35)
[2020-08-29] MEDS: FUROSEMIDE 20 MG TAB PO SCH (08:35)
[2020-08-29] MEDS: hydrALAZINE HCL 50 MG TAB PO SCH ×3 (08:35→22:11)
[2020-08-29] MEDS: CHOLECALCIFEROL 25 MCG (1000 IU) TABLET PO SCH (08:36)
[2020-08-29 10:43] LABS: African American GFR (CKD) 42.7 (60.0-200.0); Anion Gap 13.2 mmol/L (4.00-12.00); BUN/Creat Ratio 27.69 Ratio (12.00-20.00); Calcium 8.1 mg/dL (8.7-10.3); Carbon Dioxide 18.8 mmol/L (21.6-31.8); Magnesium 1.8 mg/dL (1.5-2.4); Non-African American GFR(CKD) 36.9 (60.0-200.0); Potassium 3.6 mmol/L (3.5-5.5)
--- NOTE | 2020-08-29 11:40 | P.PN ---
Subjective Patient is seen in follow-up for acute kidney injury. Renal function stable. Off IV fluids. Did have an episode of vomiting this morning. Oral intake fair. Vital signs are stable. General: The patient appeared well nourished and normally developed. HEENT: Head exam is unremarkable. Neck is without jugular venous distension. LUNGS: Breath sounds decreased. HEART: Rate and Rhythm are regular. ABDOMEN: Soft, no distention. EXTREMITITES: 1+ edema. Objective - Vital Signs Vital signs: Vital Signs Temp 97.9 F 08/29/20 07:58 Pulse 62 08/29/20 07:58 Resp 16 08/29/20 07:58 BP 165/73 08/29/20 07:58 Pulse Ox 96 08/29/20 07:58 Intake & Output 08/28/20 08/29/20 08/29/20 18:59 06:59 18:59 Output Total 850 300 Balance -850 -300 Weight 82.5 kg Output: Urine 850 300 Other: Voiding Method External Catheter - Labs CBC & Chem 7: 08/29/20 06:02 Labs: Abnormal Lab Results - Last 24 Hours (Table) 08/28/20 08/29/20 Range/Units 11:15 06:02 Chloride 112 H 110 H (98-107) mmol/L Carbon Dioxide 19 L 18.8 L (22-30) mmol/L Anion Gap 13.20 H (4.00-12.00) mmol/L BUN 38 H 36.0 H (7-17) mg/dL Creatinine 1.29 H (0.52-1.04) mg/dL Est GFR (CKD-EPI)AfAm 42.7 L (60.0-200.0) Est GFR (CKD-EPI)NonAf 36.9 L (60.0-200.0) BUN/Creatinine Ratio 27.69 H (12.00-20.00) Ratio Glucose 110 H (74-99) mg/dL Calcium 8.1 L (8.7-10.3) mg/dL Assessment and Plan Plan: Assessment: 1. Acute kidney injury mostly prerenal improved with IV hydration. Creatinine 1.3 today. No hydronephrosis noted on CAT scan done June 2020. No hydronephrosis noted on kidney ultrasound. However left kidney was small in size. 2. Metabolic acidosis secondary to acute kidney injury and IV fluids. 3. Benign hypertension. Stable. 4. Anemia with iron deficiency. Status post IV iron. 5. Chronic diastolic CHF. 6. Lower extremity edema. Plan: Remains off IV fluids. Maintain oral Lasix. Encourage oral intake. Avoid nephrotoxins. Continue to monitor renal function and urine output. Add oral bicarb.
[2020-08-29] MEDS: SODIUM BICARBONATE TAB 650 MG TAB PO SCH ×3 (13:41→22:17)
[2020-08-29] MEDS: CLOPIDOGREL 75 MG TAB PO SCH (17:28)
[2020-08-29] MEDS: EZETIMIBE 10 MG TAB PO SCH (17:28)
[2020-08-29] MEDS: NIFEdipine XL 30 MG TAB.ER.24 PO SCH (17:28)
[2020-08-29] MEDS: ALPRAZolam 0.5 MG TAB PO SCH ×2 (17:28→22:10)
[2020-08-29] MEDS: ASPIRIN 81 MG PO SCH (17:28)
[2020-08-29] MEDS: ATORVASTATIN 20 MG TAB PO SCH (22:10)
[2020-08-29] MEDS: ACETAMINOPHEN TAB 325 MG TAB PO PRN (22:11)
--- NOTE | 2020-08-29 22:31 | P.PN ---
Progress Note - Text Progress Note Date: 08/29/20 Chief Complaint: Abnormal renal function History of presenting complaint: This is a pleasant 85-year-old patient who follows with Dr. Arturo Zamarripa. Chronic stable medical conditions include congestive heart failure from diastolic dysfunction EF 50-55%, tricuspid regurgitation, atrial fibrillation, coronary artery disease with prior stent, intracranial bleed from anticoagulation, diabetes, GERD, hard of hearing, hypertension and hyperlipidemia osteoarthritis chronic urinary stress incontinence chronic tremors chronic kidney disease stage III. Patient's had multiple UTIs in the past. baseline uses a walker. Lives and cared for by her daughter Vesta. June 2020: Patient had a TIA. MRI was unremarkable. Also had an acute ME. Patient now presents with 7 days of feeling weak tired rundown. Barely eating not even liquids. Has become so weak not even able to stand. Also noted the heart rate to be down to about 35. Denies any cough shortness of breath. No respiratory symptoms no urinary symptoms. Tired rundown. No fever no chills. Admitted from August 24 through August 27 with acute kidney injury prerenal, from decreased oral intake and being on Lasix. Also acute metabolic acidosis. Started on IV fluids, sodium bicarbonate. Patient was mistakenly discharged by the nurse and patient was asked to come back to be admitted to the floor. Patient's renal function has been improving. not back to the baseline. Appetite still remains poor. No fever no chills. Tired rundown. Today. Feeling better. Taken off IV fluids. On oral Lasix. Patient requested to stay 1 more day because the daughter is not feeling well with whom she lives. Eating slightly better. Review of systems: Was done for constitutional, cardiovascular, GI, pulmonary. relevant finding as above Active Medications Acetaminophen (Acetaminophen Tab 325 Mg Tab) 650 mg PO Q6HR PRN PRN Reason: Mild Pain or Fever > 100.5 Last Admin: 08/29/20 22:11 Dose: 650 mg Documented by: Albuterol Sulfate (Albuterol Hfa Inhaler) 2 puff INHALATION RT-TID [facility] Last Admin: 08/29/20 20:19 Dose: 2 puff Documented by: Alprazolam (Alprazolam 0.5 Mg Tab) 0.5 mg PO BID@1800,2300 [facility] Last Admin: 08/29/20 22:10 Dose: 0.5 mg Documented by: Ascorbic Acid (Ascorbic Acid 500 Mg Tab) 500 mg PO BID [facility] Last Admin: 08/29/20 22:10 Dose: 500 mg Documented by: Aspirin (Aspirin 81 Mg) 81 mg PO DAILY@1800 [facility] Last Admin: 08/29/20 17:28 Dose: 81 mg Documented by: Atorvastatin Calcium (Atorvastatin 20 Mg Tab) 20 mg PO HS@2300 [facility] Last Admin: 08/29/20 22:10 Dose: 20 mg Documented by: Cholecalciferol (Cholecalciferol 25 Mcg (1000 Iu) Tablet) 125 mcg PO DAILY [facility] Last Admin: 08/29/20 08:36 Dose: 125 mcg Documented by: Clopidogrel Bisulfate (Clopidogrel 75 Mg Tab) 75 mg PO DAILY@1800 [facility] Last Admin: 08/29/20 17:28 Dose: 75 mg Documented by: Docusate Sodium (Docusate 100 Mg Cap) 100 mg PO BID PRN PRN Reason: Constipation Last Admin: 08/29/20 17:33 Dose: 100 mg Documented by: Ezetimibe (Ezetimibe 10 Mg Tab) 10 mg PO DAILY@1800 [facility] Last Admin: 08/29/20 17:28 Dose: 10 mg Documented by: Furosemide (Furosemide 20 Mg Tab) 20 mg PO DAILY [facility] Last Admin: 08/29/20 08:35 Dose: 20 mg Documented by: Hydralazine HCl (Hydralazine Hcl 50 Mg Tab) 50 mg PO TID@1000,1800,2300 [facility] Last Admin: 08/29/20 22:11 Dose: 50 mg Documented by: Losartan Potassium (Losartan 50 Mg Tab) 100 mg PO DAILY@1000 [facility] Last Admin: 08/29/20 08:34 Dose: 100 mg Documented by: Metoprolol Tartrate (Metoprolol Tartrate 50 Mg Tab) 100 mg PO BID@1000,1800 [facility] Last Admin: 08/29/20 17:28 Dose: 100 mg Documented by: Nifedipine (Nifedipine Xl 30 Mg Tab.Er.24) 30 mg PO DAILY@1800 [facility] Last Admin: 08/29/20 17:28 Dose: 30 mg Documented by: Pantoprazole Sodium (Pantoprazole 40 Mg Tablet) 40 mg PO DAILY [facility] Last Admin: 08/29/20 08:35 Dose: 40 mg Documented by: Sertraline HCl (Sertraline 100 Mg Tab) 200 mg PO DAILY@1000 [facility] Last Admin: 08/29/20 08:34 Dose: 200 mg Documented by: Sodium Bicarbonate (Sodium Bicarbonate Tab 650 Mg Tab) 650 mg PO TID [facility] Last Admin: 08/29/20 22:17 Dose: 650 mg Documented by: Zinc Sulfate (Zinc Sulfate 220 Mg Cap) 220 mg PO DAILY [facility] Last Admin: 08/29/20 08:35 Dose: 220 mg Documented by: Past medical history to include: congestive heart failure from diastolic dysfunction EF 50-55%, ordered tricuspid regurgitation, atrial fibrillation, coronary artery disease with prior stent, in tracranial bleed from anticoagulation, diabetes, GERD, hard of hearing, hypertension and hyperlipidemia osteoarthritis chronic urinary stress incontinence chronic tremors chronic kidney disease stage III. 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 caregiver. Juan. Patient smoked for 20 years stopped in 1965. No alcohol. Physical examination: VITAL SIGNS: 97.9, 62, 16, 146 but 73, 96% room air GENERAL: BMI 32.4, laying in bed, awake EYES: Pupils equal. Conjunctiva normal. HEENT: External appearance of nose and ears normal, oral cavity dry mucous membranes NECK: JVD unable to be assessed; masses not palpable. HEART: First and second heart sounds are normal; minimal edema. LUNGS: Respiratory rate normal; clear to auscultation. ABDOMEN: Soft, nontender, liver spleen not palpable, no masses palpable. PSYCH: Able to answer simple questions MUSCULAR skeletal: Evidence of OA NEUROLOGICAL: Cranial nerves grossly intact; no facial asymmetry, power and sensation grossly intact. LYMPHATICS: No lymph nodes palpable in the axilla and neck INVESTIGATIONS, reviewed in the clinical context: August 29: Potassium 3.6 creatinine 1.3 Potassium 3.6 bun 38 creatinine 1.29 Previous testing August 27: Potassium 4 creatinine 1.44 From 07/14/2020: BUN 26 creatinine 1.04 Assessment and plan: -Acute kidney injury, prerenal from patient being on Lasix and decreased oral intake- improving Resume Lasix. Stop IV fluids. -Chronic congestive heart failure from diastolic dysfunction EF 55-55%, currently euvolemic. Follow clinically -Moderate tricuspid regurgitation, follow clinically -Paroxysmal atrial fibrillation, currently in sinus rhythm Telemetry. -Coronary artery disease with prior history of stent, Lopressor, Lipitor -History of intracranial bleed from anticoagulation -GERD, use Pepcid -Hard of hearing -Essential hypertension, continue with hydralazine, Lopressor- -Hyperlipidemia, continue Lipitor -Primary osteoarthritis, use Tylenol when necessary -Chronic urinary stress incontinence, Use depends -Chronic kidney disease stage III likely from nephrosclerosis, follow renal function -Sigmoid diverticulosis-asymptomatic -Acute on chronic medical debility-slow to respond. PT OT -Metabolic acidosis fromRenal failure Sodium bicarbonate -DO NOT RESUSCITATE Discussed with the patient and the son at the bedside. Prognosis guarded. Plan for discharge tomorrow.
[2020-08-30 06:47] LABS: Glucose,Whole Blood 96 mg/dL (75-99)
[2020-08-30] MEDS: ALBUTEROL HFA INHALER INHALATION SCH ×2 (07:10→10:34)
[2020-08-30 07:41] VITALS: BP 145/58; PULSE 62; RESP 17; TEMP 97.6
[2020-08-30] MEDS: SODIUM BICARBONATE TAB 650 MG TAB PO SCH ×2 (09:00→14:40)
[2020-08-30] MEDS: SERTRALINE 100 MG TAB PO SCH (09:01)
[2020-08-30] MEDS: ZINC SULFATE 220 MG CAP PO SCH (09:01)
[2020-08-30] MEDS: CHOLECALCIFEROL 25 MCG (1000 IU) TABLET PO SCH (09:01)
[2020-08-30] MEDS: FUROSEMIDE 20 MG TAB PO SCH (09:01)
[2020-08-30] MEDS: LOSARTAN 50 MG TAB PO SCH (09:01)
[2020-08-30] MEDS: PANTOPRAZOLE 40 MG TABLET PO SCH (09:01)
[2020-08-30] MEDS: METOPROLOL TARTRATE 50 MG TAB PO SCH (09:01)
[2020-08-30] MEDS: hydrALAZINE HCL 50 MG TAB PO SCH (09:01)
[2020-08-30] MEDS: ASCORBIC ACID 500 MG TAB PO SCH (09:02)
--- NOTE | 2020-08-30 10:28 | P.PN ---
Subjective Patient is seen in follow-up for acute kidney injury. Renal function stable as of yesterday. Maintained on oral diuretics. No vomiting or diarrhea today. Oral intake fair. Vital signs are stable. General: The patient appeared well nourished and normally developed. HEENT: Head exam is unremarkable. Neck is without jugular venous distension. LUNGS: Breath sounds decreased. HEART: Rate and Rhythm are regular. ABDOMEN: Soft, no distention. EXTREMITITES: 1+ edema. Objective - Vital Signs Vital signs: Vital Signs Temp 97.6 F 08/30/20 07:40 Pulse 62 08/30/20 07:50 Resp 17 08/30/20 07:50 BP 145/58 08/30/20 07:40 Pulse Ox 95 08/30/20 07:40 Intake & Output 08/29/20 08/30/20 08/30/20 18:59 06:59 18:59 Output Total 500 300 Balance -500 -300 Weight 83 kg Output: Urine 500 300 Other: Voiding Method External Catheter External Catheter External Catheter # Bowel Movements 1 - Labs CBC & Chem 7: 08/29/20 06:02 Labs: Abnormal Lab Results - Last 24 Hours (Table) 08/29/20 Range/Units 06:02 Chloride 110 H (96-109) mmol/L Carbon Dioxide 18.8 L (21.6-31.8) mmol/L Anion Gap 13.20 H (4.00-12.00) mmol/L BUN 36.0 H (9.0-27.0) mg/dL Est GFR (CKD-EPI)AfAm 42.7 L (60.0-200.0) Est GFR (CKD-EPI)NonAf 36.9 L (60.0-200.0) BUN/Creatinine Ratio 27.69 H (12.00-20.00) Ratio Calcium 8.1 L (8.7-10.3) mg/dL Assessment and Plan Plan: Assessment: 1. Acute kidney injury mostly prerenal improved with IV hydration. Creatinine 1.3 as of yesterday. No hydronephrosis noted on CAT scan done June 2020. No hydronephrosis noted on kidney ultrasound. However left kidney was small in size. 2. Metabolic acidosis secondary to acute kidney injury and IV fluids. Maintained on oral bicarb. 3. Benign hypertension. Stable. 4. Anemia with iron deficiency. Status post IV iron. 5. Chronic diastolic CHF. 6. Lower extremity edema. Maintained on oral Lasix. Plan: Maintain oral Lasix. Encourage oral intake. Avoid nephrotoxins. Continue to monitor renal function and urine output. Morning labs pending. Anticipate discharge soon. Follow up outpatient in 7-10 days.
[2020-08-30 11:46] LABS: Glucose,Whole Blood 108 mg/dL (75-99)
[2020-08-30] MEDS ORDERED: CEPHALEXIN 250 MG CAP PO SCH ×2 (12:00→16:00)
[2020-08-30 12:42] LABS: African American GFR (CKD) 39.1 (60.0-200.0); Anion Gap 11.2 mmol/L (4.00-12.00); BUN/Creat Ratio 25.71 Ratio (12.00-20.00); Carbon Dioxide 22.8 mmol/L (21.6-31.8); Magnesium 1.7 mg/dL (1.5-2.4); Non-African American GFR(CKD) 33.7 (60.0-200.0); Potassium 3.4 mmol/L (3.5-5.5)
[2020-08-30] MEDS: ACETAMINOPHEN TAB 325 MG TAB PO PRN (13:20)
[2020-08-30] MEDS ORDERED: ONDANSETRON 4 MG TAB PO PRN (14:30)
--- NOTE | 2020-08-30 21:00 | P.DS ---
Providers Date of admission: 08/27/20 19:52 Expected date of discharge: 08/30/20 Attending physician: Jeffrey Rossi Consults: 08/28/20 11:03 Consult Physician Routine Consulting Provider: Juaquin Amos Consult Reason/Comments: devner Do you want consulting provider notified?: Yes Primary care physician: [facility] Course: Chief Complaint: Abnormal renal function History of presenting complaint: This is a pleasant 85-year-old patient who follows with Dr. Arturo Zamarripa. Chronic stable medical conditions include congestive heart failure from diastolic dysfunction EF 50-55%, tricuspid regurgitation, atrial fibrillation, coronary artery disease with prior stent, intracranial bleed from anticoagulation, diabetes, GERD, hard of hearing, hypertension and hyperlipidemia osteoarthritis chronic urinary stress incontinence chronic tremors chronic kidney disease stage III. Patient's had multiple UTIs in the past. baseline uses a walker. Lives and cared for by her daughter Vesta. June 2020: Patient had a TIA. MRI was unremarkable. Also had an acute AR. Patient now presents with 7 days of feeling weak tired rundown. Barely eating not even liquids. Has become so weak not even able to stand. Also noted the heart rate to be down to about 35. Denies any cough shortness of breath. No respiratory symptoms no urinary symptoms. Tired rundown. No fever no chills. Admitted from August 24 through August 27 with acute kidney injury prerenal, from decreased oral intake and being on Lasix. Also acute metabolic acidosis. Started on IV fluids, sodium bicarbonate. Patient was mistakenly discharged by the nurse and patient was asked to come back to be admitted to the floor. Patient's renal function has been improving. not back to the baseline. Appetite still remains poor. No fever no chills. Tired rundown. Today. Care was discussed with the patient. Started to eat better. Cleared by nephrology. Put back on Lasix. Consultation: Dr. Amos from nephrology Past medical history to include: congestive heart failure from diastolic dysfunction EF 50-55%, ordered tricuspid regurgitation, atrial fibrillation, coronary artery disease with prior stent, intracranial bleed from anticoagulation, diabetes, GERD, hard of hearing, hypertension and hyperlipidemia osteoarthritis chronic urinary stress incontinence chronic tremors chronic kidney disease stage III. 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 caregiver. Walker. Patient smoked for 20 years stopped in 1965. No alcohol. Physical examination: VITAL SIGNS: 97.6, 62, 17, 1 45 x 58, 95% room air GENERAL: Laying in bed, comfortable EYES: Pupils equal. Conjunctiva normal. NECK: JVD unable to be assessed; masses not palpable. HEART: First and second heart sounds are normal; minimal edema. LUNGS: Respiratory rate normal; clear to auscultation. ABDOMEN: Soft, nontender, liver spleen not palpable, no masses palpable. PSYCH: Able to answer simple questions MUSCULAR skeletal: Evidence of OA INVESTIGATIONS, reviewed in the clinical context: August 30: Potassium 3.4 creatinine 1.4 August 29: Potassium 3.6 creatinine 1.3 Potassium 3.6 bun 38 creatinine 1.29 Previous testing August 27: Potassium 4 creatinine 1.44 From 07/14/2020: BUN 26 creatinine 1.04 Assessment and plan: -Acute kidney injury, prerenal from patient being on Lasix and decreased oral intake-stabilized Resume Lasix. Stop IV fluids. -Chronic congestive heart failure from diastolic dysfunction EF 55-55%, currently euvolemic. Follow clinically -Moderate tricuspid regurgitation, follow clinically -Paroxysmal atrial fibrillation, currently in sinus rhythm Telemetry. -Coronary artery disease with prior history of stent, Lopressor, Lipitor -History of intracranial bleed from anticoagulation -GERD, use Pepcid -Hard of hearing -Essential hypertension, continue with hydralazine, Lopressor- -Hyperlipidemia, continue Lipitor -Primary osteoarthritis, use Tylenol when necessary -Chronic urinary stress incontinence, Use depends -Chronic kidney disease stage III likely from nephrosclerosis, follow renal function -Sigmoid diverticulosis-asymptomatic -Acute on chronic medical debility-slow to respond. PT OT -Metabolic acidosis fromRenal failure Sodium bicarbonate -DO NOT RESUSCITATE Disposition: Home Additional CC's: Arturo Zamarripa Plan - Discharge Summary Discharge Rx Participant: Yes New Discharge Prescriptions: New Cephalexin [Keflex] 250 mg PO Q6HR #12 cap Continue Sertraline [Zoloft] 200 mg PO DAILY@1000 Atorvastatin [Lipitor] 20 mg PO HS@2300 Ezetimibe [Zetia] 10 mg PO DAILY@1800 ALPRAZolam [Xanax] 0.5 mg PO BID@1800,2300 hydrALAZINE HCL [Apresoline] 50 mg PO TID@1000,1800,2300 NIFEdipine [NIFEdipine ER] 30 mg PO DAILY@1800 Clopidogrel [Plavix] 75 mg PO DAILY@1800 Docusate [Colace] 100 mg PO BID PRN #10 cap PRN Reason: Constipation Metoprolol Tartrate [Lopressor] 100 mg PO BID@1000,1800 Furosemide [Lasix] 20 mg PO DAILY@1000 Losartan Potassium 100 mg PO DAILY@1000 Aspirin 81 mg PO DAILY@1800 Pantoprazole [Protonix] 40 mg PO DAILY #30 tablet. Acetaminophen Tab [Tylenol] 650 mg PO Q6HR PRN tab PRN Reason: Mild Pain Or Fever > 100.5 Albuterol Inhaler [Ventolin Hfa Inhaler] 2 puff INHALATION RT-TID #1 inh Discontinued Zinc Sulfate [Orazinc] 220 mg PO DAILY #30 cap Ascorbic Acid [Vitamin C] 500 mg PO BID #30 tab Cholecalciferol [Vitamin D3 (25 Mcg = 1000 Iu)] 125 mcg PO DAILY #30 tablet Discharge Medication List Atorvastatin [Lipitor] 20 mg PO HS@23006/23/15 [History] Sertraline [Zoloft] 200 mg PO DAILY@1000 06/23/15 [History] Ezetimibe [Zetia] 10 mg PO DAILY@1800 01/26/19 [History] ALPRAZolam [Xanax] 0.5 mg PO BID@1800,2300 06/10/20 [History] Aspirin 81 mg PO DAILY@1800 06/26/20 [History] Clopidogrel [Plavix] 75 mg PO DAILY@1800 06/26/20 [History] Losartan Potassium 100 mg PO DAILY@1000 06/26/20 [History] NIFEdipine [NIFEdipine ER] 30 mg PO DAILY@1800 06/26/20 [History] hydrALAZINE HCL [Apresoline] 50 mg PO TID@1000,1800,2300 06/26/20 [History] Acetaminophen Tab [Tylenol] 650 mg PO Q6HR PRN tab 07/14/20 [Rx] Albuterol Inhaler [Ventolin Hfa Inhaler] 2 puff INHALATION RT-TID #1 inh 07/14/20 [Rx] Docusate [Colace] 100 mg PO BID PRN #10 cap 07/14/20 [Rx] Pantoprazole [Protonix] 40 mg PO DAILY #30 tablet. 07/14/20 [Rx] Furosemide [Lasix] 20 mg PO DAILY@1000 08/24/20 [History] Metoprolol Tartrate [Lopressor] 100 mg PO BID@1000,1800 08/24/20 [History] Cephalexin [Keflex] 250 mg PO Q6HR #12 cap 08/30/20 [Rx] Follow up Appointment(s)/Referral(s): [facility], [NON-STAFF] - Arturo Zamarripa MD [REFERRING] - 1 Week (Your doctor is out of the office until September 04, he is scheduled way out and the office asks that you please call after September 04 when your doctor is back in the office and set up a same day appointment. Thank you!) Juaquin Amos DO [STAFF PHYSICIAN] - 09/28/20 2:40 pm Patient Instructions/Handouts: Acute Kidney Injury (DC)
== END 2020-08-30 15:00 | disposition home health service (06) ==
LOC: INTOOBSV 19:52 → 4SSUR 19:52 → UNDODISIN 08-30 15:00
PROVIDERS: ADMIT Hospitalist; ATTEND Hospitalist
DX: N17.9 Acute kidney failure, unspecified (principal); E87.2 Acidosis; I13.0 Hypertensive heart and chronic kidney disease with heart failure and stage 1 through stage 4 chronic kidney disease, or unspecified chronic kidney disease; R22.41 Localized swelling, mass and lump, right lower limb; N18.30 Chronic kidney disease, stage 3 unspecified; I50.32 Chronic diastolic (congestive) heart failure; I07.1 Rheumatic tricuspid insufficiency; I48.0 Paroxysmal atrial fibrillation; I25.10 Atherosclerotic heart disease of native coronary artery without angina pectoris; K21.9 Gastro-esophageal reflux disease without esophagitis; D50.9 Iron deficiency anemia, unspecified; N39.3 Stress incontinence (female) (male); K57.30 Diverticulosis of large intestine without perforation or abscess without bleeding; H91.90 Unspecified hearing loss, unspecified ear; E78.5 Hyperlipidemia, unspecified; M19.91 Primary osteoarthritis, unspecified site; H57.9 Unspecified disorder of eye and adnexa; Z86.73 Personal history of transient ischemic attack (TIA), and cerebral infarction without residual deficits; T45.515A Adverse effect of anticoagulants, initial encounter; I25.2 Old myocardial infarction; R25.1 Tremor, unspecified; R53.81 Other malaise; E11.22 Type 2 diabetes mellitus with diabetic chronic kidney disease; L30.9 Dermatitis, unspecified; M48.00 Spinal stenosis, site unspecified; K44.9 Diaphragmatic hernia without obstruction or gangrene; F32.9 Major depressive disorder, single episode, unspecified; F41.9 Anxiety disorder, unspecified; E66.9 Obesity, unspecified; Z68.33 Body mass index [BMI] 33.0-33.9, adult; Z79.84 Long term (current) use of oral hypoglycemic drugs; Z79.02 Long term (current) use of antithrombotics/antiplatelets; Z79.899 Other long term (current) drug therapy; Z88.0 Allergy status to penicillin; Z88.1 Allergy status to other antibiotic agents; Z88.2 Allergy status to sulfonamides; Z79.82 Long term (current) use of aspirin; Z90.49 Acquired absence of other specified parts of digestive tract; Z95.5 Presence of coronary angioplasty implant and graft; Z66 Do not resuscitate; Z87.440 Personal history of urinary (tract) infections; Z87.891 Personal history of nicotine dependence; Z74.01 Bed confinement status; Z80.3 Family history of malignant neoplasm of breast; Z80.0 Family history of malignant neoplasm of digestive organs; Z82.0 Family history of epilepsy and other diseases of the nervous system
CPT/HCPCS: 94640 ×6; 80048 ×3; 83735 ×2; 93971; 76770; G0378 ×4; G0379

== ENCOUNTER 2020-09-08 06:27 | Inpatient (IN) | payer MEDICARE ==
--- NOTE | 2020-09-08 06:41 | ED ---
General Adult HPI - General Stated complaint: LATRELL Time Seen by Provider: 09/08/20 06:29 Source: patient, EMS, RN notes reviewed, old records reviewed Mode of arrival: EMS Limitations: physical limitation - History of Present Illness Initial comments: This an 85-year-old female presents emergency department via EMS with chief complaint of shortness of breath. Patient has been in the hospital with CHF exacerbations. Patient also has had issues with her kidneys. Patient noticed that she's had decreased urine output daughter stated that she's also decreased urine output, increased tympany breathing which she gave her an extra dose of Lasix and breathing treatment prior to arrival. This seemed to help somewhat she still complains of feeling short of breath noted leg swelling. Denies any chest pain currently she does state that she feels weak in general. No reported fevers. - Related Data Home Medications Medication Instructions Recorded Confirmed Atorvastatin [Lipitor] 20 mg PO HS@2300 06/23/15 08/27/20 Sertraline [Zoloft] 200 mg PO DAILY@1000 06/23/15 08/27/20 Ezetimibe [Zetia] 10 mg PO DAILY@1800 01/26/19 08/27/20 ALPRAZolam [Xanax] 0.5 mg PO BID@1800,2300 06/10/20 08/27/20 Aspirin 81 mg PO DAILY@1800 06/26/20 08/27/20 Clopidogrel [Plavix] 75 mg PO DAILY@1800 06/26/20 08/27/20 Losartan Potassium 100 mg PO DAILY@1000 06/26/20 08/27/20 NIFEdipine [NIFEdipine ER] 30 mg PO DAILY@1800 06/26/20 08/27/20 hydrALAZINE HCL [Apresoline] 50 mg PO TID@1000,1800,2300 06/26/20 08/27/20 Furosemide [Lasix] 20 mg PO DAILY@1000 08/24/20 08/27/20 Metoprolol Tartrate [Lopressor] 100 mg PO BID@1000,1800 08/24/20 08/27/20 Previous Rx's Medication Instructions Recorded Acetaminophen Tab [Tylenol] 650 mg PO Q6HR PRN tab 07/14/20 Albuterol Inhaler [Ventolin Hfa 2 puff INHALATION RT-TID #1 inh 07/14/20 Inhaler] Docusate [Colace] 100 mg PO BID PRN #10 cap 07/14/20 Pantoprazole [Protonix] 40 mg PO DAILY #30 tablet. 07/14/20 Cephalexin [Keflex] 250 mg PO Q6HR #12 cap 08/30/20 Allergies Allergy/AdvReac Type Severity Reaction Status Date / Time levofloxacin [From Levaquin] Allergy Rash/Hives Verified 08/24/20 14:14 Penicillins Allergy Rash/Hives Verified 08/24/20 14:14 Sulfa (Sulfonamide Allergy Rash/Hives Verified 08/24/20 14:14 Antibiotics) Review of Systems ROS Statement: Those systems with pertinent positive or pertinent negative responses have been documented in the HPI. ROS Other: All systems not noted in ROS Statement are negative. Past Medical History Past Medical History: Coronary Artery Disease (CAD), Chest Pain / Angina, Heart Failure, CVA/TIA, Diabetes Mellitus, Eye Disorder, GERD/Reflux, Hearing Disorder / Deafness, Hyperlipidemia, Hypertension, Myocardial Infarction (ND), Osteoarthritis (OA), Skin Disorder Additional Past Medical History / Comment(s): pt states CVA june 2020 and has been bed bound since, NIDDM type II, spinal stenosis, leaky bladder, bilateral hand tremors, vertigo, [place] bilaterally, eczema, bronchitis, sinus problems, hiatal hernia Last Myocardial Infarction Date:: 1998 History of Any Multi-Drug Resistant Organisms: None Reported Past Surgical History: Cholecystectomy, Heart Catheterization With Stent Additional Past Surgical History / Comment(s): pt htinks she has 4-5 cardiac stents Past Anesthesia/Blood Transfusion Reactions: No Reported Reaction Date of Last Stent Placement:: 2009 Past Psychological History: Anxiety, Depression Additional Psychological History / Comment(s): Pt resides with daughter, Vesta who is her caregiver. pt states she is bed bound She no longer drives-family takes her to [employer]. Smoking Status: Former smoker Past Alcohol Use History: None Reported Additional Past Alcohol Use History / Comment(s): Pt states she started smoking at age 10 (1946) and quit in 1965. Past Drug Use History: None Reported - Past Family History Mother Family Medical History: Cancer Additional Family Medical History / Comment(s): Mother had breast cancer with mets-she at age 71 yrs. Father Family Medical History: Cancer Additional Family Medical History / Comment(s): Father had esophageal cancer and in his 70's. Sister(s) Family Medical History: Cancer Additional Family Medical History / Comment(s): Sister os breast cancer Daughter(s) Additional Family Medical History / Comment(s): Pt has had one pierre from breast cancer and another pierre from MS. General Exam General appearance: alert, in no apparent distress Head exam: Present: atraumatic, normocephalic, normal inspection Neck exam: Present: normal inspection. Absent: tenderness, meningismus, lymphadenopathy Respiratory exam: Present: wheezes, rales. Absent: normal lung sounds bilaterally, respiratory distress, rhonchi, stridor Cardiovascular Exam: Present: regular rate, normal rhythm, normal heart sounds. Absent: systolic murmur, diastolic murmur, rubs, gallop, clicks GI/Abdominal exam: Present: soft, normal bowel sounds. Absent: distended, tenderness, guarding, rebound, rigid Extremities exam: Present: pedal edema Neurological exam: Present: alert Skin exam: Present: warm, dry, intact, normal color. Absent: rash Course Vital Signs 09/08/20 09/08/20 09/08/20 06:30 06:45 08:13 Temperature 98.5 F Pulse Rate 67 58 L Respiratory 21 21 20 Rate Blood Pressure 103/45 114/52 O2 Sat by Pulse 92 L 96 Oximetry EKG Findings - EKG Comments: EKG Findings:: EKG performed at 6:36 atrial fibrillation with a rate of 61 QRS 98 QT/QTc 446/448 Medical Decision Making - Medical Decision Making Chest x-ray shows mild pulmonary edema no large effusions, patient does have rales on auscultation. Patient's has lower extremity edema. Case discussed with Dr. Rossi who accepts admission for CHF exacerbation he recommends patient be placed on Lasix infusion, nephrology consultation for acute kidney injury. Patient's BMP is elevated at 32,000, mild elevated troponin doses c hronic in nature and may related to kidney function as patient has no complaints of chest pain. - Lab Data Result diagrams: 09/08/20 06:48 09/08/20 06:48 Lab Results 09/08/20 09/08/20 09/08/20 Range/Units 06:48 06:48 06:48 WBC 7.7 (3.8-10.6) k/uL RBC 2.97 L (3.80-5.40) m/uL Hgb 8.9 L (11.4-16.0) gm/dL Hct 28.7 L (34.0-46.0) % MCV 96.9 (80.0-100.0) fL MCH 29.8 (25.0-35.0) pg MCHC 30.8 L (31.0-37.0) g/dL RDW 18.2 H (11.5-15.5) % Plt Count 151 (150-450) k/uL MPV 8.0 Neutrophils % 85 % Lymphocytes % 8 % Monocytes % 4 % Eosinophils % 1 % Basophils % 0 % Neutrophils # 6.5 (1.3-7.7) k/uL Lymphocytes # 0.6 L (1.0-4.8) k/uL Monocytes # 0.3 (0-1.0) k/uL Eosinophils # 0.1 (0-0.7) k/uL Basophils # 0.0 (0-0.2) k/uL Hypochromasia Slight Anisocytosis Slight Macrocytosis Slight PT 12.3 H (9.0-12.0) sec INR 1.2 H (<1.2) APTT 27.5 (22.0-30.0) sec Sodium 135 L (137-145) mmol/L Potassium 3.5 (3.5-5.1) mmol/L Chloride 104 (98-107) mmol/L Carbon Dioxide 20 L (22-30) mmol/L Anion Gap 11 mmol/L BUN 48 H (7-17) mg/dL Creatinine 2.08 H (0.52-1.04) mg/dL Est GFR (CKD-EPI)AfAm 24 (>60 ml/min/1.73 sqM) Est GFR (CKD-EPI)NonAf 21 (>60 ml/min/1.73 sqM) Glucose 94 (74-99) mg/dL Plasma Lactic Acid Jesse (0.7-2.0) mmol/L Calcium 8.1 L (8.4-10.2) mg/dL Magnesium 1.7 (1.6-2.3) mg/dL Total Bilirubin 1.3 (0.2-1.3) mg/dL AST 568 H (14-36) U/L ALT 166 H (4-34) U/L Alkaline Phosphatase 93 (38-126) U/L Troponin I (0.000-0.034) ng/mL NT-Pro-B Natriuret Pep pg/mL Total Protein 6.0 L (6.3-8.2) g/dL Albumin 2.8 L (3.5-5.0) g/dL 09/08/20 09/08/20 09/08/20 Range/Units 06:48 06:48 06:48 WBC (3.8-10.6) k/uL RBC (3.80-5.40) m/uL Hgb (11.4-16.0) gm/dL Hct (34.0-46.0) % MCV (80.0-100.0) fL MCH (25.0-35.0) pg MCHC (31.0-37.0) g/dL RDW (11.5-15.5) % Plt Count (150-450) k/uL MPV Neutrophils % % Lymphocytes % % Monocytes % % Eosinophils % % Basophils % % Neutrophils # (1.3-7.7) k/uL Lymphocytes # (1.0-4.8) k/uL Monocytes # (0-1.0) k/uL Eosinophils # (0-0.7) k/uL Basophils # (0-0.2) k/uL Hypochromasia Anisocytosis Macrocytosis PT (9.0-12.0) sec INR (<1.2) APTT (22.0-30.0) sec Sodium (137-145) mmol/L Potassium (3.5-5.1) mmol/L Chloride (98-107) mmol/L Carbon Dioxide (22-30) mmol/L Anion Gap mmol/L BUN (7-17) mg/dL Creatinine (0.52-1.04) mg/dL Est GFR (CKD-EPI)AfAm (>60 ml/min/1.73 sqM) Est GFR (CKD-EPI)NonAf (>60 ml/min/1.73 sqM) Glucose (74-99) mg/dL Plasma Lactic Acid Jesse 0.9 (0.7-2.0) mmol/L Calcium (8.4-10.2) mg/dL Magnesium (1.6-2.3) mg/dL Total Bilirubin (0.2-1.3) mg/dL AST (14-36) U/L ALT (4-34) U/L Alkaline Phosphatase (38-126) U/L Troponin I 0.081 H* (0.000-0.034) ng/mL NT-Pro-B Natriuret Pep 15584 pg/mL Total Protein (6.3-8.2) g/dL Albumin (3.5-5.0) g/dL Disposition Clinical Impression: Acute exacerbation of CHF (congestive heart failure), Acute kidney injury, Dyspnea, Transaminitis, Atrial fibrillation Disposition: ADMITTED IP TO THIS HOSP Condition: Poor Referrals: Jeffrey Rossi MD [Primary Care Provider] - 1-2 days
[2020-09-08 07:14] LABS: Anisocytosis Slight; Basophils % (A) 0 %; Eosinophils # (A) 0.1 k/uL (0-0.7); Eosinophils % (A) 1 %; HCT 28.7 % (34.0-46.0); HGB 8.9 gm/dL (11.4-16.0); Hypochromasia Slight; Lymphocytes # (A) 0.6 k/uL (1.0-4.8); Lymphocytes % (A) 8 %; MCH 29.8 pg (25.0-35.0); MCHC 30.8 g/dL (31.0-37.0); MCV 96.9 fL (80.0-100.0); Macrocytosis Slight; Monocytes # (A) 0.3 k/uL (0-1.0); Monocytes % (A) 4 %; Neutrophils # (A) 6.5 k/uL (1.3-7.7); Neutrophils % (A) 85 %; Platelet Count 151 k/uL (150-450); RBC 2.97 m/uL (3.80-5.40); RDW 18.2 % (11.5-15.5); WBC 7.7 k/uL (3.8-10.6)
--- NOTE | 2020-09-08 07:15 | XR ---
EXAMINATION TYPE: XR chest 2V DATE OF EXAM: 09/08/2020 COMPARISON: 08/24/2020 HISTORY: Shortness of breath TECHNIQUE: Frontal and lateral views of the chest are obtained. FINDINGS: The heart is markedly enlarged but the pulmonary vasculature is not appear congested. The lungs are clear consolidative opacity. There is no pleural effusion or pneumothorax. Osseous structures are intact. IMPRESSION: Marked cardiomegaly without acute cardiopulmonary disease. There is been no interval coy nge.
[2020-09-08 07:23] LABS: INR 1.2 (<1.2); Partial Thromboplastin Time 27.5 sec (22.0-30.0); Prothrombin Time 12.3 sec (9.0-12.0)
[2020-09-08 07:29] LABS: Potassium 3.5 mmol/L (3.5-5.1)
[2020-09-08 07:32] LABS: Albumin 2.8 g/dL (3.5-5.0); Calcium 8.1 mg/dL (8.4-10.2); Magnesium 1.7 mg/dL (1.6-2.3); Total Bilirubin 1.3 mg/dL (0.2-1.3)
[2020-09-08] MEDS ORDERED: FUROSEMIDE 10 MG/ML 4 ML VIAL IV STA (08:25)
[2020-09-08] MEDS ORDERED: ACETAMINOPHEN TAB 325 MG TAB PO PRN (08:33)
[2020-09-08] MEDS: FUROSEMIDE 100 MG in SODIUM CHLORIDE 0.9% 90 ML IV SCH ×2 (08:52→20:46)
[2020-09-08] MEDS: PANTOPRAZOLE 40 MG TABLET PO SCH (09:41)
[2020-09-08] MEDS: METOPROLOL TARTRATE 50 MG TAB PO SCH ×2 (09:41→19:49)
[2020-09-08] MEDS: SERTRALINE 100 MG TAB PO SCH (09:41)
[2020-09-08] MEDS: hydrALAZINE HCL 50 MG TAB PO SCH ×2 (09:42→19:49)
[2020-09-08] MEDS ORDERED: LOSARTAN 50 MG TAB PO SCH (10:00)
--- NOTE | 2020-09-08 11:31 | P.NPCON ---
History of Present Illness - Reason for Consult Consult date: 09/08/20 acute renal failure - Chief Complaint Edema and shortness of breath - History of Present Illness This is a 85-year-old white female seen in consultation because of significant edema shortness of breath and acute kidney injury. She does have chronic kidney disease with a baseline creatinine in the past of 1.2-1.3 She was seen on 08/28/[address] Woods with acute kidney injury. Her creatinine was 1.04 on 07/14/2020, went up to 2.08 on 08/25/2020 and on the date of the consultation on 08/28/2020 creatinine down to 1.29. She came in with a creatinine of 2.08 She denies any vomiting chest pain fever chills no dizziness. No history of abdominal pain. No problem with her urine except it was less in amount. No history of taking any nonsteroidals herbal medications. No history of taking antibiotics. Patient history is somewhat unreliable as mentioned above Past medical history significant for coronary artery disease history of heart failure she was recently admitted in June with a possible stroke, diabetes mellitus-. Also known with spinal stenosis and incontinence of urine. 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 and has been bed bound since, NIDDM type II, spinal stenosis, leaky bladder, bilateral hand tremors, vertigo, [place] bilaterally, eczema, bronchitis, sinus problems, hiatal hernia Last Myocardial Infarction Date:: 1998 History of Any Multi-Drug Resistant Organisms: None Reported Past Surgical History: Cholecystectomy, Heart Catheterization With Stent Additional Past Surgical History / Comment(s): pt htinks she has 4-5 cardiac stents Past Anesthesia/Blood Transfusion Reactions: No Reported Reaction Date of Last Stent Placement:: 2009 Past Psychological History: Anxiety, Depression Additional Psychological History / Comment(s): Pt resides with daughter, Vesta who is her caregiver. pt states she is bed bound She no longer drives-family takes her to appts. Smoking Status: Former smoker Past Alcohol Use History: None Reported Additional Past Alcohol Use History / Comment(s): Pt states she started smoking at age 10 (1948) and quit in 1965. Past Drug Use History: None Reported - Past Family History Mother Family Medical History: Cancer Additional Family Medical History / Comment(s): Mother had breast cancer with mets-she at age 71 yrs. Father Family Medical History: Cancer Additional Family Medical History / Comment(s): Father had esophageal cancer and in his 70's. Sister(s) Family Medical History: Cancer Additional Family Medical History / Comment(s): Sister os breast cancer Daughter(s) Additional Family Medical History / Comment(s): Pt has had one pierre from breast cancer and another pierre from MS. Medications and Allergies Home Medications Medication Instructions Recorded Confirmed Type Atorvastatin [Lipitor] 20 mg PO HS@2300 06/23/15 09/08/20 History Sertraline [Zoloft] 200 mg PO DAILY@1000 06/23/15 09/08/20 History Ezetimibe [Zetia] 10 mg PO DAILY@1800 01/26/19 09/08/20 History ALPRAZolam [Xanax] 0.5 mg PO BID@1800,2300 06/10/20 09/08/20 History Aspirin 81 mg PO DAILY@1800 06/26/20 09/08/20 History Clopidogrel [Plavix] 75 mg PO DAILY@1800 06/26/20 09/08/20 History Losartan Potassium 100 mg PO DAILY@1000 06/26/20 09/08/20 History NIFEdipine [NIFEdipine ER] 30 mg PO DAILY@1800 06/26/20 09/08/20 History hydrALAZINE HCL [Apresoline] 50 mg PO TID@1000,1800,2300 06/26/20 09/08/20 History Acetaminophen Tab [Tylenol] 650 mg PO Q6HR PRN tab 07/14/20 09/08/20 Rx Albuterol Inhaler [Ventolin Hfa 2 puff INHALATION RT-TID #1 inh 07/14/20 09/08/20 Rx Inhaler] Docusate [Colace] 100 mg PO BID PRN #10 cap 07/14/20 09/08/20 Rx Pantoprazole [Protonix] 40 mg PO DAILY #30 tablet.dr 07/14/20 09/08/20 Rx Furosemide [Lasix] 20 mg PO DAILY@1000 08/24/20 09/08/20 History Metoprolol Tartrate [Lopressor] 100 mg PO BID@1000,1800 08/24/20 09/08/20 History Allergies Allergy/AdvReac Type Severity Reaction Status Date / Time levofloxacin [From Levaquin] Allergy Rash/Hives Verified 09/08/20 10:06 Penicillins Allergy Rash/Hives Verified 09/08/20 10:06 Sulfa (Sulfonamide Allergy Rash/Hives Verified 09/08/20 10:06 Antibiotics) Physical Exam Vitals: Vital Signs Temp Pulse Resp BP Pulse Ox 09/08/20 09:48 60 20 126/56 96 09/08/20 08:13 58 L 20 114/52 96 09/08/20 06:45 21 09/08/20 06:30 98.5 F 67 21 103/45 92 L Intake and Output 09/07/20 09/08/20 09/08/20 22:59 06:59 14:59 Output Total 100 Balance -100 Output: Urine 100 Uretheral ([place]) 100 Other: Weight 90.718 kg On examination she is awake alert but unable to recall any of the details of her medical problems. HEENT exam no JVP neck is supple no facial asymmetry Lungs are clear to auscultation fair air entry bilaterally currently on nasal cannula Heart sounds are unremarkable for any murmur rub gallop Abdomen soft somewhat obese difficult to examine Extremity exam was moderate edema Neurologically awake alert and oriented but poor memory. No tremors. Able to move all her extremities Results - Lab Results Most recent lab results Calcium 8.1 mg/dL (8.4-10.2) L 09/08/20 06:48 Magnesium 1.7 mg/dL (1.6-2.3) 09/08/20 06:48 09/08/20 06:48 09/08/20 06:48 Assessment and Plan Assessment: Impression 1. Acute kidney injury" possibly diastolic failure, rule out hydronephrosis, urinalysis is benign on 07/09/2020 with 1+ protein 2. Chronic kidney disease, stage III, Baseline creatinine 1.2, dated 08/28/2020, etiology is nephrosclerosis 3. Significant edema and shortness of breath and possible heart failure 4. History of non-ST [place] in June 2020. 5. Chronic diastolic heart failure with ejection fraction 50-55% recently in June 2020. 6. History of recent Covid 19 pneumonia 7. Anemia with hemoglobin of 8.9, rule out an deficiency Recommendation 1. Check uric acid, urine protein to creatinine ratio, CPK, immunoelectrophore sis of the serum and urine, phosphorus. 2. Obtain chest x-ray to rule out congestive heart failure 3. Currently on Lasix drip at 10 mg per hour, maintain that for 4. Avoid any nephrotoxic medication and dye studies for right now 5. Obtain ultrasound of the kidney. 6. May need dialysis but not today
[2020-09-08 13:15] LABS: Phosphorus 4.2 mg/dL (2.5-4.5); Uric Acid 9.1 mg/dL (3.7-7.4)
[2020-09-08 13:50] LABS: Creatine Kinase MB 1.3 ng/mL (0.0-2.4)
[2020-09-08 13:57] LABS: Troponin I 0.087 ng/mL (0.000-0.034)
[2020-09-08] MEDS: ALBUTEROL NEBULIZED 2.5 MG/3 ML INHALATION SCH ×2 (15:20→20:10)
--- NOTE | 2020-09-08 15:53 | US ---
EXAMINATION TYPE: US kidneys/renal and bladder DATE OF EXAM: 09/08/2020 COMPARISON: 08/28/2020 CLINICAL HISTORY: renal failure. EXAM MEASUREMENTS: Right Kidney: 7.3 x 3.9 x 3.5 cm Left Kidney: 8.7 x 3.8 x 3.3 cm Morbidly obese patient unable to cooperate with examiner in any way. Technically difficult, limited s tudy. Right Kidney: Measures small, superior cyst measuring 1.8 x 1.9 x 1.5cm, inferior pole obscure by daren wel gas Left Kidney: Measures small, superior cyst measuring 1.3 x 1.0 x 1.2, inferior pole obscure by bowel gas Bladder: bladder may have debris within, not fully distended, difficult to discern whether ultrasound reflects debris or adjacent bowel, anterior to bladder is hypoechoic round structure of uncertain et iology measuring 2.1 x 1.4 x 1.8cm Free fluid in pelvis. IMPRESSION: There is renal atrophy. No hydronephrosis. Possible multiple bladder masses which could be new compar ed to old exam. Follow-up recommended. There is also some free fluid in the pelvis also present on ol d exam.
[2020-09-08] MEDS ORDERED: MAGNESIUM HYDROXIDE 2,400 MG/10 ML CUP PO PRN (15:54)
[2020-09-08] MEDS ORDERED: MELATONIN 3 MG TABLET PO PRN (15:54)
[2020-09-08] MEDS ORDERED: LACTULOSE 20 GM/30 ML CUP PO PRN (15:54)
[2020-09-08] MEDS ORDERED: CALCIUM CARBONATE 500 MG CHEWABLE PO PRN (15:54)
[2020-09-08] MEDS ORDERED: NALOXONE 0.4 MG/ML 1 ML VIAL IV PRN (15:54)
[2020-09-08] MEDS ORDERED: ONDANSETRON 4 MG/2 ML VIAL IVP PRN (15:54)
[2020-09-08] MEDS ORDERED: MAG HYDROX/AL HYDROX/SIMETH 30 ML CUP PO PRN (15:54)
--- NOTE | 2020-09-08 15:56 | P.HPIM ---
History of Present Illness H&P Date: 09/08/20 Chief Complaint: Decreased urine output History of presenting complaint: This is a pleasant 85-year-old patient who follows with Dr. Arturo Zamarripa. Chronic stable medical conditions include congestive heart failure from diastolic dysfunction EF 50-55%, tricuspid regurgitation, atrial fibrillation, coronary artery disease with prior stent, intracranial bleed from anticoa gulation, diabetes, GERD, hard of hearing, hypertension and hyperlipidemia osteoarthritis chronic urinary stress incontinence chronic tremors chronic kidney disease stage III. Patient's had multiple UTIs in the past. baseline uses a walker. Lives and cared for by her daughter Vesta. June 2020: Patient had a TIA. MRI was unremarkable. Also had an acute ID. Recently in the hospital from August 24 through August 30. Had a creatinine of 2.25 down to 1.3 before discharge. Patient has responded to Lasix and IV fluids. Patient now presents feeling weak and tired. Decreased oral intake. Decreased urine output. Has a Hilliard catheter. Placed in the ER. Some shortness of breath. Review of systems: GEN.: Tired decreased appetite EYES: None HEENT: None NECK: None RESPIRATORY: Some shortness of breath CARDIOVASCULAR: None GASTROINTESTINAL: As above GENITOURINARY: Decreased urine output MUSCULOSKELETAL: Joint pains LYMPHATICS: None HEMATOLOGICAL: None PSYCHIATRY: Bit forgetful NEUROLOGICAL: Use a walker, and baseline Past medical history to include: congestive heart failure from diastolic dysfunction EF 50-55%, ordered tricuspid regurgitation, atrial fibrillation, coronary artery disease with prior stent, intracranial bleed from anticoagulation, diabetes, GERD, hard of hearing, hype rtension and hyperlipidemia osteoarthritis chronic urinary stress incontinence chronic tremors chronic kidney disease stage III. 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 caregiver. Walker. Patient smoked for 20 years stopped in 1965. No alcohol. Physical examination: VITAL SIGNS: 98.5, 67, 21, 103/45, 92% room air GENERAL: BMI 36.6, laying in bed, tired EYES: Pupils equal. Conjunctiva normal. HEENT: External appearance of nose and ears normal, oral cavity dry mucous membranes NECK: JVD unable to be assessed; masses not palpable. HEART: First and second heart sounds are normal; minimal edema. LUNGS: Respiratory rate normal; clear to auscultation. ABDOMEN: Soft, nontender, liver spleen not palpable, no masses palpable. Hilliard catheter PSYCH: Able to answer simple questions MUSCULAR skeletal: Evidence of OA NEUROLOGICAL: Cranial nerves grossly intact; no facial asymmetry, power and sensation grossly intact. LYMPHATICS: No lymph nodes palpable in the axilla and neck INVESTIGATIONS, reviewed in the clinical context: WBC 7.7 hemoglobin 8.9 platelets 151 potassium 3.5 bun 48 creatinine 2.08 AST 568 ALT 166. By 1220 Troponin I 0.081, 0.085 Coronavirus [PCF]: Not detected EKG tracing personally reviewed by me-atrial fibrillation rate of 61 Chest x-ray film personally reviewed by me-cardiomegaly, possible venous prominence Previous labs: Bun 36 creatinine 1.4 on 08/30/2020 Assessment and plan: -Acute kidney injury, possibly prerenal from decreased oral intake Consult nephrology. Strict I's and O's. -Acute on Chronic congestive heart failure from diastolic dysfunction EF 55-55%, Patient started on Lasix drip. -Moderate tricuspid regurgitation, follow clinically -Persistent atrial fibrillation,-rate controlled Telemetry. -Coronary artery disease with prior history of stent, Lopressor, Lipitor -History of intracranial bleed from anticoagulation -GERD, use Pepcid -Hard of hearing -Essential hypertension, continue with hydralazine, Lopressor- -Hyperlipidemia, continue Lipitor -Primary osteoarthritis, use Tylenol when necessary -Chronic urinary stress incontinence, Use depends -Chronic kidney disease stage III likely from nephrosclerosis, follow renal function -Sigmoid diverticulosis-asymptomatic - chronic medical debility- PT OT -Metabolic acidosis fromRenal failure Sodium bicarbonate -Likely ischemic hepatitis DC Lipitor for now -DO NOT RESUSCITATE Strict I's and O's. Nephrology consulted. Lasix drip. Bicarbonate. Home medications resumed. Hold Cozaar. Discussed with the patient and son at the bedside. Past Medical History Past Medical History: Coronary Artery Disease (CAD), Chest Pain / Angina, Heart Failure, CVA/TIA, Diabetes Mellitus, Eye Disorder, GERD/Reflux, Hearing Disorder / Deafness, Hyperlipidemia, Hypertension, Myocardial Infarction (ID), Osteoarthritis (OA), Skin Disorder Additional Past Medical History / Comment(s): pt states CVA june 2020 and has been bed bound since, NIDDM type II, spinal stenosis, leaky bladder, bilateral hand tremors, vertigo, [place] bilaterally, eczema, bronchitis, sinus problems, hiatal hernia Last Myocardial Infarction Date:: 1998 History of Any Multi-Drug Resistant Organisms: None Reported Past Surgical History: Cholecystectomy, Heart Catheterization With Stent Additional Past Surgical History / Comment(s): pt htinks she has 4-5 cardiac stents Past Anesthesia/Blood Transfusion Reactions: No Reported Reaction Date of Last Stent Placement:: 2009 Past Psychological History: Anxiety, Depression Additional Psychological History / Comment(s): Pt resides with daughter, Vesta who is her caregiver. pt states she is bed bound She no longer drives-family takes her to [employer]. Smoking Status: Former smoker Past Alcohol Use History: None Reported Additional Past Alcohol Use History / Comment(s): Pt states she started smoking at age 10 (1948) and quit in 1965. Past Drug Use History: None Reported - Past Family History Mother Family Medical History: Cancer Additional Family Medical History / Comment(s): Mother had breast cancer with mets-she at age 71 yrs. Father Family Medical History: Cancer Additional Family Medical History / Comment(s): Father had esophageal cancer and in his 70's. Sister(s) Family Medical History: Cancer Additional Family Medical History / Comment(s): Sister os breast cancer Daughter(s) Additional Family Medical History / Comment(s): Pt has had one pierre from breast cancer and another pierre from MS. Medications and Allergies Home Medications Medication Instructions Recorded Confirmed Type Atorvastatin [Lipitor] 20 mg PO HS@2300 06/23/15 09/08/20 History Sertraline [Zoloft] 200 mg PO DAILY@1000 06/23/15 09/08/20 History Ezetimibe [Zetia] 10 mg PO DAILY@1800 01/26/19 09/08/20 History ALPRAZolam [Xanax] 0.5 mg PO BID@1800,2300 06/10/20 09/08/20 History Aspirin 81 mg PO DAILY@179906/26/20 09/08/20 History Clopidogrel [Plavix] 75 mg PO DAILY@1800 06/26/20 09/08/20 History Losartan Potassium 100 mg PO DAILY@1000 06/26/20 09/08/20 History NIFEdipine [NIFEdipine ER] 30 mg PO DAILY@1800 06/26/20 09/08/20 History hydrALAZINE HCL [Apresoline] 50 mg PO TID@1000,1800,2300 06/26/20 09/08/20 History Acetaminophen Tab [Tylenol] 650 mg PO Q6HR PRN tab 07/14/20 09/08/20 Rx Albuterol Inhaler [Ventolin Hfa 2 puff INHALATION RT-TID #1 inh 07/14/20 09/08/20 Rx Inhaler] Docusate [Colace] 100 mg PO BID PRN #10 cap 07/14/20 09/08/20 Rx Pantoprazole [Protonix] 40 mg PO DAILY #30 tablet. 07/14/20 09/08/20 Rx Furosemide [Lasix] 20 mg PO DAILY@1000 08/24/20 09/08/20 History Metoprolol Tartrate [Lopressor] 100 mg PO BID@1000,1800 08/24/20 09/08/20 History Allergies Allergy/AdvReac Type Severity Reaction Status Date / Time levofloxacin [From Levaquin] Allergy Rash/Hives Verified 09/08/20 10:06 Penicillins Allergy Rash/Hives Verified 09/08/20 10:06 Sulfa (Sulfonamide Allergy Rash/Hives Verified 09/08/20 10:06 Antibiotics) Physical Exam Vitals: Vital Signs Temp Pulse Resp BP Pulse Ox 09/08/20 09:48 60 20 126/56 96 09/08/20 08:13 58 L 20 114/52 96 09/08/20 06:45 21 09/08/20 06:30 98.5 F 67 21 103/45 92 L Intake and Output 09/07/20 09/08/20 09/08/20 22:59 06:59 14:59 Output Total 100 Balance -100 Output: Urine 100 Uretheral (Hilliard) 100 Other: Weight 90.718 kg Results CBC & Chem 7: 09/08/20 06:48 09/08/20 06:48 Labs: Abnormal Lab Results - Last 24 Hours (Table) 09/08/20 09/08/20 09/08/20 Range/Units 06:48 06:48 06:48 RBC 2.97 L (3.80-5.40) m/uL Hgb 8.9 L (11.4-16.0) gm/dL Hct 28.7 L (34.0-46.0) % MCHC 30.8 L (31.0-37.0) g/dL RDW 18.2 H (11.5-15.5) % Lymphocytes # 0.6 L (1.0-4.8) k/uL PT 12.3 H (9.0-12.0) sec INR 1.2 H (<1.2) Sodium 135 L (137-145) mmol/L Carbon Dioxide 20 L (22-30) mmol/L BUN 48 H (7-17) mg/dL Creatinine 2.08 H (0.52-1.04) mg/dL Calcium 8.1 L (8.4-10.2) mg/dL AST 568 H (14-36) U/L ALT 166 H (4-34) U/L Troponin I (0.000-0.034) ng/mL Total Protein 6.0 L (6.3-8.2) g/dL Albumin 2.8 L (3.5-5.0) g/dL 09/08/20 Range/Units 06:48 RBC (3.80-5.40) m/uL Hgb (11.4-16.0) gm/dL Hct (34.0-46.0) % MCHC (31.0-37.0) g/dL RDW (11.5-15.5) % Lymphocytes # (1.0-4.8) k/uL PT (9.0-12.0) sec INR (<1.2) Sodium (137-145) mmol/L Carbon Dioxide (22-30) mmol/L BUN (7-17) mg/dL Creatinine (0.52-1.04) mg/dL Calcium (8.4-10.2) mg/dL AST (14-36) U/L ALT (4-34) U/L Troponin I 0.081 H* (0.000-0.034) ng/mL Total Protein (6.3-8.2) g/dL Albumin (3.5-5.0) g/dL
[2020-09-08] MEDS ORDERED: EZETIMIBE 10 MG TAB PO SCH (18:00)
[2020-09-08] MEDS: ASPIRIN 81 MG PO SCH (19:49)
[2020-09-08] MEDS: ALPRAZolam 0.5 MG TAB PO SCH (19:50)
[2020-09-08] MEDS: CLOPIDOGREL 75 MG TAB PO SCH (19:50)
[2020-09-08] MEDS ORDERED: ATORVASTATIN 20 MG TAB PO SCH (23:00)
[2020-09-09] MEDS: NIFEdipine XL 30 MG TAB.ER.24 PO SCH ×2 (00:23→22:36)
[2020-09-09] MEDS: hydrALAZINE HCL 50 MG TAB PO SCH ×4 (01:00→23:08)
[2020-09-09] MEDS: ALPRAZolam 0.5 MG TAB PO SCH ×3 (01:09→23:08)
[2020-09-09] MEDS: FUROSEMIDE 100 MG in SODIUM CHLORIDE 0.9% 90 ML IV SCH (06:25)
[2020-09-09 06:30] LABS: Potassium 3.6 mmol/L (3.5-5.1)
[2020-09-09 06:33] LABS: Albumin 2.8 g/dL (3.5-5.0); Calcium 8.1 mg/dL (8.4-10.2); Total Bilirubin 1.3 mg/dL (0.2-1.3); Total Protein 5.9 g/dL (6.3-8.2)
--- NOTE | 2020-09-09 07:29 | XR ---
EXAMINATION TYPE: XR chest 2V DATE OF EXAM: 09/09/2020 COMPARISON: 09/08/2020 HISTORY: Follow-up CHF TECHNIQUE: Frontal and lateral views of the chest are obtained. FINDINGS: The pulmonary vasculature in the right lung appears prominent and unchanged compared to th e prior study. The left lung is clear. There is no pneumothorax or pleural effusion. The heart is moderately to markedly enlarged. The osseous structures are intact. Overall there is been no significant interval change since the prior study. IMPRESSION: Enlarged heart with right-sided pulmonary vascular congestion unchanged compared to prev ious.
[2020-09-09] MEDS: ALBUTEROL NEBULIZED 2.5 MG/3 ML INHALATION SCH ×3 (07:41→20:06)
[2020-09-09] MEDS: PANTOPRAZOLE 40 MG TABLET PO SCH (10:08)
[2020-09-09] MEDS: METOPROLOL TARTRATE 50 MG TAB PO SCH (10:10)
[2020-09-09] MEDS: SERTRALINE 100 MG TAB PO SCH (10:23)
--- NOTE | 2020-09-09 11:03 | P.PN ---
Subjective Progress Note Date: 09/09/20 Principal diagnosis: This is a 85-year-old female, seen in consultation regarding acute kidney injury. She came in because of significant edema shortness of breath. She was started on IV Lasix drip at 10 mg per hour and has not responded with minimal urine output. Her urine output is documented at 140 mL. Workup has shown small kidneys 7.3 and 8.7 cm with bladder masses but no hydronephrosis. Her baseline creatinine is 1.4 as of 08/30/2020. Creatinine went up to 2.61 as of this morning. A recent urinalysis on 07/09/2020 shows specific gravity 10:15 and 1+ protein and looks rather benign. She is known with coronary artery disease or history of cardiac stents, diabetes mellitus history of [place] CVA in June 2020 and has been bedbound since Her cardiac output is 50-55% ejection fraction on 06/14/2020 echocardiogram with mild to moderate valvular dysfunction Currently she is awake alert oriented on nasal cannula oxygen comfortable has poor appetite but no nausea vomiting. No numbness to . Objective - Vital Signs Vital signs: Vital Signs Temp 98.2 F 09/09/20 00:00 Pulse 54 L 09/09/20 10:00 Resp 16 09/09/20 07:42 BP 107/83 09/09/20 10:00 Pulse Ox 99 09/09/20 10:00 Intake & Output 09/08/20 09/09/20 09/09/20 18:59 06:59 18:59 Intake Total 196.5 Output Total 100 40 40 Balance -100 156.5 -40 Intake: Intake, IV Titration 196.5 Amount Furosemide 100 mg In 196.5 Sodium Chloride 0.9% 90 ml @ 10 MG/HR 10 mls/hr IV .Q10H [facility] Rx#: [id number] Output: Urine 100 40 Uretheral (Hilliard) 100 Post Void Residual 40 On examination she is awake alert oriented. HEENT exam shows elevated JVP about 7-8 cm above the sternal angle Lungs are clear to auscultation good air entry bilaterally Heart sounds unremarkable for any murmur rub gallop Abdomen soft nontender Extremity exam was moderate edema Neurologically awake alert oriented no asterixis. - Labs CBC & Chem 7: 09/08/20 06:48 09/09/20 06:04 Labs: Abnormal Lab Results - Last 24 Hours (Table) 09/08/20 09/08/20 09/08/20 Range/Units 10:20 12:33 12:33 Sodium (137-145) mmol/L Carbon Dioxide (22-30) mmol/L BUN (7-17) mg/dL Creatinine (0.52-1.04) mg/dL Uric Acid 9.1 H (3.7-7.4) mg/dL Calcium (8.4-10.2) mg/dL AST (14-36) U/L ALT (4-34) U/L Troponin I 0.085 H* 0.087 H* (0.000-0.034) ng/mL Total Protein (6.3-8.2) g/dL Albumin (3.5-5.0) g/dL 09/09/20 Range/Units 06:04 Sodium 135 L (137-145) mmol/L Carbon Dioxide 17 L (22-30) mmol/L BUN 52 H (7-17) mg/dL Creatinine 2.61 H (0.52-1.04) mg/dL Uric Acid (3.7-7.4) mg/dL Calcium 8.1 L (8.4-10.2) mg/dL AST 619 H (14-36) U/L ALT 177 H (4-34) U/L Troponin I (0.000-0.034) ng/mL Total Protein 5.9 L (6.3-8.2) g/dL Albumin 2.8 L (3.5-5.0) g/dL Assessment and Plan Assessment: Impression 1. Acute kidney injury" possibly diastolic failure, ruled out hydronephrosis, urinalysis is benign on 07/09/2020 with 1+ protein. Uric acid slightly high at 9.1 and not explain acute kidney injury, total CK is normal at 1.3 2. Chronic kidney disease, stage III, Baseline creatinine 1.2, dated 08/28/2020, etiology is nephrosclerosis. Ultrasound shows 7.3 and 8.7 cm kidneys with bladder masses no hydronephrosis. A urine protein to creatinine ratio is pending 3. Significant edema and shortness of breath and possible heart failure 4. History of non-ST [place] in June 2020. 5. Chronic diastolic heart failure with ejection fraction 50-55% recently in June 2020. 6. History of recent Covid 19 pneumonia 7. Anemia with hemoglobin of 8.9, rule out an deficiency Recommendation 1. Check , urine protein to creatinine ratio,, immunoelectrophoresis of the serum and urine, 2. Currently on Lasix drip at 10 mg per hour, will stop that and give her IV fluids lactated Ringer's at 75 an hour and see if she will recover 3. Avoid any nephrotoxic medication and dye studies for right now 4. May need dialysis but not today
[2020-09-09 12:15] LABS: Amorphous Sediment,Urine Few /hpf; Appearance,Urine Turbid (Clear); Bacteria,Urine Occasional /hpf; Bilirubin,Urine 1+ (Negative); Blood,Urine Small (Negative); Color,Urine Dark Yellow; Glucose,Urine (UA) Trace (Negative); Ketones,Urine Trace (Negative); Leukocyte Esterase,Urine Large (Negative); Nitrite,Urine Negative (Negative); PH, Urine 5.5 (5.0-8.0); Protein,Urine 3+ (Negative); RBC,Urine 107 /hpf (0-5); Specific Gravity,Urine 1.023 (1.001-1.035); Squamous Epithelial Cell,Urine 2 /hpf (0-4); WBC,Urine 86 /hpf (0-5)
--- NOTE | 2020-09-09 16:03 | P.PN ---
Progress Note - Text Progress Note Date: 09/09/20 Chief Complaint: Decreased urine output History of presenting complaint: This is a pleasant 85-year-old patient who follows with Dr. Arturo Zamarripa. Chronic stable medical conditions include congestive heart failure from diastolic dysfunction EF 50-55%, tricuspid regurgitation, atrial fibrillation, coronary artery disease with prior stent, intracranial bleed from anticoagulation, diabetes, GERD, hard of hearing, hypertension and hyperlipidemia osteoarthritis chronic urinary stress incontinence chronic tremors chronic kidney disease stage III. Patient's had multiple UTIs in the past. baseline uses a walker. Lives and cared for by her daughter Vesta. June 2020: Patient had a TIA. MRI was unremarkable. Also had an acute VT. Recently in the hospital from August 24 through August 30. Had a creatinine of 2.25 down to 1.3 before discharge. Patient has responded to Lasix and IV fluids. Patient now presents feeling weak and tired. Decreased oral intake. Decreased urine output. Has a Hilliard catheter. Placed in the ER. Some shortness of breath. Admitted with acute kidney injury. Patient started on IV Lasix drip. Did not make any urine. Hilliard catheter position was rechecked. Today: Oral intake is good. Edema present. Tired. Minimal urine output. L asix drip discontinued. Put on IV fluids. Being followed by nephrology. Patient is daughter the bedside. Review of systems: Was done for constitutional, cardiovascular, GI, pulmonary. relevant finding as above Active Medications Acetaminophen (Acetaminophen Tab 325 Mg Tab) 650 mg PO Q6HR PRN PRN Reason: Mild Pain or Fever > 100.5 Al Hydroxide/Mg Hydroxide (Mag Hydrox/Al Hydrox/Simeth 30 Ml Cup) 15 ml PO Q6HR PRN PRN Reason: Indigestion Albuterol Sulfate (Albuterol Nebulized 2.5 Mg/3 Ml) 2.5 mg INHALATION RT-TID [facility] Last Admin: 09/09/20 12:00 Dose: 2.5 mg Documented by: Alprazolam (Alprazolam 0.5 Mg Tab) 0.5 mg PO BID@1800,2300 [facility] Last Admin: 09/09/20 01:09 Dose: Not Given Documented by: Aspirin (Aspirin 81 Mg) 81 mg PO DAILY@1800 [facility] Last Admin: 09/08/20 19:49 Dose: 81 mg Documented by: Calcium Carbonate/Glycine (Calcium Carbonate 500 Mg Chewable) 1,000 mg PO Q4HR PRN PRN Reason: Dyspepsia Clopidogrel Bisulfate (Clopidogrel 75 Mg Tab) 75 mg PO DAILY@1800 [facility] Last Admin: 09/08/20 19:50 Dose: 75 mg Documented by: Hydralazine HCl (Hydralazine Hcl 50 Mg Tab) 50 mg PO TID@1000,1800,2300 [facility] Last Admin: 09/09/20 10:09 Dose: 50 mg Documented by: Hydralazine HCl (Hydralazine Hcl 25 Mg Tab) 25 mg PO BID [facility] Lactated Ringer's (Lactated Ringers) 1,000 mls @ 75 mls/hr IV .[id number] [facility] Lactulose (Lactulose 20 Gm/30 Ml Cup) 20 gm PO DAILY PRN PRN Reason: Constipation Magnesium Hydroxide (Magnesium Hydroxide 2,400 Mg/10 Ml Cup) 2,400 mg PO DAILY PRN PRN Reason: Constipation Melatonin (Melatonin 3 Mg Tablet) 3 mg PO HS PRN PRN Reason: Insomnia Metoprolol Tartrate (Metoprolol Tartrate 25 Mg Tab) 25 mg PO BID [facility] Naloxone HCl (Naloxone 0.4 Mg/Ml 1 Ml Vial) 0.2 mg IV Q2M PRN PRN Reason: Opioid Reversal Nifedipine (Nifedipine Xl 30 Mg Tab.Er.24) 30 mg PO DAILY@1800 [facility] Last Admin: 09/09/20 00:23 Dose: Not Given Documented by: Ondansetron HCl (Ondansetron 4 Mg/2 Ml Vial) 4 mg IVP Q8HR PRN PRN Reason: Nausea And Vomiting Pantoprazole Sodium (Pantoprazole 40 Mg Tablet) 40 mg PO -BRKFST [facility] Last Admin: 09/09/20 10:08 Dose: 40 mg Documented by: Sertraline HCl (Sertraline 100 Mg Tab) 200 mg PO DAILY@1000 [facility] Last Admin: 09/09/20 10:23 Dose: 200 mg Documented by: Past medical history to include: congestive heart failure from diastolic dysfunction EF 50-55%, ordered tricuspid regurgitation, atrial fibrillation, coronary artery disease with prior stent, intracranial bleed from anticoagulation, diabetes, GERD, hard of hearing, hypertension and hyperlipidemia osteoarthritis chronic urinary stress incontinence chronic tremors chronic kidney disease stage III. 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 caregiver. Walker. Patient smoked for 20 years stopped in 1965. No alcohol. Physical examination: VITAL SIGNS: Afebrile, 54, 16, 107 x 83, 99% on 2 L GENERAL: BMI 36.6, reclining in bed, awake, tired EYES: Pupils equal. Conjunctiva normal. HEENT: External appearance of nose and ears normal, oral cavity dry mucous membranes NECK: JVD unable to be assessed; masses not palpable. HEART: First and second heart sounds are normal; edema present. LUNGS: Respiratory rate increased; clear to auscultation. ABDOMEN: Soft, nontender, liver spleen not palpable, no masses palpable. Hilliard catheter PSYCH: Able to answer simple questions MUSCULAR skeletal: Evidence of OA INVESTIGATIONS, reviewed in the clinical context: September 09: Potassium 3.6 BUN 52 creatinine 2.61 AST 619 ALT 177 UA positive for leukoesterase, WBC WBC 7.7 hemoglobin 8.9 platelets 151 potassium 3.5 bun 48 creatinine 2.08 AST 568 ALT 166. By 1220 Troponin I 0.081, 0.085 Coronavirus [PCF]: Not detected EKG tracing personally reviewed by me-atrial fibrillation rate of 61 Chest x-ray film personally reviewed by me-cardiomegaly, possible venous prominence Previous labs: Bun 36 creatinine 1.4 on 08/30/2020 Assessment and plan: -Acute kidney injury, possibly prerenal from decreased oral intake-worsening Lasix drip discontinued. Lactated Ringer's started at 75 mL an hour. -Possible Chronic congestive heart failure from diastolic dysfunction EF 55-55%,- Lasix drip-discontinued. -Moderate tricuspid regurgitation, follow clinically -Persistent atrial fibrillation,-rate controlled Telemetry. -Coronary artery disease with prior history of stent, Lopressor, Lipitor -History of intracranial bleed from anticoagulation -GERD, use Pepcid -Hard of hearing -Essential hypertension, continue with hydralazine, Lopressor- -Hyperlipidemia, continue Lipitor -Primary osteoarthritis, use Tylenol when necessary -Chronic urinary stress incontinence, Use depends -Chronic kidney disease stage III likely from nephrosclerosis, follow renal function -Sigmoid diverticulosis-asymptomatic - chronic medical debility- PT OT -Metabolic acidosis fromRenal failure Sodium bicarbonate -Likely ischemic hepatitis-slow to respond DC Lipitor for now -Acute UTI with cystitis Start ceftriaxone -DO NOT RESUSCITATE Lasix drip discontinued. LR started at 75 mL an hour. Started IV ceftriaxone. Gerry wrap to both the lower extremities. Discussed with daughter the bedside. Prognosis is guarded given multiple comorbidities.
[2020-09-09] MEDS: hydrALAZINE HCL 25 MG TAB PO SCH ×2 (16:57→22:36)
[2020-09-09] MEDS: METOPROLOL TARTRATE 25 MG TAB PO SCH ×2 (16:57→22:36)
[2020-09-09] MEDS: CLOPIDOGREL 75 MG TAB PO SCH (19:13)
[2020-09-09] MEDS: LACTATED RINGERS 1,000 ML IV SCH (19:14)
[2020-09-09] MEDS: ASPIRIN 81 MG PO SCH (19:14)
[2020-09-10 06:15] LABS: Glucose,Whole Blood 78 mg/dL (75-99)
[2020-09-10] MEDS: ALBUTEROL NEBULIZED 2.5 MG/3 ML INHALATION SCH ×3 (07:34→21:11)
[2020-09-10] MEDS: SERTRALINE 100 MG TAB PO SCH (09:23)
[2020-09-10] MEDS: PANTOPRAZOLE 40 MG TABLET PO SCH (09:23)
[2020-09-10 11:36] LABS: Glucose,Whole Blood 76 mg/dL (75-99)
[2020-09-10] MEDS ORDERED: LACTULOSE 20 GM/30 ML CUP PO ONE (12:01)
[2020-09-10 13:13] LABS: Calcium 8.1 mg/dL (8.4-10.2); Potassium 3.8 mmol/L (3.5-5.1)
[2020-09-10] MEDS ORDERED: FUROSEMIDE 10 MG/ML 10 ML VIAL IV STA (14:21)
[2020-09-10] MEDS: METOPROLOL TARTRATE 25 MG TAB PO SCH ×2 (14:23→21:08)
[2020-09-10] MEDS: hydrALAZINE HCL 25 MG TAB PO SCH (14:23)
[2020-09-10 14:31] VITALS: BMI 20.1
--- NOTE | 2020-09-10 14:36 | PN ---
PROGRESS NOTE The patient is seen for followup for acute kidney injury. The patient was admitted with complaints of shortness of breath and increased lower extremity edema. She, however, did not respond to Lasix drip. She remains oliguric with worsening renal function. The patient is advised that she may need renal replacement therapy if renal function continues to worsen. No evidence of hydronephrosis on ultrasound. The Lasix drip was held yesterday and she was given a bolus of IV fluids with no improvement in urine output. PHYSICAL EXAMINATION: On examination today, patient is lying in bed comfortable. She is not in any acute distress. Blood pressure 93/57, heart rate 50 per minute. She is afebrile. Examination of the heart S1, S2. Examination of the lungs, bilateral breath sounds are heard. Abdomen is soft, nontender. Examination of lower extremities shows 1+ edema bilaterally. [employer] SYSTEM OPERATOR exam is grossly intact. LAB: Show sodium of 134, potassium 3.8, CO2 is 16, BUN 58, serum creatinine 3.24. UA shows 3+ protein, blood is small, trace ketones, WBCs 86 with multiple clumps noted. ASSESSMENT: 1. Acute kidney injury cardiorenal versus acute tubular necrosis currently oliguric with worsening renal function. Patient is advised that we will need to start renal replacement therapy if renal function continues to worsen. She had been on Lasix drip which was discontinued and given a fluid bolus with no improvement in renal and urine output. I will have the nurse flush the Hilliard catheter since there was debris noted in the bladder on ultrasound and we will try another dose of Lasix at 60 mg. Blood pressure is also on the lower side. Therefore, hydralazine, Procardia and Lopressor will be decreased. 2. Chronic diastolic congestive heart failure, EF 50-55 percent recently in June of 2020. 3. History of recent Covid 19 pneumonia. PLAN: Flush Hilliard catheter. Decrease blood pressure medications. Retry Lasix after Hilliard catheter is flushed. The patient will need to start dialysis if there is no improvement in renal function. I have discussed this briefly with her today. She does not need to be dialyzed today. MMODL / IJN: [id number] /
--- NOTE | 2020-09-10 15:59 | XR ---
EXAMINATION TYPE: XR abdomen 1V DATE OF EXAM: 09/10/2020 3:51 PM CLINICAL HISTORY: Hilliard catheter placement TECHNIQUE: Two supine KUB images of the abdomen are obtained. COMPARISON: Abdominal x-ray July 13, 2020. CT abdomen and pelvis June 13, 2020. FINDINGS: Scattered gas is seen in non-distended small bowel loops. Gas and fecal material is seen in non-distended colon. Cholecystectomy clips are redemonstrated. Coronary stent in the RCA distributio n is redemonstrated. Mild to moderate diffuse subcutaneous edema and/or soft tissue anasarca is noted . Phillip prominent osteophytes throughout the spine. Bilateral groin arterial vascular calcification s. IMPRESSION: Overall nonobstructive bowel gas pattern.
[2020-09-10] MEDS: ALPRAZolam 0.5 MG TAB PO SCH ×2 (17:38→22:59)
[2020-09-10] MEDS: CLOPIDOGREL 75 MG TAB PO SCH (17:38)
[2020-09-10] MEDS: ASPIRIN 81 MG PO SCH (17:38)
[2020-09-10] MEDS: LACTATED RINGERS 1,000 ML IV SCH (17:40)
--- NOTE | 2020-09-10 18:13 | P.PN ---
Progress Note - Text Progress Note Date: 09/10/20 Chief Complaint: Decreased urine output History of presenting complaint: This is a pleasant 85-year-old patient who follows with Dr. Arturo Zamarripa. Chronic stable medical conditions include congestive heart failure from diastolic dysfunction EF 50-55%, tricuspid regurgitation, atrial fibrillation, coronary artery disease with prior stent, intracranial bleed from anticoagulation, diabetes, GERD, hard of hearing, hypertension and hyperlipidemia osteoarthritis chronic urinary stress incontinence chronic tremors chronic kidney disease stage III. Patient's had multiple UTIs in the past. baseline uses a walker. Lives and cared for by her daughter Vesta. June 2020: Patient had a TIA. MRI was unremarkable. Also had an acute OH. Recently in the hospital from August 24 through August 30. Had a creatinine of 2.25 down to 1.3 before discharge. Patient has responded to Lasix and IV fluids. Patient now presents feeling weak and tired. Decreased oral intake. Decreased urine output. Has a Hilliard catheter. Placed in the ER. Some shortness of breath. Admitted with acute kidney injury. Patient started on IV Lasix drip. Did not make any urine. Hilliard catheter position was rechecked. Lasix discontinued. Started on IV fluids. Today: Patient still not making urine. Daughter the bedside. Did speak to the nurse Adriane. Hilliard catheter and bladder was flushed with water and had a good return. Patient been constipated for at least 3-4 days. Lactulose and possible enema ordered. Care was discussed with the daughter the bedside. Did mention that nephrology is following the case. 1 dose of Lasix 60 mg IV ordered by Dr. Hemphill Review of systems: Was done for constitutional, cardiovascular, GI, pulmonary. relevant finding as above Active Medications Acetaminophen (Acetaminophen Tab 325 Mg Tab) 650 mg PO Q6HR PRN PRN Reason: Mild Pain or Fever > 100.5 Al Hydroxide/Mg Hydroxide (Mag Hydrox/Al Hydrox/Simeth 30 Ml Cup) 15 ml PO Q6HR PRN PRN Reason: Indigestion Albuterol Sulfate (Albuterol Nebulized 2.5 Mg/3 Ml) 2.5 mg INHALATION RT-TID [facility] Last Admin: 09/10/20 10:39 Dose: Not Given Documented by: Alprazolam (Alprazolam 0.5 Mg Tab) 0.5 mg PO BID@1800,2300 [facility] Last Admin: 09/10/20 17:38 Dose: 0.5 mg Documented by: Aspirin (Aspirin 81 Mg) 81 mg PO DAILY@1800 [facility] Last Admin: 09/10/20 17:38 Dose: 81 mg Documented by: Calcium Carbonate/Glycine (Calcium Carbonate 500 Mg Chewable) 1,000 mg PO Q4HR PRN PRN Reason: Dyspepsia Clopidogrel Bisulfate (Clopidogrel 75 Mg Tab) 75 mg PO DAILY@1800 [facility] Last Admin: 09/10/20 17:38 Dose: 75 mg Documented by: Hydralazine HCl (Hydralazine Hcl 25 Mg Tab) 25 mg PO BID [facility] Last Admin: 09/10/20 14:23 Dose: Not Given Documented by: Ceftriaxone Sodium 1 gm/ (Sodium Chloride) 50 mls @ 100 mls/hr IVPB Q24HR [facility] Last Admin: 09/10/20 09:24 Dose: 100 mls/hr Documented by: Lactulose (Lactulose 20 Gm/30 Ml Cup) 20 gm PO DAILY PRN PRN Reason: Constipation Magnesium Hydroxide (Magnesium Hydroxide 2,400 Mg/10 Ml Cup) 2,400 mg PO DAILY PRN PRN Reason: Constipation Melatonin (Melatonin 3 Mg Tablet) 3 mg PO HS PRN PRN Reason: Insomnia Metoprolol Tartrate (Metoprolol Tartrate 25 Mg Tab) 25 mg PO BID [facility] Last Admin: 09/10/20 14:23 Dose: Not Given Documented by: Naloxone HCl (Naloxone 0.4 Mg/Ml 1 Ml Vial) 0.2 mg IV Q2M PRN PRN Reason: Opioid Reversal Ondansetron HCl (Ondansetron 4 Mg/2 Ml Vial) 4 mg IVP Q8HR PRN PRN Reason: Nausea And Vomiting Pantoprazole Sodium (Pantoprazole 40 Mg Tablet) 40 mg PO AC-BRKFST [facility] Last Admin: 09/10/20 09:23 Dose: 40 mg Documented by: Sertraline HCl (Sertraline 100 Mg Tab) 200 mg PO DAILY@1000 [facility] Last Admin: 09/10/20 09:23 Dose: 200 mg Documented by: Past medical history to include: congestive heart failure from diastolic dysfunction EF 50-55%, ordered tricuspid regurgitation, atrial fibrillation, coronary artery disease with prior stent, intracranial bleed from anticoagulation, diabetes, GERD, hard of hearing, hypertension and hyperlipidemia osteoarthritis chronic urinary stress incontin ence chronic tremors chronic kidney disease stage III. 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 caregiver. Walker. Patient smoked for 20 years stopped in 1965. No alcohol. Physical examination: VITAL SIGNS: 98.2, 50, 18, 93/57, 96% on 2 L GENERAL: reclining in bed, awake, EYES: Pupils equal. Conjunctiva normal. HEENT: External appearance of nose and ears normal, oral cavity dry mucous membranes NECK: JVD unable to be assessed; masses not palpable. HEART: First and second heart sounds are normal; edema present. LUNGS: Respiratory rate normal; decreased breath sounds ABDOMEN: Soft, nontender, liver spleen not palpable, no masses palpable. Hilliard catheter PSYCH: Able to answer simple questions MUSCULAR skeletal: Evidence of OA INVESTIGATIONS, reviewed in the clinical context: September 10: Potassium 3.8 creatinine 3.24 Ultrasound kidney bladder: October 05 feeding. No hydronephrosis. Questionable bladder masses.-Unable to be defined if this is from anterior to the bladder. September 09: Potassium 3.6 BUN 52 creatinine 2.61 AST 619 ALT 177 UA positive for leukoesterase, WBC WBC 7.7 hemoglobin 8.9 platelets 151 potassium 3.5 bun 48 creatinine 2.08 AST 5 68 ALT 166. By 1220 Troponin I 0.081, 0.085 Coronavirus [PCF]: Not detected EKG tracing personally reviewed by me-atrial fibrillation rate of 61 Chest x-ray film personally reviewed by me-cardiomegaly, possible venous prominence Previous labs: Bun 36 creatinine 1.4 on 08/30/2020 Assessment and plan: -Acute kidney injury, possibly prerenal from decreased oral intake-worsening Lasix drip discontinued. Lactated Ringer's started at 75 mL an hour.- Discontinued. Abnormal bladder pathology unclear. Consult urology. -Acute constipation Lactulose with possible follow-up with enema -Possible Chronic congestive heart failure from diastolic dysfunction EF 55-55%,- Lasix drip-discontinued. -Moderate tricuspid regurgitation, follow clinically -Persistent atrial fibrillation,-rate controlled Telemetry. -Coronary artery disease with prior history of stent, Lopressor, Lipitor -History of intracranial bleed from anticoagulation -GERD, use Pepcid -Hard of hearing -Essential hypertension, continue with hydralazine, Lopressor-. Blood pressure in the low side. DC hydralazine -Hyperlipidemia, continue Lipitor -Primary osteoarthritis, use Tylenol when necessary -Chronic urinary stress incontinence, Use depends -Chronic kidney disease stage III likely from nephrosclerosis, follow renal function -Sigmoid diverticulosis-asymptomatic - chronic medical debility- PT OT -Metabolic acidosis fromRenal failure Sodium bicarbonate -Likely ischemic hepatitis-slow to respond DC Lipitor for now -Acute UTI with cystitis Start ceftriaxone -DO NOT RESUSCITATE Worsening renal function. Poor urine output. Could be contribution from constipation. Lactulose followed by possible enema. We'll consult urology given the abnormal ultrasound findings. Discussed at length with the daughter and patient the bedside. Also discussed with the nurse. Repeat CMP in the morning. Blood pressure running on the lower side. DC hydralazine. I spent today about 40 minutes with over 20 minutes of discussion.
[2020-09-10] MEDS: hydrALAZINE HCL 50 MG TAB PO SCH (18:45)
[2020-09-10 21:25] LABS: Glucose,Whole Blood 125 mg/dL (75-99)
[2020-09-11 03:43] LABS: Hepatitis A Antibody IgM Non-Reactive (Non-Reactive); Hepatitis B Core IgM Non-Reactive (Non-Reactive); Hepatitis B Surface Antigen Non-Reactive (Non-Reactive); Hepatitis C IgG Antibody Non-Reactive (Non-Reactive)
[2020-09-11 06:01] LABS: Glucose,Whole Blood 109 mg/dL (75-99)
[2020-09-11] MEDS: PANTOPRAZOLE 40 MG TABLET PO SCH (06:21)
[2020-09-11] MEDS: SERTRALINE 100 MG TAB PO SCH (08:17)
[2020-09-11] MEDS: METOPROLOL TARTRATE 25 MG TAB PO SCH ×2 (08:18→21:35)
--- NOTE | 2020-09-11 08:28 | P.GSCN ---
History of Present Illness Consult date: 09/11/20 Reason for Consult: Bladder masses Requesting physician: Jeffrey Rossi History of present illness: The patient is an 85-year-old white female admitted with congestive heart failure and acute kidney injury. She states that she has been treated for recurrent UTIs. She denies any prior history of urolithiasis. Ultrasound shows bilateral renal cysts. The kidneys were poorly visualized, but there was no evidence of hydronephrosis. The ultrasound shows debris within the bladder as well as the possible presence of bladder masses. I am consulted for this reason. 2 urine cultures in June 2020 showed Proteus mirabilis, sensitive to Rocephin which she is currently receiving. Urinalysis obtained at the time of the current admission was suggestive of infection. A urine culture was not obtained. She currently reports dysuria. She denies hematuria. She has been noted to be anuric. 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 and has been bed bound since, NIDDM type II, spinal stenosis, leaky bladder, bilateral hand tremors, vertigo, [place] bilaterally, eczema, bronchitis, sinus problems, hiatal hernia Last Myocardial Infarction Date:: 1998 History of Any Multi-Drug Resistant Organisms: None Reported Past Surgical History: Cholecystectomy, Heart Catheterization With Stent Additional Past Surgical History / Comment(s): pt htinks she has 4-5 cardiac stents Past Anesthesia/Blood Transfusion Reactions: No Reported Reaction Date of Last Stent Placement:: 2009 Past Psychological History: Anxiety, Depression Additional Psychological History / Comment(s): Pt resides with daughter, Vesta who is her caregiver. pt states she is bed bound She no longer drives-family takes her to [employer]. Smoking Status: Former smoker Past Alcohol Use History: None Reported Additional Past Alcohol Use History / Comment(s): Pt states she started smoking at age 10 (1948) and quit in 1965. Past Drug Use History: None Reported - Past Family History Mother Family Medical History: Cancer Additional Family Medical History / Comment(s): Mother had breast cancer with mets-she at age 71 yrs. Father Family Medical History: Cancer Additional Family Medical History / Comment(s): Father had esophageal cancer and in his 70's. Sister(s) Family Medical History: Cancer Additional Family Medical History / Comment(s): Sister os breast cancer Daughter(s) Additional Family Medical History / Comment(s): Pt has had one pierre from breast cancer and another pierre from MS. Medications and Allergies Home Medications Medication Instructions Recorded Confirmed Type Atorvastatin [Lipitor] 20 mg PO HS@2300 06/23/15 09/08/20 History Sertraline [Zoloft] 200 mg PO DAILY@1000 06/23/15 09/08/20 History Ezetimibe [Zetia] 10 mg PO DAILY@1800 01/26/19 09/08/20 History ALPRAZolam [Xanax] 0.5 mg PO BID@1800,2300 06/10/20 09/08/20 History Aspirin 81 mg PO DAILY@1800 06/26/20 09/08/20 History Clopidogrel [Plavix] 75 mg PO DAILY@1800 06/26/20 09/08/20 History Losartan Potassium 100 mg PO DAILY@1000 06/26/20 09/08/20 History NIFEdipine [NIFEdipine ER] 30 mg PO DAILY@1800 06/26/20 09/08/20 History hydrALAZINE HCL [Apresoline] 50 mg PO TID@1000,1800,2300 06/26/20 09/08/20 Histo ry Acetaminophen Tab [Tylenol] 650 mg PO Q6HR PRN tab 07/14/20 09/08/20 Rx Albuterol Inhaler [Ventolin Hfa 2 puff INHALATION RT-TID #1 inh 07/14/20 09/08/20 Rx Inhaler] Docusate [Colace] 100 mg PO BID PRN #10 cap 07/14/20 09/08/20 Rx Pantoprazole [Protonix] 40 mg PO DAILY #30 tablet. 07/14/20 09/08/20 Rx Furosemide [Lasix] 20 mg PO DAILY@1000 08/24/20 09/08/20 History Metoprolol Tartrate [Lopressor] 100 mg PO BID@1000,1800 08/24/20 09/08/20 History Allergies Allergy/AdvReac Type Severity Reaction Status Date / Time levofloxacin [From Levaquin] Allergy Rash/Hives Verified 09/08/20 10:06 Penicillins Allergy Rash/Hives Verified 09/08/20 10:06 Sulfa (Sulfonamide Allergy Rash/Hives Verified 09/08/20 10:06 Antibiotics) Surgical - Exam Vital Signs Temp Pulse Resp BP Pulse Ox 98.5 F 67 21 103/45 92 L 09/08/20 06:30 09/08/20 06:30 09/08/20 06:30 09/08/20 06:30 09/08/20 06:30 - General well developed, well nourished, no distress - Respiratory normal respiratory effort - Abdomen Abdomen: soft, non tender, no guarding, no rigid, no rebound - Psychiatric oriented to time, oriented to person, oriented to place, speech is normal, memory intact Results - Labs 09/08/20 06:48 09/10/20 12:27 Abnormal Lab Results - Last 24 Hours (Table) 09/10/20 09/10/20 09/11/20 Range/Units 12:27 21:24 05:59 Sodium 134 L (137-145) mmol/L Carbon Dioxide 16 L (22-30) mmol/L BUN 58 H (7-17) mg/dL Creatinine 3.24 H (0.52-1.04) mg/dL Glucose 67 L (74-99) mg/dL POC Glucose (mg/dL) 125 H 109 H (75-99) mg/dL Calcium 8.1 L (8.4-10.2) mg/dL Diabetes panel 09/10/20 Range/Units 12:27 Sodium 134 L (137-145) mmol/L Potassium 3.8 (3.5-5.1) mmol/L Chloride 102 (98-107) mmol/L Carbon Dioxide 16 L (22-30) mmol/L BUN 58 H (7-17) mg/dL Creatinine 3.24 H (0.52-1.04) mg/dL Glucose 67 L (74-99) mg/dL Calcium 8.1 L (8.4-10.2) mg/dL Calcium panel 09/10/20 Range/Units 12:27 Calcium 8.1 L (8.4-10.2) mg/dL Pituitary panel 09/10/20 Range/Units 12:27 Sodium 134 L (137-145) mmol/L Potassium 3.8 (3.5-5.1) mmol/L Chloride 102 (98-107) mmol/L Carbon Dioxide 16 L (22-30) mmol/L BUN 58 H (7-17) mg/dL Creatinine 3.24 H (0.52-1.04) mg/dL Glucose 67 L (74-99) mg/dL Calcium 8.1 L (8.4-10.2) mg/dL Adrenal panel 09/10/20 Range/Units 12:27 Sodium 134 L (137-145) mmol/L Potassium 3.8 (3.5-5.1) mmol/L Chloride 102 (98-107) mmol/L Carbon Dioxide 16 L (22-30) mmol/L BUN 58 H (7-17) mg/dL Creatinine 3.24 H (0.52-1.04) mg/dL Glucose 67 L (74-99) mg/dL Calcium 8.1 L (8.4-10.2) mg/dL - Imaging US - kidney/bladder: report reviewed Assessment and Plan (1) Nonspecific abnormal finding on imaging of genitourinary organs Current Visit: Yes Status: Acute Code(s): R93.89 - ABNORMAL FINDINGS ON DX IMAGING OF OTH BODY STRUCTURES SNOMED Code(s): 222492532 Plan: The patient is anuric. Ultrasound shows no evidence of hydronephrosis. I irrigated the catheter and verified its patency. Thus, it is evident that there is not an obstructive component to her anuria. Dialysis is being considered. Cystoscopy will be required at some point to rule out intravesical pathology. Time with Patient: Greater than 30
[2020-09-11] MEDS: ALBUTEROL NEBULIZED 2.5 MG/3 ML INHALATION SCH ×3 (08:35→21:06)
[2020-09-11 08:37] LABS: Albumin 2.5 g/dL (3.5-5.0); Calcium 8.1 mg/dL (8.4-10.2); Potassium 3.6 mmol/L (3.5-5.1); Total Bilirubin 0.9 mg/dL (0.2-1.3); Total Protein 5.6 g/dL (6.3-8.2)
--- NOTE | 2020-09-11 11:20 | P.PN ---
Subjective Patient is seen in follow-up for acute kidney injury. Renal function continues to worsen. Anuric. Blood pressure remains on the lower side. Currently on 2 L nasal cannula. Oral intake fair. Son present at bedside. Vital signs are stable. Blood pressure in the lower side. General: The patient appeared well nourished and normally developed. HEENT: Head exam is unremarkable. On nasal cannula. LUNGS: Breath sounds decreased. HEART: Rate and Rhythm are regular. ABDOMEN: Soft, no distention. EXTREMITITES: 2+ edema. Objective - Vital Signs Vital signs: Vital Signs Temp 97.2 F L 09/11/20 03:58 Pulse 71 09/11/20 08:52 Resp 18 09/11/20 03:58 BP 91/44 09/11/20 03:58 Pulse Ox 97 09/11/20 08:36 Intake & Output 09/10/20 09/11/20 09/11/20 18:59 06:59 18:59 Output Total 0 Balance 0 Weight 50 kg 69.5 kg Output: Urine 0 Uretheral (Hilliard) 0 Other: Voiding Method Indwelling Catheter Indwelling Catheter # Bowel Movements 1 1 - Labs CBC & Chem 7: 09/08/20 06:48 09/11/20 07:13 Labs: Abnormal Lab Results - Last 24 Hours (Table) 09/10/20 09/10/20 09/11/20 Range/Units 12:27 21:24 05:59 Sodium 134 L (137-145) mmol/L Carbon Dioxide 16 L (22-30) mmol/L BUN 58 H (7-17) mg/dL Creatinine 3.24 H (0.52-1.04) mg/dL Glucose 67 L (74-99) mg/dL POC Glucose (mg/dL) 125 H 109 H (75-99) mg/dL Calcium 8.1 L (8.4-10.2) mg/dL AST (14-36) U/L ALT (4-34) U/L Total Protein (6.3-8.2) g/dL Albumin (3.5-5.0) g/dL 09/11/20 Range/Units 07:13 Sodium 133 L (137-145) mmol/L Carbon Dioxide 18 L (22-30) mmol/L BUN 61 H (7-17) mg/dL Creatinine 3.58 H (0.52-1.04) mg/dL Glucose 101 H (74-99) mg/dL POC Glucose (mg/dL) (75-99) mg/dL Calcium 8.1 L (8.4-10.2) mg/dL AST 398 H (14-36) U/L ALT 129 H (4-34) U/L Total Protein 5.6 L (6.3-8.2) g/dL Albumin 2.5 L (3.5-5.0) g/dL Assessment and Plan Plan: Assessment 1. Acute kidney injury secondary to ATN secondary to hypotension and component of cardiorenal syndrome. Creatinine 3.58 today. Anuric. Renal ultrasound showed atrophic kidneys. 2. Acute on chronic diastolic CHF with moderate tricuspid regurgitation. 3. Volume overload. 4. Metabolic acidosis secondary to acute kidney injury. 5. Hypervolemic hyponatremia. 6. Chronic kidney disease stage III a with baseline creatinine in the range of 1-1.5. 7. Anemia of chronic kidney disease. Rule out deficiency. Plan: Check iron studies. Add midodrine. Check morning cortisol level. With worsening renal function, anuria, and volume overload, initiate renal replacement therapy. Consult vascular surgery for dialysis catheter placement. Plan for first treatment of hemodialysis today and second treatment tomorrow. Continue to monitor renal function and urine output. Case discussed with the patient and her son who was present at bedside. Also discussed with primary attending.
[2020-09-11 12:36] LABS: Glucose,Whole Blood 112 mg/dL (75-99)
[2020-09-11] MEDS: MIDODRINE 5 MG TAB PO SCH ×3 (12:41→17:48)
[2020-09-11 17:08] LABS: Glucose,Whole Blood 114 mg/dL (75-99)
[2020-09-11] MEDS: ASPIRIN 81 MG PO SCH (17:47)
[2020-09-11] MEDS: ALPRAZolam 0.5 MG TAB PO SCH ×2 (17:47→23:25)
[2020-09-11] MEDS: CLOPIDOGREL 75 MG TAB PO SCH (17:47)
--- NOTE | 2020-09-11 20:06 | P.PN ---
Progress Note - Text Progress Note Date: 09/11/20 Chief Complaint: Decreased urine output History of presenting complaint: This is a pleasant 85-year-old patient who follows with Dr. Arturo Zamarripa. Chronic stable medical conditions include congestive heart failure from diastolic dysfunction EF 50-55%, tricuspid regurgitation, atrial fibrillation, coronary artery disease with prior stent, intracranial bleed from anticoagulation, diabetes, GERD, hard of hearing, hypertension and hyperlipidemia osteoarthritis chronic urinary stress incontinence chronic tremors chronic kidney disease stage III. Patient's had multiple UTIs in the past. baseline uses a walker. Lives and cared for by her daughter Vesta. June 2020: Patient had a TIA. MRI was unremarkable. Also had an acute [place]. Recently in the hospital from August 24 through August 30. Had a creatinine of 2.25 down to 1.3 before discharge. Patient has responded to Lasix and IV fluids. Patient now presents feeling weak and tired. Decreased oral intake. Decreased urine output. Has a Hilliard catheter. Placed in the ER. Some shortness of breath. Admitted with acute kidney injury. Patient started on IV Lasix drip. Did not make any urine. Hilliard catheter position was rechecked. Lasix discontinued. Started on IV fluids. Patient being followed by urology and nephrology Today: She not make any urine. Getting edema. Earlier today Dr. Amos is spoken to the patient and her son Kevin in the room. Then decided to proceed with dialysis. Later when I came in the room patient's daughter was present. After long discussion with the patient and the daughter seems that disinclined for the same. Her daughter is going to speak to other family members and patient. I did tell her to inform Dr. Amos on whatever decision she took. Understanding that the renal failure was not improving otherwise. Patient keeps repeating she does not want pain from the dialysis catheter. Or discomfort from the same. Review of systems: Was done for constitutional, cardiovascular, GI, pulmonary. relevant finding as above Active Medications Acetaminophen (Acetaminophen Tab 325 Mg Tab) 650 mg PO Q6HR PRN PRN Reason: Mild Pain or Fever > 100.5 Al Hydroxide/Mg Hydroxide (Mag Hydrox/Al Hydrox/Simeth 30 Ml Cup) 15 ml PO Q6HR PRN PRN Reason: Indigestion Albuterol Sulfate (Albuterol Nebulized 2.5 Mg/3 Ml) 2.5 mg INHALATION RT-TID [facility] Last Admin: 09/11/20 11:45 Dose: 2.5 mg Documented by: Alprazolam (Alprazolam 0.5 Mg Tab) 0.5 mg PO BID@1800,2300 [facility] Last Admin: 09/11/20 17:47 Dose: 0.5 mg Documented by: Aspirin (Aspirin 81 Mg) 81 mg PO DAILY@1800 [facility] Last Admin: 09/11/20 17:47 Dose: 81 mg Documented by: Calcium Carbonate/Glycine (Calcium Carbonate 500 Mg Chewable) 1,000 mg PO Q4HR PRN PRN Reason: Dyspepsia Clopidogrel Bisulfate (Clopidogrel 75 Mg Tab) 75 mg PO DAILY@1800 [facility] Last Admin: 09/11/20 17:47 Dose: 75 mg Documented by: Ceftriaxone Sodium 1 gm/ (Sodium Chloride) 50 mls @ 100 mls/hr IVPB Q24HR [facility] Last Admin: 09/11/20 08:17 Dose: 100 mls/hr Documented by: Lactulose (Lactulose 20 Gm/30 Ml Cup) 20 gm PO DAILY PRN PRN Reason: Constipation Magnesium Hydroxide (Magnesium Hydroxide 2,400 Mg/10 Ml Cup) 2,400 mg PO DAILY PRN PRN Reason: Constipation Melatonin (Melatonin 3 Mg Tablet) 3 mg PO HS PRN PRN Reason: Insomnia Metoprolol Tartrate (Metoprolol Tartrate 25 Mg Tab) 25 mg PO BID [facility] Last Admin: 09/11/20 08:18 Dose: 25 mg Documented by: Midodrine (Midodrine 5 Mg Tab) 10 mg PO AC-TID [facility] Last Admin: 09/11/20 17:48 Dose: Not Given Documented by: Naloxone HCl (Naloxone 0.4 Mg/Ml 1 Ml Vial) 0.2 mg IV Q2M PRN PRN Reason: Opioid Reversal Ondansetron HCl (Ondansetron 4 Mg/2 Ml Vial) 4 mg IVP Q8HR PRN PRN Reason: Nausea And Vomiting Pantoprazole Sodium (Pantoprazole 40 Mg Tablet) 40 mg PO AC-BRKFST [facility] Last Admin: 09/11/20 06:21 Dose: 40 mg Documented by: Sertraline HCl (Sertraline 100 Mg Tab) 200 mg PO DAILY@1000 [facility] Last Admin: 09/11/20 08:17 Dose: 200 mg Documented by: Past medical history to include: congestive heart failure from diastolic dysfunction EF 50-55%, ordered tricuspid regurgitation, atrial fibrillation, coronary artery disease with prior stent, intracranial bleed from anticoagulation, diabetes, GERD, hard of hearing, hypertension and hyperlipidemia osteoarthritis chronic urinary stress incontinence chronic tremors chronic kidney disease stage III. 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 caregiver. Walker. Patient smoked for 20 years stopped in 1965. No alcohol. Physical examination: VITAL SIGNS: 97.4, 64, 20, 129/60, 96% on 2 L GENERAL: reclining in bed, awake, EYES: Pupils equal. Conjunctiva normal. HEENT: External appearance of nose and ears normal, oral cavity dry mucous membranes NECK: JVD unable to be assessed; masses not palpable. HEART: First and second heart sounds are normal; edema present. LUNGS: Respiratory rate normal; decreased breath sounds ABDOMEN: Soft, nontender, liver spleen not palpable, no masses palpable. Hilliard catheter PSYCH: Answering questions MUSCULAR skeletal: Evidence of OA INVESTIGATIONS, reviewed in the clinical context: September 11: Potassium 3.6 BUN 61 and creatinine 3.58 AST 398 ALT 129 September 10: Potassium 3.8 creatinine 3.24 Ultrasound kidney bladder: October 05 feeding. No hydronephrosis. Questionable bladder masses.-Unable to be defined if this is from anterior to the bladder. September 09: Potassium 3.6 BUN 52 creatinine 2.61 AST 619 ALT 177 UA positive for leukoesterase, WBC WBC 7.7 hemoglobin 8.9 platelets 151 potassium 3.5 bun 48 creatinine 2.08 AST 568 ALT 166. By 1220 Troponin I 0.081, 0.085 Coronavirus [PCF]: Not detected EKG tracing personally reviewed by me-atrial fibrillation rate of 61 Chest x-ray film personally reviewed by me-cardiomegaly, possible venous prominence Previous labs: Bun 36 creatinine 1.4 on 08/30/2020 Assessment and plan: -Acute kidney injury, oliguric, possibly prerenal/ATN -worsening Lasix drip discontinued. Lactated Ringer's started at 75 mL an hour.- Discontinued. Hilliard catheter placement double checked. Patient and daughter seems a leaning away from dialysis. -Acute constipation Lactulose with possible follow-up with enema -Possible Chronic congestive heart failure from diastolic dysfunction EF 55-55%,- Lasix drip-discontinued. -Moderate tricuspid regurgitation, follow clinically -Persistent atrial fibrillation,-rate controlled Telemetry. -Coronary artery disease with prior history of stent, Lopressor, Lipitor -History of intracranial bleed from anticoagulation -GERD, use Pepcid -Hard of hearing -Essential hypertension, continue with hydralazine, Lopressor-. Blood pressure in the low side. DC hydralazine -Hyperlipidemia, continue Lipitor -Primary osteoarthritis, use Tylenol when necessary -Chronic urinary stress incontinence, Use depends -Chronic kidney disease stage III likely from nephrosclerosis, follow renal function -Sigmoid diverticulosis-asymptomatic - chronic medical debility- PT OT -Metabolic acidosis fromRenal failure Sodium bicarbonate -Likely ischemic hepatitis-slow to respond DC Lipitor for now -Acute UTI with cystitis Start ceftriaxone -DO NOT RESUSCITATE Worsening renal function. Poor urine output. I called the nurse in the evening it seems patient daughter and several siblings and the patient and decided against dialysis. If the clinical condition deteriorates we'll discuss with the patient about and family possible hospice
[2020-09-11 20:27] LABS: Ferritin 261.9 ng/mL (10.0-291.0)
[2020-09-11 20:32] LABS: Glucose,Whole Blood 125 mg/dL (75-99)
[2020-09-11 20:33] LABS: % Iron Saturation 11.32 (12.00-45.00)
[2020-09-12 06:08] LABS: Glucose,Whole Blood 152 mg/dL (75-99)
[2020-09-12] MEDS: PANTOPRAZOLE 40 MG TABLET PO SCH (06:34)
[2020-09-12] MEDS: ALBUTEROL NEBULIZED 2.5 MG/3 ML INHALATION SCH ×3 (08:56→20:30)
[2020-09-12] MEDS: METOPROLOL TARTRATE 25 MG TAB PO SCH (09:12)
[2020-09-12] MEDS: SERTRALINE 100 MG TAB PO SCH (09:12)
[2020-09-12] MEDS: MIDODRINE 5 MG TAB PO SCH ×3 (09:12→14:46)
[2020-09-12 09:52] LABS: Calcium 8.5 mg/dL (8.4-10.2); Magnesium 1.8 mg/dL (1.6-2.3); Potassium 3.7 mmol/L (3.5-5.1)
[2020-09-12] MEDS ORDERED: FUROSEMIDE 10 MG/ML 10 ML VIAL IV STA (10:20)
--- NOTE | 2020-09-12 10:23 | P.PN ---
Subjective Patient is seen in follow-up for acute kidney injury. Renal function continues to worsen. Urine output about 100 mL overnight. Blood pressure stable. On midodrine. Currently on 2 L nasal cannula. Oral intake fair. Vital signs are stable. Blood pressure in the lower side. General: The patient appeared well nourished and normally developed. HEENT: Head exam is unremarkable. On nasal cannula. LUNGS: Breath sounds decreased. HEART: Rate and Rhythm are regular. ABDOMEN: Soft, no distention. EXTREMITITES: 2+ edema. Objective - Vital Signs Vital signs: Vital Signs Temp 98.2 F 09/12/20 09:29 Pulse 67 09/12/20 09:29 Resp 18 09/12/20 09:29 BP 110/51 09/12/20 09:29 Pulse Ox 96 09/12/20 09:29 Intake & Output 09/11/20 09/12/20 09/12/20 18:59 06:59 18:59 Intake Total 660 50 Output Total 100 Balance 660 -50 Weight 67 kg Intake: Oral 660 50 Output: Urine 100 Other: Voiding Method Indwelling Catheter Indwelling Catheter - Labs CBC & Chem 7: 09/08/20 06:48 09/11/20 07:13 Labs: Abnormal Lab Results - Last 24 Hours (Table) 09/11/20 09/11/20 09/11/20 Range/Units 07:13 12:16 16:54 POC Glucose (mg/dL) 112 H 114 H (75-99) mg/dL Iron 24 L (50-170) ug/dL TIBC 212 L (228-460) ug/dL % Saturation 11.32 L (12.00-45.00) 09/11/20 09/12/20 Range/Units 20:30 06:07 POC Glucose (mg/dL) 125 H 152 H (75-99) mg/dL Iron (50-170) ug/dL TIBC (228-460) ug/dL % Saturation (12.00-45.00) Assessment and Plan Plan: Assessment 1. Acute kidney injury secondary to ATN secondary to hypotension and component of cardiorenal syndrome. Creatinine 3.58 as of yesterday. Oliguric. Renal ultrasound showed atrophic kidneys. 2. Acute on chronic diastolic CHF with moderate tricuspid regurgitation. 3. Volume overload. 4. Metabolic acidosis secondary to acute kidney injury. 5. Hypervolemic hyponatremia. 6. Chronic kidney disease stage III a with baseline creatinine in the range of 1-1.5. 7. Anemia of chronic kidney disease. Iron deficiency noted. Plan: Add IV iron. Maintain midodrine. Follow-up morning cortisol level. Add oral sodium bicarbonate. Due to worsening renal function, oliguria, volume overload, dialysis was discussed at length with the patient, her son as well as a daughter who is the primary caregiver. At this time the family and the patient are refusing renal replacement therapy. Lasix 80 mg IV once today. If no improvement in her renal function and urine output, comfort measures will need to be discussed.
[2020-09-12] MEDS: SODIUM BICARBONATE TAB 650 MG TAB PO SCH ×2 (10:30→14:46)
[2020-09-12] MEDS ORDERED: SODIUM FERRIC GLUCONAT-SUCROSE 125 MG in SODIUM CHLORIDE 0.9% 100 ML IVPB SCH (10:45)
[2020-09-12 12:17] LABS: Glucose,Whole Blood 125 mg/dL (75-99)
[2020-09-12] MEDS: ASPIRIN 81 MG PO SCH (14:46)
[2020-09-12] MEDS: ALPRAZolam 0.5 MG TAB PO SCH (14:46)
[2020-09-12] MEDS: CLOPIDOGREL 75 MG TAB PO SCH (14:47)
[2020-09-12 17:05] LABS: Glucose,Whole Blood 116 mg/dL (75-99)
--- NOTE | 2020-09-12 19:46 | P.PN ---
Progress Note - Text Progress Note Date: 09/12/20 Chief Complaint: Decreased urine output History of presenting complaint: This is a pleasant 85-year-old patient who follows with Dr. Arturo Zamarripa. Chronic stable medical conditions include congestive heart failure from diastolic dysfunction EF 50-55%, tricuspid regurgitation, atrial fibrillation, coronary artery disease with prior stent, intracranial bleed from anticoagulation, diabetes, GERD, hard of hearing, hypertension and hyperlipidemia osteoarthritis chronic urinary stress incontinence chronic tremors chronic kidney disease stage III. Patient's had multiple UTIs in the past. baseline uses a walker. Lives and cared for by her daughter Vesta. June 2020: Patient had a TIA. MRI was unremarkable. Also had an acute [place]. Recently in the hospital from August 24 through August 30. Had a creatinine of 2.25 down to 1.3 before discharge. Patient has responded to Lasix and IV fluids. Patient now presents feeling weak and tired. Decreased oral intake. Decreased urine output. Has a Hilliard catheter. Placed in the ER. Some shortness of breath. Admitted with acute kidney injury. Patient started on IV Lasix drip. Did not make any urine. Hilliard catheter position was rechecked. Lasix discontinued. Started on IV fluids. Patient being followed by urology and nephrology. Patient was offered hemodialysis by nephrology. Patient and family have deciding against the same Today: Not making any urine. Edema. Some trouble swallowing. Able to answer questions. 2 daughters and a son present in the room. Patient earlier seen by speech therapy. Review of systems: Was done for constitutional, cardiovascular, GI, pulmonary. relevant finding as above Active Medications Acetaminophen (Acetaminophen Tab 325 Mg Tab) 650 mg PO Q6HR PRN PRN Reason: Mild Pain or Fever > 100.5 Al Hydroxide/Mg Hydroxide (Mag Hydrox/Al Hydrox/Simeth 30 Ml Cup) 15 ml PO Q6HR PRN PRN Reason: Indigestion Albuterol Sulfate (Albuterol Nebulized 2.5 Mg/3 Ml) 2.5 mg INHALATION RT-TID [facility] Last Admin: 09/12/20 12:46 Dose: 2.5 mg Documented by: Alprazolam (Alprazolam 0.5 Mg Tab) 0.5 mg PO BID@1800,2300 [facility] Last Admin: 09/12/20 14:46 Dose: Not Given Documented by: Aspirin (Aspirin 81 Mg) 81 mg PO DAILY@1800 [facility] Last Admin: 09/12/20 14:46 Dose: Not Given Documented by: Clopidogrel Bisulfate (Clopidogrel 75 Mg Tab) 75 mg PO DAILY@1800 [facility] Last Admin: 09/12/20 14:47 Dose: Not Given Documented by: Ceftriaxone Sodium 1 gm/ (Sodium Chloride) 50 mls @ 100 mls/hr IVPB Q24HR [facility] Last Admin: 09/12/20 09:13 Dose: 100 mls/hr Documented by: Lactulose (Lactulose 20 Gm/30 Ml Cup) 20 gm PO DAILY PRN PRN Reason: Constipation Magnesium Hydroxide (Magnesium Hydroxide 2,400 Mg/10 Ml Cup) 2,400 mg PO DAILY PRN PRN Reason: Constipation Melatonin (Melatonin 3 Mg Tablet) 3 mg PO HS PRN PRN Reason: Insomnia Metoprolol Tartrate (Metoprolol Tartrate 25 Mg Tab) 25 mg PO BID [facility] Last Admin: 09/12/20 09:12 Dose: Not Given Documented by: Midodrine (Midodrine 5 Mg Tab) 10 mg PO AC-TID [facility] Last Admin: 09/12/20 14:46 Dose: Not Given Documented by: Naloxone HCl (Naloxone 0.4 Mg/Ml 1 Ml Vial) 0.2 mg IV Q2M PRN PRN Reason: Opioid Reversal Ondansetron HCl (Ondansetron 4 Mg/2 Ml Vial) 4 mg IVP Q8HR PRN PRN Reason: Nausea And Vomiting Pantoprazole Sodium (Pantoprazole 40 Mg Tablet) 40 mg PO AC-BRKFST [facility] Last Admin: 09/12/20 06:34 Dose: Not Given Documented by: Sertraline HCl (Sertraline 100 Mg Tab) 200 mg PO DAILY@1000 [facility] Last Admin: 09/12/20 09:12 Dose: Not Given Documented by: Sodium Bicarbonate (Sodium Bicarbonate Tab 650 Mg Tab) 650 mg PO TID [facility] Last Admin: 09/12/20 14:46 Dose: Not Given Documented by: Past medical history to include: congestive heart failure from diastolic dysfunction EF 50-55%, ordered tricuspid regurgitation, atrial fibrillation, coronary artery disease with prior stent, intracranial bleed from anticoagulation, diabetes, GERD, hard of hearing, hypertension and hyperlipidemia osteoarthritis chronic urinary stress incontinence chronic tremors chronic kidney disease stage III. 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 caregiver. Walker. Patient smoked for 20 years stopped in 1965. No alcohol. Physical examination: VITAL SIGNS: 98.2, 67, 18, 110/51, 96% on 2 L GENERAL: reclining in bed, tired, awake EYES: Pupils equal. Conjunctiva normal. HEENT: External appearance of nose and ears normal, oral cavity dry mucous membranes NECK: JVD unable to be assessed; masses not palpable. HEART: First and second heart sounds are normal; edema present. LUNGS: Respiratory rate normal; decreased breath sounds ABDOMEN: Soft, nontender, liver spleen not palpable, no masses palpable. Hilliard catheter PSYCH: Awake, answering questions MUSCULAR skeletal: Evidence of OA INVESTIGATIONS, reviewed in the clinical context: September 12: Potassium 3.7 creatinine 3.78 September 11: Potassium 3.6 BUN 61 and creatinine 3.58 AST 398 ALT 129 September 10: Potassium 3.8 creatinine 3.24 Ultrasound kidney bladder: October 05 feeding. No hydronephrosis. Questionable bladder masses.-Unable to be defined if this is from anterior to the bladder. September 09: Potassium 3.6 BUN 52 creatinine 2.61 AST 619 ALT 177 UA positive for leukoesterase, WBC WBC 7.7 hemoglobin 8.9 platelets 151 potassium 3.5 bun 48 creatinine 2.08 AST 568 ALT 166. By 1220 Troponin I 0.081, 0.085 Coronavirus [PCF]: Not detected EKG tracing personally reviewed by me-atrial fibrillation rate of 61 Chest x-ray film personally reviewed by me-cardiomegaly, possible venous prominence Previous labs: Bun 36 creatinine 1.4 on 08/30/2020 Assessment and plan: -Acute kidney injury, oliguric, possibly prerenal/ATN -worsening Lasix drip discontinued. Lactated Ringer's started at 75 mL an hour.- Discontinued. Hilliard catheter placement double checked. Patient was offered hemodialysis. Declined -Acute constipation Lactulose with possible follow-up with enema -Possible Chronic congestive heart failure from diastolic dysfunction EF 55-55%,- Lasix drip-discontinued. -Moderate tricuspid regurgitation, follow clinically -Persistent atrial fibrillation,-rate controlled Telemetry. -Coronary artery disease with prior history of stent, Lopressor, Lipitor -History of intracranial bleed from anticoagulation -GERD, use Pepcid -Hard of hearing -Essential hypertension, continue with hydralazine, Lopressor-. Blood pressure in the low side. DC hydralazine -Hyperlipidemia, continue Lipitor -Primary osteoarthritis, use Tylenol when necessary -Chronic urinary stress incontinence, Use depends -Chronic kidney disease stage III likely from nephrosclerosis, follow renal function -Sigmoid diverticulosis-asymptomatic - chronic medical debility- PT OT -Metabolic acidosis fromRenal failure Sodium bicarbonate -Likely ischemic hepatitis-slow to respond DC Lipitor for now -Acute UTI with cystitis IV ceftriaxone -DO NOT RESUSCITATE Advanced care planning: I held a meeting with the patient his 2 daughters and son at the bedside. Patient's nurse was also present. Patient has decided after talking to his family about not going forward with hemodialysis. Hospice was offered and they do wish to take the patient home with hospice. The only have a hospice bed. Symptom control regarding nausea pain etc. was discussed. Medications to keep the patient comfortable only be prescribed. Comfort feeding will be done understanding that patient may be choking on food. Several questions answered. global marketing manager is being consulted for hospice and patient be discharged home once arrangements are made. Total time spent for this about 35 minutes
[2020-09-12 20:25] LABS: Glucose,Whole Blood 102 mg/dL (75-99)
[2020-09-13] MEDS: SODIUM BICARBONATE TAB 650 MG TAB PO SCH ×2 (00:01→09:12)
[2020-09-13 00:12] VITALS: TEMP 97.8
[2020-09-13] MEDS: ALPRAZolam 0.5 MG TAB PO SCH (01:50)
[2020-09-13] MEDS: METOPROLOL TARTRATE 25 MG TAB PO SCH ×2 (01:50→09:12)
[2020-09-13 06:36] LABS: Glucose,Whole Blood 89 mg/dL (75-99)
[2020-09-13] MEDS: ALBUTEROL NEBULIZED 2.5 MG/3 ML INHALATION SCH ×2 (08:33→11:41)
[2020-09-13 09:09] VITALS: BP 131/59; RESP 18
[2020-09-13] MEDS: PANTOPRAZOLE 40 MG TABLET PO SCH (09:09)
[2020-09-13] MEDS: MIDODRINE 5 MG TAB PO SCH (09:10)
[2020-09-13] MEDS: SERTRALINE 100 MG TAB PO SCH (09:12)
--- NOTE | 2020-09-13 10:05 | P.PN ---
Subjective Patient is seen in follow-up for acute kidney injury. Renal function continues to worsen. Oliguric. Blood pressure stable. On midodrine. Oral intake is poor. Vital signs are stable. Blood pressure in the lower side. General: The patient appeared well nourished and normally developed. HEENT: Head exam is unremarkable. On nasal cannula. LUNGS: Breath sounds decreased. HEART: Rate and Rhythm are regular. ABDOMEN: Soft, no distention. EXTREMITITES: 2+ edema. Objective - Vital Signs Vital signs: Vital Signs Temp 97.8 F 09/13/20 09:04 Pulse 75 09/13/20 09:04 Resp 18 09/13/20 09:04 BP 131/59 09/13/20 09:04 Pulse Ox 95 09/13/20 09:04 Intake & Output 09/12/20 09/13/20 09/13/20 18:59 06:59 18:59 Intake Total 150 Output Total 25 100 Balance 125 -100 Intake: Intake, IV Titration 150 Amount Sodium Ferric Gluconat- 100 Sucrose 125 mg In Sodium Chloride 0.9% 100 ml @ 100 mls/hr IVPB DAILY [facility] Rx#:[id number] cefTRIAXone 1 gm In 50 Sodium Chloride 0.9% 50 ml @ 100 mls/hr IVPB Q24HR [facility] Rx#:[id number] Output: Urine 25 100 Uretheral (Hilliard) 25 50 Other: Voiding Method Indwelling Catheter Indwelling Catheter - Labs CBC & Chem 7: 09/08/20 06:48 09/12/20 08:05 Labs: Abnormal Lab Results - Last 24 Hours (Table) 09/12/20 09/12/20 09/12/20 Range/Units 08:05 11:55 16:47 Sodium 133 L (137-145) mmol/L Carbon Dioxide 19 L (22-30) mmol/L BUN 65 H (7-17) mg/dL Creatinine 3.78 H (0.52-1.04) mg/dL Glucose 111 H (74-99) mg/dL POC Glucose (mg/dL) 125 H 116 H (75-99) mg/dL 09/12/20 Range/Units 20:24 Sodium (137-145) mmol/L Carbon Dioxide (22-30) mmol/L BUN (7-17) mg/dL Creatinine (0.52-1.04) mg/dL Glucose (74-99) mg/dL POC Glucose (mg/dL) 102 H (75-99) mg/dL Assessment and Plan Plan: Assessment 1. Acute kidney injury secondary to ATN secondary to hypotension and component of cardiorenal syndrome. Creatinine 3.78 as of yesterday. Oliguric. Renal ultrasound showed atrophic kidneys. 2. Acute on chronic diastolic CHF with moderate tricuspid regurgitation. 3. Volume overload. 4. Metabolic acidosis secondary to acute kidney injury. On oral bicarbonate. 5. Hypervolemic hyponatremia. 6. Chronic kidney disease stage III a with baseline creatinine in the range of 1-1.5. 7. Anemia of chronic kidney disease. Iron deficiency noted. Receiving IV iron. Plan: Patient and her family have refused renal replacement therapy. Patient will be going home on hospice today.
[2020-09-13 10:32] LABS: Albumin 2.5 g/dL (3.5-5.0); Calcium 8.3 mg/dL (8.4-10.2); Magnesium 1.8 mg/dL (1.6-2.3); Phosphorus 4.4 mg/dL (2.5-4.5); Potassium 4.1 mmol/L (3.5-5.1); Total Bilirubin 0.8 mg/dL (0.2-1.3); Total Protein 5.7 g/dL (6.3-8.2)
[2020-09-13 12:00] VITALS: PULSE 68
--- NOTE | 2020-09-14 21:43 | P.DS ---
Providers Date of admission: 09/08/20 08:41 Expected date of discharge: 09/13/20 Attending physician: Jeffrey [facility] Consults: 09/08/20 08:31 Consult Physician Routine Consulting Provider: Cornelia Rodriguez Consult Reason/Comments: CLIFF Do you want consulting provider notified?: Yes 09/10/20 18:06 Consult Physician Routine Consulting Provider: Rayo Osborne Consult Reason/Comments: Bladder masses Do you want consulting provider notified?: Yes 09/11/20 15:01 Consult Physician Urgent Consulting Provider: Negro Fatima Consult Reason/Comments: hemodialysis cath Do you want consulting provider notified?: Yes Primary care physician: [facility] Course: Chief Complaint: Decreased urine output History of presenting complaint: This is a pleasant 85-year-old patient who follows with Dr. Arturo Zamarripa. Chronic stable medical conditions include congestive heart failure from diastolic dysfunction EF 50-55%, tricuspid regurgitation, atrial fibrillation, coronary artery disease with prior stent, intracranial bleed from anticoagulation, diabetes, GERD, hard of hearing, hypertension and hyperlipidemia osteoarthritis chronic urinary stress incontinence chronic tremors chronic kidney disease stage III. Patient's had multiple UTIs in the past. baseline uses a walker. Lives and cared for by her daughter Vesta. June 2020: Patient had a TIA. MRI was unremarkable. Also had an acute PA. Recently in the hospital from August 24 through August 30. Had a creatinine of 2.25 down to 1.3 before discharge. Patient has responded to Lasix and IV fluids. Patient now presents feeling weak and tired. Decreased oral intake. Decreased urine output. Has a Hilliard catheter. Placed in the ER. Some shortness of breath. Admitted with acute kidney injury. Patient started on IV Lasix drip. Did not make any urine. Hilliard catheter position was rechecked. Lasix discontinued. Started on IV fluids. Patient being followed by urology and nephrology. Patient was offered hemodialysis by nephrology. Patient and family have deciding against the same. Had a family meeting with the patient and her children. Patient has decided against hemodialysis. Patient be going home with hospice. Today: Stable. No new issues. Being discharged home with hospice. Discussion and discharge planning more than 35 minutes Past medical history to include: congestive heart failure from diastolic dysfunction EF 50-55%, ordered tricuspid regurgitation, atrial fibrillation, coronary artery disease with prior stent, intracranial bleed from anticoagulation, diabetes, GERD, hard of hearing, hypertension and hyperlipidemia osteoarthritis chronic urinary stress incontinence chronic tremors chronic kidney disease stage III. 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 caregiver. Walker. Patient smoked for 20 years stopped in 1965. No alcohol. Physical examination: VITAL SIGNS: 97.8, 75, 18, 131/59, 95% on 2 L GENERAL: reclining in bed, tired, awake EYES: Pupils equal. Conjunctiva normal. HEENT: External appearance of nose and ears normal, oral cavity dry mucous membranes NECK: JVD unable to be assessed; masses not palpable. HEART: First and second heart sounds are normal; edema present. LUNGS: Respiratory rate normal; decreased breath sounds ABDOMEN: Soft, nontender, liver spleen not palpable, no masses palpable. Hilliard catheter PSYCH: Awake, answering questions MUSCULAR skeletal: Evidence of OA INVESTIGATIONS, reviewed in the clinical context: September 12: Potassium 3.7 creatinine 3.78 September 11: Potassium 3.6 BUN 61 and creatinine 3.58 AST 398 ALT 129 September 10: Potassium 3.8 creatinine 3.24 Ultrasound kidney bladder: October 05 feeding. No hydronephrosis. Questionable bladder masses.-Unable to be defined if this is from anterior to the bladder. September 09: Potassium 3.6 BUN 52 creatinine 2.61 AST 619 ALT 177 UA positive for leukoesterase, WBC WBC 7.7 hemoglobin 8.9 platelets 151 potassium 3.5 bun 48 creatinine 2.08 AST 568 ALT 166. By 1220 Troponin I 0.081, 0.085 Coronavirus [PCF]: Not detected EKG tracing personally reviewed by me-atrial fibrillation rate of 61 Chest x-ray film personally reviewed by me-cardiomegaly, possible venous prominence Previous labs: Bun 36 creatinine 1.4 on 08/30/2020 Assessment and plan: -Acute kidney injury, oliguric, possibly prerenal/ATN -worsening Lasix drip discontinued. Lactated Ringer's started at 75 mL an hour.- Discontinued. Hilliard catheter placement double checked. Patient was offered hemodialysis. Declined -Acute constipation Lactulose with possible follow-up with enema -Possible Chronic congestive heart failure from diastolic dysfunction EF 55-55%,- Lasix drip-discontinued. -Moderate tricuspid regurgitation, follow clinically -Persistent atrial fibrillation,-rate controlled Telemetry. -Coronary artery disease with prior history of stent, Lopressor, Lipitor -History of intracranial bleed from anticoagulation -GERD, use Pepcid -Hard of hearing -Essential hypertension, continue with hydralazine, Lopressor-. Blood pressure in the low side. DC hydralazine -Hyperlipidemia, continue Lipitor -Primary osteoarthritis, use Tylenol when necessary -Chronic urinary stress incontinence, Use depends -Chronic kidney disease stage III likely from nephrosclerosis, follow renal function -Sigmoid diverticulosis-asymptomatic - chronic medical debility- PT OT -Metabolic acidosis fromRenal failure Sodium bicarbonate -Likely ischemic hepatitis-slow to respond DC Lipitor for now -Acute UTI with cystitis IV ceftriaxone -DO NOT RESUSCITATE Disposition: Home with hospice with family Plan - Discharge Summary New Discharge Prescriptions: New Midodrine [ProAmatine] 10 mg PO AC-TID #30 tab Metoprolol Tartrate [Lopressor] 25 mg PO BID #60 tab Melatonin 3 mg PO HS PRN tablet PRN Reason: Insomnia Continue ALPRAZolam [Xanax] 0.5 mg PO BID@1800,2300 Clopidogrel [Plavix] 75 mg PO DAILY@1800 Pantoprazole [Protonix] 40 mg PO DAILY #30 tablet. Acetaminophen Tab [Tylenol] 650 mg PO Q6HR PRN tab PRN Reason: Mild Pain Or Fever > 100.5 Albuterol Inhaler [Ventolin Hfa Inhaler] 2 puff INHALATION RT-TID #1 inh Discontinued Sertraline [Zoloft] 200 mg PO DAILY@1000 Atorvastatin [Lipitor] 20 mg PO HS@2300 Ezetimibe [Zetia] 10 mg PO DAILY@1800 hydrALAZINE HCL [Apresoline] 50 mg PO TID@1000,1800,2300 NIFEdipine [NIFEdipine ER] 30 mg PO DAILY@1800 Docusate [Colace] 100 mg PO BID PRN #10 cap PRN Reason: Constipation Metoprolol Tartrate [Lopressor] 100 mg PO BID@1000,1800 Furosemide [Lasix] 20 mg PO DAILY@1000 Losartan Potassium 100 mg PO DAILY@1000 Aspirin 81 mg PO DAILY@1800 Discharge Medication List ALPRAZolam [Xanax] 0.5 mg PO BID@1800,2300 06/10/20 [History] Clopidogrel [Plavix] 75 mg PO DAILY@1800 06/26/20 [History] Acetaminophen Tab [Tylenol] 650 mg PO Q6HR PRN tab 07/14/20 [Rx] Albuterol Inhaler [Ventolin Hfa Inhaler] 2 puff INHALATION RT-TID #1 inh 07/14/20 [Rx] Pantoprazole [Protonix] 40 mg PO DAILY #30 tablet. 07/14/20 [Rx] Melatonin 3 mg PO HS PRN tablet 09/13/20 [Rx] Metoprolol Tartrate [Lopressor] 25 mg PO BID #60 tab 09/13/20 [Rx] Midodrine [ProAmatine] 10 mg PO AC-TID #30 tab 09/13/20 [Rx] Follow up Appointment(s)/Referral(s): Arturo Zamarripa MD [REFERRING] - 1 Week Discharge Disposition: HOME WITH HOSPICE
== END 2020-09-13 12:25 | disposition hospice, home (50) | DRG 291 ==
LOC: EC 06:27 → 3SCARD 08:41
PROVIDERS: ADMIT Hospitalist; ATTEND Hospitalist
DX: I13.0 Hypertensive heart and chronic kidney disease with heart failure and stage 1 through stage 4 chronic kidney disease, or unspecified chronic kidney disease (principal); I50.33 Acute on chronic diastolic (congestive) heart failure; N17.0 Acute kidney failure with tubular necrosis; E87.1 Hypo-osmolality and hyponatremia; E87.2 Acidosis; I48.19 Other persistent atrial fibrillation; Z20.822 Contact with and (suspected) exposure to COVID-19; D63.1 Anemia in chronic kidney disease; E11.22 Type 2 diabetes mellitus with diabetic chronic kidney disease; N30.90 Cystitis, unspecified without hematuria; D50.9 Iron deficiency anemia, unspecified; E78.5 Hyperlipidemia, unspecified; F32.9 Major depressive disorder, single episode, unspecified; F41.9 Anxiety disorder, unspecified; H91.90 Unspecified hearing loss, unspecified ear; I07.1 Rheumatic tricuspid insufficiency; I25.10 Atherosclerotic heart disease of native coronary artery without angina pectoris; I25.2 Old myocardial infarction; K21.9 Gastro-esophageal reflux disease without esophagitis; K57.30 Diverticulosis of large intestine without perforation or abscess without bleeding; K59.00 Constipation, unspecified; K75.89 Other specified inflammatory liver diseases; M19.91 Primary osteoarthritis, unspecified site; M48.00 Spinal stenosis, site unspecified; N18.30 Chronic kidney disease, stage 3 unspecified; N27.1 Small kidney, bilateral; N28.1 Cyst of kidney, acquired; L30.9 Dermatitis, unspecified; R25.1 Tremor, unspecified; Z66 Do not resuscitate; N39.3 Stress incontinence (female) (male); E87.70 Fluid overload, unspecified; R93.89 Abnormal findings on diagnostic imaging of other specified body structures; R34 Anuria and oliguria; R13.10 Dysphagia, unspecified; Z74.01 Bed confinement status; Z79.02 Long term (current) use of antithrombotics/antiplatelets; Z79.82 Long term (current) use of aspirin; Z79.899 Other long term (current) drug therapy; Z86.16 Personal history of COVID-19; Z87.01 Personal history of pneumonia (recurrent); Z86.73 Personal history of transient ischemic attack (TIA), and cerebral infarction without residual deficits; Z87.891 Personal history of nicotine dependence; Z87.440 Personal history of urinary (tract) infections; Z95.5 Presence of coronary angioplasty implant and graft; Z90.49 Acquired absence of other specified parts of digestive tract; Z88.1 Allergy status to other antibiotic agents; Z88.0 Allergy status to penicillin; Z88.2 Allergy status to sulfonamides
CPT/HCPCS: 36415; 51798; 71046; 74018; 76770; 80048; 80053; 80074; 81001; 82533; 82553; 82728; 83540; 83550; 83605; 83735; 83880; 84100; 84484; 84550; 85025; 85610; 85730; 86335; 87635; 93005; 94640; 94760; 99285